=== PATIENT | female | born 1975 | race American Indian/Alaskan Native ===

== ENCOUNTER 2016-04-30 11:50 | Inpatient (IN) | payer SELFPAY ==
[2016-04-30 12:20] LABS: Basophils % (Auto) 0.9 % (0.0-1.8); Eosinophils % (Auto) 2.4 % (0.0-4.3); Hematocrit 42.4 % (30.3-42.9); Hemoglobin 13.6 gm/dl (10.1-14.3); Mean Corpuscular HGB Conc 32 % (30-34); Mean Corpuscular Hemoglobin 26 pg (28-32); Mean Corpuscular Volume 82 fl (79-97); Platelet Count 375 K/mm3 (140-440); Red Blood Count 5.15 M/mm3 (3.65-5.03); Red Cell Distribution Width 14.9 % (13.2-15.2)
--- NOTE | 2016-04-30 12:24 | Emergency Department Report ---
Chief Complaint: High BP Stated Complaint: BLURRED VISION Time Seen by Provider: 04/30/16 12:21 - HPI History of Present Illness: patient is a 40 y/o female with history of HTN who presents due to blurred vision and high blurred vision. No chest pain - ROS Review of Systems: postive blurred vision and SOB, no chest pain, no headache, no extremity weakness, no facial droop - Exam Vital Signs: Vital Signs 04/30/16 11:53 Temperature 98.1 F Pulse Rate 108 H Respiratory 22 Rate Blood Pressure 257/164 O2 Sat by Pulse 99 Oximetry Physical Exam: NAD, PATIENT IS ANXIOUS MSE screening note: Focused history and physical exam performed. Due to findings the following was ordered:STROKE PROTOCOL INITIATED, PATIENT MOVED TO ROOM 22 ED Medical Decision Making - Lab Data Result diagrams: 04/30/16 12:11 ED Disposition for MSE Condition: Stable
[2016-04-30 12:34] LABS: Partial Thromboplastin Time 27.6 Sec. (24.2-36.6)
[2016-04-30 12:42] LABS: Anion Gap 19 mmol/L; BUN/Creatinine Ratio 8.33; Blood Urea Nitrogen 10 mg/dL (7-17); Calcium 8.8 mg/dL (8.4-10.2); Carbon Dioxide 28 mmol/L (22-30); Chloride 93.9 mmol/L (98-107); Glucose 114 mg/dL (65-100); Sodium 138 mmol/L (137-145)
[2016-04-30 12:44] LABS: Potassium 2.6 mmol/L (3.6-5.0)
[2016-04-30] MEDS ORDERED: BENADRYL IV ONE (12:50)
[2016-04-30] MEDS ORDERED: APRESOLINE IV ONE (12:50)
[2016-04-30] MEDS ORDERED: NITRO-BID 2% TP ONE (12:50)
[2016-04-30] MEDS ORDERED: ZOFRAN IV ONE (12:51)
[2016-04-30] MEDS ORDERED: K-DUR PO ONE (12:51)
--- NOTE | 2016-04-30 13:02 | Emergency Department Report ---
HPI - General Chief Complaint: High BP Time Seen by Provider: 04/30/16 12:35 - HPI HPI: Room 22 The patient is a 40-year-old female presenting with a chief complaint of hypertension. The patient states that she has a history of hypertension but has been off her medication for the past 6-7 months. The patient states she's had a headache intermittently for the past 2 weeks associated with nausea and vomiting. The patient states she has intermittent chest pain with restarted this morning. Patient describes chest pressure associated with shortness of breath. Patient currently gives her chest pressure score of 3/10. The patient states she "did a line of powdered cocaine last night"during a [employer]. Location: [see above] Duration: [see above] Quality: Pressure Severity:3/10 Modifying factors: [see above] Context: [see above] Mode of transportation: [not driving] ED Past Medical Hx - Past Medical History Previous Medical History?: Yes Hx Hypertension: Yes Hx Congestive Heart Failure: Yes Additional medical history: ANGINA. ANEMIA - Surgical History Past Surgical History?: No - Family History Family history: no significant - Social History Smoking Status: Current Every Day Smoker (one cigarette daily) Substance Use Type: Alcohol (occasional), Cocaine, Non Opiate Pain, Prescribed - Medications Home Medications: Home Medications Medication Instructions Recorded Confirmed Last Taken Type Hydrochlorothiazide [HCTZ] 25 mg PO QDAY #30 tablet 04/16/15 Unknown Rx ED Review of Systems ROS: Stated complaint: BLURRED VISION Other details as noted in HPI Comment: All other systems reviewed and negative Constitutional: denies: chills, fever Eyes: vision change. denies: eye pain, eye discharge ENT: denies: ear pain, throat pain Respiratory: shortness of breath Cardiovascular: chest pain Endocrine: no symptoms reported Gastrointestinal: nausea, vomiting. denies: abdominal pain, diarrhea Genitourinary: denies: urgency, dysuria, discharge Musculoskeletal: denies: back pain, joint swelling, arthralgia Skin: denies: rash, lesions Neurological: headache Psychiatric: denies: anxiety, depression Hematological/Lymphatic: denies: easy bleeding, easy bruising Physical Exam - Physical Exam Vital Signs: Vital Signs 04/30/16 04/30/16 11:53 12:48 Temperature 98.1 F Pulse Rate 108 H 107 H Respiratory 22 22 Rate Blood Pressure 257/164 Blood Pressure 260/169 [Left] O2 Sat by Pulse 99 99 Oximetry Physical Exam: GENERAL: The patient is well-developed well-nourished male lying on stretcher not appearing to be in acute distress. [] HEENT: Normocephalic. Atraumatic. Extraocular motions are intact. Patient has moist mucous membranes. NECK: Supple. Trachea midline CHEST/LUNGS: Clear to auscultation. There is no respiratory distress noted. HEART/CARDIOVASCULAR: Regular. There is tachycardia. There is no gallop rub or murmur. ABDOMEN: Abdomen is soft, nontender. Patient has normal bowel sounds. There is no abdominal distention. SKIN: There is no rash. There is no edema. There is no diaphoresis. NEURO: The patient is awake, alert, and oriented. The patient is cooperative. The patient has no focal neurologic deficits. The patient has normal speech. Cranial nerves II through XII grossly intact, no drift MUSCULOSKELETAL: There is no evidence of acute injury. ED Course Vital Signs 04/30/16 04/30/16 11:53 12:48 Temperature 98.1 F Pulse Rate 108 H 107 H Respiratory 22 22 Rate Blood Pressure 257/164 Blood Pressure 260/169 [Left] O2 Sat by Pulse 99 99 Oximetry ED Medical Decision Making - Lab Data Result diagrams: 04/30/16 12:11 04/30/16 12:11 Laboratory Tests 04/30/16 04/30/16 04/30/16 12:11 12:11 12:11 WBC 9.0 RBC 5.15 H Hgb 13.6 Hct 42.4 MCV 82 MCH 26 L MCHC 32 RDW 14.9 Plt Count 375 Lymph % (Auto) 29.2 [place] % (Auto) 8.0 H Eos % (Auto) 2.4 Baso % (Auto) 0.9 Lymph # 2.6 [place] # 0.7 Eos # 0.2 Baso # 0.1 Seg Neutrophils % 59.5 Seg Neutrophils # 5.3 PT 13.1 INR 1.00 APTT 27.6 Thrombin Time Sodium 138 Potassium 2.6 L* Chloride 93.9 L Carbon Dioxide 28 Anion Gap 19 BUN 10 Creatinine 1.2 Estimated GFR > 60 BUN/Creatinine Ratio 8.33 Glucose 114 H Calcium 8.8 Troponin T < 0.010 04/30/16 12:11 WBC RBC Hgb Hct MCV MCH MCHC RDW Plt Count Lymph % (Auto) [place] % (Auto) Eos % (Auto) Baso % (Auto) Lymph # [place] # Eos # Baso # Seg Neutrophils % Seg Neutrophils # PT INR APTT Thrombin Time 15.5 Sodium Potassium Chloride Carbon Dioxide Anion Gap BUN Creatinine Estimated GFR BUN/Creatinine Ratio Glucose Calcium Troponin T - EKG Data -: EKG Interpreted by Me EKG shows normal: sinus rhythm Rate: tachycardia - EKG Data When compared to previous EKG there are: previous EKG unavailable Interpretation: nonspecific ST-T wave kiki (ST depressions in leads 1, 2, V5, V6. T-wave inversions in leads 1, aVL, V4, V5 and V6) - Radiology Data Radiology results: image reviewed (chest x-ray) interpreted by me: Chest x-ray-no focal infiltrates, no pneumothorax - Differential Diagnosis hypertensive urgency, ACS, Critical care attestation.: If time is entered above; I have spent that time in minutes in the direct care of this critically ill patient, excluding procedure time. ED Disposition Clinical Impression: Cocaine abuse, Chest pain, Hypertensive urgency, T wave inversion in EKG Disposition: OP ADMITTED IP TO THIS HOSP Is pt being admited?: Yes Does the pt Need Aspirin: No Condition: Fair Instructions: Chest Pain (ED) Time of Disposition: 13:34 (hospitalist paged)
--- NOTE | 2016-04-30 13:16 | Admit Criteria Form ---
Admission Criteria Documentation: HYPERTENSION Clinical Indications for Admission to Inpatient Care ( Place "X" for any and all applicable criteria): Admission is indicated for ANY ONE of the following(1)(2)(3)(4): [ ]I. Hypertensive emergency, with evidence of acute and progressing target organ disease as indicated by ANY ONE of the following: [ ]a) Hypertensive encephalopathy (eg, confusion, altered mental status) [ ]b) Cerebral infarction [ ]c) Intracranial hemorrhage [ ]d) Myocardial ischemia or infarction [ ]e) Pulmonary edema [ ]f) Aortic dissection [ ]g) Seizure [ ]h) Acute renal insufficiency [ ]i) Papilledema [ ]j) Microangiopathic hemolytic anemia [ ]II. Adrenergic crisis (eg, severe hypertension due to pheochromocytoma crisis, cocaine or amphetamine intoxication, or clonidine withdrawal) [ X]III. Severe hypertension (SBP greater than 180 mmHg or DBP greater than 110 mmHg or greater than the 95th percentile for age, gender, and height in pediatric patients) that cannot be controlled (eg, to SBP less than 160 mmHg and DBP less than 100 mmHg in adults) by treatment with oral medication in emergency department or observation care Extended stay beyond goal length of stay may be needed for(11)(12)(13): [ ]a) Persistent hypertensive encephalopathy [ ]b) Continuation of pulmonary edema [ ]c) Recurring or persistent severe hypertension [ ]d) Target organ damage (eg, angina, stroke, aortic dissection) [ ]e) Associated renal insufficiency The original [employer] content created by [employer] has been revised. The portions of the content which have been revised are identified through the use of italic text or in bold, and [facility] has neither reviewed nor approved the modified material. All other unmodified content is copyright [facility]. Please see references footnoted in the original [facility] edition 2016 Admission Criteria Met: Yes
--- NOTE | 2016-04-30 13:24 | XRay Report ---
Portable chest: The aorta is tortuous. The heart is probably normal in size. There is no vascular congestion. Lungs are clear. There are no significant changes compared to her prior study on April 16, 2015. Impression: No acute findings.
[2016-04-30] MEDS ORDERED: ATIVAN IV ONE (13:38)
[2016-04-30] MEDS ORDERED: CATAPRES PO ONE (13:38)
--- NOTE | 2016-04-30 13:59 | History and Physical Report ---
History of Present Illness Date of examination: 04/30/16 Date of admission: 04/30/16 Chief complaint: headache,chest pain,blurred vision History of present illness: Patient is 40 yo with history of hypertension, CHF. She has been non-compliant and not taken her meds in 3 months because she has no insurance. She presents with 2 day history of headache , chest pain and blurry vision. Headache, 7/10, global, throbbing. Chest pain if 6/10, midsternal, dull, not worse on exertion. No shortness of breath, no diaphoresis. In ED, initial BP 257/164. She was given hydralazine IV and is being admitted for further management. Past History Past Medical History: heart failure, hypertension, other (obesity) Past Surgical History: cholecystectomy Social history: single, smoking (occasionally), alcohol abuse (occasionally), full code, other (cocaine occasionally, used yesterday) Family history: CAD, diabetes Medications and Allergies Allergies Allergy/AdvReac Type Severity Reaction Status Date / Time iron polysaccharide complex Allergy Swelling Verified 04/16/15 09:06 [From -[place]] Home Medications Medication Instructions Recorded Confirmed Last Taken Type Hydrochlorothiazide [HCTZ] 25 mg PO QDAY #30 tablet 04/16/15 Unknown Rx Review of Systems All systems: negative (No abd pain, no vomiting, no fever, no urinary symptoms. All other systems reviewed and are negative) Exam - Physical Exam Narrative exam: Gen appearance: Not in acute distress, obese HEENT: Normocephalic, atraumatic Neck : supple, no JVD Lungs: Clear to auscultation bilaterally, no crackles or wheezes. Heart : S1 and S2 regular, no murmurs rubs or gallop, Abdomen: soft nontender, nondistended, normal bowel sounds Extremities: No edema, no clubbing or cyanosis, Neuro :awake alert oriented 3, no focal signs Psych :appropriate mood - Constitutional Vitals: Temp Pulse Resp BP Pulse Ox 98.1 F 106 H 22 234/154 99 04/30/16 11:53 04/30/16 13:15 04/30/16 12:48 04/30/16 13:15 04/30/16 12:48 Results - Labs CBC & Chem 7: 04/30/16 12:11 04/30/16 12:11 Labs: Abnormal lab results 04/30/16 04/30/16 Range/Units 12:11 12:11 RBC 5.15 H (3.65-5.03) M/mm3 MCH 26 L (28-32) pg [place] % (Auto) 8.0 H (0.0-7.3) % Potassium 2.6 L* (3.6-5.0) mmol/L Chloride 93.9 L (98-107) mmol/L Glucose 114 H (65-100) mg/dL Assessment and Plan Hypertensive emergency. Initial blood pressure 257/164. She was given hydralazine IV. Blood pressure still elevated. Will add Clonidine 0.2 mg by mouth 1, Norvasc 5 mg by mouth daily. We'll admit to telemetry if blood pressure is improved, or may admit to ICU if systolic stays greater than 200. Chronic congestive CHF. details unclear. Chest X ray clear. Not put on B le because of cocaine. To follow as outpatient. Hypokalemia. Initial potassium 2.6. Replace orally. Medical noncompliance. I discussed with her the importance of being compliant with her medications Full CODE STATUS Cocaine abuse. Patient states she had a bachelorette republican last night and used some cocaine. DVT prophylaxis. Will start Heparin subcut if CT head neg for bleed and BP improved.
[2016-04-30] MEDS ORDERED: NORVASC PO SCH (14:00)
[2016-04-30] MEDS ORDERED: ZOFRAN IV PRN (14:09)
[2016-04-30] MEDS ORDERED: DULCOLAX PR PRN (14:09)
[2016-04-30] MEDS ORDERED: MILK OF MAGNESIA PO PRN (14:09)
[2016-04-30] MEDS ORDERED: APRESOLINE IV STA (14:51)
[2016-04-30] MEDS: NITRO-BID 2% TP SCH ×2 (16:47→21:01)
--- NOTE | 2016-04-30 16:48 | Cat Scan Report ---
CT head without contrast: There is generally unremarkable intracranial cerebral anatomy. There is no hemorrhage, mass effect, focal or generalized lesions. The visualized bones are unremarkable. There is minimal patchy mucoperiosteal thickening in the ethmoid sinuses bilaterally. There also appears to be some focal soft tissue thickening in the left nasal cavity possibly related to the inferior turbinate. These findings are all unchanged compared to the patient's prior study on October 08, 2014. Impression: Normal intracranial scan. Relatively minor stable nasal and ethmoid inflammatory changes.
[2016-04-30] MEDS: K-DUR PO SCH ×2 (18:35→20:59)
[2016-04-30] MEDS: HEPARIN SUB-Q SCH (20:59)
[2016-04-30] MEDS: TYLENOL PO PRN (21:21)
[2016-04-30] MEDS: KCL 10MEQ/100ML 100 ML IV SCH (22:13)
[2016-04-30] MEDS ORDERED: TESSALON PERLES PO PRN (23:10)
[2016-05-01] MEDS: KCL 10MEQ/100ML 100 ML IV SCH (00:25)
[2016-05-01] MEDS: FLONASE NS PRN (01:09)
[2016-05-01 01:23] LABS: Urine Drugs of Abuse Note Disclamer
[2016-05-01] MEDS: APRESOLINE IV PRN ×2 (06:42→15:40)
[2016-05-01] MEDS: TYLENOL PO PRN (06:43)
[2016-05-01] MEDS: HEPARIN SUB-Q SCH ×3 (06:44→23:36)
[2016-05-01] MEDS ORDERED: SODIUM CHLORIDE FLUSH SYRINGE 10 ML IV PRN (06:45)
[2016-05-01] MEDS: NITRO-BID 2% TP SCH ×4 (06:45→18:13)
[2016-05-01 07:24] LABS: Creatine Kinase MB 2.5 ng/mL (0.0-4.0)
[2016-05-01 07:26] LABS: BUN/Creatinine Ratio 7.69; Calcium 8.5 mg/dL (8.4-10.2); Chloride 98.4 mmol/L (98-107); Potassium 3.1 mmol/L (3.6-5.0)
[2016-05-01 07:26] LABS: Creatine Kinase 155 units/L (30-135)
[2016-05-01 07:36] LABS: Basophils % (Auto) 0.5 % (0.0-1.8); Eosinophils % (Auto) 1.8 % (0.0-4.3); Hematocrit 37.4 % (30.3-42.9); Mean Corpuscular HGB Conc 32 % (30-34); Mean Corpuscular Hemoglobin 27 pg (28-32); Mean Corpuscular Volume 83 fl (79-97); Platelet Count 311 K/mm3 (140-440)
[2016-05-01] MEDS: ECOTRIN PO SCH ×2 (08:10→12:36)
[2016-05-01] MEDS: K-DUR PO SCH ×3 (08:10→23:42)
[2016-05-01] MEDS: CATAPRES PO SCH ×2 (08:10→20:58)
[2016-05-01] MEDS ORDERED: LEXISCAN IV ONE ×2 (09:08→09:17)
[2016-05-01] MEDS ORDERED: MAGNESIUM SULFATE 2GM/50ML 50 ML IV ONE (10:00)
[2016-05-01] MEDS: NORVASC PO SCH (12:36)
--- NOTE | 2016-05-01 12:43 | Nuclear Perfusion Study ---
Nuclear Nuclear Cardiology Conclusion: regadenoson myocardial perfusion with Tc-99m sestamibi imaging. Stress testing induced no symptoms and a non-diagnostic ECG response. Normal LV size. Global left ventricular systolic function was normal, with an EF of 56%. small,mild reversible anteroseptal defect. These findings are consistent with single-vessel disease. Imaging Protocol: This was a gated SPECT myocardial perfusion imaging study. A one day rest-stress imaging protocol was followed using Tc-99m sestamibi (Cardiolite) injected intravenously. Perfusion Interpretation: TID Ratio 1.11. There was a small, reversible defect in the apical septal segment(s). The extent of this perfusion defect was mild. Wall Motion Interpretation: Gated imaging under post-stress conditions demonstrated normal wall motion. The patient's calculated post stress LVEF was 56%. Study Limitations: Limitations and artifact were due to breast tissue.
--- NOTE | 2016-05-01 12:46 | Consultation ---
History of Present Illness Consult date: 05/01/16 Requesting physician: IMANI SIMPSON Consult reason: chest pain History of present illness: The patient is a 40 year old female with a history of hypertension who presented with complaints of intermittent chest pain ongoing for the past several months. She states the pain has been worse over the past several days. She describes the pain as pressure and tightness and reports that the episodes usually last for several minutes and resolve spontaneously. No exacerbating or relieving factors. She also reports intermittent shortness of breath, dyspnea on exertion, nausea and vomiting. BP on presentation was 257/164. Troponin negative x 3. Stress test today revealed mild anterosteptal ischemia. She states that she has been out of her blood pressure medication for several months and admits to snorting one line of cocaine the night before last. Past History Past Medical History: heart failure, hypertension, other (obesity) Past Surgical History: cholecystectomy Social history: single, smoking (occasionally), alcohol abuse (occasionally), full code, other (cocaine occasionally, used yesterday) Family history: CAD, diabetes Medications and Allergies Allergies Allergy/AdvReac Type Severity Reaction Status Date / Time iron polysaccharide complex Allergy Swelling Verified 04/16/15 09:06 [From [facility]] Home Medications Medication Instructions Recorded Confirmed Last Taken Type Hydrochlorothiazide [HCTZ] 25 mg PO QDAY #30 tablet 04/16/15 04/30/16 Unknown Rx Active Meds: Active Medications Acetaminophen (Tylenol) 650 mg PO Q4H PRN PRN Reason: Pain MILD(1-3)/Fever >100.5/THORNE Last Admin: 05/01/16 06:43 Dose: 650 mg Acetaminophen/Hydrocodone Bitart ([place] 5/325) 1 each PO Q6H PRN PRN Reason: Pain, Moderate (4-6) Amlodipine Besylate (Norvasc) 10 mg PO QDAY [facility] Last Admin: 05/01/16 12:36 Dose: 10 mg Aspirin (Ecotrin) 325 mg PO QDAY [facility] Last Admin: 05/01/16 12:36 Dose: 325 mg Benzonatate (Tessalon Perles) 100 mg PO Q6H PRN PRN Reason: Cough Last Admin: 05/01/16 12:36 Dose: 100 mg Bisacodyl (Dulcolax) 10 mg [place] QDAY PRN PRN Reason: Constipation unrelieved by MOM Clonidine HCl (Catapres) 0.2 mg PO Q12H [facility] Last Admin: 05/01/16 08:10 Dose: 0.2 mg Fluticasone Propionate (Flonase) 100 mcg NS BID PRN PRN Reason: Congestion Last Admin: 05/01/16 01:09 Dose: 100 mcg Heparin Sodium (Porcine) (Heparin) 5,000 unit SUB-Q Q8HR [facility] Last Admin: 05/01/16 06:44 Dose: Not Given Hydralazine HCl (Apresoline) 20 mg IV Q4H PRN PRN Reason: For SBP>170 or DBP>110 Last Admin: 05/01/16 12:37 Dose: 20 mg Magnesium Hydroxide (Milk Of Magnesia) 30 ml PO Q4H PRN PRN Reason: Constipation Nitroglycerin (Nitro-Bid 2%) 1 inch TP QIDNTG [facility] PRN Reason: Protocol Last Admin: 05/01/16 12:39 Dose: Not Given Ondansetron HCl (Zofran) 4 mg IV Q8H PRN PRN Reason: N/V unrelieved by Reglan Potassium Chloride (K-Dur) 40 meq PO Q4H [facility] Stop: 05/01/16 16:31 Last Admin: 05/01/16 12:35 Dose: 40 meq Sodium Chloride (Sodium Chloride Flush Syringe 10 Ml) 10 ml IV PRN PRN PRN Reason: LINE FLUSH Review of Systems Constitutional: no fever, no chills Ears, nose, mouth and throat: no nasal congestion, no nasal discharge, no sinus pressure Cardiovascular: chest pain, shortness of breath, dyspnea on exertion Respiratory: shortness of breath, dyspnea on exertion, no cough, no congestion, no wheezing Gastrointestinal: nausea, vomiting, no abdominal pain, no diarrhea, no constipation Genitourinary Female: no dysuria, no urgency Musculoskeletal: no neck stiffness, no neck pain, no myalgias Integumentary: no rash, no pruritis Neurological: headaches, no parathesias, no numbness, no tingling Endocrine: no cold intolerance, no heat intolerance Hematologic/Lymphatic: no easy bruising, no easy bleeding Allergic/Immunologic: no urticaria, no wheezing Physical Examination Vital Signs Temp Pulse Resp BP Pulse Ox 98.1 F 108 H 22 257/164 99 04/30/16 11:53 04/30/16 11:53 04/30/16 11:53 04/30/16 11:53 04/30/16 11:53 General appearance: no acute distress, obese HEENT: Positive: Normocephaly, Mucus Membranes Moist Neck: Positive: neck supple, trachea midline Cardiac: Positive: Reg Rate and Rhythm, S1/S2 Lungs: Positive: clear to auscultation Neuro: Positive: Grossly Intact Abdomen: Positive: Soft, Active Bowel Sounds. Negative: Tender Skin: Positive: Clear. Negative: Rash Extremities: Present: normal. Absent: edema Results 05/01/16 06:33 05/01/16 06:33 Cardiac Enzymes 05/01/16 Range/Units 06:48 CK-MB (CK-2) 2.5 (0.0-4.0) ng/mL CBC 05/01/16 Range/Units 06:33 WBC 10.0 (4.5-11.0) K/mm3 RBC 4.50 (3.65-5.03) M/mm3 Hgb 12.0 (10.1-14.3) gm/dl Hct 37.4 (30.3-42.9) % Plt Count 311 (140-440) K/mm3 Lymph # 1.6 (1.2-5.4) K/mm3 [place] # 0.9 H (0.0-0.8) K/mm3 Eos # 0.2 (0.0-0.4) K/mm3 Baso # 0.1 (0.0-0.1) K/mm3 Comprehensive Metabolic Panel 04/30/16 05/01/16 Range/Units 18:58 06:33 Sodium 137 (137-145) mmol/L Potassium 2.8 L* 3.1 L (3.6-5.0) mmol/L Chloride 98.4 (98-107) mmol/L Carbon Dioxide 24 (22-30) mmol/L BUN 10 (7-17) mg/dL Creatinine 1.3 H (0.7-1.2) mg/dL Glucose 110 H (65-100) mg/dL Calcium 8.5 (8.4-10.2) mg/dL - Imaging and Cardiology Echo: pending EKG: image reviewed EKG interpretations - Telemetry EKG Rhythm: Sinus Rhythm - EKG Sinus rhythms and dysrhythmias: sinus rhythm Chamber hypertrophy or enlargement: left atrial enlargement, left ventricular hypertro Assessment and Plan Atypical chest pain possibly due to markedly elevated BP troponin negative x 3 no acute EKG changes await echo findings Abnormal stress test-->mild anteroseptal ischemia LHC in am for definitive diagnosis Accelerated hypertension BP improved continue norvasc/clonidine Hypokalemia Tobacco abuse Cocaine abuse Will proceed with left heart cath in am for definitive diagnosis. Risks, benefits and alternatives were discussed with the patient and she agrees to proceed. The patient has been seen in conjunction with Dr. Edwards who agrees with the assessment and plan of care. Thank you Dr. Simpson for allowing us to participate in the care of this patient.
[2016-05-01] MEDS ORDERED: NACL 0.9% 500 ML 500 ML IV SCH (13:00)
--- NOTE | 2016-05-01 13:00 | Progress Note ---
Assessment and Plan Assessment and plan: Hypertensive emergency. Initial blood pressure 257/164. She was given hydralazine IV, Clonidine 0.2 mg by mouth 1. Now on Norvasc 10 mg by mouth daily and Clonidine. BP improving Chest pain with abnormal stress test. For cardiac cath tomorrow. Discussed with Dr. Edwards, Cardiology. Chronic congestive CHF. details unclear. Chest X ray clear. Not put on B le because of cocaine. Echo done, report pending. Hypokalemia. Initial potassium 2.6, now 3.1. Continue to replace orally. Hypomagnesemia. replace iv Medical noncompliance. I discussed with her the importance of being compliant with her medications Full CODE STATUS Cocaine abuse. Patient states she had a bachelorette libertarian 2 nights ago and used some cocaine. DVT prophylaxis with Heparin subcut. History Interval history: less cheat pain, less headache, abnormal stress test Hospitalist Physical - Physical exam Narrative exam: Gen appearance: Not in acute distress, obese HEENT: Normocephalic, atraumatic Neck : supple, no JVD Lungs: Clear to auscultation bilaterally, no crackles or wheezes. Heart : S1 and S2 regular, no murmurs rubs or gallop, Abdomen: soft nontender, nondistended, normal bowel sounds Extremities: No edema, no clubbing or cyanosis, Neuro :awake alert oriented 3, no focal signs Psych :appropriate mood - Constitutional Vitals: Temp Pulse Resp BP Pulse Ox 97.8 F 94 H 20 154/110 97 05/01/16 12:16 05/01/16 12:16 05/01/16 12:16 05/01/16 12:16 05/01/16 12:16 Results - Labs CBC & Chem 7: 05/01/16 06:33 05/01/16 06:33 Labs: Laboratory Last Values WBC 10.0 K/mm3 (4.5-11.0) 05/01/16 06:33 RBC 4.50 M/mm3 (3.65-5.03) 05/01/16 06:33 Hgb 12.0 gm/dl (10.1-14.3) 05/01/16 06:33 Hct 37.4 % (30.3-42.9) 05/01/16 06:33 MCV 83 fl (79-97) 05/01/16 06:33 MCH 27 pg (28-32) L 05/01/16 06:33 MCHC 32 % (30-34) 05/01/16 06:33 RDW 15.0 % (13.2-15.2) 05/01/16 06:33 Plt Count 311 K/mm3 (140-440) 05/01/16 06:33 Lymph % (Auto) 16.0 % (13.4-35.0) 05/01/16 06:33 [place] % (Auto) 8.9 % (0.0-7.3) H 05/01/16 06:33 Eos % (Auto) 1.8 % (0.0-4.3) 05/01/16 06:33 Baso % (Auto) 0.5 % (0.0-1.8) 05/01/16 06:33 Lymph # 1.6 K/mm3 (1.2-5.4) 05/01/16 06:33 [place] # 0.9 K/mm3 (0.0-0.8) H 05/01/16 06:33 Eos # 0.2 K/mm3 (0.0-0.4) 05/01/16 06:33 Baso # 0.1 K/mm3 (0.0-0.1) 05/01/16 06:33 Seg Neutrophils % 72.8 % (40.0-70.0) H 05/01/16 06:33 Seg Neutrophils # 7.3 K/mm3 (1.8-7.7) 05/01/16 06:33 PT 13.1 Sec. (12.2-14.9) 04/30/16 12:11 INR 1.00 (0.87-1.13) 04/30/16 12:11 APTT 27.6 Sec. (24.2-36.6) 04/30/16 12:11 Thrombin Time 15.5 Sec. (15.1-19.6) 04/30/16 12:11 Sodium 137 mmol/L (137-145) 05/01/16 06:33 Potassium 3.1 mmol/L (3.6-5.0) L 05/01/16 06:33 Chloride 98.4 mmol/L (98-107) 05/01/16 06:33 Carbon Dioxide 24 mmol/L (22-30) 05/01/16 06:33 Anion Gap 18 mmol/L 05/01/16 06:33 BUN 10 mg/dL (7-17) 05/01/16 06:33 Creatinine 1.3 mg/dL (0.7-1.2) H 05/01/16 06:33 Estimated GFR 55 ml/min 05/01/16 06:33 BUN/Creatinine Ratio 7.69 % 05/01/16 06:33 Glucose 110 mg/dL (65-100) H 05/01/16 06:33 POC Glucose 93 (70-105) 04/30/16 17:24 Calcium 8.5 mg/dL (8.4-10.2) 05/01/16 06:33 Magnesium 1.6 mg/dL (1.7-2.3) L 05/01/16 06:48 Total Creatine Kinase 155 units/L (30-135) H 05/01/16 06:48 CK-MB (CK-2) 2.5 ng/mL (0.0-4.0) 05/01/16 06:48 CK-MB (CK-2) Rel Index 1.6 (0-4) 05/01/16 06:48 Troponin T < 0.010 ng/mL (0.00-0.029) 05/01/16 06:48 HCG, Qual Negative (Negative) 05/01/16 06:48 Urine Opiates Screen Presumptive negative 05/01/16 01:00 Urine Methadone Screen Presumptive negative 05/01/16 01:00 Ur Barbiturates Screen Presumptive negative 05/01/16 01:00 Ur Phencyclidine Scrn Presumptive negative 05/01/16 01:00 Ur Amphetamines Screen Presumptive negative 05/01/16 01:00 U Benzodiazepines Scrn Presumptive negative 05/01/16 01:00 Urine Cocaine Screen Presumptive positive 05/01/16 01:00 U Marijuana (THC) Screen Presumptive negative 05/01/16 01:00 Drugs of Abuse Note Disclamer 05/01/16 01:00
--- NOTE | 2016-05-01 15:56 | Echocardiography Report ---
Transthoracic Echocardiogram Indication: CHF BP: 180/103 HR: 81 Conclusions *Moderate to severe concentric left ventricular hypertrophy is observed. *The estimated ejection fraction is 70-75%. *There is grade 1 lv diastolic dysfunction *The left atrium is normal *The rv and ra appear normal but were not well seen *There is no evidence of aortic regurgitation. *There is no evidence of aortic stenosis. *There is trace of mitral regurgitation. *There is no evidence of mitral stenosis. *There is trace tricuspid regurgitation. *There is no pericardial effusion. *The aortic root appears normal *The ivc appears to be of normal diameter but demonstrates minimal change with respiration. mean ra pressure is estimated to be 8 mmHg Findings Procedure Info: The study quality is fair. The study is technically limited due to the patient's smoking history. Left Ventricle: The left ventricular chamber size is normal. Moderate to severe concentric left ventricular hypertrophy is observed. Global left ventriclar systolic function appears hyperdynamic. The estimated ejection fraction is 70-75%. Aortic Valve: The aortic valve is not well visualized. There is mild thickening of the right coronary cusp. There is no evidence of aortic regurgitation. There is no evidence of aortic stenosis. Mitral Valve: There is trace of mitral regurgitation. There is no evidence of mitral stenosis. Tricuspid Valve: The tricuspid valve is not well visualized. There is trace tricuspid regurgitation. There is no tricuspid stenosis. Pulmonic Valve: The pulmonic valve is not well visualized. There is no evidence of pulmonic regurgitation. There is no pulmonic stenosis. Pericardium: There is no pericardial effusion. Measurements Chambers 2D Name Value Normal Range IVSd (2D) 1.65 cm (0.6 - 1.1) LVPWd 2 cm - LVPWd (2D) 2 cm (0.6 - 1.1) IVS:LVPW ratio (2D) 0.82 ratio - LVIDd 3.8 cm - LVIDs 2.1 cm - LVIDd (2D) 3.83 cm (3.7 - 5.6) LVIDs (2D) 2.05 cm (2 - 3.8) LV FS (Teichholz) (2D) 46.5 % - LV FS (cube) (2D) 46.5 % - LV EF (2D) 78 % - EF Teichholz (2D) 78.4 % - LA dimension 3.6 cm - Ao root diameter (2D) 2.8 cm (2 - 3.7) LA dimension (AP) 2D 3.6 cm (1.9 - 4) LA:Ao ratio (2D) 1.29 ratio - Volumes/Mass Name Value Normal Range LA ESV SP 4CH (MOD) 46 ml - LV EDV SP 4CH (MOD) 45 ml - LV ESV SP 4CH (MOD) 17 ml - EF SP 4CH (MOD) 63 % - Diastolic/Systolic Function Name Value Normal Range MV E-wave Vmax 0.92 m/sec - MV deceleration time 254 msec - MV A-wave Vmax 0.89 m/sec - MV E:A ratio 1 ratio - LV septal e' Vmax 0.05 m/sec - LV lateral e' Vmax 0.05 m/sec - LV E:e' septal ratio 16.8 ratio - LV E:e' lateral ratio 17.1 ratio - Aortic Valve Name Value Normal Range AV Vmax 1.76 m/sec - AV VTI 33.3 cm - AV peak gradient 12 mmHg - AV mean gradient 7 mmHg - LVOT diameter 2 cm - LVOT Vmax 1.03 m/sec - LVOT peak gradient 4 mmHg - SUBHASH (continuity Vmax) 1.84 cm2 - Pulmonic Valve/Qp:Qs Name Value Normal Range PV Vmax 0.88 m/sec - PV peak gradient 3 mmHg - PV acceleration time 127 msec -
[2016-05-01] MEDS ORDERED: NACL 0.9% 500 ML 1,000 ML IV SCH (18:00)
[2016-05-02] MEDS: FLONASE NS PRN (02:10)
[2016-05-02] MEDS ORDERED: XANAX PO PRN (14:19)
--- NOTE | 2016-05-02 14:22 | Progress Note ---
Assessment and Plan Atypical chest pain possibly due to markedly elevated BP troponin negative x 3 no acute EKG changes Echo 04/2016: mod-severe LVH, EF 70% Abnormal stress test-->mild anteroseptal ischemia unable to complete LHC due to inability to lie flat-->reschedule for tomorrow am Accelerated hypertension BP improved continue norvasc/clonidine Hypokalemia Tobacco abuse Cocaine abuse Left heart cath rescheduled for tomorrow due to pt.'s inability to lie flat this morning. Further recommendations to follow. The patient has been seen in conjunction with Dr. Edwards who agrees with the assessment and plan of care. Subjective Date of service: 05/02/16 Principal diagnosis: chest pain, abnormal stress test Interval history: Patient unable to lie flat for cardiac cath this morning. She continue to s/o intermittent chest pain. Sinus rhythm on the monitor. Objective Last Vital Signs Temp 97.9 F 05/02/16 00:19 Pulse 99 H 05/02/16 00:19 Resp 20 05/02/16 00:19 BP 124/72 05/02/16 00:19 Pulse Ox 99 05/02/16 00:19 - Physical Examination General: No Apparent Distress HEENT: Positive: Normocephaly, Mucus Membranes Moist Neck: Positive: neck supple, trachea midline Cardiac: Positive: Reg Rate and Rhythm, S1/S2 Lungs: Positive: clear to auscultation Neuro: Positive: Grossly Intact Abdomen: Positive: Soft, Active Bowel Sounds. Negative: Tender Skin: Positive: Clear. Negative: Rash Extremities: Present: normal. Absent: edema - Labs and Meds Comprehensive Metabolic Panel 05/01/16 Range/Units 19:13 Potassium 3.6 (3.6-5.0) mmol/L - Imaging and Cardiology EKG: image reviewed Echo: report reviewed (04/2016: mod-severe LVH, EF 70%) - Telemetry EKG Rhythm: Sinus Rhythm - EKG Sinus rhythms and dysrhythmias: sinus rhythm Chamber hypertrophy or enlargement: left atrial enlargement, left ventricular hypertro
--- NOTE | 2016-05-02 14:38 | Progress Note ---
Assessment and Plan Assessment and plan: Hypertensive emergency. Initial blood pressure 257/164. Blood pressure now stable on clonidine Norvasc and Nitropaste . Chest pain with abnormal stress test. Cardiac cath was scheduled today but was canceled because she was unable to lie flat. This has been postponed for tomorrow. Chronic diastolic congestive CHF. Not given beta blockers because of cocaine use Hypokalemia. Initial potassium 2.6, now 3.4. Continue to replace potassium orally. Hypomagnesemia. replace iv Medical noncompliance. I discussed with her the importance of being compliant with her medications Full CODE STATUS Cocaine abuse. Patient states she had a bachelorette democrat few nights ago and used some cocaine. DVT prophylaxis with Heparin subcut. History Interval history: less cheat pain, less headache, abnormal stress test, Patient unable to do cardiac cath today because she cannot lie down flat Hospitalist Physical - Physical exam Narrative exam: Gen appearance: Not in acute distress, obese HEENT: Normocephalic, atraumatic Neck : supple, no JVD Lungs: Clear to auscultation bilaterally, no crackles or wheezes. Heart : S1 and S2 regular, no murmurs rubs or gallop, Abdomen: soft nontender, nondistended, normal bowel sounds Extremities: No edema, no clubbing or cyanosis, Neuro :awake alert oriented 3, no focal signs Psych :appropriate mood - Constitutional Vitals: Temp Pulse Resp BP Pulse Ox 97.9 F 99 H 20 124/72 99 05/02/16 00:19 05/02/16 00:19 05/02/16 00:19 05/02/16 00:19 05/02/16 00:19 General appearance: Present: no acute distress, obese Results - Labs CBC & Chem 7: 05/02/16 04:00 05/02/16 04:00 Labs: Laboratory Last Values WBC 10.0 K/mm3 (4.5-11.0) 05/01/16 06:33 RBC 4.50 M/mm3 (3.65-5.03) 05/01/16 06:33 Hgb 12.0 gm/dl (10.1-14.3) 05/01/16 06:33 Hct 37.4 % (30.3-42.9) 05/01/16 06:33 MCV 83 fl (79-97) 05/01/16 06:33 MCH 27 pg (28-32) L 05/01/16 06:33 MCHC 32 % (30-34) 05/01/16 06:33 RDW 15.0 % (13.2-15.2) 05/01/16 06:33 Plt Count 311 K/mm3 (140-440) 05/01/16 06:33 Lymph % (Auto) 16.0 % (13.4-35.0) 05/01/16 06:33 Emmons % (Auto) 8.9 % (0.0-7.3) H 05/01/16 06:33 Eos % (Auto) 1.8 % (0.0-4.3) 05/01/16 06:33 Baso % (Auto) 0.5 % (0.0-1.8) 05/01/16 06:33 Lymph # 1.6 K/mm3 (1.2-5.4) 05/01/16 06:33 Emmons # 0.9 K/mm3 (0.0-0.8) H 05/01/16 06:33 Eos # 0.2 K/mm3 (0.0-0.4) 05/01/16 06:33 Baso # 0.1 K/mm3 (0.0-0.1) 05/01/16 06:33 Seg Neutrophils % 72.8 % (40.0-70.0) H 05/01/16 06:33 Seg Neutrophils # 7.3 K/mm3 (1.8-7.7) 05/01/16 06:33 PT 13.1 Sec. (12.2-14.9) 04/30/16 12:11 INR 1.00 (0.87-1.13) 04/30/16 12:11 APTT 27.6 Sec. (24.2-36.6) 04/30/16 12:11 Thrombin Time 15.5 Sec. (15.1-19.6) 04/30/16 12:11 Sodium 137 mmol/L (137-145) 05/01/16 06:33 Potassium 3.6 mmol/L (3.6-5.0) 05/01/16 19:13 Chloride 98.4 mmol/L (98-107) 05/01/16 06:33 Carbon Dioxide 24 mmol/L (22-30) 05/01/16 06:33 Anion Gap 18 mmol/L 05/01/16 06:33 BUN 10 mg/dL (7-17) 05/01/16 06:33 Creatinine 1.3 mg/dL (0.7-1.2) H 05/01/16 06:33 Estimated GFR 55 ml/min 05/01/16 06:33 BUN/Creatinine Ratio 7.69 % 05/01/16 06:33 Glucose 110 mg/dL (65-100) H 05/01/16 06:33 POC Glucose 93 (70-105) 04/30/16 17:24 Calcium 8.5 mg/dL (8.4-10.2) 05/01/16 06:33 Magnesium 1.6 mg/dL (1.7-2.3) L 05/01/16 06:48 Total Creatine Kinase 155 units/L (30-135) H 05/01/16 06:48 CK-MB (CK-2) 2.5 ng/mL (0.0-4.0) 05/01/16 06:48 CK-MB (CK-2) Rel Index 1.6 (0-4) 05/01/16 06:48 Troponin T < 0.010 ng/mL (0.00-0.029) 05/01/16 06:48 HCG, Qual Negative (Negative) 05/01/16 06:48 Urine Opiates Screen Presumptive negative 05/01/16 01:00 Urine Methadone Screen Presumptive negative 05/01/16 01:00 Ur Barbiturates Screen Presumptive negative 05/01/16 01:00 Ur Phencyclidine Scrn Presumptive negative 05/01/16 01:00 Ur Amphetamines Screen Presumptive negative 05/01/16 01:00 U Benzodiazepines Scrn Presumptive negative 05/01/16 01:00 Urine Cocaine Screen Presumptive positive 05/01/16 01:00 U Marijuana (THC) Screen Presumptive negative 05/01/16 01:00 Drugs of Abuse Note Disclamer 05/01/16 01:00
[2016-05-02 14:50] LABS: BUN/Creatinine Ratio 12.3; Basophils % (Auto) 0.5 % (0.0-1.8); Calcium 8.2 mg/dL (8.4-10.2); Chloride 104.6 mmol/L (98-107); Eosinophils % (Auto) 3.7 % (0.0-4.3); Hematocrit 36.4 % (30.3-42.9); Hemoglobin 11.5 gm/dl (10.1-14.3); Mean Corpuscular HGB Conc 32 % (30-34); Mean Corpuscular Hemoglobin 27 pg (28-32); Mean Corpuscular Volume 84 fl (79-97); Platelet Count 294 K/mm3 (140-440); Potassium 3.4 mmol/L (3.6-5.0); Red Blood Count 4.33 M/mm3 (3.65-5.03); Red Cell Distribution Width 15.1 % (13.2-15.2); White Blood Count 9.6 K/mm3 (4.5-11.0)
[2016-05-02] MEDS: HEPARIN SUB-Q SCH ×2 (15:45→22:39)
[2016-05-02] MEDS: CATAPRES PO SCH ×2 (15:45→22:59)
[2016-05-02] MEDS: NITRO-BID 2% TP SCH ×2 (15:45→18:08)
[2016-05-02] MEDS: ECOTRIN PO SCH (15:46)
[2016-05-02] MEDS: NORVASC PO SCH (15:46)
[2016-05-02 16:29] LABS: INR 1.06 (0.87-1.13); Partial Thromboplastin Time 30.7 Sec. (24.2-36.6)
[2016-05-02] MEDS ORDERED: MAGNESIUM SULFATE IV ONE (20:46)
[2016-05-02] MEDS ORDERED: MAGNESIUM SULFATE 2GM/50ML 2 GM/50 ML BAG IV SCH (22:00)
[2016-05-02] MEDS: K-DUR PO SCH (22:32)
[2016-05-03] MEDS: K-DUR PO SCH (01:04)
[2016-05-03] MEDS: NORCO 5/325 PO PRN ×2 (02:27→10:29)
[2016-05-03 05:58] LABS: Alanine Aminotransferase 11 units/L (7-56); Albumin 3.3 g/dL (3.9-5); Albumin/Globulin Ratio 1.1 %; Alkaline Phosphatase 70 units/L (35-129); Anion Gap 17 mmol/L; BUN/Creatinine Ratio 13.84; Bilirubin,Total < 0.2 mg/dL (0.1-1.2); Blood Urea Nitrogen 18 mg/dL (7-17); Calcium 8.2 mg/dL (8.4-10.2); Carbon Dioxide 24 mmol/L (22-30); Chloride 102.8 mmol/L (98-107); Glucose 126 mg/dL (65-100); Magnesium 2.1 mg/dL (1.7-2.3); Potassium 3.7 mmol/L (3.6-5.0); Sodium 140 mmol/L (137-145); Total Protein 6.4 g/dL (6.3-8.2)
[2016-05-03] MEDS: NITRO-BID 2% TP SCH ×3 (06:27→13:58)
[2016-05-03] MEDS: HEPARIN SUB-Q SCH ×2 (06:27→13:58)
[2016-05-03] MEDS: ECOTRIN PO SCH (07:15)
[2016-05-03] MEDS ORDERED: HEPARIN/NS 5000 UNIT/500ML(CATH LAB) 1,000 ML IR ONE (07:20)
[2016-05-03] MEDS ORDERED: VERSED ONE (07:21)
[2016-05-03] MEDS ORDERED: CALAN ONE (07:21)
[2016-05-03] MEDS ORDERED: NITROGLYCERIN SYRINGE 0 ML ONE (07:21)
[2016-05-03] MEDS ORDERED: HEPARIN 10,000 UNITS/10 ML ONE (07:21)
[2016-05-03] MEDS ORDERED: XYLOCAINE 2% INFILTRATI ONE (07:21)
[2016-05-03] MEDS ORDERED: SUBLIMAZE ONE (07:21)
[2016-05-03] MEDS ORDERED: NACL 0.9% 250ML 250 ML ONE (07:24)
[2016-05-03] MEDS ORDERED: APRESOLINE ONE (07:54)
--- NOTE | 2016-05-03 09:42 | Progress Note ---
Assessment and Plan Atypical chest pain possibly due to markedly elevated BP troponin negative x 3 no acute EKG changes Echo 04/2016: mod-severe LVH, EF 70% Abnormal stress test-->mild anteroseptal ischemia LHC today: normal coronaries Accelerated hypertension BP improved continue norvasc/clonidine okay to use beta blockers Hypokalemia Tobacco abuse Cocaine abuse Left heart cath this morning revealed normal coronaries. Recommend aggressive BP control. Stable cardiac status. The patient has been seen in conjunction with Dr. Edwards who agrees with the assessment and plan of care. Subjective Date of service: 05/03/16 Principal diagnosis: chest pain, abnormal stress test Interval history: The patient is resting in bed. Sinus rhythm on the monitor. Objective Last Vital Signs Temp 97.6 F 05/03/16 08:00 Pulse 84 05/03/16 10:35 Resp 18 05/03/16 08:00 BP 167/98 05/03/16 08:00 Pulse Ox 97 05/03/16 08:41 - Physical Examination General: No Apparent Distress HEENT: Positive: Normocephaly, Mucus Membranes Moist Neck: Positive: neck supple, trachea midline Cardiac: Positive: Reg Rate and Rhythm, S1/S2 Lungs: Positive: clear to auscultation Neuro: Positive: Grossly Intact Abdomen: Positive: Soft, Active Bowel Sounds. Negative: Tender Skin: Positive: Clear. Negative: Rash Extremities: Present: normal. Absent: edema - Labs and Meds Cardiac Enzymes 05/03/16 Range/Units 04:42 AST 17 (5-40) units/L Coagulation 05/02/16 05/03/16 Range/Units 04:00 04:42 PT 13.7 13.1 (12.2-14.9) Sec. INR 1.06 1.00 (0.87-1.13) APTT 30.7 (24.2-36.6) Sec. CBC 05/02/16 Range/Units 04:00 WBC 9.6 (4.5-11.0) K/mm3 RBC 4.33 (3.65-5.03) M/mm3 Hgb 11.5 (10.1-14.3) gm/dl Hct 36.4 (30.3-42.9) % Plt Count 294 (140-440) K/mm3 Lymph # 2.6 (1.2-5.4) K/mm3 Price # 0.7 (0.0-0.8) K/mm3 Eos # 0.4 (0.0-0.4) K/mm3 Baso # 0.0 (0.0-0.1) K/mm3 Comprehensive Metabolic Panel 05/02/16 05/03/16 Range/Units 04:00 04:42 Sodium 140 140 (137-145) mmol/L Potassium 3.4 L 3.7 (3.6-5.0) mmol/L Chloride 104.6 102.8 (98-107) mmol/L Carbon Dioxide 25 24 (22-30) mmol/L BUN 16 18 H (7-17) mg/dL Creatinine 1.3 H 1.3 H (0.7-1.2) mg/dL Glucose 132 H 126 H (65-100) mg/dL Calcium 8.2 L 8.2 L (8.4-10.2) mg/dL AST 17 (5-40) units/L ALT 11 (7-56) units/L Alkaline Phosphatase 70 (35-129) units/L Total Protein 6.4 (6.3-8.2) g/dL Albumin 3.3 L (3.9-5) g/dL - Imaging and Cardiology EKG: image reviewed Echo: report reviewed (04/2016: mod-severe LVH, EF 70%) - Telemetry EKG Rhythm: Sinus Rhythm - EKG Sinus rhythms and dysrhythmias: sinus rhythm Chamber hypertrophy or enlargement: left atrial enlargement, left ventricular hypertro
--- NOTE | 2016-05-03 10:02 | Cardiac Catherization Report ---
CARDIAC CATHETERIZATION INDICATION: The patient is a 40-year-old female with history of hypertension admitted with chest pain, subsequently underwent nuclear pharmacological stress testing, which showed evidence of anteroseptal reversible ischemia. Hence, cardiac catheterization was scheduled yesterday. However, she was not able to lie down flat and she has some nasal congestion. Subsequently, brought back to the catheterization laboratory today for diagnostic cardiac catheterization. The patient is aware of the procedure, potential complications, and the alternatives of therapy available. DESCRIPTION OF PROCEDURE: The patient was brought to the catheterization laboratory in a fasting condition. Right wrist area and forearm thoroughly cleansed with Betadine solution. Sterile drapes were applied. Local anesthesia was achieved using 2% Xylocaine. Right radial artery puncture was made using 21-gauge arterial puncture needle. Subsequently, a 5-Ecuadorean sheath was introduced. The patient received 5 mg of intra-arterial verapamil and 3000 units of intravenous heparin. Subsequently, angiograms of the left coronary artery, right coronary artery, and left ventriculogram done in [place] projection using hand injection was performed using 5-Ecuadorean multipurpose catheter. At the end of the procedure, catheter and sheath were removed. The patient's systolic and diastolic blood pressure was significantly elevated at the beginning of the procedure and patient received 20 mg of IV hydralazine for control of blood pressure. The patient was in sinus rhythm. Following findings were noted. FINDINGS 1. Hemodynamics: Opening aortic pressure 170/94, left ventricular pressure 185/39. No gradient across the aortic valve. Estimated ejection fraction 65% or more. 2. Left ventriculogram done in [place] projection showed normal sized left ventricle with excellent contractility. End diastolic and systolic volumes are normal. 3. Right coronary artery dominant vessel arises normally from right coronary cusp, angiographically smooth and normal. 4. Left coronary artery arises normally from left coronary cusp. Left main is very short, immediately dividing the LAD and circumflex artery, LAD curves around the apex. LAD and its branches, circumflex artery and its branches are angiographically smooth and normal. FINAL IMPRESSION: 1. Normal sized left ventricle with excellent contractility with markedly elevated end diastolic pressure. 2. Essentially normal coronary anatomy with RCA being the dominant vessel. At this time, the patient does not have any significant coronary artery disease. The patient does have markedly elevated systolic and diastolic blood pressure and elevated end diastolic blood pressure. Her chest pain and abnormal nuclear imaging may be secondary to her underlying uncontrolled hypertension. We would recommend continued risk factor modification and medical therapy. JOB# [id number] TAMY/STEFF
[2016-05-03] MEDS: NORVASC PO SCH (10:29)
[2016-05-03] MEDS: CATAPRES PO SCH (10:29)
--- NOTE | 2016-05-03 10:38 | Discharge Summary ---
Providers - Providers Date of Admission: 04/30/16 14:44 Date of discharge: 05/03/16 Attending physician: IMANI SIMPSON 05/01/16 Consult to Cardiac Rehabilitation [CONS] Routine Reason For Exam: Phase I 05/01/16 13:01 Consult to Physician [CONS] Routine Consulting Provider: CAYETANO STEWARD Reason For Exam: chest pain,abnormal stress test Place consult to:: Dr. steward Notified:: Jason RN Comment:: Maricruz Rubio is aware of consult Primary care physician: DISTRIBUTION ENGINEERING TECHNOLOGIST Hospitalization Condition: Good Hospital course: Patient is 40 yo with hypertension, chronic CHF, medical non-compliance. She presented with chest pain, headache and blurry vision. In Emergency Department, her BP was 257/164. She was given Hydralazine iv, then Clonidine po, and BP improved. Initial Troponin was normal. She was also given Aspirin, multiple anti -hypertensives then admitted to Telemetry. Cardiology was consulted and stress test done was abnormal, therefore cardiac cath was done and thiws showed normal coronary arteries. Her BP normalized on Amlodipine, Coreg amd Clonidine. She was subsequently discharged home on 05/03/16. Chest pain due to GERD. Total time spent on discharge, 35 mins. Disposition: DISCHARGED TO HOME OR SELFCARE - Discharge Diagnoses (1) Hypertensive urgency Status: Acute (2) Chest pain Status: Acute Qualifiers: Chest pain type: C Comment: due to GERD (3) Cocaine abuse Status: Acute (4) Chronic diastolic CHF (congestive heart failure) Status: Chronic (5) GERD (gastroesophageal reflux disease) Status: Acute Qualifiers: Esophagitis presence: E Core Measure Documentation - Palliative Care Palliative Care/ Comfort Measures: Not Applicable - Core Measures Any of the following diagnoses?: heart failure - Heart Failure Discharge Requirements HILDA/ARB for LVSD if EF <40%: Not Applicable Beta le at discharge: Yes Exam - Physical Exam Narrative exam: Gen appearance: Not in acute distress, obese HEENT: Normocephalic, atraumatic Neck : supple, no JVD Lungs: Clear to auscultation bilaterally, no crackles or wheezes. Heart : S1 and S2 regular, no murmurs rubs or gallop, Abdomen: soft nontender, nondistended, normal bowel sounds Extremities: No edema, no clubbing or cyanosis, Neuro :awake alert oriented 3, no focal signs Psych :appropriate mood - Constitutional Vitals: Temp Pulse Resp BP Pulse Ox 97.6 F 84 18 167/98 97 05/03/16 08:00 05/03/16 10:35 05/03/16 08:00 05/03/16 08:00 05/03/16 08:41 Plan Activity: advance as tolerated Diet: low fat, low cholesterol, low salt Additional Instructions: 1.Follow-up with primary care physician at [facility] on 05/22/2016. 2.Follow-up with endoscopy specialty technician Dr. Jaimes in one week Follow up with: [facility] [Outside] - 05/22/16 9:30 am PRIMARY CARE, [Primary Care Provider] - 3-5 Days Forms: CardCat PCI D/C Instructions, Discharge Signature Page Prescriptions: amLODIPine [Norvasc] 10 mg PO DAILY #30 tab Carvedilol [Coreg] 6.25 mg PO BID #60 tablet cloNIDine [Catapres] 0.2 mg PO Q12H #60 tablet Famotidine [Pepcid] 20 mg PO BID #60 tablet
[2016-05-03 12:42] VITALS: BP 146/80
== END 2016-05-03 17:14 | disposition home or self-care (01) | DRG 287 ==
LOC: ED 11:50 → 4A 14:44
PROVIDERS: ADMIT Internal Medicine; ATTEND Internal Medicine
PROC: B2111ZZ Fluoroscopy of Multiple Coronary Arteries using Low Osmolar Contrast (ICD-10-PCS; principal; 2016-05-03)
PROC: B2151ZZ Fluoroscopy of Left Heart using Low Osmolar Contrast (ICD-10-PCS; 2016-05-03)
PROC: 4A023N7 Measurement of Cardiac Sampling and Pressure, Left Heart, Percutaneous Approach (ICD-10-PCS; 2016-05-03)
DX: I16.1 Hypertensive emergency (principal); Z68.45 Body mass index [BMI] 70 or greater, adult; I50.32 Chronic diastolic (congestive) heart failure; I25.10 Atherosclerotic heart disease of native coronary artery without angina pectoris; F14.10 Cocaine abuse, uncomplicated; E87.6 Hypokalemia; I11.0 Hypertensive heart disease with heart failure; F17.210 Nicotine dependence, cigarettes, uncomplicated; Z91.19 Patient's noncompliance with other medical treatment and regimen; E66.9 Obesity, unspecified; Z90.49 Acquired absence of other specified parts of digestive tract; F10.10 Alcohol abuse, uncomplicated; Z82.49 Family history of ischemic heart disease and other diseases of the circulatory system; Z83.3 Family history of diabetes mellitus; Z88.8 Allergy status to other drugs, medicaments and biological substances
CPT/HCPCS: 36415; 70450; 71010; 78452; 80048; 80053; 80307; 82550; 82553; 82962; 83735; 84132; 84484; 84703; 85025; 85610; 85670; 85730; 93005; 93010; 93017; 93306; 93458; 96374; 96375; A9502; C1894; J0360; J1200; J1644; J2060; J2250; J2405; J2785; J3010; J3475; J3480; J7040; J7050; Q9967

== ENCOUNTER 2017-11-26 03:05 | Inpatient (IN) | payer OTHER ==
[2017-11-26] MEDS ORDERED: CARDENE 50 MG in NACL 0.9% 250ML 230 ML IV SCH (04:00)
[2017-11-26 04:08] LABS: Basophils # (Auto) 0.1 K/mm3 (0.0-0.1); Basophils % (Auto) 0.8 % (0.0-1.8); Eosinophils # (Auto) 0.1 K/mm3 (0.0-0.4); Eosinophils % (Auto) 1.2 % (0.0-4.3); Hematocrit 33.9 % (30.3-42.9); Lymphocytes # (Auto) 1.7 K/mm3 (1.2-5.4); Lymphocytes % (Auto) 18.9 % (13.4-35.0); Mean Corpuscular HGB Conc 32 % (30-34); Mean Corpuscular Hemoglobin 26 pg (28-32); Mean Corpuscular Volume 80 fl (79-97); Monocytes # (Auto) 0.5 K/mm3 (0.0-0.8); Monocytes % (Auto) 5.4 % (0.0-7.3); Platelet Count 271 K/mm3 (140-440); Red Blood Count 4.22 M/mm3 (3.65-5.03); Red Cell Distribution Width 15.8 % (13.2-15.2)
[2017-11-26] MEDS ORDERED: ATIVAN ONE (04:33)
--- NOTE | 2017-11-26 06:23 | XRay Report ---
FINAL REPORT EXAM: XR CHEST 1V AP HISTORY: sob, cp, htn TECHNIQUE: AP portable view(s) of the chest obtained. PRIORS: None. FINDINGS: No mediastinal shift. Borderline cardiomegaly. No pneumothorax, definite effusion or focal airspace disease. Ill-defined bibasilar opacities and interstitial prominence. IMPRESSION: Suggested mild cardiomegaly and pulmonary interstitial edema. Consider follow-up echocardiogram.
--- NOTE | 2017-11-26 07:15 | History and Physical Report ---
CHIEF COMPLAINT: 1. Shortness of breath for the last 24 hours, unable to lie flat. 2. High blood pressure. HISTORY OF PRESENT ILLNESS: A 42-year-old black female with history of hypertension, CHF, comes in for increasing shortness of breath over the last 24 hours. The patient is noncompliant, does not take her b.i.d. doses. The patient had extensive workup, as far as cardiac catheterization and echocardiogram, are no other concern. The patient has been short of breath on minimal exertion and has class 4 NYHA symptoms. Has orthopnea. No PND attacks. The patient stopped taking her clonidine and she also ran out of her carvedilol. The patient is taking hydralazine 100 mg 3 times a day. No fever or chills. No recent travel. PAST MEDICAL HISTORY: Significant for hypertension and CHF. PAST SURGICAL HISTORY: None. FAMILY HISTORY: Hypertension. SOCIAL HISTORY: Does not smoke. No alcohol, no recreational drugs. CURRENT MEDICATIONS: Hydralazine, clonidine, and Coreg. Hydralazine is 100 mg 3 times a day, but she is taking only twice a day. The patient has stopped the clonidine. Also, the patient not taking Coreg. REVIEW OF SYSTEMS: Significant for shortness of breath on minimal exertion and high blood pressure. No fever, no chills. Orthopnea present. No PND attacks. No chest pain. Otherwise, 14-point review of systems done and negative. PHYSICAL EXAMINATION: GENERAL: A middle-aged female, tremulous, cooperative during examination. VITAL SIGNS: Blood pressure is 245/159, the initial one; during my examination, it has come down to 138/79, temperature is 97.9, pulse is 70, respiratory rate is 23. HEENT: Unremarkable. Pupils are equal and reactive. NECK: Supple, no lymphadenopathy, no thyromegaly. No jugular venous distention. LUNGS: Scattered rales bilaterally. CARDIOVASCULAR: S1, S2 heard. No gallop, no murmur, no rub. Apical impulse in left fifth intercostal space and midclavicular line. ABDOMEN: Soft and benign. No hepatosplenomegaly. No guarding, no rigidity. Hernial orifices are normal. EXTREMITIES: Good pedal pulses. No pedal edema. CENTRAL NERVOUS SYSTEM: Alert and oriented x 4, nonfocal exam. SKIN: Normal. LABORATORY DATA: Not available at this point. EKG shows sinus rhythm, heart rate of [address] No acute ST-T wave changes. LVH changes present. Prolonged QT interval present. Chest x-ray consistent with pulmonary vascular congestion. Prior medical records: Cardiac catheterization report shows a normal size left ventricle with excellent contractility and normal coronary anatomy with RCA being the dominant vessel. No significant coronary artery disease on 05/03/2016. Cardiac catheterization was done by Dr. Edwards. Also, echocardiogram showed a 70-75% ejection fraction. No valvular dysfunction. ASSESSMENT AND PLAN: 1. Hypertensive emergency. The patient was initiated on Cardene drip in the Emergency Room and the blood pressure came down to normal, at which point the Cardene drip was discontinued and oral medications were initiated. The patient was initiated on losartan 100 mg once a day, Coreg 12.5 q.12h. and hydralazine 100 mg q.8h. Also, hydralazine p.r.n. The patient downgraded to telemetry. 2. Congestive heart failure exacerbation. The patient had a normal echo in 2017. I do not expect any changes. IV Lasix 40 mg q. 24h. Cardiology consult. 3. Deep venous thrombosis prophylaxis, Lovenox 40 mg subcutaneous daily. The patient follows with [facility]. We will consult him for care. JOB# [id number] TAMMY/NTS
[2017-11-26] MEDS ORDERED: APRESOLINE ONE (07:49)
[2017-11-26] MEDS ORDERED: LASIX ONE (07:49)
[2017-11-26] MEDS ORDERED: COREG ONE (07:51)
[2017-11-26] MEDS ORDERED: COZAAR ONE (07:52)
[2017-11-26] MEDS ORDERED: K-DUR PO ONE ×2 (07:52→12:00)
[2017-11-26] MEDS: APRESOLINE IV PRN (07:59)
[2017-11-26 08:10] LABS: Albumin 3.6 g/dL (3.9-5); Calcium 6.8 mg/dL (8.4-10.2)
[2017-11-26 08:23] LABS: INR 1.03 (0.87-1.13); Partial Thromboplastin Time 30.3 Sec. (24.2-36.6)
--- NOTE | 2017-11-26 09:17 | Event Note ---
Date: 11/26/17 The patient was admitted with hypertensive emergency, on Cardene drip Blood pressures reasonable levels Resume home antihypertensives, titrated DC Cardene drip per protocol Patient seen and evaluated Medical records reviewed
--- NOTE | 2017-11-26 09:38 | Progress Note ---
Assessment and Plan Assessment and plan: --Hypertensive emergency; Continue Cardene drip, titrate systolic blood pressures to less than 140 and DC Resume home oral antihypertensives, when necessary medications --Acute kidney injury; secondary to vasomotor nephropathy/ATN Gen. hydration, closely monitor renal function, nephrology evaluation --Elevated cardiac enzymes; Probably nonspecific secondary to acute kidney injury However, rule out acute coronary syndrome, seasonal cardiac enzymes EKG, echocardiogram, cardiology evaluation if needed --Hyponatremia; gentle hydration, monitor electrolytes --Severe Hypokalemia; replace per protocol and monitor levels --DVT prophylaxis; Lovenox renal dose Closely monitor the patient and adjust management as needed History Interval history: Patient seen and examined medical records reviewed Patient was admitted with hypertensive emergency On Cardene drip, Severe hypokalemia Patient complains of generalized body pains and shortness of breath Alert awake oriented 3 Vital signs reviewed Hospitalist Physical - Constitutional Vitals: Temp Pulse Resp BP Pulse Ox 97.9 F 78 24 162/96 96 11/26/17 07:40 11/26/17 08:46 11/26/17 08:46 11/26/17 08:46 11/26/17 08:46 General appearance: Present: no acute distress, well-nourished - EENT Eyes: Present: PERRL, EOM intact - Neck Neck: Present: supple, normal ROM - Respiratory Respiratory effort: normal Respiratory: bilateral: diminished, rales, negative: rhonchi, wheezing - Cardiovascular Rhythm: regular Heart Sounds: Present: S1 & S2 - Extremities Extremities: no ischemia, No edema - Abdominal General gastrointestinal: soft, non-tender, non-distended, normal bowel sounds - Integumentary Integumentary: Present: clear, warm - Psychiatric Psychiatric: appropriate mood/affect, cooperative - Neurologic Neurologic: CNII-XII intact, moves all extremities Results - Labs CBC & Chem 7: 11/26/17 03:47 11/26/17 11:32 Labs: Laboratory Last Values WBC 9.2 K/mm3 (4.5-11.0) 11/26/17 03:47 RBC 4.22 M/mm3 (3.65-5.03) 11/26/17 03:47 Hgb 11.0 gm/dl (10.1-14.3) 11/26/17 03:47 Hct 33.9 % (30.3-42.9) 11/26/17 03:47 MCV 80 fl (79-97) 11/26/17 03:47 MCH 26 pg (28-32) L 11/26/17 03:47 MCHC 32 % (30-34) 11/26/17 03:47 RDW 15.8 % (13.2-15.2) H 11/26/17 03:47 Plt Count 271 K/mm3 (140-440) 11/26/17 03:47 Lymph % (Auto) 18.9 % (13.4-35.0) 11/26/17 03:47 [place] % (Auto) 5.4 % (0.0-7.3) 11/26/17 03:47 Eos % (Auto) 1.2 % (0.0-4.3) 11/26/17 03:47 Baso % (Auto) 0.8 % (0.0-1.8) 11/26/17 03:47 Lymph # 1.7 K/mm3 (1.2-5.4) 11/26/17 03:47 [place] # 0.5 K/mm3 (0.0-0.8) 11/26/17 03:47 Eos # 0.1 K/mm3 (0.0-0.4) 11/26/17 03:47 Baso # 0.1 K/mm3 (0.0-0.1) 11/26/17 03:47 Seg Neutrophils % 73.7 % (40.0-70.0) H 11/26/17 03:47 Seg Neutrophils # 6.8 K/mm3 (1.8-7.7) 11/26/17 03:47 PT 14.0 Sec. (12.2-14.9) 11/26/17 03:47 INR 1.03 (0.87-1.13) 11/26/17 03:47 APTT 30.3 Sec. (24.2-36.6) 11/26/17 03:47 Sodium 130 mmol/L (137-145) L 11/26/17 03:47 Chloride 88.7 mmol/L (98-107) L 11/26/17 03:47 Carbon Dioxide 21 mmol/L (22-30) L 11/26/17 03:47 Anion Gap 23 mmol/L 11/26/17 03:47 BUN 54 mg/dL (7-17) H 11/26/17 03:47 Creatinine 6.2 mg/dL (0.7-1.2) H 11/26/17 03:47 Estimated GFR 9 ml/min 11/26/17 03:47 BUN/Creatinine Ratio 9 % 11/26/17 03:47 Glucose 125 mg/dL (65-100) H 11/26/17 03:47 Calcium 6.8 mg/dL (8.4-10.2) L 11/26/17 03:47 Total Bilirubin 0.30 mg/dL (0.1-1.2) 11/26/17 03:47 AST 110 units/L (5-40) H 11/26/17 03:47 ALT 50 units/L (7-56) 11/26/17 03:47 Alkaline Phosphatase 237 units/L (35-129) H 11/26/17 03:47 Total Creatine Kinase 359 units/L (30-135) H 11/26/17 03:47 CK-MB (CK-2) 4.0 ng/mL (0.0-4.0) 11/26/17 03:47 CK-MB (CK-2) Rel Index 1.1 (0-4) 11/26/17 03:47 Troponin T 0.077 ng/mL (0.00-0.029) H 11/26/17 03:47 Total Protein 6.5 g/dL (6.3-8.2) 11/26/17 03:47 Albumin 3.6 g/dL (3.9-5) L 11/26/17 03:47 Albumin/Globulin Ratio 1.2 % 11/26/17 03:47 HCG, Qual Negative (Negative) 11/26/17 03:47
[2017-11-26] MEDS ORDERED: PEPCID PO SCH (10:00)
[2017-11-26] MEDS ORDERED: COZAAR PO SCH (10:00)
[2017-11-26] MEDS: LOVENOX SUB-Q SCH (10:56)
[2017-11-26] MEDS: KCL 10MEQ/100ML 10 MEQ/100 ML BAG IV SCH ×2 (11:00→13:35)
[2017-11-26] MEDS: COREG PO SCH ×2 (12:05→22:55)
[2017-11-26] MEDS: LASIX IV SCH (12:42)
[2017-11-26] MEDS ORDERED: TYLENOL PO PRN (12:45)
[2017-11-26 13:02] LABS: Chol/HDL Ratio 1.92 %
--- NOTE | 2017-11-26 13:07 | Consultation ---
History of Present Illness - Reason for Consult Consult date: 11/26/17 acute renal failure, chronic renal failure, hypokalemia - History of Present Illness The patient is a 42 YO female with medical history significant for poorly controlled HTN, Systolic CHF, CKD stage 5, Tobacco use, Cocaine use and Medical non-compliance who came to the ER with worsening sob. Patient has been sob at baseline for the past few weeks but got worse over the past few days. Associated symptoms include orthopnea, feeling tired, low energy and weak. Most recently she used Cociane about a week ago. Initial BP was 247/170 and started on Cardene drip. She is not taking the meds as prescribed. She had a similar admission at [facility] between 09/30/17 & 10/06/17, creatinine level was around 4.6. Today her creatinine was 6.4 with K 2.6. Patient denies any N, V, D, fever, chills, dysuria, hematuria, cough, cp, hemoptysis, dizziness, leg swelling or syncope. Past History Past Medical History: heart failure, hypertension, renal failure Medications and Allergies Allergies Allergy/AdvReac Type Severity Reaction Status Date / Time iron polysaccharide complex Allergy Swelling Verified 04/16/15 09:06 [From Nu-Iron] Home Medications Medication Instructions Recorded Confirmed Last Taken Type Famotidine [Pepcid] 20 mg PO BID #60 tablet 05/03/16 11/26/17 Unknown Rx cloNIDine [Catapres] 0.2 mg PO Q12H #60 tablet 05/03/16 11/26/17 Unknown Rx hydrALAZINE [Apresoline] 25 mg PO Q8HR 11/26/17 11/26/17 Unknown History Active Meds: Active Medications Acetaminophen (Tylenol) 650 mg PO Q6H PRN PRN Reason: Pain, Mild (1-3) Carvedilol (Coreg) 12.5 mg PO BID JESU Clonidine HCl (Catapres) 0.2 mg PO Q12H JESU Enoxaparin Sodium (Lovenox) 30 mg SUB-Q QDAY [facility] Last Admin: 11/26/17 10:56 Dose: 30 mg Famotidine (Pepcid) 20 mg PO QDAY JES[facility] Furosemide (Lasix) 40 mg IV QDAY [facility] Last Admin: 11/26/17 12:42 Dose: Not Given Hydralazine HCl (Apresoline) 25 mg PO Q8HR JESU Hydralazine HCl (Apresoline) 10 mg IV Q4HR PRN PRN Reason: For BP 160/100 Last Admin: 11/26/17 07:59 Dose: 10 mg Nicardipine HCl 50 mg/ Sodium (Chloride) 250 mls @ 25 mls/hr IV TITR JESU; Protocol Oxycodone/Acetaminophen (Percocet 5/325) 1 tab PO Q6H PRN PRN Reason: Pain, Moderate (4-6) Review of Systems Constitutional: fatigue, weakness, no weight loss, no weight gain, no fever, no chills, no anorexia Breasts: deferred Cardiovascular: orthopnea, shortness of breath, dyspnea on exertion, high blood pressure, decreased exercise tolerance, no chest pain, no edema, no syncope, no lightheadedness, no leg edema Respiratory: shortness of breath, dyspnea on exertion, no cough, no hemoptysis, no home oxygen Gastrointestinal: no abdominal pain, no nausea, no vomiting, no diarrhea, no melena Genitourinary Female: no dysuria, no hematuria Rectal: no bleeding Musculoskeletal: low back pain, no redness of joints Integumentary: no rash, no redness, no wounds, no jaundice Neurological: weakness, no paralysis, no seizures, no syncope, no aphasia, no change in speech, no confusion, no memory loss, no double vision, no loss of vision Psychiatric: anxiety, no confusion Endocrine: no weight change Exam - Vital Signs Vital signs: Vital Signs Resp 21 11/26/17 03:21 - General Appearance General appearance: well-developed, well-nourished, appears stated age, other ( not in distress) EENT: ATNC, PERRL, mucous membranes moist, hearing intact, vision intact Neck: Present: neck supple, trachea midline Respiratory: Rales (faint) Heart: regular, S1S2, no murmurs Gastrointestinal: Present: normoactive bowel sounds. Absent: tenderness Integumentary: no rash, warm and dry Neurologic: no focal deficit, no asterixis, alert and oriented x3 Musculoskeletal: Present: other (no edema) Results - Lab Results 11/26/17 03:47 11/26/17 11:32 Most recent lab results Calcium 7.0 mg/dL (8.4-10.2) L 11/26/17 11:32 Magnesium 1.90 mg/dL (1.7-2.3) 11/26/17 11:32 - Image Kidney/bladder ultrasound: pending Assessment and Plan 1. CKD stage 5: Likely the renal insufficiency 2/2 progressive CKD now stage 5. 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 Will order ALL, ANCA, complements and Hep panel. Some of the symptoms could be due to uremia. May need renal replacement therapy during this admission. 2. Hypertensive Urgency: Workup for secondary HTN at [facility] was negative. Renal artery duplex was indeterminate. BP is better now. 3. Hypokalemia: Replete K and monitor. 4. CHF with volume overload: Continue Lasix. 5. Medical non-compliance. Compliance encouraged.
[2017-11-26] MEDS: CATAPRES PO SCH ×2 (13:12→23:50)
[2017-11-26] MEDS: APRESOLINE PO SCH ×2 (15:47→23:49)
[2017-11-27 00:03] LABS: Calcium 6.7 mg/dL (8.4-10.2)
[2017-11-27] MEDS: PERCOCET 5/325 PO PRN ×3 (00:08→22:24)
--- NOTE | 2017-11-27 06:36 | Ultrasound Report ---
FINAL REPORT PROCEDURE: US RENAL BILAT TECHNIQUE: Real-time sonography in multiple planes of the kidneys, ureters and urinary bladder was performed with image documentation. CPT 53960 HISTORY: Acute renal failure. COMPARISON: No prior studies are available for comparison. FINDINGS: RIGHT kidney: There are few sub centimeter cysts in the right renal cortex. No hydronephrosis.. Length: 9.4 cm. LEFT kidney: Normal echotexture. No focal renal mass, calculus, or hydronephrosis. Length: 9cm. Bladder: Not imaged. IMPRESSION: There are few sub centimeter cysts in the right renal cortex. The left kidney has a normal appearance. No hydronephrosis..
[2017-11-27 06:45] LABS: Albumin 3.2 g/dL (3.9-5); Calcium 7.2 mg/dL (8.4-10.2)
[2017-11-27] MEDS: APRESOLINE PO SCH ×3 (06:55→22:23)
[2017-11-27 07:20] LABS: Hepatitis A Antibody IgM Non-Reactive (NonReactive); Hepatitis B Core IgM Non-Reactive (NonReactive); Hepatitis B Surface Antigen Non-Reactive (Negative); Hepatitis C Virus Antibody Non-Reactive (NonReactive)
--- NOTE | 2017-11-27 07:55 | Progress Note ---
Assessment and Plan 1. CKD stage 5: Likely the renal insufficiency 2/2 progressive CKD now stage 5. 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 ALL, ANCA and complements are pending. Some of the symptoms could be due to uremia. If she agrees will do Kidney biopsy. Explained patient that she need renal replacement therapy during this admission. She couldn't decide about going on dialysis. 2. Hypertensive Urgency: Workup for secondary HTN at [place] was negative. Renal artery duplex pending. BP is better now. 3. Hypokalemia: Replete K and monitor. 4. CHF with volume overload: Continue Lasix. 5. Medical non-compliance. Compliance encouraged. Subjective Date of service: 11/27/17 Interval history: Patient was seen and examined at the bedside. Objective - Vital Signs Vital signs: Vital Signs - 12hr 11/26/17 11/26/17 11/26/17 20:53 22:00 22:55 Temperature 98.0 F Pulse Rate 66 69 Pulse Rate [ 68 Apical] Pulse Rate [ 68 Left Radial] Pulse Rate [ 68 Right Radial] Respiratory 18 18 Rate Blood Pressure 131/91 131/91 O2 Sat by Pulse 97 100 Oximetry 11/26/17 11/26/17 11/27/17 23:49 23:50 01:43 Temperature Pulse Rate 69 69 62 Pulse Rate [ Apical] Pulse Rate [ Left Radial] Pulse Rate [ Right Radial] Respiratory 20 Rate Blood Pressure 131/91 131/91 123/77 O2 Sat by Pulse 94 Oximetry 11/27/17 11/27/17 11/27/17 03:00 05:13 06:55 Temperature 98.1 F Pulse Rate 62 60 60 Pulse Rate [ Apical] Pulse Rate [ Left Radial] Pulse Rate [ Right Radial] Respiratory 20 Rate Blood Pressure 143/99 143/99 O2 Sat by Pulse 100 Oximetry - General Appearance General appearance: well-developed, well-nourished, appears stated age, other ( Nurse was at the bedside, not in distress) EENT: ATNC, PERRL, mucous membranes moist, hearing intact, vision intact Neck: supple Respiratory: Present: Clear to Ascultation Cardiology: regular, S1S2, no murmurs Gastrointestinal: normoactive bowel sounds, no tenderness Integumentary: no rash, warm and dry Neurologic: no focal deficit, no asterixis, alert and oriented x3 Musculoskeletal: other (dramatic swearing, yelling, shouting, crying noted) Psychiatric: other (dramatic crying, yelling, shouting, sworing) - Lab 11/26/17 03:47 11/27/17 05:07 Most recent lab results Calcium 7.2 mg/dL (8.4-10.2) L 11/27/17 05:07 Phosphorus 4.60 mg/dL (2.5-4.5) H 11/27/17 05:07 Magnesium 1.90 mg/dL (1.7-2.3) 11/26/17 11:32
[2017-11-27] MEDS ORDERED: K-DUR PO NR (08:30)
--- NOTE | 2017-11-27 09:36 | Progress Note ---
Assessment and Plan Assessment and plan: --Hypokalemia; replace per protocol and monitor levels --Hyponatremia; gentle hydration, mild improvement --Hypertensive emergency; present on admission Blood pressures well controlled s/p Cardene drip, continue current antihypertensives and when necessary medications --Acute kidney injury; secondary to vasomotor nephropathy/ATN Mild improvement continue, Gen. hydration, closely monitor renal function, nephrology following --Elevated cardiac enzymes; Probably nonspecific secondary to acute kidney injury However, rule out acute coronary syndrome, seasonal cardiac enzymes EKG, echocardiogram, cardiology evaluation if needed --Acute on chronic diastolic congestive heart failure; Ejection fraction 70%, continue current management --DVT prophylaxis; Lovenox renal dose Closely monitor the patient and adjust management as needed Consults and recommendations noted and appreciated Plan of care reviewed with the patient and family member at the bedside History Interval history: Patient seen and examined medical records reviewed No new events reported by nursing staff Since blood pressures are well controlled Creatinine very minimal improvement Patient denies chest pain or shortness of breath Alert awake oriented 3 not in acute distress Vital signs reviewed Hospitalist Physical - Constitutional Vitals: Temp Pulse Resp BP Pulse Ox 97.9 F 75 20 133/60 99 11/27/17 08:27 11/27/17 08:27 11/27/17 08:27 11/27/17 08:27 11/27/17 08:27 General appearance: Present: no acute distress, well-nourished - EENT Eyes: Present: PERRL, EOM intact - Neck Neck: Present: supple, normal ROM - Respiratory Respiratory effort: normal Respiratory: bilateral: diminished, negative: rales, rhonchi, wheezing - Cardiovascular Rhythm: regular Heart Sounds: Present: S1 & S2 - Extremities Extremities: no ischemia, No edema - Abdominal General gastrointestinal: soft, non-tender, non-distended, normal bowel sounds - Integumentary Integumentary: Present: clear, warm - Psychiatric Psychiatric: appropriate mood/affect, cooperative - Neurologic Neurologic: CNII-XII intact, moves all extremities Results - Labs CBC & Chem 7: 11/26/17 03:47 11/27/17 05:07 Labs: Laboratory Last Values WBC 9.2 K/mm3 (4.5-11.0) 11/26/17 03:47 RBC 4.22 M/mm3 (3.65-5.03) 11/26/17 03:47 Hgb 11.0 gm/dl (10.1-14.3) 11/26/17 03:47 Hct 33.9 % (30.3-42.9) 11/26/17 03:47 MCV 80 fl (79-97) 11/26/17 03:47 MCH 26 pg (28-32) L 11/26/17 03:47 MCHC 32 % (30-34) 11/26/17 03:47 RDW 15.8 % (13.2-15.2) H 11/26/17 03:47 Plt Count 271 K/mm3 (140-440) 11/26/17 03:47 Lymph % (Auto) 18.9 % (13.4-35.0) 11/26/17 03:47 [place] % (Auto) 5.4 % (0.0-7.3) 11/26/17 03:47 Eos % (Auto) 1.2 % (0.0-4.3) 11/26/17 03:47 Baso % (Auto) 0.8 % (0.0-1.8) 11/26/17 03:47 Lymph # 1.7 K/mm3 (1.2-5.4) 11/26/17 03:47 [place] # 0.5 K/mm3 (0.0-0.8) 11/26/17 03:47 Eos # 0.1 K/mm3 (0.0-0.4) 11/26/17 03:47 Baso # 0.1 K/mm3 (0.0-0.1) 11/26/17 03:47 Seg Neutrophils % 73.7 % (40.0-70.0) H 11/26/17 03:47 Seg Neutrophils # 6.8 K/mm3 (1.8-7.7) 11/26/17 03:47 PT 14.0 Sec. (12.2-14.9) 11/26/17 03:47 INR 1.03 (0.87-1.13) 11/26/17 03:47 APTT 30.3 Sec. (24.2-36.6) 11/26/17 03:47 Sodium 134 mmol/L (137-145) L 11/27/17 05:07 Potassium 3.1 mmol/L (3.6-5.0) L 11/27/17 05:07 Chloride 95.2 mmol/L (98-107) L 11/27/17 05:07 Carbon Dioxide 26 mmol/L (22-30) D 11/27/17 05:07 Anion Gap 16 mmol/L 11/27/17 05:07 BUN 57 mg/dL (7-17) H 11/27/17 05:07 Creatinine 6.0 mg/dL (0.7-1.2) H 11/27/17 05:07 Estimated GFR 9 ml/min 11/27/17 05:07 BUN/Creatinine Ratio 10 % 11/27/17 05:07 Glucose 86 mg/dL (65-100) 11/27/17 05:07 Calcium 7.2 mg/dL (8.4-10.2) L 11/27/17 05:07 Phosphorus 4.60 mg/dL (2.5-4.5) H 11/27/17 05:07 Magnesium 1.90 mg/dL (1.7-2.3) 11/26/17 11:32 Total Bilirubin 0.20 mg/dL (0.1-1.2) 11/27/17 05:07 AST 21 units/L (5-40) 11/27/17 05:07 ALT 26 units/L (7-56) 11/27/17 05:07 Alkaline Phosphatase 158 units/L (35-129) H 11/27/17 05:07 Total Creatine Kinase 359 units/L (30-135) H 11/26/17 03:47 CK-MB (CK-2) 4.0 ng/mL (0.0-4.0) 11/26/17 03:47 CK-MB (CK-2) Rel Index 1.1 (0-4) 11/26/17 03:47 Troponin T 0.084 ng/mL (0.00-0.029) H 11/26/17 11:32 NT-Pro-B Natriuret Pep 64474 pg/mL (0-450) H 11/26/17 03:47 Total Protein 6.2 g/dL (6.3-8.2) L 11/27/17 05:07 Albumin 3.2 g/dL (3.9-5) L 11/27/17 05:07 Albumin/Globulin Ratio 1.1 % 11/27/17 05:07 Triglycerides 119 mg/dL (2-149) 11/26/17 03:47 Cholesterol 198 mg/dL (50-199) 11/26/17 03:47 LDL Cholesterol Direct 82 mg/dL (50-130) 11/26/17 03:47 HDL Cholesterol 103 mg/dL (40-59) H 11/26/17 03:47 Cholesterol/HDL Ratio 1.92 % 11/26/17 03:47 HCG, Qual Negative (Negative) 11/26/17 03:47 PTH Intact 541.0 pg/mL (15-65) H 11/27/17 05:07 Hepatitis A IgM Ab Non-reactive (NonReactive) 11/27/17 05:07 Hep Bs Antigen Non-reactive (Negative) 11/27/17 05:07 Hep B Core IgM Ab Non-reactive (NonReactive) 11/27/17 05:07 Hepatitis C Antibody Non-reactive (NonReactive) 11/27/17 05:07
[2017-11-27] MEDS: COREG PO SCH ×2 (10:57→22:23)
[2017-11-27] MEDS: PEPCID PO SCH (10:57)
[2017-11-27] MEDS: CATAPRES PO SCH ×3 (10:57→23:48)
[2017-11-27] MEDS: LASIX IV SCH (10:57)
[2017-11-27] MEDS: LOVENOX SUB-Q SCH (10:58)
[2017-11-28] MEDS: APRESOLINE PO SCH ×3 (05:47→21:18)
[2017-11-28 06:21] LABS: Calcium 7.2 mg/dL (8.4-10.2)
--- NOTE | 2017-11-28 07:17 | Progress Note ---
Assessment and Plan 1. CKD stage 5: Likely the renal insufficiency 2/2 progressive CKD now stage 5. 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 ALL, ANCA and complements are pending. Some of the symptoms could be due to uremia. If she agrees will do Kidney biopsy. Patient agreed to proceed with hemodialysis. She was explained the indications , risks and benefits involved in hemodialysis. Vascular consulted for placement of tunnel hemodialysis catheter. HD today. 2. Hypertensive Urgency: Workup for secondary HTN at [place] was negative. Renal artery duplex pending. BP is better now. 3. Hypokalemia: Replete K and monitor. 4. CHF with volume overload: Continue Lasix. 5. Medical non-compliance. Compliance encouraged. Subjective Date of service: 11/28/17 Interval history: Patient was seen and examined at the bedside. No new complaint. Objective - Vital Signs Vital signs: Vital Signs - 12hr 11/27/17 11/28/17 11/28/17 21:05 00:37 05:46 Temperature 97.7 F 97.6 F 98.9 F Pulse Rate 66 71 72 Respiratory 18 18 18 Rate Blood Pressure 159/97 132/84 141/68 [Right] O2 Sat by Pulse 100 99 99 Oximetry - General Appearance General appearance: well-developed, well-nourished, appears stated age, other ( her boyfriend is at the bedside, not in distress) EENT: ATNC, PERRL, mucous membranes moist, hearing intact, vision intact Neck: supple Respiratory: Present: Clear to Ascultation Cardiology: regular, S1S2, no murmurs Gastrointestinal: normoactive bowel sounds, no tenderness Integumentary: no rash, warm and dry Neurologic: no focal deficit, no asterixis, alert and oriented x3 Musculoskeletal: other (no edema) - Lab 11/26/17 03:47 11/28/17 05:03 Most recent lab results Calcium 7.2 mg/dL (8.4-10.2) L 11/28/17 05:03 Phosphorus 4.60 mg/dL (2.5-4.5) H 11/27/17 05:07 Magnesium 1.90 mg/dL (1.7-2.3) 11/26/17 11:32
[2017-11-28] MEDS ORDERED: K-DUR PO NR (08:00)
--- NOTE | 2017-11-28 08:30 | Progress Note ---
Assessment and Plan Assessment and plan: --Hypokalemia; replace per protocol , add 20 mEq KCl at maintenance dose daily --Hyponatremia; gentle hydration, improved --Hypertensive emergency; present on admission Blood pressures well controlled s/p Cardene drip, continue current antihypertensives and when necessary medications --Acute kidney injury; secondary to vasomotor nephropathy/ATN/ cr 6.2 today Nephrology recommend hemodialysis, vascular consulted for Vas-Cath placement Continue gentle hydration , renal ultrasound reviewed , Avoid nephrotoxins --Elevated cardiac enzymes; Probably nonspecific secondary to acute kidney injury However, rule out acute coronary syndrome, serial cardiac enzymes EKG, echocardiogram, cardiology evaluation if needed --Acute on chronic diastolic congestive heart failure; Ejection fraction 70%, continue current management --DVT prophylaxis; Lovenox renal dose Closely monitor the patient and adjust management as needed I discussed in detail with the patient and her mother over the phone the motor vehicles inspector recommendations Of hemodialysis, Answered all their questions, also discussed with , patient's and her mother's concerns and questions,He said he would talk to them. Discussed plan of care with her nurse History Interval history: Patient seen and examined in her room this morning medical records reviewed No new events reported by the nursing staff However this morning patient is very agitated and screaming and crying Reports that she was advised hemodialysis per motor vehicles inspector Vital signs reviewed Hospitalist Physical - Constitutional Vitals: Temp Pulse Resp BP Pulse Ox 98.9 F 72 18 141/68 99 11/28/17 05:46 11/28/17 05:46 11/28/17 05:46 11/28/17 05:46 11/28/17 05:46 General appearance: Present: no acute distress, well-nourished, other (agitated) - EENT Eyes: Present: PERRL, EOM intact - Neck Neck: Present: supple, normal ROM - Respiratory Respiratory effort: normal Respiratory: bilateral: diminished, negative: rales, rhonchi, wheezing - Cardiovascular Rhythm: regular Heart Sounds: Present: S1 & S2 - Extremities Extremities: no ischemia, No edema - Abdominal General gastrointestinal: soft, non-tender, non-distended, normal bowel sounds - Integumentary Integumentary: Present: clear, warm - Psychiatric Psychiatric: agitated, other (angry , screaming) - Neurologic Neurologic: moves all extremities Results - Labs CBC & Chem 7: 11/26/17 03:47 11/28/17 05:03 Labs: Laboratory Last Values WBC 9.2 K/mm3 (4.5-11.0) 11/26/17 03:47 RBC 4.22 M/mm3 (3.65-5.03) 11/26/17 03:47 Hgb 11.0 gm/dl (10.1-14.3) 11/26/17 03:47 Hct 33.9 % (30.3-42.9) 11/26/17 03:47 MCV 80 fl (79-97) 11/26/17 03:47 MCH 26 pg (28-32) L 11/26/17 03:47 MCHC 32 % (30-34) 11/26/17 03:47 RDW 15.8 % (13.2-15.2) H 11/26/17 03:47 Plt Count 271 K/mm3 (140-440) 11/26/17 03:47 Lymph % (Auto) 18.9 % (13.4-35.0) 11/26/17 03:47 [place] % (Auto) 5.4 % (0.0-7.3) 11/26/17 03:47 Eos % (Auto) 1.2 % (0.0-4.3) 11/26/17 03:47 Baso % (Auto) 0.8 % (0.0-1.8) 11/26/17 03:47 Lymph # 1.7 K/mm3 (1.2-5.4) 11/26/17 03:47 [place] # 0.5 K/mm3 (0.0-0.8) 11/26/17 03:47 Eos # 0.1 K/mm3 (0.0-0.4) 11/26/17 03:47 Baso # 0.1 K/mm3 (0.0-0.1) 11/26/17 03:47 Seg Neutrophils % 73.7 % (40.0-70.0) H 11/26/17 03:47 Seg Neutrophils # 6.8 K/mm3 (1.8-7.7) 11/26/17 03:47 PT 14.0 Sec. (12.2-14.9) 11/26/17 03:47 INR 1.03 (0.87-1.13) 11/26/17 03:47 APTT 30.3 Sec. (24.2-36.6) 11/26/17 03:47 Sodium 135 mmol/L (137-145) L 11/28/17 05:03 Potassium 3.0 mmol/L (3.6-5.0) L 11/28/17 05:03 Chloride 94.9 mmol/L (98-107) L 11/28/17 05:03 Carbon Dioxide 24 mmol/L (22-30) 11/28/17 05:03 Anion Gap 19 mmol/L 11/28/17 05:03 BUN 64 mg/dL (7-17) H 11/28/17 05:03 Creatinine 6.2 mg/dL (0.7-1.2) H 11/28/17 05:03 Estimated GFR 9 ml/min 11/28/17 05:03 BUN/Creatinine Ratio 10 % 11/28/17 05:03 Glucose 95 mg/dL (65-100) 11/28/17 05:03 POC Glucose 119 (70-105) H 11/27/17 22:03 Calcium 7.2 mg/dL (8.4-10.2) L 11/28/17 05:03 Phosphorus 4.60 mg/dL (2.5-4.5) H 11/27/17 05:07 Magnesium 1.90 mg/dL (1.7-2.3) 11/26/17 11:32 Total Bilirubin 0.20 mg/dL (0.1-1.2) 11/27/17 05:07 AST 21 units/L (5-40) 11/27/17 05:07 ALT 26 units/L (7-56) 11/27/17 05:07 Alkaline Phosphatase 158 units/L (35-129) H 11/27/17 05:07 Total Creatine Kinase 359 units/L (30-135) H 11/26/17 03:47 CK-MB (CK-2) 4.0 ng/mL (0.0-4.0) 11/26/17 03:47 CK-MB (CK-2) Rel Index 1.1 (0-4) 11/26/17 03:47 Troponin T 0.084 ng/mL (0.00-0.029) H 11/26/17 11:32 NT-Pro-B Natriuret Pep 98285 pg/mL (0-450) H 11/26/17 03:47 Total Protein 6.2 g/dL (6.3-8.2) L 11/27/17 05:07 Albumin 3.2 g/dL (3.9-5) L 11/27/17 05:07 Albumin/Globulin Ratio 1.1 % 11/27/17 05:07 Triglycerides 119 mg/dL (2-149) 11/26/17 03:47 Cholesterol 198 mg/dL (50-199) 11/26/17 03:47 LDL Cholesterol Direct 82 mg/dL (50-130) 11/26/17 03:47 HDL Cholesterol 103 mg/dL (40-59) H 11/26/17 03:47 Cholesterol/HDL Ratio 1.92 % 11/26/17 03:47 HCG, Qual Negative (Negative) 11/26/17 03:47 PTH Intact 541.0 pg/mL (15-65) H 11/27/17 05:07 Hepatitis A IgM Ab Non-reactive (NonReactive) 11/27/17 05:07 Hep Bs Antigen Non-reactive (Negative) 11/27/17 05:07 Hep B Core IgM Ab Non-reactive (NonReactive) 11/27/17 05:07 Hepatitis C Antibody Non-reactive (NonReactive) 11/27/17 05:07
--- NOTE | 2017-11-28 09:05 | Event Note ---
Date: 11/28/17 Requested for permcath. Added patient on for permcath today. Note to follow.
[2017-11-28] MEDS ORDERED: HEPARIN/NS 5000 UNIT/500ML(CATH LAB) 0 ML IR ONE (09:13)
[2017-11-28] MEDS ORDERED: HEPARIN 10,000 UNITS/10 ML ONE (09:13)
[2017-11-28] MEDS: LOVENOX SUB-Q SCH (10:25)
[2017-11-28] MEDS: CATAPRES PO SCH ×2 (11:49→21:19)
[2017-11-28] MEDS: COREG PO SCH ×2 (11:49→21:18)
[2017-11-28] MEDS: PEPCID PO SCH (11:49)
[2017-11-28] MEDS: LASIX IV SCH (11:49)
[2017-11-28] MEDS ORDERED: HEPARIN/NS 5000 UNIT/500ML(CATH LAB) 500 ML IR ONE (13:17)
[2017-11-28] MEDS ORDERED: XYLOCAINE 2% INFILTRATI ONE (13:18)
[2017-11-28] MEDS ORDERED: NACL 0.9% 250ML 250 ML ONE (13:18)
[2017-11-28] MEDS ORDERED: ANCEF/STERILE WATER 2 GM/20 ML 2 GM/20 ML SYRINGE IV ONE (13:18)
[2017-11-28] MEDS ORDERED: XYLOCAINE 1%/ EPI 1:100,000 INFILTRATI ONE (13:20)
[2017-11-28] MEDS ORDERED: NACL 0.9% 100 ML IV PRN (13:35)
[2017-11-28] MEDS: VERSED ONE ×2 (13:57→14:01)
[2017-11-28] MEDS: SUBLIMAZE ONE ×2 (13:57→14:02)
[2017-11-28] MEDS ORDERED: SUBLIMAZE ONE (14:07)
[2017-11-28] MEDS ORDERED: VERSED ONE (14:07)
[2017-11-28] MEDS: HEPARIN 10,000 UNITS/10 ML ONE ×6 (14:11→14:16)
[2017-11-28] MEDS ORDERED: NACL 0.9 (PRIMING MACHINE ONLY DIALYSIS) MC ONE ×3 (14:21→17:44)
--- NOTE | 2017-11-28 14:34 | Operative Report ---
Operative Report Operative Report: EXAM: 1. Ultrasound-guided puncture of the right internal jugular vein 2. Fluoroscopic-guided placement of a right internal jugular tunneled cuffed hemodialysis catheter. DATE: 11/28/17 INDICATION: End-stage renal disease requiring hemodialysis access. MEDICATIONS: Please see nursing report for full details. DEVICES: 23 cm tip to cuff 15 Fr dual lumen hemodialysis catheter OFFICE NURSE PRACTITIONER: IRINA JOHNSON MD CONTRAST: None PROCEDURE: The risks, benefits, and alternatives were discussed and informed consent was obtained. The patient was transported to the angiography suite in satisfactory/ stable condition and was transported onto the angiography table. The patient's right internal jugular vein was assessed with ultrasound and determined to be patent prior to procedure. The patient was prepped and draped in a sterile fashion. The puncture site was anesthetized. Under sonographic guidance, the right internal jugular vein was punctured with a 21-gauge micropuncture needle and a 0.018 inch wire was advanced into the inferior vena cava. The micropuncture needle was exchanged for a transitional dilator and the wire was retracted into the right atrium to hannah intravascular distance. The wire and inner dilator were removed. 0.035 inch wire was advanced through the transitional dilator into the inferior vena cava. A suitable exit site was identified on the patient's chest inferior and lateral to the venotomy. The site was anesthetized with local anesthetic and the track was anesthetized. Dermatotomy was made. The PermCath was attached to the tunneling device and tunneled between the dermatotomy to the venotomy. Over the 0.035 inch wire, serial dilatation was performed with ultimate placement of a peel-away sheath. The catheter was advanced through the peel- away sheath after the wire was removed and positioned centrally under fluoroscopic guidance. The peel-away sheath was removed. 3-0 Vicryl suture was used to close the venotomy and Dermabond was then applied. 2-0 Ethilon suture was used to secure the catheter at the dermatotomy. The catheter was charged with heparin 1000 units per mL of space. Sterile dressing and Biopatch applied. The patient was transferred from the angiography suite back to the floor in stable condition. FINDINGS: 1. Excellent flow was obtained through the dialysis catheter with 20 mL syringes. 2. The catheter tip is in the right atrium. IMPRESSION: 1. Successful ultrasound and fluoroscopically guided placement of a right internal jugular tunneled cuffed hemodialysis catheter.
[2017-11-28] MEDS: MORPHINE IV PRN (16:40)
[2017-11-28] MEDS: APRESOLINE IV PRN (17:53)
--- NOTE | 2017-11-28 18:43 | Consultation ---
History of Present Illness - Reason for Consult Consult date: 11/28/17 Permcath placement - History of Present Illness 42 year old female with medical history significant for poorly controlled HTN, Systolic CHF, CKD stage 5, Tobacco use, Cocaine use and Medical non-compliance who came to the ER with worsening sob. Patient has been sob at baseline for the past few weeks but got worse over the past few days. Associated symptoms include orthopnea, feeling tired, low energy and weak. Most recently she used Cociane about a week ago. Vascular was consulted for PermCath placement given recent development of end- stage renal disease. Had a discussion with patient regarding PermCath placement and dialysis initiation. Past History Past Medical History: heart failure, hypertension, renal failure Medications and Allergies Allergies Allergy/AdvReac Type Severity Reaction Status Date / Time iron polysaccharide complex Allergy Swelling Verified 04/16/15 09:06 [From Nu-Iron] Home Medications Medication Instructions Recorded Confirmed Last Taken Type Famotidine [Pepcid] 20 mg PO BID #60 tablet 05/03/16 11/26/17 Unknown Rx cloNIDine [Catapres] 0.2 mg PO Q12H #60 tablet 05/03/16 11/26/17 Unknown Rx hydrALAZINE [Apresoline] 25 mg PO Q8HR 11/26/17 11/26/17 Unknown History Active Meds: Active Medications Acetaminophen (Tylenol) 650 mg PO Q6H PRN PRN Reason: Pain, Mild (1-3) Last Admin: 11/26/17 13:13 Dose: 650 mg Carvedilol (Coreg) 12.5 mg PO BID [facility] Last Admin: 11/28/17 11:49 Dose: 12.5 mg Clonidine HCl (Catapres) 0.2 mg PO Q12H [facility] Last Admin: 11/28/17 11:49 Dose: 0.2 mg Enoxaparin Sodium (Lovenox) 30 mg SUB-Q QDAY [facility] Last Admin: 11/28/17 10:25 Dose: Not Given Famotidine (Pepcid) 20 mg PO QDAY [facility] Last Admin: 11/28/17 11:49 Dose: 20 mg Furosemide (Lasix) 40 mg IV QDAY [facility] Last Admin: 11/28/17 11:49 Dose: 40 mg Hydralazine HCl (Apresoline) 25 mg PO Q8HR [facility] Last Admin: 11/28/17 14:32 Dose: Not Given Hydralazine HCl (Apresoline) 10 mg IV Q4HR PRN PRN Reason: For BP 160/100 Last Admin: 11/28/17 17:53 Dose: 10 mg Sodium Chloride (Nacl 0.9%) 100 mls @ 999 mls/hr IV YULI PRN PRN Reason: Hypotension Morphine Sulfate (Morphine) 1 mg IV Q12H PRN PRN Reason: Pain, Moderate (4-6) Last Admin: 11/28/17 16:40 Dose: 1 mg Oxycodone/Acetaminophen (Percocet 5/325) 1 tab PO Q6H PRN PRN Reason: Pain, Moderate (4-6) Last Admin: 11/27/17 22:24 Dose: 1 tab Potassium Chloride (K-Dur) 20 meq PO QDAY JESU Review of Systems All systems: negative (see HPI) Exam - Constitutional Vitals: Temp Pulse Resp BP Pulse Ox 97.8 F 62 16 180/104 100 11/28/17 17:30 11/28/17 17:53 11/28/17 17:30 11/28/17 17:53 11/28/17 11:09 General appearance: Present: no acute distress - EENT Eyes: Present: EOM intact ENT: hearing intact - Respiratory Respiratory effort: labored - Extremities Extremities: normal temperature, normal color - Psychiatric Psychiatric: cooperative Results - Labs CBC & Chem 7: 11/26/17 03:47 11/28/17 05:03 Labs: Abnormal lab results 11/27/17 11/28/17 Range/Units 22:03 05:03 Sodium 135 L (137-145) mmol/L Potassium 3.0 L (3.6-5.0) mmol/L Chloride 94.9 L (98-107) mmol/L BUN 64 H (7-17) mg/dL Creatinine 6.2 H (0.7-1.2) mg/dL POC Glucose 119 H (70-105) Calcium 7.2 L (8.4-10.2) mg/dL Assessment and Plan 42-year-old female with multiple substance abuse issues who presents with worsening acute on chronic renal failure which has progressed to end-stage renal disease with plan for PermCath placement and dialysis initiation. Risks, benefits, and alternatives discussed. Patient agreed to procedure although was initially hesitant. Order vein mapping study for patient. She is not sure she will transfer her care to [place] to be with her family.
[2017-11-28] MEDS: PERCOCET 5/325 PO PRN (21:18)
[2017-11-29] MEDS: CATAPRES PO SCH ×2 (00:25→10:29)
[2017-11-29 06:03] LABS: Basophils % (Auto) 0.4 % (0.0-1.8); Eosinophils # (Auto) 0.2 K/mm3 (0.0-0.4); Eosinophils % (Auto) 1.9 % (0.0-4.3); Hematocrit 29.7 % (30.3-42.9); Hemoglobin 9.7 gm/dl (10.1-14.3); Lymphocytes # (Auto) 1.7 K/mm3 (1.2-5.4); Lymphocytes % (Auto) 20.5 % (13.4-35.0); Mean Corpuscular HGB Conc 33 % (30-34); Mean Corpuscular Hemoglobin 27 pg (28-32); Mean Corpuscular Volume 82 fl (79-97); Monocytes # (Auto) 0.5 K/mm3 (0.0-0.8); Monocytes % (Auto) 6.5 % (0.0-7.3); Platelet Count 271 K/mm3 (140-440); Red Blood Count 3.63 M/mm3 (3.65-5.03); Red Cell Distribution Width 16.1 % (13.2-15.2)
[2017-11-29] MEDS: APRESOLINE PO SCH ×3 (06:05→22:01)
[2017-11-29] MEDS: PERCOCET 5/325 PO PRN ×2 (06:05→15:52)
[2017-11-29 06:48] LABS: Calcium 8.2 mg/dL (8.4-10.2)
--- NOTE | 2017-11-29 09:35 | Progress Note ---
Assessment and Plan 1. ESRD: CKD has progressed to ESRD require hemodialysis. 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 ALL, ANCA and complements are pending. Patient was started on hemodialysis yesterday and tolerated well. Next HD tomorrow. 2. Hypertensive Urgency: Workup for secondary HTN at [facility] was negative. Renal artery duplex negative for any hemodynamically significant stenosis. Increase Hydralazine. 3. Hypokalemia: Replete K and monitor. 4K bath with dialysis. 4. CHF with volume overload: Continue Lasix. UF with HD. 5. Medical non-compliance. Compliance encouraged. Subjective Date of service: 11/29/17 Interval history: Patient was seen and examined while on hemodialysis. Doing well. Objective - Vital Signs Vital signs: Vital Signs - 12hr 11/29/17 11/29/17 11/29/17 00:18 03:00 05:27 Temperature 98.5 F 98.1 F Pulse Rate 66 72 65 Respiratory 18 18 Rate Blood Pressure 168/101 165/91 O2 Sat by Pulse 99 99 Oximetry 11/29/17 08:05 Temperature 98.0 F Pulse Rate 63 Respiratory 20 Rate Blood Pressure 180/109 O2 Sat by Pulse 98 Oximetry - General Appearance General appearance: well-developed, well-nourished, appears stated age, other ( not in distress, right IJ tunnel catheter) EENT: ATNC, PERRL, hearing intact Neck: supple Respiratory: Present: Clear to Ascultation Cardiology: regular, S1S2, no murmurs Gastrointestinal: normoactive bowel sounds, no tenderness Integumentary: no rash, warm and dry Neurologic: no focal deficit, no asterixis, alert and oriented x3 Musculoskeletal: other (no edema) Psychiatric: cooperative - Lab 11/29/17 05:18 11/29/17 05:18 Most recent lab results Calcium 8.2 mg/dL (8.4-10.2) L 11/29/17 05:18 Phosphorus 4.60 mg/dL (2.5-4.5) H 11/27/17 05:07 Magnesium 1.90 mg/dL (1.7-2.3) 11/26/17 11:32
[2017-11-29] MEDS ORDERED: NACL 0.9% 100 ML IV PRN (09:39)
[2017-11-29] MEDS: APRESOLINE IV PRN (10:00)
[2017-11-29] MEDS: MORPHINE IV PRN (10:01)
[2017-11-29] MEDS: K-DUR PO SCH (10:28)
[2017-11-29] MEDS: LASIX IV SCH (10:29)
[2017-11-29] MEDS: PEPCID PO SCH (10:29)
[2017-11-29] MEDS: LOVENOX SUB-Q SCH (10:51)
[2017-11-29] MEDS: COREG PO SCH ×2 (10:51→22:01)
--- NOTE | 2017-11-29 11:28 | Vascular Lab Report ---
RENAL ARTERY DUPLEX EXAM: REASON FOR EXAM: Renal artery stenosis. NOTE: Visualization is technically limited because of overlying bowel gas. COMMENTS ON THE AORTA: The aorta is patent. Normal flow velocities are observed. No aneurysmal dilatation is noted. Mild atherosclerotic change is identified. The celiac artery is patent with normal flow velocity. The superior mesenteric artery is patent with normal flow velocity. COMMENTS ON THE RIGHT KIDNEY: The kidney measures 9.19 centimeters in greatest dimension. No obvious parenchymal abnormalities are noted. The renal artery is patent. Maximum systolic velocity is 86 cm/sec. This finding is consistent with less than 60% diameter reduction. Renal aortic index is 1.30. This finding is consistent with less than 60% diameter reduction. Overall findings are consistent with less than 60% diameter reduction in the renal artery. COMMENTS ON THE LEFT KIDNEY: The kidney measures 8.21 centimeters in greatest dimension. This finding is consistent with mild atrophy. The renal artery is patent. Maximum systolic velocity is 110 cm/sec. This finding is consistent with less than 60% diameter reduction. Renal aortic index is value. This finding is consistent with less than 60% diameter reduction. Overall findings are consistent with less than 60% diameter reduction in the renal artery. IMPRESSION: RIGHT KIDNEY: Less than 60% diameter reduction in the renal artery. LEFT KIDNEY: Less than 60% diameter reduction in the renal artery. Mild atrophy is noted in the left kidney.
--- NOTE | 2017-11-29 12:32 | Progress Note ---
Assessment and Plan Assessment and plan: --Hypertensive emergency; present on admission Blood pressures well controlled s/p Cardene drip, continue current antihypertensives and when necessary medications --Chronic kidney disease stage V ; initiated hemodialysis yesterday Schedule for HD today Nephrology following, outpatient HD scheduling per case management --Elevated cardiac enzymes; no cardiac symptoms Probably nonspecific secondary to acute kidney injury EKG, echocardiogram, cardiology evaluation if needed --Acute on chronic diastolic congestive heart failure; Ejection fraction 70%, continue current management --DVT prophylaxis; Lovenox renal dose --Outpatient HD scheduling per case management Closely monitor the patient and adjust management as needed Possible discharge in 1-2 days if stable Plan of care reviewed with the patient and her nurse History Interval history: Patient seen and examined medical records reviewed No new events reported by the nursing staff Patient received hemodialysis yesterday And scheduled again for dialysis today Alert awake oriented 3 Vital signs reviewed Hospitalist Physical - Constitutional Vitals: Temp Pulse Resp BP Pulse Ox 98.0 F 63 20 180/109 98 11/29/17 08:05 11/29/17 08:05 11/29/17 08:05 11/29/17 08:05 11/29/17 08:05 General appearance: Present: no acute distress, well-nourished - EENT Eyes: Present: PERRL, EOM intact - Neck Neck: Present: supple, normal ROM - Respiratory Respiratory effort: normal Respiratory: bilateral: diminished, negative: rales, rhonchi, wheezing - Cardiovascular Rhythm: regular Heart Sounds: Present: S1 & S2 - Extremities Extremities: no ischemia, pulses intact, No edema - Abdominal General gastrointestinal: soft, non-tender, non-distended, normal bowel sounds - Integumentary Integumentary: Present: clear, warm - Psychiatric Psychiatric: appropriate mood/affect, cooperative - Neurologic Neurologic: CNII-XII intact, moves all extremities Results - Labs CBC & Chem 7: 11/29/17 05:18 11/29/17 05:18 Labs: Laboratory Last Values WBC 8.3 K/mm3 (4.5-11.0) 11/29/17 05:18 RBC 3.63 M/mm3 (3.65-5.03) L 11/29/17 05:18 Hgb 9.7 gm/dl (10.1-14.3) L 11/29/17 05:18 Hct 29.7 % (30.3-42.9) L 11/29/17 05:18 MCV 82 fl (79-97) 11/29/17 05:18 MCH 27 pg (28-32) L 11/29/17 05:18 MCHC 33 % (30-34) 11/29/17 05:18 RDW 16.1 % (13.2-15.2) H 11/29/17 05:18 Plt Count 271 K/mm3 (140-440) 11/29/17 05:18 Lymph % (Auto) 20.5 % (13.4-35.0) 11/29/17 05:18 [place] % (Auto) 6.5 % (0.0-7.3) 11/29/17 05:18 Eos % (Auto) 1.9 % (0.0-4.3) 11/29/17 05:18 Baso % (Auto) 0.4 % (0.0-1.8) 11/29/17 05:18 Lymph # 1.7 K/mm3 (1.2-5.4) 11/29/17 05:18 [place] # 0.5 K/mm3 (0.0-0.8) 11/29/17 05:18 Eos # 0.2 K/mm3 (0.0-0.4) 11/29/17 05:18 Baso # 0.0 K/mm3 (0.0-0.1) 11/29/17 05:18 Seg Neutrophils % 70.7 % (40.0-70.0) H 11/29/17 05:18 Seg Neutrophils # 5.9 K/mm3 (1.8-7.7) 11/29/17 05:18 PT 14.0 Sec. (12.2-14.9) 11/26/17 03:47 INR 1.03 (0.87-1.13) 11/26/17 03:47 APTT 30.3 Sec. (24.2-36.6) 11/26/17 03:47 Sodium 141 mmol/L (137-145) 11/29/17 05:18 Potassium 3.1 mmol/L (3.6-5.0) L 11/29/17 05:18 Chloride 98.4 mmol/L (98-107) 11/29/17 05:18 Carbon Dioxide 25 mmol/L (22-30) 11/29/17 05:18 Anion Gap 21 mmol/L 11/29/17 05:18 BUN 45 mg/dL (7-17) H 11/29/17 05:18 Creatinine 5.5 mg/dL (0.7-1.2) H 11/29/17 05:18 Estimated GFR 10 ml/min 11/29/17 05:18 BUN/Creatinine Ratio 8 % 11/29/17 05:18 Glucose 96 mg/dL (65-100) 11/29/17 05:18 POC Glucose 119 (70-105) H 11/27/17 22:03 Calcium 8.2 mg/dL (8.4-10.2) L 11/29/17 05:18 Phosphorus 4.60 mg/dL (2.5-4.5) H 11/27/17 05:07 Magnesium 1.90 mg/dL (1.7-2.3) 11/26/17 11:32 Total Bilirubin 0.20 mg/dL (0.1-1.2) 11/27/17 05:07 AST 21 units/L (5-40) 11/27/17 05:07 ALT 26 units/L (7-56) 11/27/17 05:07 Alkaline Phosphatase 158 units/L (35-129) H 11/27/17 05:07 Total Creatine Kinase 359 units/L (30-135) H 11/26/17 03:47 CK-MB (CK-2) 4.0 ng/mL (0.0-4.0) 11/26/17 03:47 CK-MB (CK-2) Rel Index 1.1 (0-4) 11/26/17 03:47 Troponin T 0.084 ng/mL (0.00-0.029) H 11/26/17 11:32 NT-Pro-B Natriuret Pep 20471 pg/mL (0-450) H 11/26/17 03:47 Total Protein 6.2 g/dL (6.3-8.2) L 11/27/17 05:07 Albumin 3.2 g/dL (3.9-5) L 11/27/17 05:07 Albumin/Globulin Ratio 1.1 % 11/27/17 05:07 Triglycerides 119 mg/dL (2-149) 11/26/17 03:47 Cholesterol 198 mg/dL (50-199) 11/26/17 03:47 LDL Cholesterol Direct 82 mg/dL (50-130) 11/26/17 03:47 HDL Cholesterol 103 mg/dL (40-59) H 11/26/17 03:47 Cholesterol/HDL Ratio 1.92 % 11/26/17 03:47 HCG, Qual Negative (Negative) 11/26/17 03:47 PTH Intact 541.0 pg/mL (15-65) H 11/27/17 05:07 Hepatitis A IgM Ab Non-reactive (NonReactive) 11/27/17 05:07 Hep Bs Antigen Non-reactive (Negative) 11/27/17 05:07 Hep B Core IgM Ab Non-reactive (NonReactive) 11/27/17 05:07 Hepatitis C Antibody Non-reactive (NonReactive) 11/27/17 05:07
[2017-11-29] MEDS ORDERED: NACL 0.9 (PRIMING MACHINE ONLY DIALYSIS) MC ONE (13:05)
[2017-11-30] MEDS: CATAPRES PO SCH ×3 (01:27→18:00)
[2017-11-30] MEDS: PERCOCET 5/325 PO PRN ×2 (01:28→18:02)
[2017-11-30 06:48] LABS: Hematocrit 27.1 % (30.3-42.9); Hemoglobin 8.7 gm/dl (10.1-14.3); Mean Corpuscular HGB Conc 32 % (30-34); Mean Corpuscular Hemoglobin 27 pg (28-32); Mean Corpuscular Volume 82 fl (79-97); Platelet Count 258 K/mm3 (140-440); Red Blood Count 3.29 M/mm3 (3.65-5.03); Red Cell Distribution Width 16.5 % (13.2-15.2)
[2017-11-30 07:30] LABS: Calcium 8.3 mg/dL (8.4-10.2)
[2017-11-30 08:54] LABS: Myeloperoxidase Antibody <1.0 AI (<1.0)
--- NOTE | 2017-11-30 09:19 | Emergency Department Report ---
ED Shortness of Breath HPI - General Chief Complaint: Chest Pain Stated Complaint: CHEST PAIN Time Seen by Provider: 11/26/17 03:31 Source: EMS Mode of arrival: Stretcher Limitations: No Limitations - History of Present Illness Initial Comments: NOTE ORIGINAL DOCUMENT TYPED SINCE [employer] WAS DOWN. Imported into [employer] on 11/30 42 yo female with a past medical history hypertension, CHF, medication noncompliance presents to the hospital with complaints of elevated blood pressure and shortness of breath worsening tonight. Patient feels like she is gasping for air and has to sit straight up and appeared to feel comfortable. Patient also thinks that her anxiety has something to do with it. Patient is prescribed multiple blood pressure medications but states that she lost her clonidine prescription. She ran out her carvedilol. And she is only taking her hydralazine 100 mg 3 times a day twice a day because she thinks that is worsening her anxiety. She is compliant with her diuretic. No complaints of cough or fever. Mild leg edema point. - Related Data Home Medications Medication Instructions Recorded Confirmed Last Taken hydrALAZINE [Apresoline] 25 mg PO Q8HR 11/26/17 11/26/17 Unknown Previous Rx's Medication Instructions Recorded Last Taken Type Famotidine [Pepcid] 20 mg PO BID #60 tablet 05/03/16 Unknown Rx cloNIDine [Catapres] 0.2 mg PO Q12H #60 tablet 05/03/16 Unknown Rx Allergies Allergy/AdvReac Type Severity Reaction Status Date / Time iron polysaccharide complex Allergy Swelling Verified 04/16/15 09:06 [From Nu-Iron] ED Review of Systems ROS: Stated complaint: CHEST PAIN Other details as noted in HPI Comment: All other systems reviewed and negative ED Past Medical Hx - Past Medical History Hx Hypertension: Yes Hx Congestive Heart Failure: Yes Hx HIV: No Additional medical history: ANGINA. ANEMIA - Social History Smoking Status: Former Smoker - Medications Home Medications: Home Medications Medication Instructions Recorded Confirmed Last Taken Type Famotidine [Pepcid] 20 mg PO BID #60 tablet 05/03/16 11/26/17 Unknown Rx cloNIDine [Catapres] 0.2 mg PO Q12H #60 tablet 05/03/16 11/26/17 Unknown Rx hydrALAZINE [Apresoline] 25 mg PO Q8HR 11/26/17 11/26/17 Unknown History ED Physical Exam - General Limitations: No Limitations - Other Other exam information: General: No limitations, patient is alert in no acute distress Head exam: Atraumatic, normocephalic Eyes exam: Normal appearance, pupils equal reactive to light, extraocular movements intact ENT: Moist mucous membrane, normal oropharynx Neck exam: Normal inspection, full range of motion, no meningismus nontender Respiratory exam: Mild tachypnea intermittently grasping for air Cardiovascular: Normal rate and rhythm, normal heart sounds Abdomen: Soft, nondistended, and nontender, with normal bowel sounds, no rebound, or guarding Extremity: Full range of motion normal inspection no deformity, trace lower extremity pitting edema Back: Normal Inspection, full range of motion, no tenderness Neurologic: Alert, oriented x3, cranial nerves intact, no motor or sensory deficit Psychiatric: Patient appears anxious Skin: Warm, dry, intact ED Course Vital Signs 11/26/17 11/26/17 11/26/17 03:21 03:30 03:34 Temperature 97.9 F Pulse Rate 97 H 30 L Respiratory 21 16 Rate Blood Pressure 247/170 245/159 Blood Pressure [Right] O2 Sat by Pulse 98 95 Oximetry 11/26/17 11/26/17 11/26/17 03:45 04:00 04:15 Temperature Pulse Rate 96 H 92 H Respiratory 27 H 17 15 Rate Blood Pressure 252/164 251/162 261/161 Blood Pressure [Right] O2 Sat by Pulse 93 99 97 Oximetry 11/26/17 11/26/17 11/26/17 04:30 04:45 05:00 Temperature Pulse Rate 94 H 94 H Respiratory 24 25 H 19 Rate Blood Pressure 188/115 186/102 145/91 Blood Pressure [Right] O2 Sat by Pulse 94 95 94 Oximetry 11/26/17 11/26/17 11/26/17 05:15 05:30 05:45 Temperature Pulse Rate 88 84 84 Respiratory 23 23 19 Rate Blood Pressure 134/79 120/71 122/73 Blood Pressure [Right] O2 Sat by Pulse 94 92 94 Oximetry 11/26/17 11/26/17 11/26/17 06:00 06:15 06:30 Temperature Pulse Rate 85 86 85 Respiratory 21 19 20 Rate Blood Pressure 118/75 137/81 158/92 Blood Pressure [Right] O2 Sat by Pulse 92 82 L 93 Oximetry 11/26/17 11/26/17 11/26/17 06:45 07:00 07:22 Temperature Pulse Rate 82 84 Respiratory 18 15 Rate Blood Pressure 158/93 179/106 179/106 Blood Pressure [Right] O2 Sat by Pulse 97 96 Oximetry 11/26/17 11/26/17 11/26/17 07:30 07:40 07:45 Temperature 97.9 F Pulse Rate 84 80 80 Respiratory 17 19 19 Rate Blood Pressure 202/114 183/117 Blood Pressure 183/117 [Right] O2 Sat by Pulse 95 98 98 Oximetry 11/26/17 11/26/17 11/26/17 07:50 07:59 08:00 Temperature Pulse Rate 80 80 83 Respiratory 21 Rate Blood Pressure 183/117 183/117 196/121 Blood Pressure [Right] O2 Sat by Pulse 96 Oximetry 11/26/17 11/26/17 11/26/17 08:16 08:30 08:46 Temperature Pulse Rate 78 78 78 Respiratory 17 22 24 Rate Blood Pressure 160/96 162/96 162/96 Blood Pressure [Right] O2 Sat by Pulse 99 100 96 Oximetry 11/26/17 11/26/17 11/26/17 09:00 09:16 09:30 Temperature Pulse Rate 75 74 68 Respiratory 19 21 21 Rate Blood Pressure 116/89 131/86 Blood Pressure [Right] O2 Sat by Pulse 94 97 96 Oximetry 11/26/17 11/26/17 11/26/17 09:45 10:00 10:50 Temperature Pulse Rate 66 Respiratory 20 Rate Blood Pressure 125/79 133/82 133/82 Blood Pressure [Right] O2 Sat by Pulse 100 95 99 Oximetry 11/26/17 11/26/17 11/26/17 11:00 11:15 11:30 Temperature Pulse Rate 62 66 Respiratory 11 L 18 Rate Blood Pressure 133/82 113/82 131/86 Blood Pressure [Right] O2 Sat by Pulse 96 98 96 Oximetry 11/26/17 11/26/17 11:46 12:00 Temperature Pulse Rate 69 65 Respiratory 18 18 Rate Blood Pressure 131/86 137/84 Blood Pressure [Right] O2 Sat by Pulse 98 97 Oximetry ED Medical Decision Making - Lab Data Result diagrams: 11/30/17 05:53 11/30/17 05:53 Lab Results 11/26/17 11/26/17 11/26/17 Range/Units 03:47 03:47 03:47 WBC 9.2 (4.5-11.0) K/mm3 RBC 4.22 (3.65-5.03) M/mm3 Hgb 11.0 (10.1-14.3) gm/dl Hct 33.9 (30.3-42.9) % MCV 80 (79-97) fl MCH 26 L (28-32) pg MCHC 32 (30-34) % RDW 15.8 H (13.2-15.2) % Plt Count 271 (140-440) K/mm3 Lymph % (Auto) 18.9 (13.4-35.0) % [place] % (Auto) 5.4 (0.0-7.3) % Eos % (Auto) 1.2 (0.0-4.3) % Baso % (Auto) 0.8 (0.0-1.8) % Lymph # 1.7 (1.2-5.4) K/mm3 [place] # 0.5 (0.0-0.8) K/mm3 Eos # 0.1 (0.0-0.4) K/mm3 Baso # 0.1 (0.0-0.1) K/mm3 Seg Neutrophils % 73.7 H (40.0-70.0) % Seg Neutrophils # 6.8 (1.8-7.7) K/mm3 PT 14.0 (12.2-14.9) Sec. INR 1.03 (0.87-1.13) APTT 30.3 (24.2-36.6) Sec. Sodium 130 L (137-145) mmol/L Potassium 2.6 L* (3.6-5.0) mmol/L Chloride 88.7 L (98-107) mmol/L Carbon Dioxide 21 L (22-30) mmol/L Anion Gap 23 mmol/L BUN 54 H (7-17) mg/dL Creatinine 6.2 H (0.7-1.2) mg/dL Estimated GFR 9 ml/min BUN/Creatinine Ratio 9 % Glucose 125 H (65-100) mg/dL Calcium 6.8 L (8.4-10.2) mg/dL Total Bilirubin 0.30 (0.1-1.2) mg/dL AST 110 H (5-40) units/L ALT 50 (7-56) units/L Alkaline Phosphatase 237 H (35-129) units/L Total Creatine Kinase 359 H (30-135) units/L CK-MB (CK-2) 4.0 (0.0-4.0) ng/mL CK-MB (CK-2) Rel Index 1.1 (0-4) Troponin T 0.077 H (0.00-0.029) ng/mL NT-Pro-B Natriuret Pep 22558 H (0-450) pg/mL Total Protein 6.5 (6.3-8.2) g/dL Albumin 3.6 L (3.9-5) g/dL Albumin/Globulin Ratio 1.2 % Triglycerides 119 (2-149) mg/dL Cholesterol 198 (50-199) mg/dL LDL Cholesterol Direct 82 (50-130) mg/dL HDL Cholesterol 103 H (40-59) mg/dL Cholesterol/HDL Ratio 1.92 % HCG, Qual (Negative) 11/26/17 Range/Units 03:47 WBC (4.5-11.0) K/mm3 RBC (3.65-5.03) M/mm3 Hgb (10.1-14.3) gm/dl Hct (30.3-42.9) % MCV (79-97) fl MCH (28-32) pg MCHC (30-34) % RDW (13.2-15.2) % Plt Count (140-440) K/mm3 Lymph % (Auto) (13.4-35.0) % [place] % (Auto) (0.0-7.3) % Eos % (Auto) (0.0-4.3) % Baso % (Auto) (0.0-1.8) % Lymph # (1.2-5.4) K/mm3 [place] # (0.0-0.8) K/mm3 Eos # (0.0-0.4) K/mm3 Baso # (0.0-0.1) K/mm3 Seg Neutrophils % (40.0-70.0) % Seg Neutrophils # (1.8-7.7) K/mm3 PT (12.2-14.9) Sec. INR (0.87-1.13) APTT (24.2-36.6) Sec. Sodium (137-145) mmol/L Potassium (3.6-5.0) mmol/L Chloride (98-107) mmol/L Carbon Dioxide (22-30) mmol/L Anion Gap mmol/L BUN (7-17) mg/dL Creatinine (0.7-1.2) mg/dL Estimated GFR ml/min BUN/Creatinine Ratio % Glucose (65-100) mg/dL Calcium (8.4-10.2) mg/dL Total Bilirubin (0.1-1.2) mg/dL AST (5-40) units/L ALT (7-56) units/L Alkaline Phosphatase (35-129) units/L Total Creatine Kinase (30-135) units/L CK-MB (CK-2) (0.0-4.0) ng/mL CK-MB (CK-2) Rel Index (0-4) Troponin T (0.00-0.029) ng/mL NT-Pro-B Natriuret Pep (0-450) pg/mL Total Protein (6.3-8.2) g/dL Albumin (3.9-5) g/dL Albumin/Globulin Ratio % Triglycerides (2-149) mg/dL Cholesterol (50-199) mg/dL LDL Cholesterol Direct (50-130) mg/dL HDL Cholesterol (40-59) mg/dL Cholesterol/HDL Ratio % HCG, Qual Negative (Negative) - EKG Data -: EKG Interpreted by Ct EKG shows normal: sinus rhythm (93), axis (qrs 8), QRS complexes (qrsd 100), ST- T waves (no stemi) - Radiology Data Radiology results: report reviewed (Chest x-ray: Mild cardiomegaly and pulmonary interstitial edema) - Medical Decision Making patient on Cardene drip for blood pressure control will go and at 150s She received Ativan for anxiety with improvement Patient name was given to the hospitalist for admission Dr Stevens labs resulted after s/o to hospitalist. Pt required admission regardless of results and results were delayed due to [facility] downtime Critical care attestation.: If time is entered above; I have spent that time in minutes in the direct care of this critically ill patient, excluding procedure time. ED Disposition Clinical Impression: Hypertensive emergency, CHF exacerbation, Noncompliance with medication regimen , ARF (acute renal failure), Hypokalemia, Elevated troponin Disposition: OP ADMIT IP TO THIS HOSP Is pt being admited?: Yes Condition: Stable Time of Disposition: 06:00 (11/26 Dr Stevens informed for admission)
--- NOTE | 2017-11-30 09:37 | Progress Note ---
Assessment and Plan Assessment and plan: --Chronic kidney disease stage V ; initiated hemodialysis, Hemodialysis per schedule Nephrology following, outpatient HD scheduling per case management --Hypertensive emergency; present on admission Uncontrolled , adjust blood pressure medications Blood pressures well controlled s/p Cardene drip, continue current antihypertensives and when necessary medications --Elevated cardiac enzymes; no cardiac symptoms Probably nonspecific secondary to acute kidney injury EKG, echocardiogram, cardiology evaluation if needed --Acute on chronic diastolic congestive heart failure; Ejection fraction 70%, continue current management --DVT prophylaxis; Lovenox renal dose --Outpatient HD scheduling per case management Closely monitor the patient and adjust management as needed Possible discharge in 1-2 days if stable Plan of care reviewed with the patient and her nurse History Interval history: She seen and examined medical records reviewed No new events reported by the nursing Tolerating hemodialysis, no new complaints Case management setting up outpatient HD chair Patient has uncontrolled blood pressures Vital signs reviewed Hospitalist Physical - Constitutional Vitals: Temp Pulse Resp BP Pulse Ox 98.3 F 61 20 172/104 97 11/30/17 06:04 11/30/17 06:04 11/30/17 06:04 11/30/17 06:04 11/30/17 06:04 General appearance: Present: no acute distress, well-nourished - EENT Eyes: Present: PERRL, EOM intact - Neck Neck: Present: supple, normal ROM - Respiratory Respiratory effort: normal Respiratory: bilateral: diminished, negative: rales, rhonchi, wheezing - Cardiovascular Rhythm: regular Heart Sounds: Present: S1 & S2 - Extremities Extremities: no ischemia, No edema Peripheral Pulses: within normal limits - Abdominal General gastrointestinal: soft, non-tender, non-distended, normal bowel sounds - Integumentary Integumentary: Present: clear, warm - Psychiatric Psychiatric: appropriate mood/affect, cooperative - Neurologic Neurologic: CNII-XII intact, moves all extremities Results - Labs CBC & Chem 7: 11/30/17 05:53 11/30/17 05:53 Labs: Laboratory Last Values WBC 6.4 K/mm3 (4.5-11.0) 11/30/17 05:53 RBC 3.29 M/mm3 (3.65-5.03) L 11/30/17 05:53 Hgb 8.7 gm/dl (10.1-14.3) L 11/30/17 05:53 Hct 27.1 % (30.3-42.9) L 11/30/17 05:53 MCV 82 fl (79-97) 11/30/17 05:53 MCH 27 pg (28-32) L 11/30/17 05:53 MCHC 32 % (30-34) 11/30/17 05:53 RDW 16.5 % (13.2-15.2) H 11/30/17 05:53 Plt Count 258 K/mm3 (140-440) 11/30/17 05:53 Lymph % (Auto) 20.5 % (13.4-35.0) 11/29/17 05:18 [place] % (Auto) 6.5 % (0.0-7.3) 11/29/17 05:18 Eos % (Auto) 1.9 % (0.0-4.3) 11/29/17 05:18 Baso % (Auto) 0.4 % (0.0-1.8) 11/29/17 05:18 Lymph # 1.7 K/mm3 (1.2-5.4) 11/29/17 05:18 [place] # 0.5 K/mm3 (0.0-0.8) 11/29/17 05:18 Eos # 0.2 K/mm3 (0.0-0.4) 11/29/17 05:18 Baso # 0.0 K/mm3 (0.0-0.1) 11/29/17 05:18 Seg Neutrophils % 70.7 % (40.0-70.0) H 11/29/17 05:18 Seg Neutrophils # 5.9 K/mm3 (1.8-7.7) 11/29/17 05:18 PT 14.0 Sec. (12.2-14.9) 11/26/17 03:47 INR 1.03 (0.87-1.13) 11/26/17 03:47 APTT 30.3 Sec. (24.2-36.6) 11/26/17 03:47 Sodium 143 mmol/L (137-145) 11/30/17 05:53 Potassium 3.3 mmol/L (3.6-5.0) L 11/30/17 05:53 Chloride 101.9 mmol/L (98-107) 11/30/17 05:53 Carbon Dioxide 27 mmol/L (22-30) 11/30/17 05:53 Anion Gap 17 mmol/L 11/30/17 05:53 BUN 28 mg/dL (7-17) H 11/30/17 05:53 Creatinine 4.2 mg/dL (0.7-1.2) H 11/30/17 05:53 Estimated GFR 14 ml/min 11/30/17 05:53 BUN/Creatinine Ratio 7 % 11/30/17 05:53 Glucose 84 mg/dL (65-100) 11/30/17 05:53 POC Glucose 119 (70-105) H 11/27/17 22:03 Calcium 8.3 mg/dL (8.4-10.2) L 11/30/17 05:53 Phosphorus 4.60 mg/dL (2.5-4.5) H 11/27/17 05:07 Magnesium 1.90 mg/dL (1.7-2.3) 11/26/17 11:32 Total Bilirubin 0.20 mg/dL (0.1-1.2) 11/27/17 05:07 AST 21 units/L (5-40) 11/27/17 05:07 ALT 26 units/L (7-56) 11/27/17 05:07 Alkaline Phosphatase 158 units/L (35-129) H 11/27/17 05:07 Total Creatine Kinase 359 units/L (30-135) H 11/26/17 03:47 CK-MB (CK-2) 4.0 ng/mL (0.0-4.0) 11/26/17 03:47 CK-MB (CK-2) Rel Index 1.1 (0-4) 11/26/17 03:47 Troponin T 0.084 ng/mL (0.00-0.029) H 11/26/17 11:32 NT-Pro-B Natriuret Pep 84699 pg/mL (0-450) H 11/26/17 03:47 Total Protein 6.2 g/dL (6.3-8.2) L 11/27/17 05:07 Albumin 3.2 g/dL (3.9-5) L 11/27/17 05:07 Albumin/Globulin Ratio 1.1 % 11/27/17 05:07 Triglycerides 119 mg/dL (2-149) 11/26/17 03:47 Cholesterol 198 mg/dL (50-199) 11/26/17 03:47 LDL Cholesterol Direct 82 mg/dL (50-130) 11/26/17 03:47 HDL Cholesterol 103 mg/dL (40-59) H 11/26/17 03:47 Cholesterol/HDL Ratio 1.92 % 11/26/17 03:47 HCG, Qual Negative (Negative) 11/26/17 03:47 PTH Intact 541.0 pg/mL (15-65) H 11/27/17 05:07 Proteinase 3 (PR3) Ab <1.0 AI (<1.0) 11/27/17 05:07 Myeloperoxidase Ab <1.0 AI (<1.0) 11/27/17 05:07 Hepatitis A IgM Ab Non-reactive (NonReactive) 11/27/17 05:07 Hep Bs Antigen Non-reactive (Negative) 11/27/17 05:07 Hep B Core IgM Ab Non-reactive (NonReactive) 11/27/17 05:07 Hepatitis C Antibody Non-reactive (NonReactive) 11/27/17 05:07
[2017-11-30] MEDS: COREG PO SCH (09:47)
[2017-11-30] MEDS: LOVENOX SUB-Q SCH (09:47)
[2017-11-30] MEDS: K-DUR PO SCH (09:47)
[2017-11-30] MEDS: LASIX IV SCH (09:47)
[2017-11-30] MEDS: PEPCID PO SCH (09:47)
[2017-11-30] MEDS: APRESOLINE PO SCH ×2 (09:51→14:00)
[2017-11-30] MEDS: MORPHINE IV PRN (10:00)
[2017-11-30] MEDS ORDERED: NACL 0.9% 100 ML IV PRN (11:14)
--- NOTE | 2017-11-30 11:14 | Progress Note ---
Assessment and Plan 1. ESRD: CKD has progressed to ESRD require hemodialysis. 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 Patient tolerated hemodialysis well for the past 2 days. Next HD today. 2. Hypertensive Urgency: Workup for secondary HTN at [place] was negative. Renal artery duplex negative for any hemodynamically significant stenosis. UF with HD. 3. Hypokalemia: 4K bath with dialysis. 4. CHF with volume overload: Improving. UF with HD. 5. Medical non-compliance. Compliance encouraged. Clinical manager of global at [facility] [address] verbally confirmed outpatient dialysis chair starting 12/03/2017 at 11 AM. Written confirmation yet to come. Subjective Date of service: 11/30/17 Interval history: Patient was seen and examined at the bedside. Doing well. Objective - Vital Signs Vital signs: Vital Signs - 12hr 11/29/17 11/30/17 11/30/17 23:42 01:27 01:28 Temperature 98.9 F Pulse Rate 73 73 Respiratory 20 20 Rate Blood Pressure 186/111 186/111 O2 Sat by Pulse 97 Oximetry 11/30/17 06:04 Temperature 98.3 F Pulse Rate 61 Respiratory 20 Rate Blood Pressure 172/104 O2 Sat by Pulse 97 Oximetry - General Appearance General appearance: well-developed, well-nourished, appears stated age, other ( not in distress, right IJ tunnel catheter, family is at the bedside) EENT: ATNC, PERRL Neck: supple Respiratory: Present: Clear to Ascultation Cardiology: regular Gastrointestinal: normoactive bowel sounds, no tenderness Integumentary: no rash, warm and dry Neurologic: no focal deficit, no asterixis, alert and oriented x3 Musculoskeletal: other (no edema) - Lab 11/30/17 05:53 11/30/17 05:53 Most recent lab results Calcium 8.3 mg/dL (8.4-10.2) L 11/30/17 05:53 Phosphorus 4.60 mg/dL (2.5-4.5) H 11/27/17 05:07 Magnesium 1.90 mg/dL (1.7-2.3) 11/26/17 11:32
--- NOTE | 2017-11-30 17:59 | Progress Note ---
Assessment and Plan 42-year-old female with multiple substance abuse issues who presents with worsening acute on chronic renal failure which has progressed to end-stage renal disease with plan for PermCath placement and dialysis initiation. Vein mapping pending. Patient will follow up in our office for AV fistula or AV graft creation per vein mapping. Card provided. Subjective Date of service: 11/30/17 Interval history: Tolerated PermCath without issue. Had long discussion about left upper extremity AV fistula or a graft creation. Patient understands. Objective - Constitutional Vitals: Vital Signs - 12hr 11/30/17 11/30/17 11/30/17 06:04 11:53 16:35 Temperature 98.3 F 98.0 F 98.2 F Pulse Rate 61 60 55 L Respiratory 20 20 18 Rate Blood Pressure 172/104 158/102 176/113 O2 Sat by Pulse 97 97 Oximetry General appearance: Present: no acute distress - EENT Eyes: EOM intact ENT: hearing intact - Neck Neck: supple, other (right PermCath without issue.) - Respiratory Respiratory effort: normal - Psychiatric Psychiatric: appropriate mood/affect, cooperative - Labs CBC & Chem 7: 11/30/17 05:53 11/30/17 05:53 Labs: Abnormal lab results 11/30/17 11/30/17 Range/Units 05:53 05:53 RBC 3.29 L (3.65-5.03) M/mm3 Hgb 8.7 L (10.1-14.3) gm/dl Hct 27.1 L (30.3-42.9) % MCH 27 L (28-32) pg RDW 16.5 H (13.2-15.2) % Potassium 3.3 L (3.6-5.0) mmol/L BUN 28 H (7-17) mg/dL Creatinine 4.2 H (0.7-1.2) mg/dL Calcium 8.3 L (8.4-10.2) mg/dL
[2017-11-30 22:43] LABS: ANA Screen, IFA Negative (Negative)
[2017-12-01] MEDS: APRESOLINE IV PRN (00:49)
[2017-12-01] MEDS: MORPHINE IV PRN ×3 (00:50→22:58)
[2017-12-01] MEDS: APRESOLINE PO SCH ×4 (00:58→22:59)
[2017-12-01] MEDS: COREG PO SCH ×3 (00:59→22:59)
[2017-12-01] MEDS: CATAPRES PO SCH ×3 (04:05→18:25)
[2017-12-01] MEDS ORDERED: K-DUR PO ONE (09:18)
--- NOTE | 2017-12-01 09:22 | Progress Note ---
Assessment and Plan Assessment and plan: -- Hypokalemia; Replace with oral Kcl --Chronic kidney disease stage V ; initiated hemodialysis, Hemodialysis per schedule Nephrology following, outpatient HD scheduling per case management --Hypertensive emergency; present on admission Uncontrolled , adjust blood pressure medications Blood pressures well controlled s/p Cardene drip, continue current antihypertensives and when necessary medications --Elevated cardiac enzymes; no cardiac symptoms Probably nonspecific secondary to acute kidney injury EKG, echocardiogram, cardiology evaluation if needed --Acute on chronic diastolic congestive heart failure; Ejection fraction 70%, continue current management --DVT prophylaxis; Lovenox renal dose --Outpatient HD scheduling per case management Possible discharge in 1-2 days if stable Plan of care reviewed with the patient and her nurse Patient is medically stable for discharge, awaiting outpatient HD spot History Interval history: Patient seen and examined medical records reviewed Patient feels better no new complaints Alert awake oriented 3 Vital signs reviewed Hospitalist Physical - Constitutional Vitals: Temp Pulse Resp BP Pulse Ox 98.4 F 4 L 24 131/67 98 12/01/17 05:15 12/01/17 06:53 12/01/17 05:15 12/01/17 06:53 12/01/17 05:15 General appearance: Present: no acute distress, well-nourished - EENT Eyes: Present: PERRL, EOM intact - Neck Neck: Present: supple, normal ROM - Respiratory Respiratory effort: normal, labored - Cardiovascular Rhythm: regular Heart Sounds: Present: S1 & S2 - Extremities Extremities: no ischemia, pulses intact Peripheral Pulses: within normal limits - Abdominal General gastrointestinal: soft, non-tender, non-distended, normal bowel sounds - Integumentary Integumentary: Present: clear, warm - Psychiatric Psychiatric: appropriate mood/affect, cooperative - Neurologic Neurologic: CNII-XII intact, moves all extremities Results - Labs CBC & Chem 7: 11/30/17 05:53 11/30/17 05:53 Labs: Laboratory Last Values WBC 6.4 K/mm3 (4.5-11.0) 11/30/17 05:53 RBC 3.29 M/mm3 (3.65-5.03) L 11/30/17 05:53 Hgb 8.7 gm/dl (10.1-14.3) L 11/30/17 05:53 Hct 27.1 % (30.3-42.9) L 11/30/17 05:53 MCV 82 fl (79-97) 11/30/17 05:53 MCH 27 pg (28-32) L 11/30/17 05:53 MCHC 32 % (30-34) 11/30/17 05:53 RDW 16.5 % (13.2-15.2) H 11/30/17 05:53 Plt Count 258 K/mm3 (140-440) 11/30/17 05:53 Lymph % (Auto) 20.5 % (13.4-35.0) 11/29/17 05:18 [place] % (Auto) 6.5 % (0.0-7.3) 11/29/17 05:18 Eos % (Auto) 1.9 % (0.0-4.3) 11/29/17 05:18 Baso % (Auto) 0.4 % (0.0-1.8) 11/29/17 05:18 Lymph # 1.7 K/mm3 (1.2-5.4) 11/29/17 05:18 [place] # 0.5 K/mm3 (0.0-0.8) 11/29/17 05:18 Eos # 0.2 K/mm3 (0.0-0.4) 11/29/17 05:18 Baso # 0.0 K/mm3 (0.0-0.1) 11/29/17 05:18 Seg Neutrophils % 70.7 % (40.0-70.0) H 11/29/17 05:18 Seg Neutrophils # 5.9 K/mm3 (1.8-7.7) 11/29/17 05:18 PT 14.0 Sec. (12.2-14.9) 11/26/17 03:47 INR 1.03 (0.87-1.13) 11/26/17 03:47 APTT 30.3 Sec. (24.2-36.6) 11/26/17 03:47 Sodium 143 mmol/L (137-145) 11/30/17 05:53 Potassium 3.3 mmol/L (3.6-5.0) L 11/30/17 05:53 Chloride 101.9 mmol/L (98-107) 11/30/17 05:53 Carbon Dioxide 27 mmol/L (22-30) 11/30/17 05:53 Anion Gap 17 mmol/L 11/30/17 05:53 BUN 28 mg/dL (7-17) H 11/30/17 05:53 Creatinine 4.2 mg/dL (0.7-1.2) H 11/30/17 05:53 Estimated GFR 14 ml/min 11/30/17 05:53 BUN/Creatinine Ratio 7 % 11/30/17 05:53 Glucose 84 mg/dL (65-100) 11/30/17 05:53 POC Glucose 119 (70-105) H 11/27/17 22:03 Calcium 8.3 mg/dL (8.4-10.2) L 11/30/17 05:53 Phosphorus 4.60 mg/dL (2.5-4.5) H 11/27/17 05:07 Magnesium 1.90 mg/dL (1.7-2.3) 11/26/17 11:32 Total Bilirubin 0.20 mg/dL (0.1-1.2) 11/27/17 05:07 AST 21 units/L (5-40) 11/27/17 05:07 ALT 26 units/L (7-56) 11/27/17 05:07 Alkaline Phosphatase 158 units/L (35-129) H 11/27/17 05:07 Total Creatine Kinase 359 units/L (30-135) H 11/26/17 03:47 CK-MB (CK-2) 4.0 ng/mL (0.0-4.0) 11/26/17 03:47 CK-MB (CK-2) Rel Index 1.1 (0-4) 11/26/17 03:47 Troponin T 0.084 ng/mL (0.00-0.029) H 11/26/17 11:32 NT-Pro-B Natriuret Pep 13431 pg/mL (0-450) H 11/26/17 03:47 Total Protein 6.2 g/dL (6.3-8.2) L 11/27/17 05:07 Albumin 3.2 g/dL (3.9-5) L 11/27/17 05:07 Albumin/Globulin Ratio 1.1 % 11/27/17 05:07 Triglycerides 119 mg/dL (2-149) 11/26/17 03:47 Cholesterol 198 mg/dL (50-199) 11/26/17 03:47 LDL Cholesterol Direct 82 mg/dL (50-130) 11/26/17 03:47 HDL Cholesterol 103 mg/dL (40-59) H 11/26/17 03:47 Cholesterol/HDL Ratio 1.92 % 11/26/17 03:47 HCG, Qual Negative (Negative) 11/26/17 03:47 PTH Intact 541.0 pg/mL (15-65) H 11/27/17 05:07 ALL Screen Negative (Negative) 11/27/17 05:07 Proteinase 3 (PR3) Ab <1.0 AI (<1.0) 11/27/17 05:07 Myeloperoxidase Ab <1.0 AI (<1.0) 11/27/17 05:07 Complement C3 138 mg/dL (83-193) 11/27/17 05:07 Complement C4 39 mg/dL (15-57) 11/27/17 05:07 Hepatitis A IgM Ab Non-reactive (NonReactive) 11/27/17 05:07 Hep Bs Antigen Non-reactive (Negative) 11/27/17 05:07 Hep B Core IgM Ab Non-reactive (NonReactive) 11/27/17 05:07 Hepatitis C Antibody Non-reactive (NonReactive) 11/27/17 05:07
--- NOTE | 2017-12-01 09:58 | Progress Note ---
Assessment and Plan 1. ESRD: CKD has progressed to ESRD required hemodialysis. 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 Patient tolerated hemodialysis well. 2. Hypertensive Urgency: Workup for secondary HTN at [place] was negative. Renal artery duplex negative for any hemodynamically significant stenosis. UF with HD. 3. Hypokalemia: Dialyzed with 4K bath. 4. CHF with volume overload: Improved. 5. Anemia: Monitor. Epogen with HD as needed. 6. Medical non-compliance. Compliance encouraged. Subjective Date of service: 12/01/17 Interval history: Patient was seen and examined at the bedside. Doing well. Objective - Vital Signs Vital signs: Vital Signs - 12hr 11/30/17 11/30/17 12/01/17 22:00 23:35 00:58 Temperature 99.2 F Pulse Rate 72 72 Pulse Rate [ 72 Right Radial] Respiratory 18 Rate Respiratory 20 Rate [Head] Blood Pressure 180/101 180/101 O2 Sat by Pulse 100 100 Oximetry 12/01/17 12/01/17 12/01/17 00:59 04:05 05:08 Temperature 98.2 F Pulse Rate 72 70 65 Pulse Rate [ Right Radial] Respiratory 18 Rate Respiratory Rate [Head] Blood Pressure 180/101 164/102 188/91 O2 Sat by Pulse 97 Oximetry 12/01/17 12/01/17 05:15 06:53 Temperature 98.4 F Pulse Rate 83 4 L Pulse Rate [ Right Radial] Respiratory 24 Rate Respiratory Rate [Head] Blood Pressure 131/67 131/67 O2 Sat by Pulse 98 Oximetry - General Appearance General appearance: well-developed, well-nourished, appears stated age, other ( not in distress, right IJ tunnel catheter) EENT: ATNC, PERRL, hearing intact, vision intact Neck: supple Respiratory: Present: Clear to Ascultation Cardiology: regular, S1S2, no murmurs Gastrointestinal: normoactive bowel sounds, no tenderness Integumentary: no rash, warm and dry Neurologic: no focal deficit, no asterixis, alert and oriented x3 Musculoskeletal: other (no edema) - Lab 11/30/17 05:53 11/30/17 05:53 Most recent lab results Calcium 8.3 mg/dL (8.4-10.2) L 11/30/17 05:53 Phosphorus 4.60 mg/dL (2.5-4.5) H 11/27/17 05:07 Magnesium 1.90 mg/dL (1.7-2.3) 11/26/17 11:32
[2017-12-01] MEDS: LASIX IV SCH (10:01)
[2017-12-01] MEDS: PEPCID PO SCH (10:02)
[2017-12-01] MEDS: K-DUR PO SCH (10:02)
[2017-12-01] MEDS: LOVENOX SUB-Q SCH (10:03)
[2017-12-02] MEDS: CATAPRES PO SCH ×3 (02:54→18:36)
[2017-12-02] MEDS: APRESOLINE PO SCH ×4 (06:36→18:36)
[2017-12-02] MEDS: APRESOLINE IV PRN (06:48)
[2017-12-02 06:58] LABS: Hemoglobin 10.1 gm/dl (10.1-14.3); Mean Corpuscular HGB Conc 31 % (30-34); Mean Corpuscular Volume 83 fl (79-97); Platelet Count 297 K/mm3 (140-440); Red Blood Count 3.88 M/mm3 (3.65-5.03); Red Cell Distribution Width 16.5 % (13.2-15.2)
[2017-12-02 07:06] LABS: Mean Corpuscular Hemoglobin 26 pg (28-32)
[2017-12-02 07:13] LABS: Calcium 8.9 mg/dL (8.4-10.2)
--- NOTE | 2017-12-02 09:19 | Progress Note ---
Assessment and Plan Assessment and plan: --Hypertensive urgency; s/p Cardine drip,labile blood pressures This morning patient's systolic blood pressures more than 200 Increase clonidine to 0.3 times a day, increase hydralazine to 75 mg 3 times a day Continue all of her antihypertensives and when necessary medications --Gen.Anxiety: Regarding her HD,low dose xanax as needed -- Hypokalemia; corrected --Chronic kidney disease stage V ; initiated hemodialysis, Hemodialysis per schedule Nephrology following, outpatient HD scheduling per case management Nephrology scheduled for renal biopsy tomorrow --Elevated cardiac enzymes; no cardiac symptoms nonspecific probably secondary to acute kidney injury EKG, echocardiogram, cardiology evaluation if needed --Acute on chronic diastolic congestive heart failure; Ejection fraction 70%, continue current management --DVT prophylaxis; Lovenox renal dose --Outpatient HD scheduling per case management Disposition: Waiting out pt HD scheduling and renal biopsy. July d/c tomorrow if stable Plan of care reviewed with the patient and her nurse History Interval history: Patient Seen and examined medical records reviewed patient's blood pressures are uncontrolled, on multiple antihypertensive Patient feels better no new complaints Vital signs reviewed Hospitalist Physical - Constitutional Vitals: Temp Pulse Resp BP Pulse Ox 98.2 F 60 24 201/116 100 12/02/17 05:16 12/02/17 06:48 12/02/17 05:16 12/02/17 06:48 12/02/17 05:16 General appearance: Present: no acute distress, well-nourished - EENT Eyes: Present: PERRL, EOM intact - Neck Neck: Present: supple, normal ROM - Respiratory Respiratory effort: normal Respiratory: bilateral: diminished, negative: rales, rhonchi, wheezing - Cardiovascular Rhythm: regular Heart Sounds: Present: S1 & S2 - Extremities Extremities: no ischemia, No edema - Abdominal General gastrointestinal: soft, non-tender, non-distended, normal bowel sounds - Integumentary Integumentary: Present: clear, warm - Psychiatric Psychiatric: appropriate mood/affect, cooperative - Neurologic Neurologic: CNII-XII intact, moves all extremities Results - Labs CBC & Chem 7: 12/02/17 05:53 12/02/17 05:53 Labs: Laboratory Last Values WBC 7.0 K/mm3 (4.5-11.0) 12/02/17 05:53 RBC 3.88 M/mm3 (3.65-5.03) 12/02/17 05:53 Hgb 10.1 gm/dl (10.1-14.3) 12/02/17 05:53 Hct 32.0 % (30.3-42.9) 12/02/17 05:53 MCV 83 fl (79-97) 12/02/17 05:53 MCH 26 pg (28-32) L 12/02/17 05:53 MCHC 31 % (30-34) 12/02/17 05:53 RDW 16.5 % (13.2-15.2) H 12/02/17 05:53 Plt Count 297 K/mm3 (140-440) 12/02/17 05:53 Lymph % (Auto) 20.5 % (13.4-35.0) 11/29/17 05:18 [place] % (Auto) 6.5 % (0.0-7.3) 11/29/17 05:18 Eos % (Auto) 1.9 % (0.0-4.3) 11/29/17 05:18 Baso % (Auto) 0.4 % (0.0-1.8) 11/29/17 05:18 Lymph # 1.7 K/mm3 (1.2-5.4) 11/29/17 05:18 [place] # 0.5 K/mm3 (0.0-0.8) 11/29/17 05:18 Eos # 0.2 K/mm3 (0.0-0.4) 11/29/17 05:18 Baso # 0.0 K/mm3 (0.0-0.1) 11/29/17 05:18 Seg Neutrophils % 70.7 % (40.0-70.0) H 11/29/17 05:18 Seg Neutrophils # 5.9 K/mm3 (1.8-7.7) 11/29/17 05:18 PT 14.0 Sec. (12.2-14.9) 11/26/17 03:47 INR 1.03 (0.87-1.13) 11/26/17 03:47 APTT 30.3 Sec. (24.2-36.6) 11/26/17 03:47 Sodium 138 mmol/L (137-145) 12/02/17 05:53 Potassium 3.9 mmol/L (3.6-5.0) 12/02/17 05:53 Chloride 99.0 mmol/L (98-107) 12/02/17 05:53 Carbon Dioxide 24 mmol/L (22-30) 12/02/17 05:53 Anion Gap 19 mmol/L 12/02/17 05:53 BUN 38 mg/dL (7-17) H 12/02/17 05:53 Creatinine 4.8 mg/dL (0.7-1.2) H 12/02/17 05:53 Estimated GFR 12 ml/min 12/02/17 05:53 BUN/Creatinine Ratio 8 % 12/02/17 05:53 Glucose 96 mg/dL (65-100) 12/02/17 05:53 POC Glucose 119 (70-105) H 11/27/17 22:03 Calcium 8.9 mg/dL (8.4-10.2) 12/02/17 05:53 Phosphorus 4.60 mg/dL (2.5-4.5) H 11/27/17 05:07 Magnesium 1.90 mg/dL (1.7-2.3) 11/26/17 11:32 Total Bilirubin 0.20 mg/dL (0.1-1.2) 11/27/17 05:07 AST 21 units/L (5-40) 11/27/17 05:07 ALT 26 units/L (7-56) 11/27/17 05:07 Alkaline Phosphatase 158 units/L (35-129) H 11/27/17 05:07 Total Creatine Kinase 359 units/L (30-135) H 11/26/17 03:47 CK-MB (CK-2) 4.0 ng/mL (0.0-4.0) 11/26/17 03:47 CK-MB (CK-2) Rel Index 1.1 (0-4) 11/26/17 03:47 Troponin T 0.084 ng/mL (0.00-0.029) H 11/26/17 11:32 NT-Pro-B Natriuret Pep 41233 pg/mL (0-450) H 11/26/17 03:47 Total Protein 6.2 g/dL (6.3-8.2) L 11/27/17 05:07 Albumin 3.2 g/dL (3.9-5) L 11/27/17 05:07 Albumin/Globulin Ratio 1.1 % 11/27/17 05:07 Triglycerides 119 mg/dL (2-149) 11/26/17 03:47 Cholesterol 198 mg/dL (50-199) 11/26/17 03:47 LDL Cholesterol Direct 82 mg/dL (50-130) 11/26/17 03:47 HDL Cholesterol 103 mg/dL (40-59) H 11/26/17 03:47 Cholesterol/HDL Ratio 1.92 % 11/26/17 03:47 HCG, Qual Negative (Negative) 11/26/17 03:47 PTH Intact 541.0 pg/mL (15-65) H 11/27/17 05:07 ALL Screen Negative (Negative) 11/27/17 05:07 Proteinase 3 (PR3) Ab <1.0 AI (<1.0) 11/27/17 05:07 Myeloperoxidase Ab <1.0 AI (<1.0) 11/27/17 05:07 Complement C3 138 mg/dL (83-193) 11/27/17 05:07 Complement C4 39 mg/dL (15-57) 11/27/17 05:07 Hepatitis A IgM Ab Non-reactive (NonReactive) 11/27/17 05:07 Hep Bs Antigen Non-reactive (Negative) 11/27/17 05:07 Hep B Core IgM Ab Non-reactive (NonReactive) 11/27/17 05:07 Hepatitis C Antibody Non-reactive (NonReactive) 11/27/17 05:07
[2017-12-02] MEDS: LOVENOX SUB-Q SCH (09:35)
[2017-12-02] MEDS: MORPHINE IV PRN (09:36)
--- NOTE | 2017-12-02 10:36 | Progress Note ---
Assessment and Plan 1. ESRD: CKD has progressed to ESRD required hemodialysis. 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 Patient tolerated hemodialysis well. Next HD tomorrow. Kidney biopsy ordered for definitive diagnosis. 2. Hypertensive Urgency: Workup for secondary HTN at [place] was negative. Renal artery duplex negative for any hemodynamically significant stenosis. UF with HD. 3. Hypokalemia: 4 level is better. 4. CHF with volume overload: Improved. 5. Anemia: Monitor. Epogen with HD as needed. 6. Medical non-compliance. Compliance encouraged. Await outpatient HD chair. Subjective Date of service: 12/02/17 Interval history: Patient was seen and examined at the bedside. Doing well. Objective - Vital Signs Vital signs: Vital Signs - 12hr 12/01/17 12/01/17 12/02/17 22:59 23:47 02:54 Temperature 98.4 F Pulse Rate 64 63 64 Respiratory 20 Rate Blood Pressure 164/100 164/95 180/103 Blood Pressure [Right] O2 Sat by Pulse 100 Oximetry 12/02/17 12/02/17 12/02/17 05:16 06:36 06:48 Temperature 98.2 F Pulse Rate 60 59 L 60 Respiratory 24 Rate Blood Pressure 173/106 182/100 201/116 Blood Pressure [Right] O2 Sat by Pulse 100 Oximetry 12/02/17 09:00 Temperature Pulse Rate 62 Respiratory Rate Blood Pressure Blood Pressure 140/92 [Right] O2 Sat by Pulse Oximetry - General Appearance General appearance: well-developed, well-nourished, appears stated age, other ( right IJ tunnel catheter) EENT: ATNC, PERRL, hearing intact, vision intact Neck: supple Respiratory: Present: Clear to Ascultation Cardiology: regular, S1S2, no murmurs Gastrointestinal: normoactive bowel sounds, no tenderness Integumentary: no rash, warm and dry Neurologic: no focal deficit, no asterixis, alert and oriented x3 Musculoskeletal: other (no edema) - Lab 12/03/17 04:22 12/03/17 04:22 Most recent lab results Calcium 8.9 mg/dL (8.4-10.2) 12/02/17 05:53 Phosphorus 4.60 mg/dL (2.5-4.5) H 11/27/17 05:07 Magnesium 1.90 mg/dL (1.7-2.3) 11/26/17 11:32
[2017-12-02] MEDS: LASIX IV SCH (12:38)
[2017-12-02] MEDS: COREG PO SCH ×2 (12:38→22:17)
[2017-12-02] MEDS: K-DUR PO SCH (12:39)
[2017-12-02] MEDS: PEPCID PO SCH (12:39)
[2017-12-02] MEDS: XANAX PO PRN (15:27)
--- NOTE | 2017-12-02 19:29 | Vascular Lab Report ---
Upper extremity vein mapping Reason for exam: Preoperative evaluation for hemodialysis access Comments: On the right, the cephalic vein is not usable from wrist to shoulder. The basilic vein is usable from a elbow to shoulder. The brachial and radial arteries are patent. The radial artery is of normal caliber. On the left, the cephalic vein is not usable from wrist to shoulder. The basilic vein is usable from elbow to shoulder. The brachial and radial arteries are patent. The radial artery is of normal caliber. Impression: Both cephalic veins are not suitable for use as AV access sites. Both basilic veins are suitable for use as AV access sites above the elbow. No arterial issues were identified.
[2017-12-03] MEDS: APRESOLINE PO SCH ×3 (01:39→21:59)
[2017-12-03] MEDS: XANAX PO PRN (01:42)
[2017-12-03] MEDS: CATAPRES PO SCH ×3 (01:44→14:44)
[2017-12-03 05:02] LABS: Basophils % (Auto) 0.6 % (0.0-1.8); Eosinophils # (Auto) 0.2 K/mm3 (0.0-0.4); Eosinophils % (Auto) 3.3 % (0.0-4.3); Lymphocytes # (Auto) 1.4 K/mm3 (1.2-5.4); Lymphocytes % (Auto) 25.1 % (13.4-35.0); Mean Corpuscular HGB Conc 32 % (30-34); Mean Corpuscular Hemoglobin 26 pg (28-32); Mean Corpuscular Volume 81 fl (79-97); Monocytes # (Auto) 0.6 K/mm3 (0.0-0.8); Monocytes % (Auto) 10.1 % (0.0-7.3); Platelet Count 275 K/mm3 (140-440); Red Blood Count 3.45 M/mm3 (3.65-5.03); Red Cell Distribution Width 15.9 % (13.2-15.2)
[2017-12-03 05:29] LABS: Calcium 8.5 mg/dL (8.4-10.2)
[2017-12-03] MEDS ORDERED: SUBLIMAZE IV ONE (08:39)
[2017-12-03] MEDS ORDERED: VERSED IV ONE ×2 (08:39→09:15)
[2017-12-03] MEDS ORDERED: SUBLIMAZE ONE (09:16)
--- NOTE | 2017-12-03 09:54 | Progress Note ---
Assessment and Plan 1. ESRD: CKD has progressed to ESRD required hemodialysis. 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 Patient tolerated hemodialysis well. S/p Kidney biopsy. 2. Hypertensive Urgency: BP is better. Workup for secondary HTN at [place] was negative. Renal artery duplex negative for any hemodynamically significant stenosis. UF with HD. 3. CHF with volume overload: Improved. 4. Anemia: Monitor. Epogen with HD as needed. 5. Medical non-compliance. Compliance encouraged. Await outpatient HD chair. Subjective Date of service: 12/03/17 Interval history: Patient was seen and examined at the bedside. Doing ok. Objective - Vital Signs Vital signs: Vital Signs - 12hr 12/02/17 12/02/17 12/02/17 22:00 22:08 22:17 Temperature Pulse Rate 64 64 Respiratory 17 Rate Respiratory 17 Rate [Head] Blood Pressure 161/96 Blood Pressure 161/96 [Right] O2 Sat by Pulse 97 100 Oximetry 12/03/17 12/03/17 12/03/17 00:04 01:39 06:02 Temperature 97.8 F 98.4 F Pulse Rate 57 L 64 66 Respiratory 18 20 Rate Respiratory Rate [Head] Blood Pressure 153/94 156/84 148/90 Blood Pressure [Right] O2 Sat by Pulse 99 98 Oximetry 12/03/17 06:12 Temperature Pulse Rate 64 Respiratory Rate Respiratory Rate [Head] Blood Pressure 154/90 Blood Pressure [Right] O2 Sat by Pulse Oximetry - General Appearance General appearance: well-developed, well-nourished, appears stated age, other ( right IJ tunnel catheter) EENT: ATNC, PERRL, hearing intact, vision intact Neck: supple Respiratory: Present: Clear to Ascultation Cardiology: regular, S1S2, no murmurs Gastrointestinal: normoactive bowel sounds Integumentary: no rash, warm and dry, other (dressing over the lumbar area ( kidney biopsy)) Neurologic: no focal deficit, no asterixis, alert and oriented x3 Psychiatric: cooperative - Lab 12/03/17 04:22 12/03/17 04:22 Most recent lab results Calcium 8.5 mg/dL (8.4-10.2) 12/03/17 04:22 Phosphorus 4.60 mg/dL (2.5-4.5) H 11/27/17 05:07 Magnesium 1.90 mg/dL (1.7-2.3) 11/26/17 11:32
[2017-12-03] MEDS ORDERED: APRESOLINE ONE (09:59)
[2017-12-03] MEDS: COREG PO SCH ×2 (10:00→22:00)
[2017-12-03] MEDS: APRESOLINE IV PRN ×2 (10:02→18:37)
--- NOTE | 2017-12-03 10:47 | Cat Scan Report ---
CT BIOPSY RENAL LEFT History: Renal failure. Description of procedure: Informed consent was obtained. Sterile technique was utilized. 1% lidocaine for skin anesthesia. Conscious sedation was accomplished with Versed and fentanyl. The patient was sedated for 15 minutes. Intra-observer time of 15 minutes. Independent cardiorespiratory monitoring by RN. Using CT guidance, a 17-gauge introducer needle was advanced to the inferior pole of the left kidney. 2 separate 1.2 cm 18-gauge core biopsies were obtained for pathologic analysis. Postbiopsy images demonstrate trace hemorrhage at the biopsy site. No large and contained hemorrhage. The patient tolerated the procedure without difficulty. Impression: Successful CT guided biopsy at the inferior pole of the left kidney.
--- NOTE | 2017-12-03 13:26 | Progress Note ---
Assessment and Plan Assessment and plan: --Hypertensive urgency; s/p Cardine drip,labile blood pressures Well-controlled today, continue current antihypertensives and when necessary medicines --Gen.Anxiety:low dose xanax as needed -- Hypokalemia; corrected --Chronic kidney disease stage V ; initiated hemodialysis, Hemodialysis per schedule Nephrology following, outpatient HD scheduling per case management Patient has no payer source --Elevated cardiac enzymes; no cardiac symptoms nonspecific probably secondary to acute kidney injury EKG, echocardiogram, supportive care --Acute on chronic diastolic congestive heart failure; Ejection fraction 70%, continue current management --DVT prophylaxis; Lovenox renal dose --Outpatient HD scheduling per case management Disposition: Waiting out pt HD scheduling and renal biopsy. July d/c tomorrow if stable Plan of care reviewed with the patient and her nurse History Interval history: Patient seen and examined medical records reviewed No new events reported to nursing staff Patient underwent renal biopsy today, tolerated the procedure well Labile blood pressures patient was anxious and upset about outpatient HD scheduling Denies headache or dizziness Denies chest pain shortness of breath Vital signs reviewed Hospitalist Physical - Constitutional Vitals: Temp Pulse Resp BP Pulse Ox 97.8 F 64 16 149/82 99 12/03/17 12:13 12/03/17 12:13 12/03/17 12:13 12/03/17 12:13 12/03/17 12:13 General appearance: Present: no acute distress, well-nourished - EENT Eyes: Present: PERRL, EOM intact - Neck Neck: Present: supple, normal ROM - Respiratory Respiratory effort: normal Respiratory: bilateral: diminished, negative: rales, rhonchi, wheezing - Cardiovascular Rhythm: regular Heart Sounds: Present: S1 & S2 - Extremities Extremities: no ischemia, No edema - Abdominal General gastrointestinal: soft, non-tender, non-distended, normal bowel sounds - Integumentary Integumentary: Present: clear, warm - Psychiatric Psychiatric: appropriate mood/affect, cooperative - Neurologic Neurologic: CNII-XII intact, moves all extremities Results - Labs CBC & Chem 7: 12/03/17 04:22 12/03/17 04:22 Labs: Laboratory Last Values WBC 5.6 K/mm3 (4.5-11.0) 12/03/17 04:22 RBC 3.45 M/mm3 (3.65-5.03) L 12/03/17 04:22 Hgb 9.0 gm/dl (10.1-14.3) L 12/03/17 04:22 Hct 28.0 % (30.3-42.9) L 12/03/17 04:22 MCV 81 fl (79-97) 12/03/17 04:22 MCH 26 pg (28-32) L 12/03/17 04:22 MCHC 32 % (30-34) 12/03/17 04:22 RDW 15.9 % (13.2-15.2) H 12/03/17 04:22 Plt Count 275 K/mm3 (140-440) 12/03/17 04:22 Lymph % (Auto) 25.1 % (13.4-35.0) 12/03/17 04:22 [place] % (Auto) 10.1 % (0.0-7.3) H 12/03/17 04:22 Eos % (Auto) 3.3 % (0.0-4.3) 12/03/17 04:22 Baso % (Auto) 0.6 % (0.0-1.8) 12/03/17 04:22 Lymph # 1.4 K/mm3 (1.2-5.4) 12/03/17 04:22 [place] # 0.6 K/mm3 (0.0-0.8) 12/03/17 04:22 Eos # 0.2 K/mm3 (0.0-0.4) 12/03/17 04:22 Baso # 0.0 K/mm3 (0.0-0.1) 12/03/17 04:22 Seg Neutrophils % 60.9 % (40.0-70.0) 12/03/17 04:22 Seg Neutrophils # 3.4 K/mm3 (1.8-7.7) 12/03/17 04:22 PT 14.0 Sec. (12.2-14.9) 11/26/17 03:47 INR 1.03 (0.87-1.13) 11/26/17 03:47 APTT 30.3 Sec. (24.2-36.6) 11/26/17 03:47 Sodium 137 mmol/L (137-145) 12/03/17 04:22 Potassium 3.7 mmol/L (3.6-5.0) 12/03/17 04:22 Chloride 98.8 mmol/L (98-107) 12/03/17 04:22 Carbon Dioxide 25 mmol/L (22-30) 12/03/17 04:22 Anion Gap 17 mmol/L 12/03/17 04:22 BUN 54 mg/dL (7-17) H 12/03/17 04:22 Creatinine 5.5 mg/dL (0.7-1.2) H 12/03/17 04:22 Estimated GFR 10 ml/min 12/03/17 04:22 BUN/Creatinine Ratio 10 % 12/03/17 04:22 Glucose 72 mg/dL (65-100) 12/03/17 04:22 POC Glucose 119 (70-105) H 11/27/17 22:03 Calcium 8.5 mg/dL (8.4-10.2) 12/03/17 04:22 Phosphorus 4.60 mg/dL (2.5-4.5) H 11/27/17 05:07 Magnesium 1.90 mg/dL (1.7-2.3) 11/26/17 11:32 Total Bilirubin 0.20 mg/dL (0.1-1.2) 11/27/17 05:07 AST 21 units/L (5-40) 11/27/17 05:07 ALT 26 units/L (7-56) 11/27/17 05:07 Alkaline Phosphatase 158 units/L (35-129) H 11/27/17 05:07 Total Creatine Kinase 359 units/L (30-135) H 11/26/17 03:47 CK-MB (CK-2) 4.0 ng/mL (0.0-4.0) 11/26/17 03:47 CK-MB (CK-2) Rel Index 1.1 (0-4) 11/26/17 03:47 Troponin T 0.084 ng/mL (0.00-0.029) H 11/26/17 11:32 NT-Pro-B Natriuret Pep 66913 pg/mL (0-450) H 11/26/17 03:47 Total Protein 6.2 g/dL (6.3-8.2) L 11/27/17 05:07 Albumin 3.2 g/dL (3.9-5) L 11/27/17 05:07 Albumin/Globulin Ratio 1.1 % 11/27/17 05:07 Triglycerides 119 mg/dL (2-149) 11/26/17 03:47 Cholesterol 198 mg/dL (50-199) 11/26/17 03:47 LDL Cholesterol Direct 82 mg/dL (50-130) 11/26/17 03:47 HDL Cholesterol 103 mg/dL (40-59) H 11/26/17 03:47 Cholesterol/HDL Ratio 1.92 % 11/26/17 03:47 HCG, Qual Negative (Negative) 11/26/17 03:47 PTH Intact 541.0 pg/mL (15-65) H 11/27/17 05:07 ALL Screen Negative (Negative) 11/27/17 05:07 Proteinase 3 (PR3) Ab <1.0 AI (<1.0) 11/27/17 05:07 Myeloperoxidase Ab <1.0 AI (<1.0) 11/27/17 05:07 Complement C3 138 mg/dL (83-193) 11/27/17 05:07 Complement C4 39 mg/dL (15-57) 11/27/17 05:07 Hepatitis A IgM Ab Non-reactive (NonReactive) 11/27/17 05:07 Hep Bs Antigen Non-reactive (Negative) 11/27/17 05:07 Hep B Core IgM Ab Non-reactive (NonReactive) 11/27/17 05:07 Hepatitis C Antibody Non-reactive (NonReactive) 11/27/17 05:07
[2017-12-03] MEDS: LOVENOX SUB-Q SCH (14:42)
[2017-12-03] MEDS: LASIX IV SCH (14:44)
[2017-12-03] MEDS: K-DUR PO SCH (14:45)
[2017-12-03] MEDS: PEPCID PO SCH (14:46)
[2017-12-03] MEDS: MORPHINE IV PRN (22:08)
[2017-12-04] MEDS: CATAPRES PO SCH ×4 (00:30→23:15)
[2017-12-04] MEDS ORDERED: BENADRYL PO ONE (03:09)
[2017-12-04] MEDS: APRESOLINE PO SCH ×3 (05:00→23:17)
[2017-12-04] MEDS ORDERED: NACL 0.9% 100 ML IV PRN (08:27)
--- NOTE | 2017-12-04 08:27 | Progress Note ---
Assessment and Plan 1. ESRD: CKD has progressed to ESRD required hemodialysis. 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 Patient tolerated hemodialysis well. S/p Kidney biopsy. 2. Hypertensive Urgency: BP is better. Workup for secondary HTN at [place] was negative. Renal artery duplex negative for any hemodynamically significant stenosis. UF with HD. 3. CHF with volume overload: Improved. 4. Anemia: Monitor. Epogen with HD as needed. 5. Medical non-compliance. Compliance encouraged. Await outpatient HD chair. Subjective Date of service: 12/04/17 Interval history: Patient was seen and examined at the bedside. C/o diminished vision, chronic problem. Objective - Vital Signs Vital signs: Vital Signs - 12hr 12/03/17 12/03/17 12/03/17 21:50 22:00 22:08 Temperature 98.5 F Pulse Rate 63 64 Pulse Rate [ 81 Apical] Respiratory 17 17 Rate Respiratory 17 Rate [Head] Blood Pressure 175/101 Blood Pressure 175/101 [Right] O2 Sat by Pulse 97 98 Oximetry 12/03/17 12/03/17 12/03/17 22:17 22:38 23:52 Temperature 98.4 F Pulse Rate 70 Pulse Rate [ Apical] Respiratory 17 20 Rate Respiratory Rate [Head] Blood Pressure 151/82 Blood Pressure [Right] O2 Sat by Pulse 100 99 Oximetry 12/04/17 12/04/17 06:19 06:53 Temperature 98.2 F Pulse Rate 65 65 Pulse Rate [ Apical] Respiratory 20 Rate Respiratory Rate [Head] Blood Pressure 170/91 170/91 Blood Pressure [Right] O2 Sat by Pulse 98 Oximetry - General Appearance General appearance: well-developed, well-nourished, appears stated age, other ( not in distress, right IJ tunnel catheter) EENT: ATNC, PERRL, hearing intact Neck: supple Respiratory: Present: Clear to Ascultation Cardiology: regular, S1S2, no murmurs Gastrointestinal: normoactive bowel sounds, no tenderness Integumentary: no rash, warm and dry Neurologic: no asterixis, alert and oriented x3, other (patient is able to see and recognize people, able to use her phone without any difficulty, walking fine with out any difficulty) Musculoskeletal: other (no edema) - Lab 12/03/17 04:22 12/03/17 04:22 Most recent lab results Calcium 8.5 mg/dL (8.4-10.2) 12/03/17 04:22 Phosphorus 4.60 mg/dL (2.5-4.5) H 11/27/17 05:07 Magnesium 1.90 mg/dL (1.7-2.3) 11/26/17 11:32
--- NOTE | 2017-12-04 10:25 | Progress Note ---
Assessment and Plan Assessment and plan: --Hypertensive urgency; s/p Cardine drip,labile blood pressures Moderate controlled today, continue hydralazine , clonidine , metoprolol , add nifedipine When necessary medications --Gen.Anxiety:low dose xanax as needed -- Hypokalemia; corrected --Chronic kidney disease stage V ; initiated hemodialysis, Hemodialysis per schedule Nephrology following, outpatient HD scheduling per case management Patient has no payer source --Elevated cardiac enzymes; no cardiac symptoms nonspecific probably secondary to acute kidney injury EKG, echocardiogram, supportive care --Acute on chronic diastolic congestive heart failure; Ejection fraction 70%, continue current management --Right eye vision problems; patient seen flanger in [facility] follows periodically, advised to follow private flanger upon discharge --DVT prophylaxis; Lovenox renal dose --Outpatient HD scheduling per case management Disposition: Waiting out pt HD scheduling and renal biopsy. July d/c tomorrow if stable Plan of care reviewed with the patient and her nurse History Interval history: Patient seen and examined medical records reviewed No new events reported by the nursing staff Denies any headache or dizziness Vital signs reviewed Awaiting outpatient H teacher's scheduling Hospitalist Physical - Constitutional Vitals: Temp Pulse Resp BP Pulse Ox 98.2 F 65 20 170/91 98 12/04/17 06:19 12/04/17 06:53 12/04/17 06:19 12/04/17 06:53 12/04/17 06:19 General appearance: Present: no acute distress, well-nourished - EENT Eyes: Present: PERRL, EOM intact - Neck Neck: Present: supple, normal ROM - Respiratory Respiratory effort: normal Respiratory: negative: rales, rhonchi, wheezing - Cardiovascular Rhythm: regular Heart Sounds: Present: S1 & S2 - Extremities Extremities: no ischemia, No edema - Abdominal General gastrointestinal: soft, non-tender, non-distended, normal bowel sounds - Integumentary Integumentary: Present: clear, warm - Psychiatric Psychiatric: appropriate mood/affect, cooperative - Neurologic Neurologic: CNII-XII intact, moves all extremities Results - Labs CBC & Chem 7: 12/03/17 04:22 12/03/17 04:22 Labs: Laboratory Last Values WBC 5.6 K/mm3 (4.5-11.0) 12/03/17 04:22 RBC 3.45 M/mm3 (3.65-5.03) L 12/03/17 04:22 Hgb 9.0 gm/dl (10.1-14.3) L 12/03/17 04:22 Hct 28.0 % (30.3-42.9) L 12/03/17 04:22 MCV 81 fl (79-97) 12/03/17 04:22 MCH 26 pg (28-32) L 12/03/17 04:22 MCHC 32 % (30-34) 12/03/17 04:22 RDW 15.9 % (13.2-15.2) H 12/03/17 04:22 Plt Count 275 K/mm3 (140-440) 12/03/17 04:22 Lymph % (Auto) 25.1 % (13.4-35.0) 12/03/17 04:22 [place] % (Auto) 10.1 % (0.0-7.3) H 12/03/17 04:22 Eos % (Auto) 3.3 % (0.0-4.3) 12/03/17 04:22 Baso % (Auto) 0.6 % (0.0-1.8) 12/03/17 04:22 Lymph # 1.4 K/mm3 (1.2-5.4) 12/03/17 04:22 [place] # 0.6 K/mm3 (0.0-0.8) 12/03/17 04:22 Eos # 0.2 K/mm3 (0.0-0.4) 12/03/17 04:22 Baso # 0.0 K/mm3 (0.0-0.1) 12/03/17 04:22 Seg Neutrophils % 60.9 % (40.0-70.0) 12/03/17 04:22 Seg Neutrophils # 3.4 K/mm3 (1.8-7.7) 12/03/17 04:22 PT 14.0 Sec. (12.2-14.9) 11/26/17 03:47 INR 1.03 (0.87-1.13) 11/26/17 03:47 APTT 30.3 Sec. (24.2-36.6) 11/26/17 03:47 Sodium 137 mmol/L (137-145) 12/03/17 04:22 Potassium 3.7 mmol/L (3.6-5.0) 12/03/17 04:22 Chloride 98.8 mmol/L (98-107) 12/03/17 04:22 Carbon Dioxide 25 mmol/L (22-30) 12/03/17 04:22 Anion Gap 17 mmol/L 12/03/17 04:22 BUN 54 mg/dL (7-17) H 12/03/17 04:22 Creatinine 5.5 mg/dL (0.7-1.2) H 12/03/17 04:22 Estimated GFR 10 ml/min 12/03/17 04:22 BUN/Creatinine Ratio 10 % 12/03/17 04:22 Glucose 72 mg/dL (65-100) 12/03/17 04:22 POC Glucose 119 (70-105) H 11/27/17 22:03 Calcium 8.5 mg/dL (8.4-10.2) 12/03/17 04:22 Phosphorus 4.60 mg/dL (2.5-4.5) H 11/27/17 05:07 Magnesium 1.90 mg/dL (1.7-2.3) 11/26/17 11:32 Total Bilirubin 0.20 mg/dL (0.1-1.2) 11/27/17 05:07 AST 21 units/L (5-40) 11/27/17 05:07 ALT 26 units/L (7-56) 11/27/17 05:07 Alkaline Phosphatase 158 units/L (35-129) H 11/27/17 05:07 Total Creatine Kinase 359 units/L (30-135) H 11/26/17 03:47 CK-MB (CK-2) 4.0 ng/mL (0.0-4.0) 11/26/17 03:47 CK-MB (CK-2) Rel Index 1.1 (0-4) 11/26/17 03:47 Troponin T 0.084 ng/mL (0.00-0.029) H 11/26/17 11:32 NT-Pro-B Natriuret Pep 76281 pg/mL (0-450) H 11/26/17 03:47 Total Protein 6.2 g/dL (6.3-8.2) L 11/27/17 05:07 Albumin 3.2 g/dL (3.9-5) L 11/27/17 05:07 Albumin/Globulin Ratio 1.1 % 11/27/17 05:07 Triglycerides 119 mg/dL (2-149) 11/26/17 03:47 Cholesterol 198 mg/dL (50-199) 11/26/17 03:47 LDL Cholesterol Direct 82 mg/dL (50-130) 11/26/17 03:47 HDL Cholesterol 103 mg/dL (40-59) H 11/26/17 03:47 Cholesterol/HDL Ratio 1.92 % 11/26/17 03:47 HCG, Qual Negative (Negative) 11/26/17 03:47 PTH Intact 541.0 pg/mL (15-65) H 11/27/17 05:07 ALL Screen Negative (Negative) 11/27/17 05:07 Proteinase 3 (PR3) Ab <1.0 AI (<1.0) 11/27/17 05:07 Myeloperoxidase Ab <1.0 AI (<1.0) 11/27/17 05:07 Complement C3 138 mg/dL (83-193) 11/27/17 05:07 Complement C4 39 mg/dL (15-57) 11/27/17 05:07 Hepatitis A IgM Ab Non-reactive (NonReactive) 11/27/17 05:07 Hep Bs Antigen Non-reactive (Negative) 11/27/17 05:07 Hep B Core IgM Ab Non-reactive (NonReactive) 11/27/17 05:07 Hepatitis C Antibody Non-reactive (NonReactive) 11/27/17 05:07
[2017-12-04] MEDS: PEPCID PO SCH (10:55)
[2017-12-04] MEDS: LASIX IV SCH (10:55)
[2017-12-04] MEDS: K-DUR PO SCH (10:56)
[2017-12-04] MEDS: COREG PO SCH ×2 (10:56→23:17)
[2017-12-04] MEDS: LOVENOX SUB-Q SCH (10:57)
[2017-12-04] MEDS: PROCARDIA XL PO SCH ×2 (11:04→23:27)
[2017-12-04] MEDS: MORPHINE IV PRN (11:29)
[2017-12-05] MEDS: APRESOLINE PO SCH ×2 (05:30→15:03)
[2017-12-05] MEDS: CATAPRES PO SCH ×2 (05:30→15:03)
--- NOTE | 2017-12-05 08:17 | Progress Note ---
Assessment and Plan 1. ESRD: CKD has progressed to ESRD required hemodialysis. 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 Patient was last dialyzed yesterday. S/p Kidney biopsy. APS Ab ordered. 2. Hypertensive Urgency: BP is better. Workup for secondary HTN at [place] was negative. Renal artery duplex negative for any hemodynamically significant stenosis. 3. CHF with volume overload: Improved. 4. Anemia: Monitor. Epogen with HD as needed. 5. Medical non-compliance. Compliance encouraged. Patient is neither eligible for Medicare nor Medicaid at this time. Patient wants to go home today. She can be discharged from my stand point. If she couldn't get HD chair she was advised to go to the nearest ER for hemodialysis treatment three times a week. Also f/u with Ophthalmology. Plan d/w . Subjective Date of service: 12/05/17 Interval history: Patient was seen and examined at the bedside. Patient is doing ok. Objective - Vital Signs Vital signs: Vital Signs - 12hr 12/04/17 12/04/17 12/04/17 22:00 23:05 23:15 Temperature 99.1 F Pulse Rate 74 73 Pulse Rate [ 62 Right Radial] Respiratory 20 20 Rate Blood Pressure 165/96 165/96 O2 Sat by Pulse 99 99 Oximetry 12/04/17 12/05/17 23:17 04:51 Temperature 98.4 F Pulse Rate 73 62 Pulse Rate [ Right Radial] Respiratory 20 Rate Blood Pressure 165/96 140/85 O2 Sat by Pulse 99 Oximetry - General Appearance General appearance: well-developed, well-nourished, appears stated age, other ( right IJ tunnel catheter) EENT: ATNC, PERRL, hearing intact, vision intact Neck: supple Respiratory: Present: Clear to Ascultation Cardiology: regular, S1S2, no murmurs Gastrointestinal: normoactive bowel sounds, no tenderness Integumentary: no rash, warm and dry Neurologic: no focal deficit, no asterixis, alert and oriented x3 Musculoskeletal: other (no edema) - Lab 12/03/17 04:22 12/03/17 04:22 Most recent lab results Calcium 8.5 mg/dL (8.4-10.2) 12/03/17 04:22 Phosphorus 4.60 mg/dL (2.5-4.5) H 11/27/17 05:07 Magnesium 1.90 mg/dL (1.7-2.3) 11/26/17 11:32
[2017-12-05] MEDS: PEPCID PO SCH (11:17)
[2017-12-05] MEDS: COREG PO SCH (11:17)
[2017-12-05] MEDS: PROCARDIA XL PO SCH (11:17)
[2017-12-05] MEDS: K-DUR PO SCH (11:18)
[2017-12-05] MEDS: LASIX IV SCH (11:18)
[2017-12-05] MEDS: LOVENOX SUB-Q SCH (11:18)
--- NOTE | 2017-12-05 14:21 | Discharge Summary ---
Providers - Providers Date of Admission: 11/26/17 10:01 Date of discharge: 12/05/17 Attending physician: RASHI ROPER 11/26/17 09:45 Consult to Physician [CONS] Routine Comment: Consulting Provider: TALIB JOHNSON Physician Instructions: Reason For Exam: ROSAMARIA, 11/28/17 05:25 Consult to Case Management [CONS] Urgent Services Needed at Discharge: Other Notified:: case man Additional Physician Instructions: New dialysis patient. She wants to know what to expect and to get finicial help. 11/28/17 07:19 Consult to Interventional Radiology [CONS] Routine Consulting Provider: IRINA BOYKIN Reason For Exam: Tunnel hemodialysis catheter placement. Place consult to:: VASCULAR Notified:: YES Was contact made?: Yes Time called:: 09:35 Comment:: VASCULAR ON FLOOR Primary care physician: ROVING CHANGER Hospitalization Condition: Stable Hospital course: --Hypertensive urgency; s/p Cardine drip,labile blood pressures Moderate controlled today, continue hydralazine , clonidine , metoprolol , add nifedipine When necessary medications --Gen.Anxiety:low dose xanax as needed -- Hypokalemia; corrected --Chronic kidney disease stage V ; initiated hemodialysis, Hemodialysis per schedule Nephrology following, outpatient HD scheduling per case management Patient has no payer source --Elevated cardiac enzymes; no cardiac symptoms nonspecific probably secondary to acute kidney injury EKG, echocardiogram, supportive care --Acute on chronic diastolic congestive heart failure; Ejection fraction 70%, continue current management --Right eye vision problems; patient seen promotions executive producer in [facility] follows periodically, advised to follow private promotions executive producer upon discharge --DVT prophylaxis; Lovenox renal dose --Outpatient HD scheduling per case management Disposition: Waiting out pt HD scheduling and renal biopsy. May d/c tomorrow if stable Plan of care reviewed with the patient and her nurse Disposition: -01 TO HOME OR SELFCARE Time spent for discharge: 32 m Exam - Constitutional Vitals: Temp Pulse Resp BP Pulse Ox 98.0 F 58 L 20 132/78 97 12/05/17 12:30 12/05/17 12:30 12/05/17 12:30 12/05/17 12:30 12/05/17 12:30 Plan Activity: no restrictions Diet: renal Additional Instructions: Case management try to set up outpatient hemodialysis, unsuccessful. Advice to go to the nearest emergency room for hemodialysis per schedule[3 times a week]. Follow with your private promotions executive producer at [facility] for further evaluation of vision problems. Strongly advised to be compliant with medications, hemodialysis, follow-up visits with physicians. Follow up with: PRIMARY CARE, [Primary Care Provider] - 7 Days TALIB JOHNSON MD [Staff Physician] - 7 Days Prescriptions: ALPRAZolam [Xanax TAB] 0.25 mg PO QHS PRN #5 tablet PRN Reason: Anxiety Carvedilol [Coreg] 25 mg PO BID #60 tablet cloNIDine [Catapres] 0.2 mg PO Q12H #60 tablet Furosemide [Lasix TAB] 40 mg PO QDAY #30 tablet hydrALAZINE [Apresoline TAB] 100 mg PO Q8H #90 tab NIFEdipine XL [Procardia Xl] 30 mg PO Q12HR #60 tablet Potassium Chloride 10 meq PO QDAY #30 capsule.er
[2017-12-05 15:04] VITALS: BP 133/78
[2017-12-07 03:07] LABS: Cardiolipin Ab IgA <11 APL (<=11); Cardiolipin Ab IgG <14 GPL (<=14); Cardiolipin Ab IgM <12 MPL (<=12)
== END 2017-12-05 18:05 | disposition home or self-care (01) | DRG 673 ==
LOC: ED 03:05 → 4A 10:01 → 3A 11-29 21:09
PROVIDERS: ADMIT Internal Medicine; ATTEND Internal Medicine
PROC: 02H633Z Insertion of Infusion Device into Right Atrium, Percutaneous Approach (ICD-10-PCS; principal; 2017-11-28)
PROC: 0JH63XZ Insertion of Tunneled Vascular Access Device into Chest Subcutaneous Tissue and Fascia, Percutaneous Approach (ICD-10-PCS; 2017-11-28)
PROC: B2141ZZ Fluoroscopy of Right Heart using Low Osmolar Contrast (ICD-10-PCS; 2017-11-28)
PROC: 5A1D70Z Performance of Urinary Filtration, Intermittent, Less than 6 Hours Per Day (ICD-10-PCS; 2017-11-28)
PROC: 5A1D70Z Performance of Urinary Filtration, Intermittent, Less than 6 Hours Per Day (ICD-10-PCS; 2017-11-29)
PROC: 5A1D70Z Performance of Urinary Filtration, Intermittent, Less than 6 Hours Per Day (ICD-10-PCS; 2017-11-30)
PROC: 0TB13ZX Excision of Left Kidney, Percutaneous Approach, Diagnostic (ICD-10-PCS; 2017-12-03)
PROC: 5A1D70Z Performance of Urinary Filtration, Intermittent, Less than 6 Hours Per Day (ICD-10-PCS; 2017-12-04)
DX: N17.0 Acute kidney failure with tubular necrosis (principal); I50.43 Acute on chronic combined systolic (congestive) and diastolic (congestive) heart failure; I13.2 Hypertensive heart and chronic kidney disease with heart failure and with stage 5 chronic kidney disease, or end stage renal disease; I16.1 Hypertensive emergency; E87.1 Hypo-osmolality and hyponatremia; N18.6 End stage renal disease; E87.6 Hypokalemia; F41.1 Generalized anxiety disorder; Z91.14 Patient's other noncompliance with medication regimen; Z88.8 Allergy status to other drugs, medicaments and biological substances; Z79.899 Other long term (current) drug therapy; Z87.891 Personal history of nicotine dependence
CPT/HCPCS: 36415; 36558; 71045; 76770; 76937; 77001; 77012; 80048; 80053; 80061; 80074; 82550; 82553; 82962; 83735; 83880; 83970; 84100; 84484; 84703; 85025; 85027; 85610; 85613; 85730; 86021; 86038; 86147; 86160; 93005; 93010; 93970; 93975; 96372; 96374; C1750; J0360; J0690; J1644; J1650; J1940; J2060; J2250; J2270; J3010; J3480; J7030; J7050

== ENCOUNTER 2018-09-09 07:52 | Observation (INO) | payer MEDICAID ==
[2018-09-09] MEDS ORDERED: APRESOLINE IV ONE (08:21)
--- NOTE | 2018-09-09 08:26 | Emergency Department Report ---
ED General Adult HPI - General Chief complaint: Medical Clearance Stated complaint: DIALYSIS TREATMENT/BLURR VISION Time Seen by Provider: 09/09/18 08:13 Source: patient Mode of arrival: Ambulatory Limitations: No Limitations - History of Present Illness Initial comments: Patient is 42 years old female with history of end-stage renal disease on hemodialysis. Patient presented to the ER complaining of headache, shortness of breath for the last few days. Patient stated that last time she has dialysis was 2 weeks ago. Patient stated that she recently moved from [place]. Patient found to have a blood pressure of 254/128. - Related Data Previous Rx's Medication Instructions Recorded Last Taken Type Famotidine [Pepcid] 20 mg PO BID #60 tablet 05/03/16 Unknown Rx ALPRAZolam [Xanax TAB] 0.25 mg PO QHS PRN #5 tablet 12/05/17 Unknown Rx Carvedilol [Coreg] 25 mg PO BID #60 tablet 12/05/17 Unknown Rx Furosemide [Lasix TAB] 40 mg PO QDAY #30 tablet 12/05/17 Unknown Rx NIFEdipine XL [Procardia Xl] 30 mg PO Q12HR #60 tablet 12/05/17 Unknown Rx Potassium Chloride 10 meq PO QDAY #30 capsule.er 12/05/17 Unknown Rx cloNIDine [Catapres] 0.2 mg PO Q12H #60 tablet 12/05/17 Unknown Rx hydrALAZINE [Apresoline TAB] 100 mg PO Q8H #90 tab 12/05/17 Unknown Rx Allergies Allergy/AdvReac Type Severity Reaction Status Date / Time iron polysaccharide complex Allergy Swelling Verified 04/16/15 09:06 [From Nu-Iron] lactose AdvReac Unknown Verified 12/04/17 09:22 ED Review of Systems ROS: Stated complaint: DIALYSIS TREATMENT/BLURR VISION Other details as noted in HPI Comment: All other systems reviewed and negative Constitutional: denies: chills, fever Respiratory: orthopnea, shortness of breath, SOB with exertion, SOB at rest. de nies: cough, wheezing Cardiovascular: denies: chest pain, palpitations Gastrointestinal: denies: abdominal pain, nausea, vomiting, diarrhea, constipat ion, hematemesis, hematochezia Musculoskeletal: denies: back pain Neurological: headache. denies: weakness, numbness, paresthesias, confusion, abnormal gait ED Past Medical Hx - Past Medical History Hx Hypertension: Yes Hx Congestive Heart Failure: Yes Hx HIV: No Additional medical history: ANGINA. ANEMIA - Social History Smoking Status: Former Smoker - Medications Home Medications: Home Medications Medication Instructions Recorded Confirmed Last Taken Type Famotidine [Pepcid] 20 mg PO BID #60 tablet 05/03/16 09/09/18 Unknown Rx ALPRAZolam [Xanax TAB] 0.25 mg PO QHS PRN #5 tablet 12/05/17 09/09/18 Unknown Rx Carvedilol [Coreg] 25 mg PO BID #60 tablet 12/05/17 09/09/18 Unknown Rx Furosemide [Lasix TAB] 40 mg PO QDAY #30 tablet 12/05/17 09/09/18 Unknown Rx NIFEdipine XL [Procardia Xl] 30 mg PO Q12HR #60 tablet 12/05/17 09/09/18 Unknown Rx Potassium Chloride 10 meq PO QDAY #30 capsule.er 12/05/17 09/09/18 Unknown Rx cloNIDine [Catapres] 0.2 mg PO Q12H #60 tablet 12/05/17 09/09/18 Unknown Rx hydrALAZINE [Apresoline TAB] 100 mg PO Q8H #90 tab 12/05/17 09/09/18 Unknown Rx ED Physical Exam - General Limitations: No Limitations General appearance: alert, in no apparent distress - Head Head exam: Present: atraumatic, normocephalic, normal inspection - Eye Eye exam: Present: normal appearance, PERRL - ENT ENT exam: Present: normal exam, normal orophraynx, mucous membranes moist - Neck Neck exam: Present: normal inspection, full ROM. Absent: tenderness, meningismus, lymphadenopathy, thyromegaly - Respiratory Respiratory exam: Present: normal lung sounds bilaterally. Absent: respiratory distress, wheezes, rales, rhonchi, stridor, chest wall tenderness, accessory muscle use, decreased breath sounds, prolonged expiratory - Cardiovascular Cardiovascular Exam: Present: regular rate, normal rhythm, normal heart sounds - GI/Abdominal GI/Abdominal exam: Present: soft, normal bowel sounds. Absent: distended, tenderness, guarding, rebound, rigid - Extremities Exam Extremities exam: Present: normal inspection, full ROM, normal capillary refill. Absent: pedal edema, calf tenderness - Back Exam Back exam: Present: normal inspection, full ROM. Absent: CVA tenderness (R), CVA tenderness (L), muscle spasm - Neurological Exam Neurological exam: Present: alert, oriented X3, CN II-XII intact, normal gait, reflexes normal - Psychiatric Psychiatric exam: Present: normal mood - Skin Skin exam: Present: warm, intact, normal color ED Course Vital Signs 09/09/18 09/09/18 09/09/18 08:54 09:03 09:17 Temperature 98.2 F Pulse Rate 84 84 Respiratory 16 Rate Blood Pressure 244/154 204/122 Blood Pressure 244/154 [Left] O2 Sat by Pulse 96 Oximetry 09/09/18 09:33 Temperature Pulse Rate 84 Respiratory 16 Rate Blood Pressure Blood Pressure 208/126 [Left] O2 Sat by Pulse 95 Oximetry ED Medical Decision Making - Lab Data Result diagrams: 09/09/18 08:25 09/09/18 08:25 - EKG Data -: EKG Interpreted by Me EKG shows normal: sinus rhythm Rate: normal - EKG Data Interpretation: no acute changes - Radiology Data Radiology results: report reviewed Chest x-ray is unremarkable. - Medical Decision Making Patient is 42 years old female with history of end-stage renal disease on hemodialysis. Patient presented to the ER complaining of headache, shortness of breath for the last few days. Patient stated that last time she has dialysis was 2 weeks ago. Patient stated that she recently moved from [place]. Patient found to have a blood pressure of 254/128. Patient received hydralazine 20 mg IV was no significant improvement in the blood pressure. Patient received labetalol 20 mg IV. I discussed the patient with Dr. Shepard, he advised to give clonidine and admitted the patient for emergency dialysis. I discussed the patient is Dr. Savage,he advised to admit the patient to Dr Lynch. Critical Care Time: Yes Critical care time in (mins) excluding proc time.: 30 Critical care attestation.: If time is entered above; I have spent that time in minutes in the direct care o f this critically ill patient, excluding procedure time. ED Disposition Clinical Impression: ESRD needing dialysis, Hypertensive emergency, Shortness of breath Disposition: OP ADMIT IP TO THIS HOSP Is pt being admited?: Yes Condition: Stable Instructions: Hypertension (ED)
[2018-09-09 08:52] LABS: Basophils % (Auto) 0.3 % (0.0-1.8); Eosinophils # (Auto) 0.1 K/mm3 (0.0-0.4); Eosinophils % (Auto) 1.7 % (0.0-4.3); Hematocrit 34.4 % (30.3-42.9); Hemoglobin 11.2 gm/dl (10.1-14.3); Lymphocytes # (Auto) 1.1 K/mm3 (1.2-5.4); Lymphocytes % (Auto) 15.5 % (13.4-35.0); Mean Corpuscular HGB Conc 33 % (30-34); Mean Corpuscular Volume 82 fl (79-97); Monocytes # (Auto) 0.5 K/mm3 (0.0-0.8); Monocytes % (Auto) 7.5 % (0.0-7.3); Platelet Count 261 K/mm3 (140-440); Red Blood Count 4.18 M/mm3 (3.65-5.03); Red Cell Distribution Width 16.8 % (13.2-15.2)
[2018-09-09 08:56] LABS: INR 0.97 (0.87-1.13)
[2018-09-09 09:05] LABS: BUN/Creatinine Ratio 10; Blood Urea Nitrogen 48 mg/dL (7-17); Calcium 7.1 mg/dL (8.4-10.2); Hemolysis Index 5
[2018-09-09] MEDS ORDERED: NORMODYNE IV ONE ×2 (09:14→09:18)
--- NOTE | 2018-09-09 09:24 | XRay Report ---
AP CHEST: HISTORY: Dyspnea AP view of the chest demonstrates a normal mediastinal and cardiac contour with clear lungs and normal bony and soft tissue structures. Right IJ dual-lumen catheter is in good position. IMPRESSION: Unremarkable AP chest. Volume overload has resolved since 11/26/17 exam.
[2018-09-09] MEDS ORDERED: CATAPRES PO ONE (10:03)
[2018-09-09] MEDS ORDERED: CATAPRES ONE (10:04)
[2018-09-09] MEDS ORDERED: NORCO 5/325 PO PRN (10:24)
[2018-09-09] MEDS ORDERED: ZOFRAN IV PRN (10:24)
[2018-09-09] MEDS ORDERED: TYLENOL PO PRN (10:24)
[2018-09-09] MEDS ORDERED: APRESOLINE IV PRN ×2 (10:24→10:32)
--- NOTE | 2018-09-09 10:27 | History and Physical Report ---
History of Present Illness Date of examination: 09/09/18 Date of admission: 09/09/18 Chief complaint: Missed HD History of present illness: Patient is 42 years old female with history of end-stage renal disease on hemodialysis presented to the ER complaining of headache, shortness of breath for the last few days. Patient stated that last time she has dialysis was 2 weeks ago. Patient stated that she recently moved from [place] and has been having dialysis done emergency basis at the hospital. She was in [place] for the last 4-6 weeks. Patient she stated that she had 2 mL [place] for about a month due to family reason and outpatient dialysis could not be arranged there. She recently came to [place] and developed difficulty breathing headache. In the ER Patient found to have a blood pressure of 254/128. Nephrology was consulted for emergent dialysis, she is getting admitted for further evaluation and management. She currently denies any chest pain. Her plastic design applier is Dr. Rodriguez. She states that she should be able to go back to her old dialysis center. Past History Past Medical History: grade 1 diastolic heart failure, hypertension, other (obesity) Past Surgical History: cholecystectomy Social history: single, smoking (occasionally), alcohol abuse (occasionally), full code, other (cocaine occasionally, used yesterday) Family history: CAD, diabetes Review of System: Constitutional: no fever, no chills, no weight loss Ears, eyes, nose, mouth and throat: no nasal congestion, no nasal discharge, no sinus pressure, no vision change, no red eye. Neck: No neck pain or rigidity. Cardiovascular: No chest pain, no orthopnea, no palpitations, no leg swelling Respiratory: + shortness of breath, no cough, no congestion, no wheezing Gastrointestinal: no abdominal pain, no nausea, no vomiting Genitourinary : no dysuria, no hematuria Musculoskeletal: no joint swelling or muscle ache Integumentary: no rash, no pruritis Neurological: no parathesias, no numbness, no tingling Endocrine: no cold or heat intolerance, no polyuria or polydipsia Hematologic/Lymphatic: no easy bruising, no easy bleeding, no gland swelling Allergic/Immunologic: no urticaria, no angioedema. Medications and Allergies Allergies Allergy/AdvReac Type Severity Reaction Status Date / Time iron polysaccharide complex Allergy Swelling Verified 04/16/15 09:06 [From Nu-Iron] lactose AdvReac Unknown Verified 12/04/17 09:22 Home Medications Medication Instructions Recorded Confirmed Last Taken Type ALPRAZolam [Xanax TAB] 0.25 mg PO QHS PRN #5 tablet 12/05/17 09/09/18 Unknown Rx Carvedilol [Coreg] 25 mg PO Q12HR #60 tablet 09/10/18 Unknown Rx Famotidine [Pepcid] 20 mg PO BID #60 tablet 09/10/18 Unknown Rx Furosemide [Lasix TAB] 40 mg PO QDAY #30 tablet 09/10/18 Unknown Rx NIFEdipine XL [Procardia Xl] 30 mg PO Q12HR #60 tablet 09/10/18 Unknown Rx Potassium Chloride [K-Dur] 10 meq PO QDAY #30 tablet 09/10/18 Unknown Rx cloNIDine [Catapres] 0.2 mg PO Q12H #60 tablet 09/10/18 Unknown Rx hydrALAZINE [Apresoline TAB] 100 mg PO Q8H #90 tab 09/10/18 Unknown Rx Active Meds: Active Medications Acetaminophen (Tylenol) 650 mg PO Q4H PRN PRN Reason: Pain MILD(1-3)/Fever >100.5/THORNE Acetaminophen/Hydrocodone Bitart ([place] 5/325) 2 each PO Q6H PRN PRN Reason: Pain, Moderate (4-6) Alprazolam (Xanax) 0.25 mg PO QHS PRN PRN Reason: Anxiety Carvedilol (Coreg) 25 mg PO BID JESU Clonidine HCl (Catapres) 0.2 mg PO Q12H JESU Docusate Sodium (Colace) 100 mg PO BID JESU Enoxaparin Sodium (Lovenox) 30 mg SUB-Q QDAY JESU Famotidine (Pepcid) 20 mg PO BID JESU Famotidine (Pepcid) 10 mg PO QDAY JESU Furosemide (Lasix) 40 mg PO QDAY JESU Hydralazine HCl (Apresoline) 100 mg PO Q8H JESU Hydralazine HCl (Apresoline) 5 mg IV Q30MIN PRN PRN Reason: Hypertension Nifedipine (Procardia Xl) 30 mg PO Q12HR JESU Ondansetron HCl (Zofran) 4 mg IV Q8H PRN PRN Reason: N/V unrelieved by Reglan Exam - Physical Exam Narrative exam: GENERAL: well-developed and well-nourished -[place] female lying on bed appeared to be in no discomfort. HEENT: Normocephalic. Atraumatic. No conjunctival congestion or icterus. Patient has moist mucous membranes. NECK: Supple. Trachea midline. CHEST/LUNGS: Clear to auscultated bilaterally, breathing nonlabored. No wheezes crackles or rhonchi. HEART/CARDIOVASCULAR: Regular in rate and rhythm. S1 and S2 positive. ABDOMEN: Abdomen is soft, nontender. Patient has normal bowel sounds. SKIN: There is no rash. Warm and dry. NEURO: No focal motor deficit. Follows command. MUSCULOSKELETAL: No joint effusion or tenderness. EXTRIMITY: No edema, no cyanosis or clubbing. PSYCH: Cooperative. - Constitutional Vitals: Temp Pulse Resp BP Pulse Ox 98.2 F 84 16 208/126 95 09/09/18 08:54 09/09/18 09:33 09/09/18 09:33 09/09/18 10:10 09/09/18 09:33 Results - Labs CBC & Chem 7: 09/09/18 08:25 09/10/18 04:44 Labs: Abnormal lab results 09/09/18 09/09/18 Range/Units 08:25 08:25 MCH 27 L (28-32) pg RDW 16.8 H (13.2-15.2) % [place] % (Auto) 7.5 H (0.0-7.3) % Lymph # 1.1 L (1.2-5.4) K/mm3 Seg Neutrophils % 75.0 H (40.0-70.0) % Potassium 3.2 L (3.6-5.0) mmol/L Carbon Dioxide 18 L (22-30) mmol/L BUN 48 H (7-17) mg/dL Creatinine 5.0 H (0.7-1.2) mg/dL Glucose 140 H (65-100) mg/dL Calcium 7.1 L (8.4-10.2) mg/dL - Imaging and Cardiology Chest x-ray: report reviewed (no infiltrates) Assessment and Plan Respiratory distress, due to volume overload ESRD on HD Noncompliance with meds and HD Malignant HTN, due to noncompliance Hypokalemia - consult renal for HD - resume home meds, replete electrolytes as needed, monitor BMP - Continue to monitor BP, hydralazine IV as needed to keep SBP less than 160 - counselled for compliance
[2018-09-09] MEDS ORDERED: NACL 0.9% 100 ML IV PRN (10:46)
[2018-09-09] MEDS ORDERED: HEPARIN 10,000 UNITS/10 ML IV PRN ×2 (10:46)
--- NOTE | 2018-09-09 10:48 | Consultation ---
History of Present Illness - Reason for Consult Consult date: 09/09/18 end stage renal disease, accelerated hypertension - History of Present Illness The patient is 42 YO female known to me from previous admission with history significant for HTN, ESRD on hemodialysis (TTS), Anxiety and Medical non- compliance who presented to [facility] ED today with complaining of headache, shortness of breath, N & V for the last few days. Patient missed hemodialysis for the past 2 weeks. Patient stated that she recently moved from [place]. Her initial BP was 254/128. She didn't take her meds today. Denies CP, hemoptysis, abd pain, dizziness, THORNE, syncope, fever, chills or leg swelling. Nephrology was consulted for further evaluation. Past History Past Medical History: dialysis, ESRD, hypertension Medications and Allergies Allergies Allergy/AdvReac Type Severity Reaction Status Date / Time iron polysaccharide complex Allergy Swelling Verified 04/16/15 09:06 [From Nu-Iron] lactose AdvReac Unknown Verified 12/04/17 09:22 Home Medications Medication Instructions Recorded Confirmed Last Taken Type Famotidine [Pepcid] 20 mg PO BID #60 tablet 05/03/16 09/09/18 Unknown Rx ALPRAZolam [Xanax TAB] 0.25 mg PO QHS PRN #5 tablet 12/05/17 09/09/18 Unknown Rx Carvedilol [Coreg] 25 mg PO BID #60 tablet 12/05/17 09/09/18 Unknown Rx Furosemide [Lasix TAB] 40 mg PO QDAY #30 tablet 12/05/17 09/09/18 Unknown Rx NIFEdipine XL [Procardia Xl] 30 mg PO Q12HR #60 tablet 12/05/17 09/09/18 Unknown Rx Potassium Chloride 10 meq PO QDAY #30 capsule.er 12/05/17 09/09/18 Unknown Rx cloNIDine [Catapres] 0.2 mg PO Q12H #60 tablet 12/05/17 09/09/18 Unknown Rx hydrALAZINE [Apresoline TAB] 100 mg PO Q8H #90 tab 12/05/17 09/09/18 Unknown Rx Active Meds: Active Medications Acetaminophen (Tylenol) 650 mg PO Q4H PRN PRN Reason: Pain MILD(1-3)/Fever >100.5/THORNE Acetaminophen/Hydrocodone Bitart ([place] 5/325) 2 each PO Q6H PRN PRN Reason: Pain, Moderate (4-6) Alprazolam (Xanax) 0.25 mg PO QHS PRN PRN Reason: Anxiety Carvedilol (Coreg) 25 mg PO BID JESU Clonidine HCl (Catapres) 0.2 mg PO Q12H JESU Docusate Sodium (Colace) 100 mg PO BID JESU Enoxaparin Sodium (Lovenox) 30 mg SUB-Q QDAY JESU Famotidine (Pepcid) 20 mg PO BID JESU Famotidine (Pepcid) 10 mg PO QDAY JESU Furosemide (Lasix) 40 mg PO QDAY JESU Hydralazine HCl (Apresoline) 100 mg PO Q8H JESU Hydralazine HCl (Apresoline) 10 mg IV Q30MIN PRN PRN Reason: Hypertension Nifedipine (Procardia Xl) 30 mg PO Q12HR JESU Ondansetron HCl (Zofran) 4 mg IV Q8H PRN PRN Reason: N/V unrelieved by Reglan Review of Systems Constitutional: no weight loss, no weight gain, no fever, no chills, no anorexia, no weakness, no poor appetite Breasts: deferred Cardiovascular: shortness of breath, high blood pressure, no chest pain, no orthopnea, no edema, no syncope, no lightheadedness, no leg edema Respiratory: shortness of breath, no cough, no hemoptysis, no home oxygen Gastrointestinal: nausea, vomiting, no abdominal pain, no diarrhea, no melena Genitourinary Female: no dysuria, no hematuria Integumentary: no rash, no sores, no wounds, no jaundice Neurological: no head injury, no paralysis, no weakness, no convulsions, no aphasia, no change in speech, no change in mentation, no confusion Psychiatric: anxiety Exam - Vital Signs Vital signs: Vital Signs Temp Pulse Resp BP Pulse Ox 98.2 F 84 16 244/154 96 09/09/18 08:54 09/09/18 08:54 09/09/18 08:54 09/09/18 08:54 09/09/18 08:54 - General Appearance General appearance: well-developed, well-nourished, appears stated age, other (no distress, R IJ tunnel catheter) EENT: ATNC, PERRL, mucous membranes moist, hearing intact, vision intact Neck: Present: neck supple, trachea midline Respiratory: Clear to Ascultation Heart: regular, S1S2, no murmurs Gastrointestinal: Present: normoactive bowel sounds. Absent: tenderness, distended Integumentary: no rash, warm and dry Neurologic: no focal deficit, no asterixis, alert and oriented x3 Musculoskeletal: Present: other (no edema) Results - Lab Results 09/09/18 08:25 09/09/18 08:25 Most recent lab results Calcium 7.1 mg/dL (8.4-10.2) L 09/09/18 08:25 Assessment and Plan 1. ESRD: Patient presented after missed HD for about 2 weeks. Hemodialysis today as planned. Her HD schedule is TTS. 2. Uncontrolled HTN: Likely from not taking the meds. Resume home meds. Monitor BP. 3. FEN: Monitor lytes. 4. N &V. 5. Medical non-compliance.
[2018-09-09] MEDS: CATAPRES PO SCH (10:59)
[2018-09-09] MEDS: APRESOLINE PO SCH ×2 (11:33→19:38)
[2018-09-09] MEDS ORDERED: NACL 0.9 (PRIMING MACHINE ONLY DIALYSIS) MC ONE ×2 (12:58→14:33)
[2018-09-09 17:27] LABS: Hepatitis B Surface Antigen Non-Reactive (Negative); Hepatitis C Virus Antibody Non-Reactive (NonReactive)
[2018-09-09] MEDS ORDERED: REGLAN PO PRN (18:34)
[2018-09-09] MEDS: PROCARDIA XL PO SCH (19:36)
[2018-09-09] MEDS ORDERED: XANAX PO PRN (22:00)
[2018-09-09] MEDS ORDERED: COREG PO SCH (22:00)
[2018-09-10] MEDS: COREG PO SCH ×2 (01:19→10:21)
[2018-09-10] MEDS: CATAPRES PO SCH (01:19)
[2018-09-10] MEDS: PROCARDIA XL PO SCH ×2 (01:19→10:21)
[2018-09-10] MEDS: COLACE PO SCH ×3 (01:19→10:25)
[2018-09-10] MEDS: PEPCID PO SCH ×2 (01:19→10:21)
[2018-09-10] MEDS: APRESOLINE PO SCH (03:58)
[2018-09-10 05:40] LABS: Calcium 7.9 mg/dL (8.4-10.2)
[2018-09-10] MEDS ORDERED: LASIX PO SCH (06:00)
[2018-09-10] MEDS ORDERED: K-DUR PO ONE (09:28)
--- NOTE | 2018-09-10 09:28 | Progress Note ---
Assessment and Plan 1. ESRD: Patient presented after missed HD for about 2 weeks. S/p hemodialysis yesterday. Her HD schedule is TTS. 2. Uncontrolled HTN: Likely from not taking the meds. BP is better. 3. FEN: Monitor lytes. 4. N & V: Improved. 5. Medical non-compliance. Subjective Date of service: 09/10/18 Interval history: Patient was seen and examined at the bedside. Doing much better. Objective - Vital Signs Vital signs: Vital Signs - 12hr 09/09/18 09/10/18 09/10/18 23:53 04:19 07:41 Temperature 98.3 F 98.1 F 98.4 F Pulse Rate 72 89 79 Respiratory 18 18 14 Rate Blood Pressure 150/87 147/98 145/99 O2 Sat by Pulse 96 98 95 Oximetry 09/10/18 08:14 Temperature Pulse Rate 79 Respiratory Rate Blood Pressure O2 Sat by Pulse Oximetry - General Appearance General appearance: well-developed, well-nourished, appears stated age, other (no distress, R IJ tunnel catheter) EENT: ATNC, PERRL, hearing intact, vision intact Neck: supple Respiratory: Present: Clear to Ascultation Cardiology: regular, S1S2, no murmurs Gastrointestinal: normoactive bowel sounds, no tenderness, no distended Integumentary: no rash, warm and dry Neurologic: no focal deficit, no asterixis, alert and oriented x3 Musculoskeletal: other (no edema) - Lab 09/09/18 08:25 09/10/18 04:44 Most recent lab results Calcium 7.9 mg/dL (8.4-10.2) L 09/10/18 04:44 Medications & Allergies - Medications Allergies/Adverse Reactions: Allergies iron polysaccharide complex [From Nu-Iron] Allergy (Verified 04/16/15 09:06) Swelling lactose Adverse Reaction (Verified 12/04/17 09:22) Unknown Home Medications: Home Medications Medication Instructions Recorded Confirmed Last Taken Type ALPRAZolam [Xanax TAB] 0.25 mg PO QHS PRN #5 tablet 12/05/17 09/09/18 Unknown Rx Carvedilol [Coreg] 25 mg PO Q12HR #60 tablet 09/10/18 Unknown Rx Famotidine [Pepcid] 20 mg PO BID #60 tablet 09/10/18 Unknown Rx Furosemide [Lasix TAB] 40 mg PO QDAY #30 tablet 09/10/18 Unknown Rx NIFEdipine XL [Procardia Xl] 30 mg PO Q12HR #60 tablet 09/10/18 Unknown Rx Potassium Chloride [K-Dur] 10 meq PO QDAY #30 tablet 09/10/18 Unknown Rx cloNIDine [Catapres] 0.2 mg PO Q12H #60 tablet 09/10/18 Unknown Rx hydrALAZINE [Apresoline TAB] 100 mg PO Q8H #90 tab 09/10/18 Unknown Rx Active Medications: Generic Name Dose Route Start Last Admin Trade Name Freq PRN Reason Stop Dose Admin Acetaminophen 650 mg 09/09/18 10:24 09/09/18 14:42 Tylenol PO 650 mg Q4H PRN Administration Pain MILD(1-3)/Fever >100.5/THORNE Acetaminophen/Hydrocodone Bitart 2 each 09/09/18 10:24 09/09/18 17:28 [place] 5/325 PO 2 each Q6H PRN Administration Pain, Moderate (4-6) Alprazolam 0.25 mg 09/09/18 22:00 Xanax PO QHS PRN Anxiety Carvedilol 25 mg 09/09/18 22:00 09/10/18 01:19 Coreg PO Not Given Q12HR JESU Clonidine HCl 0.2 mg 09/09/18 11:00 09/10/18 01:19 Catapres PO Not Given Q12H JESU Docusate Sodium 100 mg 09/09/18 22:00 09/10/18 01:19 Colace PO Not Given BID [facility] Enoxaparin Sodium 30 mg 09/10/18 10:00 Lovenox SUB-Q QDAY JESU Famotidine 20 mg 09/09/18 22:00 09/10/18 01:19 Pepcid PO Not Given DAILY JESU Famotidine 10 mg 09/10/18 10:00 Pepcid PO QDAY JESU Furosemide 40 mg 09/10/18 06:00 09/10/18 05:05 Lasix PO Not Given DAILY@0600 JESU Heparin Sodium (Porcine) 2,000 unit 09/09/18 10:46 Heparin 10,000 Units/10 Ml IV YULI PRN hemodialysis Heparin Sodium (Porcine) 1,000 unit 09/09/18 10:46 Heparin 10,000 Units/10 Ml IV YULI PRN hemodialysis Hydralazine HCl 100 mg 09/09/18 11:00 09/10/18 03:58 Apresoline PO 100 mg Q8H JESU Administration Hydralazine HCl 10 mg 09/09/18 10:32 09/09/18 17:27 Apresoline IV 10 mg Q30MIN PRN Administration HTN SYS>180 YULI>100 Sodium Chloride 100 mls @ 999 mls/hr 09/09/18 10:46 Nacl 0.9% IV YULI PRN Hypotension Metoclopramide HCl 10 mg 09/09/18 18:34 09/09/18 18:48 Reglan PO 10 mg Q6H PRN Administration Nausea And Vomiting Nifedipine 30 mg 09/09/18 10:23 09/10/18 01:19 Procardia Xl PO Not Given Q12HR JESU Ondansetron HCl 4 mg 09/09/18 10:24 09/09/18 13:15 Zofran IV 4 mg Q8H PRN Administration N/V unrelieved by Katelyn
[2018-09-10] MEDS ORDERED: PEPCID PO SCH (10:00)
[2018-09-10] MEDS ORDERED: LOVENOX SUB-Q SCH (10:00)
--- NOTE | 2018-09-10 12:04 | Discharge Summary ---
Providers - Providers Date of Admission: 09/09/18 09:58 Date of discharge: 09/10/18 Attending physician: VIJAY LOPEZ 09/09/18 09:53 Consult to Physician [CONS] Stat Comment: Consulting Provider: TALIB JOHNSON Physician Instructions: Reason For Exam: hypertensive emergency, need dialysis. Primary care physician: PATRICK PERALTA Hospitalization Condition: Stable Hospital course: Patient is 42 years old female with history of end-stage renal disease on hemodialysis presented to the ER complaining of headache, shortness of breath for the last few days. Patient stated that last time she has dialysis was 2 weeks ago. Patient stated that she recently moved from [place] and has been having dialysis done emergency basis at the hospital. She was in [place] for the last 4-6 weeks. Patient she stated that she had to move [place] for about a month due to family reason and outpatient dialysis could not be arranged there. She recently came to [place] and developed difficulty breathing headache. In the ER Patient found to have a blood pressure of 254/128. Nephrology was consulted for emergent dialysis, she is getting admitted for further evaluation and management. She currently denies any chest pain. Her safety deposit clerk is Dr. Rodriguez. She states that she should be able to go back to her old dialysis center. Patient was emergently dialyzed, her home medications were resumed, repeated potassium. Her blood pressure responded to medical management. Electrolytes were stable. Patient was discharged home in stable condition. She'll continue her outpatient dialysis at her previous dialysis center. Chest x-ray: No infiltrates Discharge diagnosis: Respiratory distress, due to volume overload, resolved ESRD on HD Noncompliance with meds and HD Malignant HTN, due to noncompliance, BP improved Hypokalemia, repleted Disposition: - TO HOME OR SELFCARE Time spent for discharge: 34 minutes Core Measure Documentation - Palliative Care Palliative Care/ Comfort Measures: Not Applicable - Core Measures Any of the following diagnoses?: none Exam - Physical Exam Narrative exam: GENERAL: well-developed and well-nourished -[place] female lying on bed appeared to be in no discomfort. HEENT: Normocephalic. Atraumatic. No conjunctival congestion or icterus. Patient has moist mucous membranes. NECK: Supple. Trachea midline. CHEST/LUNGS: Clear to auscultated bilaterally, breathing nonlabored. No wheezes crackles or rhonchi. HEART/CARDIOVASCULAR: Regular in rate and rhythm. S1 and S2 positive. ABDOMEN: Abdomen is soft, nontender. Patient has normal bowel sounds. SKIN: There is no rash. Warm and dry. NEURO: No focal motor deficit. Follows command. MUSCULOSKELETAL: No joint effusion or tenderness. EXTRIMITY: No edema, no cyanosis or clubbing. PSYCH: Cooperative. - Constitutional Vitals: Temp Pulse Resp BP Pulse Ox 98.4 F 79 14 145/99 95 09/10/18 07:41 09/10/18 08:14 09/10/18 07:41 09/10/18 07:41 09/10/18 07:41 Plan Activity: advance as tolerated Weight Bearing Status: Weight Bear as Tolerated Diet: renal Special Instructions: record daily BP diary Follow up with: PATRICK PERALTA MD [Primary Care Provider] - 3-5 Days Prescriptions: hydrALAZINE [Apresoline TAB] 100 mg PO Q8H #90 tab cloNIDine [Catapres] 0.2 mg PO Q12H #60 tablet Carvedilol [Coreg] 25 mg PO Q12HR #60 tablet Potassium Chloride [K-Dur] 10 meq PO QDAY #30 tablet Furosemide [Lasix TAB] 40 mg PO QDAY #30 tablet Famotidine [Pepcid] 20 mg PO BID #60 tablet NIFEdipine XL [Procardia Xl] 30 mg PO Q12HR #60 tablet
[2018-09-10 13:18] VITALS: BP 143/90
[2018-09-11] MEDS ORDERED: LOVENOX SUB-Q SCH (10:00)
== END 2018-09-10 13:00 | disposition home or self-care (01) ==
LOC: ED 07:52 → 4A 09:58 → INTOOBSV 09:58
PROVIDERS: ADMIT Internal Medicine; ATTEND Internal Medicine
DX: I13.2 Hypertensive heart and chronic kidney disease with heart failure and with stage 5 chronic kidney disease, or end stage renal disease (principal); N18.6 End stage renal disease; I16.1 Hypertensive emergency; I50.30 Unspecified diastolic (congestive) heart failure; E66.9 Obesity, unspecified; K92.2 Gastrointestinal hemorrhage, unspecified; R11.2 Nausea with vomiting, unspecified; F17.200 Nicotine dependence, unspecified, uncomplicated; Z90.49 Acquired absence of other specified parts of digestive tract; Z79.899 Other long term (current) drug therapy
CPT/HCPCS: 36415; 71045; 80048; 80074; 84484; 85025; 85610; 85730; 93005; 93010; 96372; 96374; 96375; 96376; 99291; 99406; G0378; J0360; J2405; J7030; G0257; J1650

== ENCOUNTER 2018-11-14 12:58 | Observation (INO) | payer MEDICAID ==
--- NOTE | 2018-11-14 13:19 | Event Note ---
ED Screening Note ED Screening Note: MISSED HD SAT AND TUES WAS ON FOR HD TODAY MISSED HER HD TODAY GOT OOB TO COME TO HD AND FELL FELL IN HOLE OF FLOOR HAVING TROUBLE WITH [place] BP ELEVATED This initial assessment/diagnostic orders/clinical plan/treatment(s) is/are subject to change based on patients health status, clinical progression and re- assessment by fellow clinical providers in the ED. Further treatment and workup at subsequent clinical providers discretion. Patient/guardian urged not to elope from the ED as their condition may be serious if not clinically assessed and managed. Initial orders include: XR FOOT AND ANKLE RECHECK BP- WILL NEED VOLUME OFF
--- NOTE | 2018-11-14 13:50 | XRay Report ---
LEFT ANKLE 3 VIEWS INDICATION / CLINICAL INFORMATION: Fell through a hole in the floor this morning with pain and swelling involving the left ankle. COMPARISON: None available. FINDINGS: BONES / JOINT(S): No acute fracture or subluxation. No significant arthritis. SOFT TISSUES: There is minimal soft tissue swelling involving the ankle anterolaterally. ADDITIONAL FINDINGS: None. IMPRESSION: No acute osseous abnormality. Signer Name: Jacques Inman MD Signed: 11/14/2018 1:46 PM Workstation Name: [id number]
--- NOTE | 2018-11-14 13:52 | XRay Report ---
LEFT FOOT 3 VIEWS INDICATION / CLINICAL INFORMATION: Fell through a hole in the floor this morning with left foot pain and swelling. COMPARISON: None available. FINDINGS: BONES / JOINT(S): No acute fracture or subluxation. No significant arthritis. SOFT TISSUES: There is minimal soft tissue swelling involving the dorsum of the foot. ADDITIONAL FINDINGS: None. IMPRESSION: No acute osseous abnormality. Signer Name: Jacques Inman MD Signed: 11/14/2018 1:48 PM Workstation Name: [id number]
[2018-11-14 14:40] LABS: Hematocrit 34.3 % (30.3-42.9); Hemoglobin 10.9 gm/dl (10.1-14.3); Mean Corpuscular HGB Conc 32 % (30-34); Mean Corpuscular Volume 82 fl (79-97); Platelet Count 315 K/mm3 (140-440); Red Blood Count 4.21 M/mm3 (3.65-5.03); Red Cell Distribution Width 16.7 % (13.2-15.2)
[2018-11-14 15:13] LABS: Albumin 3.8 g/dL (3.9-5); Calcium 8.1 mg/dL (8.4-10.2)
[2018-11-14] MEDS ORDERED: NORMODYNE IV ONE (16:01)
--- NOTE | 2018-11-14 16:37 | XRay Report ---
CHEST 1 VIEW 11/14/2018 4:19 PM INDICATION / CLINICAL INFORMATION: SOB. COMPARISON: One view of the chest from 09/09/2018. FINDINGS: SUPPORT DEVICES: Stable positioning of the right IJV PermCath. HEART / MEDIASTINUM: No significant abnormality. LUNGS / PLEURA: No significant pulmonary or pleural abnormality. No pneumothorax. ADDITIONAL FINDINGS: No significant additional findings. IMPRESSION: No acute abnormality of the chest. Signer Name: Prashant Damian MD Signed: 11/14/2018 4:33 PM Workstation Name: [id number]
--- NOTE | 2018-11-14 16:38 | Emergency Department Report ---
HPI - General Chief Complaint: Medical Clearance Time Seen by Provider: 11/14/18 13:15 - HPI HPI: 42-year-old female presents to the emergency department with a complaint of missing her last 3 dialysis sessions secondary to some transporta tion issues. She says that the Patient service is unreliable and her staff pharmacist, Dr. Rodriguez, is aware of this. She last had dialysis last . She has some mild shortness of breath but denies any chest pain or lower extremity swelling. The patient also complains of some left ankle and glenis t pain after she had her foot go through the floor boards this morning at home. She is able to ambulate but does have some discomfort. She has not taken anything for her symptoms prior to presentation. She presents with extremely elevated blood pressure. She has a history of end-stage renal disease on hemodialysis on Saturday, , Saturday, CHF, hypertension, anemia. No recent travel or sick contacts at home. ED Past Medical Hx - Past Medical History Previous Medical History?: Yes Hx Hypertension: Yes Hx Congestive Heart Failure: Yes Hx HIV: No Additional medical history: ANGINA. ANEMIA - Surgical History Past Surgical History?: Yes Additional Surgical History: Dialysis access placed. cardiac cath - Social History Smoking Status: Current Every Day Smoker Substance Use Type: None - Medications Home Medications: Home Medications Medication Instructions Recorded Confirmed Last Taken Type ALPRAZolam [Xanax TAB] 0.25 mg PO QHS PRN #5 tablet 12/05/17 11/14/18 Unknown Rx Carvedilol [Coreg] 25 mg PO Q12HR #60 tablet 09/10/18 11/14/18 11/14/18 08:00 Rx cloNIDine [Catapres] 0.2 mg PO Q12H #60 tablet 09/10/18 11/14/18 11/14/18 08:00 Rx hydrALAZINE [Apresoline TAB] 100 mg PO Q8H #90 tab 09/10/18 11/14/18 11/14/18 08:00 Rx Calcium Acetate [Phoslo] 667 mg PO TID 11/14/18 11/14/18 Unknown History Cyclobenzaprine HCl [Flexeril 5 MG 5 mg PO TID 11/14/18 11/14/18 Unknown History TAB] Doxycycline Hyclate [Doxycycline 100 mg PO Q12HR 11/14/18 11/14/18 Unknown History Hyclate TAB] Furosemide [Lasix TAB] 80 mg PO QDAY 11/14/18 11/14/18 11/14/18 08:00 History Gabapentin [Neurontin] 100 mg PO QHS 11/14/18 11/14/18 Unknown History Isosorbide Mononitrate 30 mg PO QDAY 11/14/18 11/14/18 Unknown History Lisinopril [Zestril TAB] 40 mg PO QDAY 11/14/18 11/14/18 Unknown History Melatonin 1 mg PO QDAY 11/14/18 11/14/18 Unknown History NIFEdipine XL [Procardia Xl] 60 mg PO Q12HR 11/14/18 11/14/18 11/14/18 08:00 History Nitroglycerin [Nitrostat] 0.4 mg SL Q5M PRN 11/14/18 11/14/18 Unknown History Omeprazole 40 mg PO QDAY 11/14/18 11/14/18 Unknown History Ondansetron [Zofran Odt] 4 mg PO Q8HR 11/14/18 11/14/18 Unknown History Vit B Comp C/Folic Acid/Vit D3 1 each PO QDAY 11/14/18 11/14/18 Unknown History [Dialyvite 800 Plus D Wafer] cephALEXin [Keflex] 500 mg PO Q12HR 11/14/18 11/14/18 Unknown History ED Review of Systems ROS: Stated complaint: DIALYSIS TREATMENT/RT LEG PAIN Other details as noted in HPI Comment: All other systems reviewed and negative Constitutional: denies: chills, fever Eyes: denies: eye pain, vision change ENT: denies: ear pain, throat pain Respiratory: shortness of breath. denies: cough Cardiovascular: denies: chest pain, palpitations Gastrointestinal: denies: abdominal pain, vomiting Genitourinary: denies: dysuria, discharge Musculoskeletal: arthralgia. denies: joint swelling Skin: denies: rash, lesions Neurological: denies: headache, weakness, numbness Physical Exam - Physical Exam Vital Signs: Vital Signs 11/14/18 11/14/18 11/14/18 13:16 15:26 15:31 Temperature 97.9 F Pulse Rate 79 Respiratory 20 Rate Blood Pressure 220/127 O2 Sat by Pulse 100 100 100 Oximetry 11/14/18 11/14/18 11/14/18 15:38 15:41 16:00 Temperature Pulse Rate 83 Respiratory 20 17 12 Rate Blood Pressure 226/131 222/136 O2 Sat by Pulse 100 100 Oximetry Physical Exam: GENERAL: The patient is well-developed well-nourished. HENT: Normocephalic. Atraumatic. Patient has moist mucous membranes. EYES: Extraocular motions are intact. Pupils equal reactive to light bila terally. NECK: Supple. Trachea is midline. CHEST/LUNGS: Coarse breath sounds. No tachypnea or accessory muscle use. There is no respiratory distress noted. There is a dialysis port to the right chest wall. HEART/CARDIOVASCULAR: Regular. There is no tachycardia. There is no murmur. ABDOMEN: Abdomen is soft, nontender. Patient has normal bowel sounds. There is no abdominal distention. SKIN: Skin is warm and dry. NEURO: The patient is awake, alert, and oriented. The patient is cooperative. The patient has no focal neurologic deficits. The patient has normal speech. MUSCULOSKELETAL: There is some tenderness to palpation to the circumferential left foot and ankle. There is no limitation range of motion. ED Course Vital Signs 11/14/18 11/14/18 11/14/18 13:16 15:26 15:31 Temperature 97.9 F Pulse Rate 79 Respiratory 20 Rate Blood Pressure 220/127 O2 Sat by Pulse 100 100 100 Oximetry 11/14/18 11/14/18 11/14/18 15:38 15:41 16:00 Temperature Pulse Rate 83 Respiratory 20 17 12 Rate Blood Pressure 226/131 222/136 O2 Sat by Pulse 100 100 Oximetry - EJ/Peripheral Line Arm R Time Out Performed: Yes Indications: nurses unable to establis Skin Cleansed in Sterile Fashion: Yes Size: 22 Dressing Placed: Tegaderm Patient Tolerated Procedure: well ED Medical Decision Making - Lab Data Result diagrams: 11/14/18 14:22 11/14/18 14:22 - EKG Data -: EKG Interpreted by Me EKG shows normal: sinus rhythm, axis (left axis deviation), intervals, QRS compl exes (LVH), ST-T waves (t wave inversions to lateral leads) Rate: normal - EKG Data When compared to previous EKG there are: no significant change Interpretation: unchanged when compared t (09/09/18) - Radiology Data Radiology results: image reviewed interpreted by me: Chest x-ray shows some pulmonary vascular congestion but no overt pleural ef fusions or signs of pneumonia. Left foot and ankle x-rays do not show any fractures, dislocations or any acute process. - Medical Decision Making This patient presents with 2 complaints. First, she has some left foot and ankle pain after her foot went through the floor boards in her home. X-rays were done that did not show any fracture, dislocation or any acute process. Secondly, the patient is dialysis dependent and has missed her last 3 dialysis sessions. She complains of some shortness of breath and presents with severe hypertension. Chest x-ray shows some pulmonary vascular congestion but otherwise no signs of any effusions, pneumonia or focal consolidation. She does not have any significant electrolyte abnormalities and overall her lab work is unremarkable. She was given multiple antihypertensive medications with some improvement. The nephrology service telephone order dispatcher was contacted and they will evaluate the patient for dialysis. Patient will be admitted to the hospital for further evaluation and treatment was accepted for admission by the hospitalist service. - Differential Diagnosis CHF, hypertensive crisis, hyperkalemia, pneumonia Critical Care Time: Yes Critical care time in (mins) excluding proc time.: 31 Critical care attestation.: If time is entered above; I have spent that time in minutes in the direct care of this critically ill patient, excluding procedure time. Critical care time spent on this patient during her initial evaluation, multiple re-evaluations, ordering and interpretation of labs and imaging, ordering and administration of multiple antihypertensive medication for her hypertensive urgency/crisis. Critical Care Time: 31 minutes ED Disposition Clinical Impression: Non-compliant behavior, ESRD needing dialysis, Hypertensive urgency Dyspnea Qualifiers: Dyspnea type: shortness of breath Qualified Code(s): R06.02 - Shortness of breath; R06.00 - Dyspnea, unspecified; R06.01 - Orthopnea Disposition: OP ADMIT IP TO THIS HOSP Is pt being admited?: Yes Condition: Fair Time of Disposition: 20:00
[2018-11-14] MEDS ORDERED: APRESOLINE IV ONE ×2 (17:39→18:46)
[2018-11-14] MEDS ORDERED: PROCARDIA XL PO ONE ×2 (18:21→19:03)
[2018-11-14 19:24] LABS: Hepatitis B Surface Antigen Non-Reactive (Negative); Hepatitis C Virus Antibody Non-Reactive (NonReactive)
[2018-11-14] MEDS ORDERED: MORPHINE IV ONE (19:35)
[2018-11-14] MEDS ORDERED: XANAX PO PRN (20:58)
[2018-11-14] MEDS ORDERED: SODIUM CHLORIDE FLUSH SYRINGE 10 ML IV PRN (21:04)
[2018-11-14] MEDS ORDERED: ZOFRAN IV PRN (21:04)
[2018-11-14] MEDS ORDERED: TYLENOL PO PRN (21:04)
--- NOTE | 2018-11-14 21:18 | History and Physical Report ---
History of Present Illness Date of examination: 11/14/18 Date of admission: 11/14/2018 Chief complaint: missed 3 hd sessions History of present illness: 42-year-old -[place] female with history of ESRD on HD / and hypertension compliant with meds who presents to the second CT with complaints of right foot pain and missing her last 3 dialysis sessions. Patient states that she has missed her last 3 dialysis sessions due to not having transportation. She reports that she received a new phone and thinks that the transportation company has been calling her old phone number to set up transportation. She also complains of right foot pain. Patient states that her right foot went through the christiano when getting out of bed this morning. She rates her pain 5/10 and describes it as achy. A review of medical records shows that pt has missed dialysis session in August. Denies: n/v/d, fever, THORNE, cough, PND, or orthopnoea Past History Past Medical History: anemia, heart failure, hypertension, other (angina) Past Surgical History: Other (cardiac cath, right chest vascath) Social history: single, lives with family, smoking (everyday smoker) Family history: no significant family history Medications and Allergies Allergies Allergy/AdvReac Type Severity Reaction Status Date / Time iron polysaccharide complex Allergy Swelling Verified 04/16/15 09:06 [From Nu-Iron] lactose AdvReac Unknown Verified 12/04/17 09:22 Home Medications Medication Instructions Recorded Confirmed Last Taken Type ALPRAZolam [Xanax TAB] 0.25 mg PO QHS PRN #5 tablet 12/05/17 11/14/18 Unknown Rx Carvedilol [Coreg] 25 mg PO Q12HR #60 tablet 09/10/18 11/14/18 11/14/18 08:00 Rx cloNIDine [Catapres] 0.2 mg PO Q12H #60 tablet 09/10/18 11/14/18 11/14/18 08:00 Rx hydrALAZINE [Apresoline TAB] 100 mg PO Q8H #90 tab 09/10/18 11/14/18 11/14/18 08:00 Rx Calcium Acetate [Phoslo] 667 mg PO TID 11/14/18 11/14/18 Unknown History Cyclobenzaprine HCl [Flexeril 5 MG 5 mg PO TID 11/14/18 11/14/18 Unknown History TAB] Doxycycline Hyclate [Doxycycline 100 mg PO Q12HR 11/14/18 11/14/18 Unknown History Hyclate TAB] Furosemide [Lasix TAB] 80 mg PO QDAY 11/14/18 11/14/18 11/14/18 08:00 History Gabapentin [Neurontin] 100 mg PO QHS 11/14/18 11/14/18 Unknown History Isosorbide Mononitrate 30 mg PO QDAY 11/14/18 11/14/18 Unknown History Lisinopril [Zestril TAB] 40 mg PO QDAY 11/14/18 11/14/18 Unknown History Melatonin 1 mg PO QDAY 11/14/18 11/14/18 Unknown History NIFEdipine XL [Procardia Xl] 60 mg PO Q12HR 11/14/18 11/14/18 11/14/18 08:00 History Nitroglycerin [Nitrostat] 0.4 mg SL Q5M PRN 11/14/18 11/14/18 Unknown History Omeprazole 40 mg PO QDAY 11/14/18 11/14/18 Unknown History Ondansetron [Zofran Odt] 4 mg PO Q8HR 11/14/18 11/14/18 Unknown History Vit B Comp C/Folic Acid/Vit D3 1 each PO QDAY 11/14/18 11/14/18 Unknown History [Dialyvite 800 Plus D Wafer] cephALEXin [Keflex] 500 mg PO Q12HR 11/14/18 11/14/18 Unknown History Active Meds: Active Medications Acetaminophen (Tylenol) 650 mg PO Q4H PRN PRN Reason: Pain MILD(1-3)/Fever >100.5/THORNE Alprazolam (Xanax) 0.25 mg PO QHS PRN PRN Reason: Anxiety Calcium Acetate (Phoslo) 667 mg PO TID [facility] Carvedilol (Coreg) 25 mg PO Q12HR [facility] Clonidine HCl (Catapres) 0.2 mg PO Q12H [facility] Docusate Sodium (Colace) 100 mg PO BID [facility] Furosemide (Lasix) 80 mg PO QDAY [facility] Heparin Sodium (Porcine) (Heparin) 5,000 unit SUB-Q Q12HR [facility] Hydralazine HCl (Apresoline) 100 mg PO Q8H [facility] Miscellaneous Medication (Vit B Comp C/Folic Acid/Vit D3 [Dialyvite 800 Plus D Wafer]) 1 each PO QDAY [facility] Miscellaneous Medication (Omeprazole [Omeprazole]) 40 mg PO QDAY [facility] Nicotine (Habitrol) 14 mg TD QDAY [facility] Nifedipine (Procardia Xl) 60 mg PO Q12HR [facility] Ondansetron HCl (Zofran) 4 mg IV Q6HR PRN PRN Reason: Nausea And Vomiting Oxycodone/Acetaminophen (Percocet 5/325) 1 tab PO Q6H PRN PRN Reason: Pain, Moderate (4-6) Sodium Chloride (Sodium Chloride Flush Syringe 10 Ml) 10 ml IV BID [facility] Sodium Chloride (Sodium Chloride Flush Syringe 10 Ml) 10 ml IV PRN PRN PRN Reason: LINE FLUSH Review of Systems All systems: negative Cardiovascular: no chest pain, no lightheadedness, no shortness of breath, no dyspnea on exertion, no paroxysmal nocturnal dyspnea Musculoskeletal: other (leg discomfort) Exam - Physical Exam Narrative exam: Physical exam General appearance: Present: No acute distress, alert and oriented 3, slightly anxious -[place] adult female - EENT Eyes: Present: PERRL, EOM intact ENT: hearing intact, normal dentition - Neck Neck: Present: supple, normal ROM - Respiratory Respiratory effort: Non-labored Respiratory: CTA bilaterally - Cardiovascular Heart rate: 100 (bpm) Rhythm: regular Heart Sounds: Present: S1 & S2. Absent: rub, click - Extremities Extremities: no ischemia, pulses intact, abnormal (right upper chest Vas-Cath) - Peripheral Assessment Peripheral Pulses: within normal limits - Abdominal General gastrointestinal: soft, non-tender, normal bowel sounds - Integumentary Integumentary: Present: warm, dry - Musculoskeletal Musculoskeletal: Able to move all extremities -Neurological Neurological: CN II-XII grossly intact - Psychiatric Psychiatric: cooperative - Constitutional Vitals: Temp Pulse Resp BP Pulse Ox 98.3 F 89 12 172/107 80 L 11/14/18 19:10 11/14/18 19:34 11/14/18 20:00 11/14/18 20:00 11/14/18 19:30 Results - Labs CBC & Chem 7: 11/14/18 14:22 11/14/18 14:22 Labs: Laboratory Last Values WBC 6.1 K/mm3 (4.5-11.0) 11/14/18 14:22 RBC 4.21 M/mm3 (3.65-5.03) 11/14/18 14:22 Hgb 10.9 gm/dl (10.1-14.3) 11/14/18 14:22 Hct 34.3 % (30.3-42.9) 11/14/18 14:22 MCV 82 fl (79-97) 11/14/18 14:22 MCH 26 pg (28-32) L 11/14/18 14:22 MCHC 32 % (30-34) 11/14/18 14:22 RDW 16.7 % (13.2-15.2) H 11/14/18 14:22 Plt Count 315 K/mm3 (140-440) 11/14/18 14:22 Sodium 141 mmol/L (137-145) 11/14/18 14:22 Potassium 3.7 mmol/L (3.6-5.0) 11/14/18 14:22 Chloride 110.5 mmol/L (98-107) H 11/14/18 14:22 Carbon Dioxide 16 mmol/L (22-30) L 11/14/18 14:22 18 mmol/L 11/14/18 14:22 BUN 37 mg/dL (7-17) H 11/14/18 14:22 5.5 mg/dL (0.7-1.2) H 11/14/18 14:22 Estimated GFR 10 ml/min 11/14/18 14:22 7 % 11/14/18 14:22 Glucose 92 mg/dL (65-100) 11/14/18 14:22 Calcium 8.1 mg/dL (8.4-10.2) L 11/14/18 14:22 Phosphorus 4.90 mg/dL (2.5-4.5) H 11/14/18 14:22 0.20 mg/dL (0.1-1.2) 11/14/18 14:22 AST 13 units/L (5-40) 11/14/18 14:22 ALT 7 units/L (7-56) 11/14/18 14:22 85 units/L (35-129) 11/14/18 14:22 7.8 g/dL (6.3-8.2) 08/16/19 14:22 3.8 g/dL (3.9-5) L 11/14/18 14:22 1.0 % 11/14/18 14:22 Hepatitis A IgM Ab Non-reactive (NonReactive) 11/14/18 17:58 Hep Bs Antigen Non-reactive (Negative) 11/14/18 17:58 Hep B Core IgM Ab Non-reactive (NonReactive) 11/14/18 17:58 Non-reactive (NonReactive) 11/14/18 17:58 - Imaging and Cardiology Imaging and Cardiology: CXR: Impression: No acute cardio or pulmonary abnormalities, Right Foot XR: Findings: BONES / JOINT(S): No acute fracture or subluxation. No significant arthritis. SOFT TISSUES: There is minimal soft tissue swelling involving the dorsum of the foot. ADDITIONAL FINDINGS: None. Impression: No acute osseous abnormality. Right Ankle XR: Findings: BONES / JOINT(S): No acute fracture or subluxation. No significant arthritis. SOFT TISSUES: There is minimal soft tissue swelling involving the ankle anterolaterally. ADDITIONAL FINDINGS: None. Impression: No acute osseous abnormality. Assessment and Plan Assessment and plan: 22-year-old -[place] female with history of ESRD on HD / and hypertension compliant with meds who presents to the second CT with complaints of right foot pain and missing her last 3 dialysis sessions. HTN Urgency -Pt has history of being non compliant with meds -BP 220/127 on presentation -IV hypertensive meds when necessary -Continue to monitor BP -Resume home BP meds to optimize bp Volume Overload -secondary to ESRD and not being dialyzed for one week -Monitor I&O's -Monitor weight ESRD on HD / -Missed 3 HD session due to transportation issues -Nephrology consulted for HD mgmt Acute Right Foot Pain -Right Foot XR unrevealing for acute osseous abnormality, but showed minimal soft tissue swelling involving the dorsum of the foot -Right Ankle XR unrevealing for acute fracture or subluxation, but showed minimal soft tissue swelling involving the ankle anterolaterally -Continue supportive care -Pain Mgmt Tobacco Abuse -Current everyday smoker -Counseled for cessation -Nicotine Patch prn DVT PPX -On Heparin Advance Directives: No VTE prophylaxis?: Chemical Plan of care discussed with patient/family: Yes
[2018-11-14] MEDS ORDERED: APRESOLINE PO SCH (22:00)
[2018-11-14] MEDS: COLACE PO SCH (23:41)
[2018-11-14] MEDS: PROCARDIA XL PO SCH (23:41)
[2018-11-14] MEDS: CATAPRES PO SCH (23:42)
[2018-11-14] MEDS: COREG PO SCH (23:42)
[2018-11-14] MEDS: PERCOCET 5/325 PO PRN (23:43)
[2018-11-14] MEDS: HEPARIN SUB-Q SCH (23:44)
[2018-11-14] MEDS: SODIUM CHLORIDE FLUSH SYRINGE 10 ML IV SCH (23:44)
[2018-11-15] MEDS ORDERED: BENADRYL PO PRN (00:33)
[2018-11-15 07:07] LABS: Basophils % (Auto) 0.7 % (0.0-1.8); Eosinophils # (Auto) 0.2 K/mm3 (0.0-0.4); Eosinophils % (Auto) 3.1 % (0.0-4.3); Hematocrit 31.2 % (30.3-42.9); Hemoglobin 9.8 gm/dl (10.1-14.3); Lymphocytes # (Auto) 2.1 K/mm3 (1.2-5.4); Lymphocytes % (Auto) 37.1 % (13.4-35.0); Mean Corpuscular HGB Conc 31 % (30-34); Mean Corpuscular Volume 82 fl (79-97); Monocytes # (Auto) 0.4 K/mm3 (0.0-0.8); Monocytes % (Auto) 6.8 % (0.0-7.3); Platelet Count 327 K/mm3 (140-440); Red Blood Count 3.81 M/mm3 (3.65-5.03); Red Cell Distribution Width 16.8 % (13.2-15.2)
[2018-11-15 07:37] LABS: Amphetamine Screen,Urine PRESUMPTIVE NEGATIVE; Benzodiazepines Screen,Urine PRESUMPTIVE NEGATIVE; Cannabinoid Screen,Urine PRESUMPTIVE NEGATIVE; Methadone Screen,Urine PRESUMPTIVE NEGATIVE; Opiate Screen,Urine PRESUMPTIVE NEGATIVE
[2018-11-15 07:50] LABS: Cocaine Screen,Urine PRESUMPTIVE POSITIVE
[2018-11-15] MEDS: PHOSLO PO SCH ×2 (09:20→12:51)
[2018-11-15] MEDS ORDERED: HEPARIN 10,000 UNITS/10 ML IV PRN (09:28)
[2018-11-15] MEDS ORDERED: PROCRIT SUB-Q PRN (09:28)
[2018-11-15] MEDS ORDERED: NACL 0.9% 100 ML IV PRN (09:28)
--- NOTE | 2018-11-15 09:28 | Consultation ---
History of Present Illness - Reason for Consult Consult date: 11/15/18 end stage renal disease - History of Present Illness The patient is 42 YO female who is known to me from previous admissions with history significant for HTN, ESRD on hemodialysis (TTS), Anxiety and Medical non-compliance who presented to [facility] ED yesterday after she missed hemodialysis for about a week. She was last dialyzed on 11/06/2018. Per patient her transportation didn't show up to pick her up. Patient denies headache, shortness of breath, N, V, CP, hemoptysis, abd pain, dizziness, THORNE, syncope, fever, chills or leg swelling. Her initial BP was 220/127. Nephrology was consulted for further evaluation. Past History Past Medical History: anemia, dialysis, ESRD, heart failure, hypertension Past Surgical History: Other (cardiac cath, right chest vascath) Social history: single, lives with family, smoking (everyday smoker) Family history: no significant family history Medications and Allergies Allergies Allergy/AdvReac Type Severity Reaction Status Date / Time iron polysaccharide complex Allergy Swelling Verified 04/16/15 09:06 [From Nu-Iron] lactose AdvReac Unknown Verified 12/04/17 09:22 Home Medications Medication Instructions Recorded Confirmed Last Taken Type ALPRAZolam [Xanax TAB] 0.25 mg PO QHS PRN #5 tablet 12/05/17 11/14/18 Unknown Rx Carvedilol [Coreg] 25 mg PO Q12HR #60 tablet 09/10/18 11/14/18 11/14/18 08:00 Rx cloNIDine [Catapres] 0.2 mg PO Q12H #60 tablet 09/10/18 11/14/18 11/14/18 08:00 Rx hydrALAZINE [Apresoline TAB] 100 mg PO Q8H #90 tab 09/10/18 11/14/18 11/14/18 08:00 Rx Calcium Acetate [Phoslo] 667 mg PO TID 11/14/18 11/14/18 Unknown History Cyclobenzaprine HCl [Flexeril 5 MG 5 mg PO TID 11/14/18 11/14/18 Unknown History TAB] Doxycycline Hyclate [Doxycycline 100 mg PO Q12HR 11/14/18 11/14/18 Unknown History Hyclate TAB] Furosemide [Lasix TAB] 80 mg PO QDAY 11/14/18 11/14/18 11/14/18 08:00 History Gabapentin [Neurontin] 100 mg PO QHS 11/14/18 11/14/18 Unknown History Isosorbide Mononitrate 30 mg PO QDAY 11/14/18 11/14/18 Unknown History Lisinopril [Zestril TAB] 40 mg PO QDAY 11/14/18 11/14/18 Unknown History Melatonin 1 mg PO QDAY 11/14/18 11/14/18 Unknown History NIFEdipine XL [Procardia Xl] 60 mg PO Q12HR 11/14/18 11/14/18 11/14/18 08:00 History Nitroglycerin [Nitrostat] 0.4 mg SL Q5M PRN 11/14/18 11/14/18 Unknown History Omeprazole 40 mg PO QDAY 11/14/18 11/14/18 Unknown History Ondansetron [Zofran ODT TAB] 4 mg PO Q8HR 11/14/18 11/14/18 Unknown History Vit B Comp C/Folic Acid/Vit D3 1 each PO QDAY 11/14/18 11/14/18 Unknown History [Dialyvite 800 Plus D Wafer] cephALEXin [Keflex] 500 mg PO Q12HR 11/14/18 11/14/18 Unknown History Active Meds: Active Medications Acetaminophen (Tylenol) 650 mg PO Q4H PRN PRN Reason: Pain MILD(1-3)/Fever >100.5/THORNE Alprazolam (Xanax) 0.25 mg PO QHS PRN PRN Reason: Anxiety Last Admin: 11/14/18 23:41 Dose: 0.25 mg Documented by: Calcium Acetate (Phoslo) 667 mg PO TIDWM [facility] Last Admin: 11/15/18 09:20 Dose: 667 mg Documented by: Carvedilol (Coreg) 25 mg PO Q12HR [facility] Last Admin: 11/14/18 23:42 Dose: 25 mg Documented by: Clonidine HCl (Catapres) 0.2 mg PO Q12HR [facility] Last Admin: 11/14/18 23:42 Dose: 0.2 mg Documented by: Diphenhydramine HCl (Benadryl) 25 mg PO Q6H PRN PRN Reason: Itching Docusate Sodium (Colace) 100 mg PO BID [facility] Last Admin: 11/14/18 23:41 Dose: 100 mg Documented by: Furosemide (Lasix) 80 mg PO QDAY [facility] Heparin Sodium (Porcine) (Heparin) 5,000 unit SUB-Q Q12HR [facility] Last Admin: 11/14/18 23:44 Dose: 5,000 unit Documented by: Hydralazine HCl (Apresoline) 100 mg PO Q8HR [facility] Last Admin: 11/14/18 23:41 Dose: 100 mg Documented by: Multivit/Ca Carb/B Cmplx/FA/Prenat (Renal Caps) 1 cap PO QDAY [facility] Nicotine (Habitrol) 14 mg TD QDAY [facility] Nifedipine (Procardia Xl) 60 mg PO Q12HR [facility] Last Admin: 11/14/18 23:41 Dose: 60 mg Documented by: Ondansetron HCl (Zofran) 4 mg IV Q6HR PRN PRN Reason: Nausea And Vomiting Oxycodone/Acetaminophen (Percocet 5/325) 1 tab PO Q6H PRN PRN Reason: Pain, Moderate (4-6) Last Admin: 11/14/18 23:43 Dose: 1 tab Documented by: Pantoprazole Sodium (Protonix) 40 mg PO DAILY [facility] Sodium Chloride (Sodium Chloride Flush Syringe 10 Ml) 10 ml IV BID [facility] Last Admin: 11/14/18 23:44 Dose: 10 ml Documented by: Sodium Chloride (Sodium Chloride Flush Syringe 10 Ml) 10 ml IV PRN PRN PRN Reason: LINE FLUSH Review of Systems Constitutional: no weight loss, no weight gain, no fever, no chills, no anorexia, no fatigue, no weakness Breasts: deferred Cardiovascular: high blood pressure, no chest pain, no orthopnea, no edema, no syncope, no lightheadedness, no shortness of breath, no leg edema Respiratory: no cough, no hemoptysis, no shortness of breath, no dyspnea on exertion Gastrointestinal: no abdominal pain, no nausea, no vomiting, no diarrhea, no melena Genitourinary Female: no dysuria, no hematuria Rectal: no bleeding Musculoskeletal: no morning stiffness, no muscle weakness Integumentary: no rash, no wounds Neurological: no paralysis, no weakness, no seizures, no syncope, no convulsions, no change in speech, no change in mentation, no confusion, no memory loss Psychiatric: anxiety Exam - Vital Signs Vital signs: Vital Signs Temp Pulse Resp BP Pulse Ox 97.9 F 79 20 220/127 100 11/14/18 13:16 11/14/18 13:16 11/14/18 13:16 11/14/18 13:16 11/14/18 13:16 - General Appearance General appearance: well-developed, well-nourished, appears stated age, other (no distress, R IJ temp catheter) EENT: ATNC, PERRL, hearing intact, vision intact Neck: Present: neck supple, trachea midline Respiratory: Clear to Ascultation Heart: regular, S1S2, no murmurs Gastrointestinal: Present: normoactive bowel sounds. Absent: tenderness, distended Integumentary: no rash, warm and dry Neurologic: no focal deficit, no asterixis, alert and oriented x3 Musculoskeletal: Present: other (no edema) Results - Lab Results 11/15/18 06:27 11/15/18 06:27 Most recent lab results Calcium 8.0 mg/dL (8.4-10.2) L 11/15/18 06:27 Phosphorus 4.90 mg/dL (2.5-4.5) H 11/14/18 14:22 Assessment and Plan 1. ESRD: Patient presented after missed HD for about a week. Hemodialysis today as planned. Her HD schedule is TTS. 2. Uncontrolled HTN: Likely from not taking the meds. BP is better now. Monitor BP. 3. FEN: Monitor lytes. 4. Anemia: Epogen. 5. Medical non-compliance.
[2018-11-15] MEDS ORDERED: NON-FORMULARY (Vit B Comp C/Folic Acid/Vit D3 [Dialyvite 800 Plus D Wafer] 1 EACH) PO SCH (10:00)
[2018-11-15] MEDS ORDERED: PROTONIX PO SCH (10:00)
[2018-11-15] MEDS ORDERED: NON-FORMULARY (Omeprazole [Omeprazole] 40 MG) PO SCH (10:00)
[2018-11-15] MEDS ORDERED: HABITROL TD SCH (10:00)
[2018-11-15] MEDS ORDERED: Renal Caps PO SCH (10:00)
[2018-11-15] MEDS ORDERED: LASIX PO SCH (10:00)
[2018-11-15] MEDS: SODIUM CHLORIDE FLUSH SYRINGE 10 ML IV SCH (11:13)
[2018-11-15] MEDS: COLACE PO SCH (11:13)
[2018-11-15] MEDS: HEPARIN SUB-Q SCH (11:14)
[2018-11-15] MEDS: PROCARDIA XL PO SCH (11:22)
[2018-11-15] MEDS: COREG PO SCH (11:22)
[2018-11-15] MEDS: CATAPRES PO SCH (11:22)
[2018-11-15] MEDS: PERCOCET 5/325 PO PRN (11:23)
--- NOTE | 2018-11-15 14:17 | Discharge Summary ---
Providers - Providers Date of Admission: 11/14/18 17:41 Date of discharge: 11/15/18 Attending physician: IMANI SIMPSON 11/14/18 17:39 Consult to Physician [CONS] Routine Comment: Consulting Provider: TALIB JOHNSON Physician Instructions: Reason For Exam: Dialysis mgmt, esrd Primary care physician: [facility] MD WESLY Hospitalization Condition: Fair Disposition: DC-01 TO HOME OR SELFCARE Exam - Constitutional Vitals: Temp Pulse Resp BP Pulse Ox 97.6 F 67 20 141/90 98 11/15/18 05:26 11/15/18 05:26 11/15/18 05:26 11/15/18 11:22 11/15/18 05:26 Plan Activity: no restrictions Diet: low fat, low cholesterol, low salt, renal Plan of Treatment: 1.Follow up with PCP or [facility] in 1 week. 2.Continue hemodialysis as scheduled Assessment: 1.Fluid overload from missed hemodialysis. Follow up with: ERICKA GASTON MD [Primary Care Provider] - 3-5 Days
[2018-11-15 18:34] VITALS: BP 124/78
== END 2018-11-15 21:17 | disposition home or self-care (01) ==
LOC: ED 12:58 → 3A 17:41
PROVIDERS: ADMIT Internal Medicine; ATTEND Internal Medicine
DX: I16.0 Hypertensive urgency (principal); E87.70 Fluid overload, unspecified; I13.2 Hypertensive heart and chronic kidney disease with heart failure and with stage 5 chronic kidney disease, or end stage renal disease; I50.9 Heart failure, unspecified; N18.6 End stage renal disease; F17.210 Nicotine dependence, cigarettes, uncomplicated; M79.671 Pain in right foot
CPT/HCPCS: 36415; 71045; 73610; 73630; 80048; 80053; 80074; 80307; 84100; 85025; 85027; 87116; 93005; 93010; 96372; 96374; 96375; 96376; 99291; 99406; G0257; G0378; J0360; J0885; J1644; J2270

== ENCOUNTER 2018-11-17 15:47 | Emergency (ER) | payer MEDICAID ==
--- NOTE | 2018-11-17 16:40 | Event Note ---
ED Screening Note Date of service: 11/17/18 Time: 16:46 ED Screening Note: 42 y/o female comes in for left foot and ankle pain. She was last seen he on 11/14/18 and has not foloowed up with her provider. Patient has had negative x- rays of her left ankle. Patient keeps getting confused on what ankle is complaining. of. Patient is ambulating without difficulties. This initial assessment/diagnostic orders/clinical plan/treatment(s) is/are subject to change based on patients health status, clinical progression and re- assessment by fellow clinical providers in the ED. Further treatment and workup at subsequent clinical providers discretion. Patient/guardian urged not to elope from the ED as their condition may be serious if not clinically assessed and managed. Initial orders include:
[2018-11-17] MEDS ORDERED: TYLENOL PO ONE (18:57)
--- NOTE | 2018-11-17 19:01 | Emergency Department Report ---
ED Extremity Problem HPI - General Chief complaint: Extremity Injury, Lower Stated complaint: RT ANKLE/FOOT Time Seen by Provider: 11/17/18 16:39 Source: patient, RN notes reviewed, old records reviewed Mode of arrival: Ambulatory Limitations: No Limitations - History of Present Illness Initial comments: This is a pleasant 42-year-old female who is not known to this provider previously. The patient has a past medical history of hypertension and end- stage renal disease, on dialysis Saturday, , Saturday. She states she is not and she states her last dialysis was this past Saturday, 2 days ago. She presents to the ER today with a complaint of persistent left ankle pain. She reports that she rolled her ankle through a defect in her floor within the past week and has been having persistent medial ankle pain. Patient was here a few days ago for similar complaint, and had x-ray of the left ankle and left lower extremity which were found to be negative for acute traumatic disease. She also had x-ray of the left foot which was negative for acute somatic disease. In addition, during her initial ER note, it is documented that she complained of left ankle pain. When the patient was admitted to the medical service for hypertension and end-stage renal disease, requiring dialysis, the inpatient team, presumably by accident, documented that the patient had a complaint of right ankle pain. This translated into a complaint of right lower extremity pain on her discharge summary. However, the patient does not have right lower extremity pain, she only has left ankle pain. The pain is achy, increases with palpation, decreases with rest. It radiates up to the mid calf. The patient denies other injuries. The patient denies other complaints. She also states that she went to an urgent care center within the recent past for the same left ankle injury. The patient reports that she was advised to participate and expectant management. Complaint: extremity pain -: Sudden, days(s) Location: left, lower extremity History of Same: Yes -: Yes arthralgia Radiation: other Quality: aching Consistency: intermittent Improves with: rest Worsens with: weight bearing, walking, palpation - Related Data Home Medications Medication Instructions Recorded Confirmed Last Taken Calcium Acetate [Phoslo] 667 mg PO TID 11/14/18 11/14/18 Unknown Doxycycline Hyclate [Doxycycline 100 mg PO Q12HR 11/14/18 11/14/18 Unknown Hyclate TAB] Furosemide [Lasix TAB] 80 mg PO QDAY 11/14/18 11/14/18 11/14/18 08:00 Gabapentin [Neurontin] 100 mg PO QHS 11/14/18 11/14/18 Unknown Isosorbide Mononitrate 30 mg PO QDAY 11/14/18 11/14/18 Unknown Lisinopril [Zestril TAB] 40 mg PO QDAY 11/14/18 11/14/18 Unknown Melatonin 1 mg PO QDAY 11/14/18 11/14/18 Unknown NIFEdipine XL [Procardia Xl] 60 mg PO Q12HR 11/14/18 11/14/18 11/14/18 08:00 Nitroglycerin [Nitrostat] 0.4 mg SL Q5M PRN 11/14/18 11/14/18 Unknown Omeprazole 40 mg PO QDAY 11/14/18 11/14/18 Unknown Ondansetron [Zofran ODT TAB] 4 mg PO Q8HR 11/14/18 11/14/18 Unknown Vit B Comp C/Folic Acid/Vit D3 1 each PO QDAY 11/14/18 11/14/18 Unknown [Dialyvite 800 Plus D Wafer] cephALEXin [Keflex] 500 mg PO Q12HR 11/14/18 11/14/18 Unknown Previous Rx's Medication Instructions Recorded Last Taken Type ALPRAZolam [Xanax TAB] 0.25 mg PO QHS PRN #5 tablet 12/05/17 Unknown Rx Carvedilol [Coreg] 25 mg PO Q12HR #60 tablet 09/10/18 11/14/18 08:00 Rx cloNIDine [Catapres] 0.2 mg PO Q12H #60 tablet 09/10/18 11/14/18 08:00 Rx hydrALAZINE [Apresoline TAB] 100 mg PO Q8H #90 tab 09/10/18 11/14/18 08:00 Rx Acetaminophen [Non-Aspirin Extra 500 mg PO Q6HR PRN #30 tablet 11/17/18 Unknown Rx Strength] Menthol/Camphr/Antiarthritic 1 1 applic TP BID PRN #1 cream.ml. 11/17/18 Unknown Rx [[place] Arthritis Rub Cream] Allergies Allergy/AdvReac Type Severity Reaction Status Date / Time iron polysaccharide complex Allergy Swelling Verified 04/16/15 09:06 [From Nu-Iron] lactose AdvReac Unknown Verified 12/04/17 09:22 ED Review of Systems ROS: Stated complaint: RT ANKLE/FOOT Other details as noted in HPI Constitutional: denies: fever Respiratory: denies: SOB with exertion Cardiovascular: denies: chest pain Gastrointestinal: denies: abdominal pain Musculoskeletal: arthralgia, myalgia Skin: denies: lesions Neurological: denies: headache, weakness, numbness, paresthesias, confusion ED Past Medical Hx - Past Medical History Hx Hypertension: Yes Hx Congestive Heart Failure: Yes Hx Asthma: No Hx HIV: No Additional medical history: ANGINA. ANEMIA - Surgical History Additional Surgical History: Dialysis access placed. cardiac cath - Social History Smoking Status: Smoker, Current Status Unknown - Medications Home Medications: Home Medications Medication Instructions Recorded Confirmed Last Taken Type ALPRAZolam [Xanax TAB] 0.25 mg PO QHS PRN #5 tablet 12/05/17 11/14/18 Unknown Rx Carvedilol [Coreg] 25 mg PO Q12HR #60 tablet 09/10/18 11/14/18 11/14/18 08:00 Rx cloNIDine [Catapres] 0.2 mg PO Q12H #60 tablet 09/10/18 11/14/18 11/14/18 08:00 Rx hydrALAZINE [Apresoline TAB] 100 mg PO Q8H #90 tab 09/10/18 11/14/18 11/14/18 08:00 Rx Calcium Acetate [Phoslo] 667 mg PO TID 11/14/18 11/14/18 Unknown History Doxycycline Hyclate [Doxycycline 100 mg PO Q12HR 11/14/18 11/14/18 Unknown History Hyclate TAB] Furosemide [Lasix TAB] 80 mg PO QDAY 11/14/18 11/14/18 11/14/18 08:00 History Gabapentin [Neurontin] 100 mg PO QHS 11/14/18 11/14/18 Unknown History Isosorbide Mononitrate 30 mg PO QDAY 11/14/18 11/14/18 Unknown History Lisinopril [Zestril TAB] 40 mg PO QDAY 11/14/18 11/14/18 Unknown History Melatonin 1 mg PO QDAY 11/14/18 11/14/18 Unknown History NIFEdipine XL [Procardia Xl] 60 mg PO Q12HR 11/14/18 11/14/18 11/14/18 08:00 History Nitroglycerin [Nitrostat] 0.4 mg SL Q5M PRN 11/14/18 11/14/18 Unknown History Omeprazole 40 mg PO QDAY 11/14/18 11/14/18 Unknown History Ondansetron [Zofran ODT TAB] 4 mg PO Q8HR 11/14/18 11/14/18 Unknown History Vit B Comp C/Folic Acid/Vit D3 1 each PO QDAY 11/14/18 11/14/18 Unknown History [Dialyvite 800 Plus D Wafer] cephALEXin [Keflex] 500 mg PO Q12HR 11/14/18 11/14/18 Unknown History Acetaminophen [Non-Aspirin Extra 500 mg PO Q6HR PRN #30 tablet 11/17/18 Unknown Rx Strength] Menthol/Camphr/Antiarthritic 1 1 applic TP BID PRN #1 cream.ml. 11/17/18 Unknown Rx [[place] Arthritis Rub Cream] ED Physical Exam - General Limitations: No Limitations General appearance: alert, in no apparent distress - Head Head exam: Present: atraumatic, normocephalic - Eye Eye exam: Present: normal appearance, EOMI, other (visual acuity intact to finger counting and color perception at close distance). Absent: nystagmus - ENT ENT exam: Present: normal exam, normal orophraynx, mucous membranes moist, normal external ear exam - Neck Neck exam: Present: normal inspection, full ROM. Absent: tenderness, meningismus - Respiratory Respiratory exam: Present: normal lung sounds bilaterally, other (there is a right-sided permacath noted, with no redness, pus or streaking.). Absent: respiratory distress, wheezes, rales, rhonchi, stridor, chest wall tenderness - Cardiovascular Cardiovascular Exam: Present: regular rate, normal rhythm, normal heart sounds. Absent: bradycardia, tachycardia, irregular rhythm, systolic murmur, diastolic murmur, rubs, gallop - GI/Abdominal GI/Abdominal exam: Present: soft. Absent: distended, tenderness, guarding, rebound, rigid, pulsatile mass - Extremities Exam Extremities exam: Present: normal inspection (there is no palpable cord. There is a negative Homans sign.), full ROM, tenderness (there is reproducible medial left sided infra malleolar tenderness. There is a functional/normal Aponte test. There is no plantar flex tenderness. There is no malleolus tenderness. There is no fifth metatarsal tenderness.), other (2+ pulses noted in the bilateral upper, lower extremities. There is no long bony tenderness. The pelvis is stable. Muscular compartments are soft.). Absent: pedal edema, joint swelling, calf tenderness - Back Exam Back exam: Present: normal inspection, full ROM. Absent: tenderness, CVA tenderness (R), CVA tenderness (L), paraspinal tenderness, vertebral tenderness - Neurological Exam Neurological exam: Present: alert, oriented X3, other (there is no facial droop. The tongue is midline. The extraocular movements are intact bilaterally. 5/ 5 strength bilateral upper, lower extremities. Sensation intact to light touch bilateral upper, lower extremities bilaterally. Sensation is intact to light touch in the bilateral V1, V2, V3 distribution.). Absent: motor sensory deficit - Psychiatric Psychiatric exam: Present: normal affect, normal mood - Skin Skin exam: Present: warm, dry, intact, normal color. Absent: rash ED Course Vital Signs 11/17/18 18:37 Temperature 98.3 F Pulse Rate 81 Respiratory 16 Rate Blood Pressure 176/113 Blood Pressure 176/113 [Left] O2 Sat by Pulse 100 Oximetry ED Medical Decision Making - Lab Data Vital Signs 11/17/18 18:37 Temperature 98.3 F Pulse Rate 81 Respiratory 16 Rate Blood Pressure 176/113 Blood Pressure 176/113 [Left] O2 Sat by Pulse 100 Oximetry - Radiology Data Radiology results: report reviewed, image reviewed X-ray of the left foot, from November 14 of this year is negative for acute disease. X-ray of the left ankle from 11/14/2018 as negative for acute disease - Medical Decision Making Differential diagnosis, including not limited to: Medical records documentation error, left ankle sprain, strain, chronic end-stage renal disease, chronic hypertension Assessment and plan: 42-year-old female with persistent complaint of left ankle pain, likely experiencing natural history of minor blunt trauma to the left ankle. what most likely happened is inpatient team incorrectly documented laterality of pain, and this reflected on discharge summary/paperwork. The patient is not confused, she is clinically sober, she is alert and oriented 3, and exhibits decision-making capacity. ER records corroborate left sided laterality. Patient is counseled to avoid heavy lifting, remain nonweightbearing, and she'll need to follow up with the primary care doctor or orthopedist for further management. No clinical indication of infection or compartment syndrome at this time. She is afebrile, with reassuring vital signs, with the exception of chronic hypertension, and is scheduled for dialysis tomorrow. She is saturating appropriately on room air, lungs are clear, and is scheduled for dialysis, therefore, does not require laboratory studies or x-ray of the chest at this time. Critical care attestation.: If time is entered above; I have spent that time in minutes in the direct care of this critically ill patient, excluding procedure time. ED Disposition Clinical Impression: End stage renal disease Left ankle pain Qualifiers: Chronicity: unspecified Qualified Code(s): M25.572 - Pain in left ankle and joints of left foot Disposition: DC- TO HOME OR SELFCARE Is pt being admited?: No Does the pt Need Aspirin: No Condition: Stable Instructions: Arthralgia (ED) Additional Instructions: as we discussed, symptoms likely coming from sprain, strain on the left ankle. Patient's pain is most likely coming from the muscles, connective tissue in the left ankle. Patient may expect to have pain over the next few days, weeks, or even months. Take the pain medication as needed/directed, avoid heavy lifting, remain nonweightbearing on the left ankle, alternate heat packs and ice packs, and follow up with a primary care doctor or orthopedist for left ankle pain within the next 5-7 days. Please continue current outpatient medications and follow up for dialysis tomorrow. Return to the emergency room right away with new, worsening or different symptoms, or symptoms not present on the initial emergency room evaluation. Referrals: BARI BRAR MD [Staff Physician] - 3-[address] [facility] [Provider Group] - 3-5 Days [facility] [Provider Group] - 3-5 Days Forms: Work/School Release Form(ED)
[2018-11-17 20:06] VITALS: BP 190/89
== END 2018-11-17 20:05 | disposition home or self-care (01) ==
LOC: ED 15:47
DX: I13.2 Hypertensive heart and chronic kidney disease with heart failure and with stage 5 chronic kidney disease, or end stage renal disease (principal); N18.6 End stage renal disease; I50.9 Heart failure, unspecified; Z99.2 Dependence on renal dialysis; F17.200 Nicotine dependence, unspecified, uncomplicated; Z86.2 Personal history of diseases of the blood and blood-forming organs and certain disorders involving the immune mechanism; Z79.899 Other long term (current) drug therapy; Z91.09 Other allergy status, other than to drugs and biological substances

== ENCOUNTER 2018-12-08 00:57 | Inpatient (IN) | payer MEDICAID ==
[2018-12-08] MEDS ORDERED: ASPIRIN PO ONE (01:14)
[2018-12-08 01:48] LABS: Basophils % (Auto) 0.4 % (0.0-1.8); Eosinophils # (Auto) 0.1 K/mm3 (0.0-0.4); Eosinophils % (Auto) 1.2 % (0.0-4.3); Hematocrit 32.9 % (30.3-42.9); Hemoglobin 10.4 gm/dl (10.1-14.3); Lymphocytes # (Auto) 1.9 K/mm3 (1.2-5.4); Lymphocytes % (Auto) 23.6 % (13.4-35.0); Mean Corpuscular HGB Conc 32 % (30-34); Mean Corpuscular Volume 81 fl (79-97); Monocytes # (Auto) 0.6 K/mm3 (0.0-0.8); Monocytes % (Auto) 7.1 % (0.0-7.3); Platelet Count 281 K/mm3 (140-440); Red Blood Count 4.05 M/mm3 (3.65-5.03); Red Cell Distribution Width 17.8 % (13.2-15.2)
--- NOTE | 2018-12-08 01:57 | XRay Report ---
CHEST 1 VIEW 0132 INDICATION / CLINICAL INFORMATION: Chest Pain. COMPARISON: 11/14/2018 FINDINGS: SUPPORT DEVICES: Stable HEART / MEDIASTINUM: Stable LUNGS / PLEURA: No significant pulmonary or pleural abnormality. No pneumothorax. ADDITIONAL FINDINGS: No significant additional findings. IMPRESSION: No significant acute changes Signer Name: Niranjan Castro MD Signed: 12/08/2018 1:53 AM Workstation Name: [id number]
--- NOTE | 2018-12-08 02:03 | Emergency Department Report ---
ED Chest Pain HPI - General Chief Complaint: Chest Pain Stated Complaint: NEEDS DIALYSIS Time Seen by Provider: 12/08/18 01:30 Source: patient Mode of arrival: Ambulatory Limitations: No Limitations - History of Present Illness Initial Comments: 43-year-old female with past medical history of hypertension, CHF, end-stage renal disease on dialysis Saturday, , and Saturday presents to the Hospital complaining of needing dialysis and chest pain. Patient has not had dialysis in 2 weeks due to transportation issues. She complains of sternal ches t pain for 2-3 days that is dull and constant. Pain is sharp with palpation and inspiration. Patient denies shortness of breath or leg edema. She's been noncompliant with her blood pressure medication for at least 3 days because she was "moving". Patient states she has good urine output. Ariel senior database engineer is Dr. Rodriguez is located [place]. - Related Data Home Medications Medication Instructions Recorded Confirmed Last Taken Calcium Acetate [Phoslo] 667 mg PO TID 11/14/18 11/14/18 Unknown Doxycycline Hyclate [Doxycycline 100 mg PO Q12HR 11/14/18 11/14/18 Unknown Hyclate TAB] Furosemide [Lasix TAB] 80 mg PO QDAY 11/14/18 11/14/18 11/14/18 08:00 Gabapentin [Neurontin] 100 mg PO QHS 11/14/18 11/14/18 Unknown Isosorbide Mononitrate 30 mg PO QDAY 11/14/18 11/14/18 Unknown Lisinopril [Zestril TAB] 40 mg PO QDAY 11/14/18 11/14/18 Unknown Melatonin 1 mg PO QDAY 11/14/18 11/14/18 Unknown NIFEdipine XL [Procardia Xl] 60 mg PO Q12HR 11/14/18 11/14/18 11/14/18 08:00 Nitroglycerin [Nitrostat] 0.4 mg SL Q5M PRN 11/14/18 11/14/18 Unknown Omeprazole 40 mg PO QDAY 11/14/18 11/14/18 Unknown Ondansetron [Zofran ODT TAB] 4 mg PO Q8HR 11/14/18 11/14/18 Unknown Vit B Comp C/Folic Acid/Vit D3 1 each PO QDAY 11/14/18 11/14/18 Unknown [Dialyvite 800 Plus D Wafer] cephALEXin [Keflex] 500 mg PO Q12HR 11/14/18 11/14/18 Unknown Previous Rx's Medication Instructions Recorded Last Taken Type ALPRAZolam [Xanax TAB] 0.25 mg PO QHS PRN #5 tablet 12/05/17 Unknown Rx Carvedilol [Coreg] 25 mg PO Q12HR #60 tablet 09/10/18 11/14/18 08:00 Rx cloNIDine [Catapres] 0.2 mg PO Q12H #60 tablet 09/10/18 11/14/18 08:00 Rx hydrALAZINE [Apresoline TAB] 100 mg PO Q8H #90 tab 09/10/18 11/14/18 08:00 Rx Acetaminophen [Non-Aspirin Extra 500 mg PO Q6HR PRN #30 tablet 11/17/18 Unknown Rx Strength] Menthol/Camphr/Antiarthritic 1 1 applic TP BID PRN #1 cream.ml. 11/17/18 Unknown Rx [[place] Arthritis Rub Cream] Allergies Allergy/AdvReac Type Severity Reaction Status Date / Time iron polysaccharide complex Allergy Swelling Verified 04/16/15 09:06 [From Nu-Iron] lactose AdvReac Unknown Verified 12/04/17 09:22 Heart Score - HEART Score History: Slightly suspicious EKG: Non-specific Age: < 45 Risk factors: > 3 risk factors or hx of atherosclerotic disease Troponin: < normal limit HEART Score: 3 ED Review of Systems ROS: Stated complaint: NEEDS DIALYSIS Other details as noted in HPI Comment: All other systems reviewed and negative ED Past Medical Hx - Past Medical History Previous Medical History?: Yes Hx Hypertension: Yes Hx Congestive Heart Failure: Yes Hx Renal Disease: Yes (Tue, Thur, and Sat dialysis) Hx Asthma: No Hx HIV: No Additional medical history: ANGINA. ANEMIA - Surgical History Past Surgical History?: Yes Additional Surgical History: Dialysis access placed. cardiac cath - Social History Smoking Status: Current Some Day Smoker Substance Use Type: None - Medications Home Medications: Home Medications Medication Instructions Recorded Confirmed Last Taken Type ALPRAZolam [Xanax TAB] 0.25 mg PO QHS PRN #5 tablet 12/05/17 11/14/18 Unknown Rx Carvedilol [Coreg] 25 mg PO Q12HR #60 tablet 09/10/18 11/14/18 11/14/18 08:00 Rx cloNIDine [Catapres] 0.2 mg PO Q12H #60 tablet 09/10/18 11/14/18 11/14/18 08:00 Rx hydrALAZINE [Apresoline TAB] 100 mg PO Q8H #90 tab 09/10/18 11/14/18 11/14/18 08:00 Rx Calcium Acetate [Phoslo] 667 mg PO TID 11/14/18 11/14/18 Unknown History Doxycycline Hyclate [Doxycycline 100 mg PO Q12HR 11/14/18 11/14/18 Unknown History Hyclate TAB] Furosemide [Lasix TAB] 80 mg PO QDAY 11/14/18 11/14/18 11/14/18 08:00 History Gabapentin [Neurontin] 100 mg PO QHS 11/14/18 11/14/18 Unknown History Isosorbide Mononitrate 30 mg PO QDAY 11/14/18 11/14/18 Unknown History Lisinopril [Zestril TAB] 40 mg PO QDAY 11/14/18 11/14/18 Unknown History Melatonin 1 mg PO QDAY 11/14/18 11/14/18 Unknown History NIFEdipine XL [Procardia Xl] 60 mg PO Q12HR 11/14/18 11/14/18 11/14/18 08:00 History Nitroglycerin [Nitrostat] 0.4 mg SL Q5M PRN 11/14/18 11/14/18 Unknown History Omeprazole 40 mg PO QDAY 11/14/18 11/14/18 Unknown History Ondansetron [Zofran ODT TAB] 4 mg PO Q8HR 11/14/18 11/14/18 Unknown History Vit B Comp C/Folic Acid/Vit D3 1 each PO QDAY 11/14/18 11/14/18 Unknown History [Dialyvite 800 Plus D Wafer] cephALEXin [Keflex] 500 mg PO Q12HR 11/14/18 11/14/18 Unknown History Acetaminophen [Non-Aspirin Extra 500 mg PO Q6HR PRN #30 tablet 11/17/18 Unknown Rx Strength] Menthol/Camphr/Antiarthritic 1 1 applic TP BID PRN #1 cream.ml. 11/17/18 Unknown Rx [[place] Arthritis Rub Cream] ED Physical Exam - General Limitations: No Limitations - Other Other exam information: Gen.: No acute distress Head: Atraumatic Eyes: Normal appearance EENT: Moist mucous membranes Neck: Normal appearance, no posterior midline tenderness, no meningismus Chest: Clear to auscultation bilaterally. Reproducible sternal chest wall tenderness to palpation Cardiovascular: Regular rate and rhythm. Patient has a catheter to the right chest wall without a dressing or Biopatch. Patient states that she took the dressing off 1 week ago because it was dirty since she hasn't been going to dialysis. Abdomen: Normal appearance, soft, nontender, no rebound or guarding, normal bowel sounds Back: Normal appearance, nontender Extremity: Full range of motion, normal appearance, no edema Neuro: Alert, clear speech, no focal motor or sensory deficit Psychiatric: Appropriate Skin: No rash ED Course Vital Signs 12/08/18 12/08/18 12/08/18 01:14 02:05 02:14 Temperature 98.1 F 98.5 F Pulse Rate 90 87 84 Respiratory 18 24 Rate Blood Pressure 252/153 252/153 Blood Pressure 252/153 [Left] O2 Sat by Pulse 98 97 Oximetry 12/08/18 12/08/18 12/08/18 02:38 03:00 03:31 Temperature Pulse Rate 82 80 Respiratory 16 19 18 Rate Blood Pressure 249/148 249/148 Blood Pressure [Left] O2 Sat by Pulse Oximetry 12/08/18 12/08/18 12/08/18 03:38 04:01 04:10 Temperature Pulse Rate 84 Respiratory 18 17 16 Rate Blood Pressure 187/151 Blood Pressure [Left] O2 Sat by Pulse Oximetry 12/08/18 04:22 Temperature Pulse Rate 78 Respiratory Rate Blood Pressure 228/134 Blood Pressure [Left] O2 Sat by Pulse Oximetry - Consultations Consultation #1: 12/08/18 02:23 case d/w dr curry senior database engineer. will schedule dialysis in am. LITA score - Lita Score Age > 65: (0) No Aspirin use within the Past 7 Days: (0) No 3 or more CAD Risk Factors: (1) Yes 2 or more Angina events in past 24 hrs: (0) No Known CAD with more than 50% Stenosis: (0) No Elevated Cardiac Markers: (0) No ST Deviation Greater than 0.5mm: (0) No LITA Score: 1 ED Medical Decision Making - Lab Data Result diagrams: 12/08/18 01:32 12/08/18 01:32 Lab Results 12/08/18 12/08/18 12/08/18 Range/Units 01:32 01:32 01:40 WBC 7.8 (4.5-11.0) K/mm3 RBC 4.05 (3.65-5.03) M/mm3 Hgb 10.4 (10.1-14.3) gm/dl Hct 32.9 (30.3-42.9) % MCV 81 (79-97) fl MCH 26 L (28-32) pg MCHC 32 (30-34) % RDW 17.8 H (13.2-15.2) % Plt Count 281 (140-440) K/mm3 Lymph % (Auto) 23.6 (13.4-35.0) % [place] % (Auto) 7.1 (0.0-7.3) % Eos % (Auto) 1.2 (0.0-4.3) % Baso % (Auto) 0.4 (0.0-1.8) % Lymph # 1.9 (1.2-5.4) K/mm3 [place] # 0.6 (0.0-0.8) K/mm3 Eos # 0.1 (0.0-0.4) K/mm3 Baso # 0.0 (0.0-0.1) K/mm3 Seg Neutrophils % 67.7 (40.0-70.0) % Seg Neutrophils # 5.3 (1.8-7.7) K/mm3 Sodium 142 (137-145) mmol/L Potassium 4.0 (3.6-5.0) mmol/L Chloride 106.6 (98-107) mmol/L Carbon Dioxide 20 L (22-30) mmol/L Anion Gap 19 mmol/L BUN 45 H (7-17) mg/dL Creatinine 5.6 H (0.7-1.2) mg/dL Estimated GFR 10 ml/min BUN/Creatinine Ratio 8 % Glucose 92 (65-100) mg/dL Calcium 8.6 (8.4-10.2) mg/dL Troponin T < 0.010 (0.00-0.029) ng/mL - EKG Data -: EKG Interpreted by Ar EKG shows normal: sinus rhythm, axis (qrs 13), QRS complexes (qrsd 93), ST-T waves (lvh lat t inv) Rate: normal - EKG Data When compared to previous EKG there are: no significant change - Radiology Data Radiology results: report reviewed CHEST 1 VIEW 0132 INDICATION / CLINICAL INFORMATION: Chest Pain. COMPARISON: 11/14/2018 FINDINGS: SUPPORT DEVICES: Stable HEART / MEDIASTINUM: Stable LUNGS / PLEURA: No significant pulmonary or pleural abnormality. No pneumothor ax. ADDITIONAL FINDINGS: No significant additional findings. IMPRESSION: No significant acute changes - Medical Decision Making pt presents with significantly elevated bp due to med and dialysis noncompliance iv labetelol given in ed no chf, potassium normal trop neg with unchanged ekg reproducible chest wall pain: [place] provided plan to admit for significant htn and for dialysis - Differential Diagnosis esrd, hyperkalemia, volume overload, htn emergency Critical Care Time: No Critical care attestation.: If time is entered above; I have spent that time in minutes in the direct care of this critically ill patient, excluding procedure time. ED Disposition Clinical Impression: Mid sternal chest pain, Uncontrolled hypertension, Dialysis patient, noncompliant, Noncompliance with medication regimen Disposition: 09 OP ADMIT IP TO THIS HOSP Is pt being admited?: Yes Condition: Stable Time of Disposition: 02:35 (Dr. Schuster/hosp)
[2018-12-08] MEDS ORDERED: NORMODYNE IV ONE (02:07)
[2018-12-08 02:11] LABS: Calcium 8.6 mg/dL (8.4-10.2)
[2018-12-08] MEDS ORDERED: NORCO 5/325 PO ONE (02:28)
[2018-12-08] MEDS ORDERED: MORPHINE IV PRN (02:57)
[2018-12-08] MEDS ORDERED: APRESOLINE IV PRN (02:58)
[2018-12-08] MEDS ORDERED: TYLENOL PO PRN (02:59)
[2018-12-08] MEDS ORDERED: ZOFRAN IV PRN (02:59)
[2018-12-08] MEDS ORDERED: NITROSTAT SL PRN ×2 (03:01→07:47)
[2018-12-08] MEDS ORDERED: APRESOLINE ONE (04:22)
[2018-12-08] MEDS ORDERED: CATAPRES ONE (04:33)
[2018-12-08] MEDS ORDERED: BENADRYL ONE (04:36)
[2018-12-08] MEDS: CATAPRES PO SCH ×2 (04:36→18:14)
[2018-12-08] MEDS ORDERED: BENADRYL IV ONE (04:41)
[2018-12-08] MEDS ORDERED: NACL 0.9% 100 ML IV PRN (05:09)
--- NOTE | 2018-12-08 05:10 | History and Physical Report ---
CHIEF COMPLAINT: Missing dialysis for 2 weeks. Other complaints include chest pain. HISTORY OF PRESENT ILLNESS: The patient is a 43-year-old female who says she missed dialysis for 2 weeks because of activities to move out of current accommodation to some other place and also lack of transportation and the patient said because of that, she has not had dialysis done in 2 weeks. She also complained of dull chest pain, which is associated with inspiration and worse with palpation. There is no history of shortness of breath, no history of swelling of the ankles. The patient also denied history of chills or fever or nausea or vomiting and also denied a history of dizziness and admitted to missing out on her blood pressure medications because of activities that she is taking to move to a new place. PAST MEDICAL HISTORY: Pertinent for hypertension; congestive heart failure; end-stage renal disease, needing dialysis on Tuesdays, , and Saturdays. The patient also has past history of anemia and a past history of cerebrovascular accident and transient ischemic attack. FAMILY HISTORY: Noncontributory. SOCIAL HISTORY: The patient smokes cigarette, does not drink alcohol and does not use illicit drugs. PAST SURGICAL HISTORY: Pertinent for cardiac catheterization in the past and dialysis access placed in the right chest wall area. MEDICATIONS: The patient is on the following medications: Xanax 0.2 mg by mouth every 8 hours as needed for anxiety; Coreg 25 mg by mouth every 12 hours; clonidine 0.2 mg by mouth q. 12 hours; hydralazine 100 mg by mouth every 8 hours; calcium acetate, PhosLo 667 mg by mouth 3 times daily; doxycycline 100 mg by mouth every 12 hours; Lasix 80 mg by mouth daily; Neurontin 100 mg by mouth at bedtime; isosorbide mononitrate 30 mg by mouth daily; lisinopril 40 mg by mouth daily; melatonin 1 mg by mouth daily; Procardia-XL 60 mg by mouth every 12 hours; Nitrostat 0.4 mg sublingual every 5 minutes; omeprazole 40 mg by mouth daily; Zofran 4 mg by mouth every 8 hours; Dialyvite 800 mg plus D wafer 1 by mouth daily; Extra Strength Tylenol 500 mg by mouth every 6 hours as needed for pain, [place] Arthritis Rub cream 1 application topically twice daily as needed for pain. ALLERGIES: The patient is allergic to IRON, POLYSACCHARIDE COMPLEX and LACTOSE. REVIEW OF SYSTEMS: CONSTITUTIONAL: There is no fever, no chills, no diaphoresis. HEENT: There is no headache or sore throat. CARDIOVASCULAR SYSTEM: Chest pain is present, palpitation present. RESPIRATORY SYSTEM: Shortness of breath is present. No cough. GASTROINTESTINAL SYSTEM: There is no nausea, no vomiting, no abdominal pain, diarrhea or constipation. NEUROLOGICAL SYSTEM: There is no numbness, no dizziness, no altered mental status. MUSCULOSKELETAL SYSTEM: There is no joint pain or swelling. DERMATOLOGICAL SYSTEM: There is no skin rash or itching. GENITOURINARY SYSTEM: There is no dysuria, hematuria, or flank pain. Rest of system review is normal. PHYSICAL EXAMINATION: GENERAL: At the time of exam, the patient was found to be alert, oriented x 3 and not in acute distress. VITAL SIGNS: At the initial time of presentation shows temperature of 98.5 degrees Fahrenheit, pulse of 87, respirations 24, blood pressure of 252/153, O2 sat of 97% on room air. HEENT: Showed pupils to be equal, round, reactive to light and accommodating. Extraocular muscles are intact. NECK: Supple with no JVD or carotid bruit. CARDIOVASCULAR SYSTEM: Showed normal first and second heart sounds with no gallops or murmur. RESPIRATORY SYSTEM: Showed good air entry on both sides of the lungs with no abnormal breath sounds. GASTROINTESTINAL SYSTEM: Show abdomen to be full, soft, nontender with no organomegaly or rigidity. NEUROLOGIC: Shows no focal deficit. MUSCULOSKELETAL SYSTEM: Show no joint swelling or tenderness. DERMATOLOGICAL SYSTEM: Show no skin rash. GENITOURINARY SYSTEM: Showing no costovertebral angle tenderness. PERTINENT LABORATORY AND IMAGING: The patient has chest x-ray done that shows no acute cardiopulmonary lesion. Lab results, the patient has CBC done that came back unremarkable. The patient's chemistry show high BUN of 45 with high creatinine of 5.6 consistent with end-stage renal disease, on dialysis. The patient's troponin level came back normal. DIAGNOSES: 1. End-stage renal disease, needing dialysis. 2. Hypertensive crisis. 3. Atypical chest pain. PLAN OF CARE: 1. The patient will be admitted to medical/surgical [facility] on telemetry. 2. The patient will continue Nephrology consult with Dr. Fermin, who is supposed to do dialysis this morning. 3. The patient will be on serial cardiac enzymes involving troponin, total CK, and CK-MB checked every 6 hours x 2 levels. 4. The patient will be on home medication as shown in the medication reconciliation section and this includes clonidine 0.2 mg by mouth every 12 hours for management of high blood pressure. 5. The patient will be on nitro paste half inch to anterior chest wall q.i.d. and Nitrostat 0.4 mg sublingual every 5 minutes as needed for chest pain. 6. The patient will be on morphine 2 mg IV every 3 hours as needed for pain and IV Zofran 4 mg every 8 hours for nausea and vomiting. 7. The patient will be on oxygen by nasal cannula at 2 liters per minute. 8. The patient will be on DVT prophylaxis with heparin 5000 units subcutaneous q. 12 hours and sequential compressive device. JOB# [id number] OCN/NTS
[2018-12-08] MEDS: NITRO-BID 2% TP SCH ×4 (06:47→18:17)
[2018-12-08] MEDS ORDERED: [UNRECOGNIZED DRUG - OTHER] TP PRN ×2 (07:47→08:22)
[2018-12-08] MEDS: PHOSLO PO SCH ×3 (08:53→18:01)
[2018-12-08] MEDS: APRESOLINE PO SCH ×3 (08:53→22:03)
--- NOTE | 2018-12-08 08:56 | Consultation ---
History of Present Illness - History of Present Illness Source of information: History of presenting illness Patient is a 43-year-old female, who has been admitted here after missing nearly 2 weeks of dialysis, patient stated that she did not go to dialysis due to transportation issues and was admitted here with chest pain, she is currently being followed by her industrial relations representative, Dr. Rodriguez, patient stated that she does urinate several times during the day She did not inform her physician that she is going to be missing her dialysis treatment. She also did not make any alternate arrangement Hemodialysis has been ordered for today She does not complain of any exertional shortness of breath or chest pain She is alert, awake and comfortable Past medical history is significant for End-stage renal disease Anemia and end-stage renal disease Secondary hyperparathyroidism Congestive heart failure Neuropathy Insomnia Family history: Reviewed from the chart Social history: Reviewed from the chart Allergies: Review of from the chart Medications: Reviewed from the chart Review of system is positive for Missing dialysis treatment for nearly 2 weeks, patient stated that she has had transportation issues She does urinate several times during the day All other review of system negative Physical examination Vitals: Reviewed HEENT: Oral mucosa mildly dry. No pharyngeal erythema, no icterus Neck: Supple, no JVD, thyromegaly, nodule or mass Chest: Clear to auscultation anteriorly. Very few faint basilar crackles Heart: Regular rate and rhythm, S1, S2 heard, no S3, S4 Abdomen: Soft, nontender, bowel sounds present. No suprapubic mass. No CVA tenderness. No renal bruit Extremities: No petechial rash, dry skin, 1+ edema, no peripheral cyanosis Neurological: Alert, awake, follows commands. No asterixis Dermatology; no petechial skin rash, dry skin, poor skin hygiene Back: Nontender thoracolumbar spine Psychiatric: No agitation, aggression noted My assessment and plan are as follows End-stage renal disease: Patient will continue with hemodialysis treatment, 3 times a week, dialysis has already been ordered Noncompliance: Addressed with the patient, he was advised to call her treating industrial relations representative, upon discharge, as well as dialysis Center She can be discharged after dialysis if otherwise doing well Dialysis access: Working well. No immediate issues Anemia and end-stage renal disease: To monitor and follow. Erythropoietin as required Secondary hyperparathyroidism and bone mineral disorder. Check phosphorus and PTH level periodically Hypertension and volume: Continue to monitor. Goal systolic blood pressure less than 150 for now, ultrafiltration only as tolerated with hemodialysis. Advised to maintain fluid restriction 1200 cc per day Patient is to be on high protein diet due to dialysis status, will benefit from nutritional evaluation and follow-up Multiple other comorbidities; being followed by the primary team Renal care plan was discussed with patient. Labs were explained to the patient and simple Kisw[place]ili. Patient does appear to have good understanding of several renal-related issues that were discussed today. We'll continue to follow and make recommendations from renal standpoint Patient was advised to make an appointment for follow-up in the office upon discharge. Medications and Allergies Allergies Allergy/AdvReac Type Severity Reaction Status Date / Time iron polysaccharide complex Allergy Swelling Verified 04/16/15 09:06 [From Nu-Iron] lactose AdvReac Unknown Verified 12/04/17 09:22 Home Medications Medication Instructions Recorded Confirmed Last Taken Type ALPRAZolam [Xanax TAB] 0.25 mg PO QHS PRN #5 tablet 12/05/17 11/14/18 Unknown Rx Carvedilol [Coreg] 25 mg PO Q12HR #60 tablet 09/10/18 11/14/18 11/14/18 08:00 Rx cloNIDine [Catapres] 0.2 mg PO Q12H #60 tablet 09/10/18 11/14/18 11/14/18 08:00 Rx hydrALAZINE [Apresoline TAB] 100 mg PO Q8H #90 tab 09/10/18 11/14/18 11/14/18 08:00 Rx Calcium Acetate [Phoslo] 667 mg PO TID 11/14/18 11/14/18 Unknown History Doxycycline Hyclate [Doxycycline 100 mg PO Q12HR 11/14/18 11/14/18 Unknown History Hyclate TAB] Furosemide [Lasix TAB] 80 mg PO QDAY 11/14/18 11/14/18 11/14/18 08:00 History Gabapentin [Neurontin] 100 mg PO QHS 11/14/18 11/14/18 Unknown History Isosorbide Mononitrate 30 mg PO QDAY 11/14/18 11/14/18 Unknown History Lisinopril [Zestril TAB] 40 mg PO QDAY 11/14/18 11/14/18 Unknown History Melatonin 1 mg PO QDAY 11/14/18 11/14/18 Unknown History NIFEdipine XL [Procardia Xl] 60 mg PO Q12HR 11/14/18 11/14/18 11/14/18 08:00 History Nitroglycerin [Nitrostat] 0.4 mg SL Q5M PRN 11/14/18 11/14/18 Unknown History Omeprazole 40 mg PO QDAY 11/14/18 11/14/18 Unknown History Ondansetron [Zofran ODT TAB] 4 mg PO Q8HR 11/14/18 11/14/18 Unknown History Vit B Comp C/Folic Acid/Vit D3 1 each PO QDAY 11/14/18 11/14/18 Unknown History [Dialyvite 800 Plus D Wafer] cephALEXin [Keflex] 500 mg PO Q12HR 11/14/18 11/14/18 Unknown History Acetaminophen [Non-Aspirin Extra 500 mg PO Q6HR PRN #30 tablet 11/17/18 Unknown Rx Strength] Menthol/Camphr/Antiarthritic 1 1 applic TP BID PRN #1 cream.ml. 11/17/18 Unknown Rx [[place] Arthritis Rub Cream] Active Meds: Active Medications Acetaminophen (Tylenol) 650 mg PO Q4H PRN PRN Reason: Headache Alprazolam (Xanax) 0.25 mg PO QHS PRN PRN Reason: Anxiety Aspirin (Aspirin) 325 mg PO QDAY [facility] Calcium Acetate (Phoslo) 667 mg PO TIDWM [facility] Last Admin: 12/08/18 08:53 Dose: 667 mg Documented by: Carvedilol (Coreg) 25 mg PO Q12HR [facility] Clonidine HCl (Catapres) 0.2 mg PO Q12H [facility] Last Admin: 12/08/18 04:36 Dose: Not Given Documented by: Furosemide (Lasix) 80 mg PO QDAY [facility] Gabapentin (Neurontin) 100 mg PO QHS [facility] Heparin Sodium (Porcine) (Heparin) 5,000 unit SUB-Q Q12HR [facility] Hydralazine HCl (Apresoline) 20 mg IV Q4H PRN PRN Reason: Blood Pressure Last Admin: 12/08/18 04:22 Dose: 20 mg Documented by: Hydralazine HCl (Apresoline) 100 mg PO Q8HR [facility] Last Admin: 12/08/18 08:53 Dose: 100 mg Documented by: Sodium Chloride (Nacl 0.9%) 100 mls @ 999 mls/hr IV YULI PRN PRN Reason: Hypotension Isosorbide Mononitrate (Imdur) 30 mg PO DAILY [facility] Lisinopril (Zestril) 40 mg PO QDAY [facility] Miscellaneous Medication (Menthol/Camphr/Antiarthritic 1 [[place] Arthritis Rub Cream]) 1 applic TP BID PRN PRN Reason: Pain, Moderate (4-6) Miscellaneous Medication (Melatonin [Melatonin]) 1 mg PO QDAY [facility] Multivit/Ca Carb/B Cmplx/FA/Prenat (Renal Caps) 1 cap PO QDAY [facility] Nifedipine (Procardia Xl) 60 mg PO Q12HR [facility] Nitroglycerin (Nitro-Bid 2%) 0.5 inch TP QIDNTG [facility]; Protocol Last Admin: 12/08/18 06:47 Dose: 0.5 inch Documented by: Nitroglycerin (Nitrostat) 0.4 mg SL Q5M PRN PRN Reason: Chest Pain Ondansetron HCl (Zofran) 4 mg IV Q8H PRN PRN Reason: Nausea And Vomiting Pantoprazole Sodium (Protonix) 40 mg PO DAILY [facility] Exam - Vital Signs Vital signs: Vital Signs Temp Pulse Resp BP Pulse Ox 98.1 F 90 18 252/153 98 12/08/18 01:14 12/08/18 01:14 12/08/18 01:14 12/08/18 01:14 12/08/18 01:14 Results - Lab Results 12/08/18 01:32 12/08/18 01:32 Most recent lab results Calcium 8.6 mg/dL (8.4-10.2) 12/08/18 01:32
[2018-12-08] MEDS ORDERED: PROCARDIA XL PO SCH (10:00)
[2018-12-08] MEDS ORDERED: NON-FORMULARY (Isosorbide Mononitrate [Isosorbide Mononitrate] 30 MG) PO SCH (10:00)
[2018-12-08] MEDS ORDERED: NON-FORMULARY (Omeprazole [Omeprazole] 40 MG) PO SCH (10:00)
[2018-12-08] MEDS ORDERED: MELATONIN 1 MG PO SCH ×2 (10:00)
[2018-12-08] MEDS ORDERED: NON-FORMULARY (Vit B Comp C/Folic Acid/Vit D3 [Dialyvite 800 Plus D Wafer] 1 EACH) PO SCH (10:00)
[2018-12-08] MEDS: ASPIRIN PO SCH (10:17)
[2018-12-08] MEDS: COREG PO SCH ×2 (10:24→22:03)
[2018-12-08] MEDS: IMDUR PO SCH (10:25)
[2018-12-08] MEDS: LASIX PO SCH (10:26)
[2018-12-08] MEDS: ZESTRIL PO SCH (10:27)
[2018-12-08] MEDS: PROTONIX PO SCH (10:27)
[2018-12-08] MEDS: PROCARDIA XL PO SCH ×2 (10:27→22:03)
[2018-12-08] MEDS: HEPARIN SUB-Q SCH ×2 (10:33→22:07)
[2018-12-08] MEDS: Renal Caps PO SCH (10:41)
--- NOTE | 2018-12-08 11:49 | Progress Note ---
Assessment and Plan /ESRD with volume overload - Consulted nephro for HD /Noncompliance with HD, counseled /Hypertensive Urgency - resume home meds for BP, hydralazine iv as needed /Atypical chest pain, likely from pulmonary congestion, - should improve with HD /Chronic diastolic (congestive) heart failure - Volume Mx with HD /Anemia and end-stage renal disease - monitor h/h /Dvt Px, heparin Brief History: Patient is a 43-year-old female, who has been admitted here after missing nearly 2 weeks of dialysis, patient stated that she did not go to dialysis due to transportation issues and was admitted here with chest pain, she is currently being followed by her senior software project manager, Dr. Rodriguez. Radiological data: CXR - no acute infiltrates Hospitalist Physical exam: GENERAL: well-developed and well-nourished AAF lying on bed appeared to be in no discomfort. HEENT: Normocephalic. Atraumatic. No conjunctival congestion or icterus. Patient has moist mucous membranes. NECK: Supple. Trachea midline. CHEST/LUNGS: Clear to auscultated bilaterally, breathing nonlabored. No wheezes crackles or rhonchi. HEART/CARDIOVASCULAR: Regular in rate and rhythm. S1 and S2 positive. ABDOMEN: Abdomen is soft, nontender. Patient has normal bowel sounds. SKIN: There is no rash. Warm and dry. NEURO: No focal motor deficit. Follows command. MUSCULOSKELETAL: No joint effusion or tenderness. EXTRIMITY: No edema, no cyanosis or clubbing. PSYCH: Cooperative. Subjective Date of service: 12/08/18 Interval history: Patient seen and examined. Medical records and medication list reviewed. No acute event overnight noted by the RN. Patient denies any chest pain or difficulty breathing. Patient is tolerating diet. Discussed plan of care at bedside with patient. Waiting for dialysis today BP remained elevated Objective - Constitutional Vitals: Vital Signs - 12hr 12/08/18 12/08/18 12/08/18 01:14 02:05 02:14 Temperature 98.1 F 98.5 F Pulse Rate 90 87 84 Respiratory 18 24 Rate Blood Pressure 252/153 252/153 Blood Pressure 252/153 [Left] O2 Sat by Pulse 98 97 Oximetry 12/08/18 12/08/18 12/08/18 02:38 03:00 03:31 Temperature Pulse Rate 82 80 Respiratory 16 19 18 Rate Blood Pressure 249/148 249/148 Blood Pressure [Left] O2 Sat by Pulse Oximetry 12/08/18 12/08/18 12/08/18 03:38 04:01 04:10 Temperature Pulse Rate 84 Respiratory 18 17 16 Rate Blood Pressure 187/151 Blood Pressure [Left] O2 Sat by Pulse Oximetry 12/08/18 12/08/18 12/08/18 04:21 04:22 04:31 Temperature Pulse Rate 77 78 94 H Respiratory 16 23 Rate Blood Pressure 228/134 228/134 228/134 Blood Pressure [Left] O2 Sat by Pulse Oximetry 12/08/18 12/08/18 12/08/18 04:36 04:40 04:41 Temperature Pulse Rate 90 83 Respiratory 16 16 Rate Blood Pressure 198/129 187/151 Blood Pressure [Left] O2 Sat by Pulse Oximetry 12/08/18 12/08/18 12/08/18 04:51 05:00 05:31 Temperature 98.6 F Pulse Rate 81 79 Respiratory 17 11 L 22 Rate Blood Pressure 187/151 206/117 197/130 Blood Pressure [Left] O2 Sat by Pulse 99 Oximetry 12/08/18 12/08/18 12/08/18 06:47 10:24 10:25 Temperature Pulse Rate 79 80 80 Respiratory Rate Blood Pressure 197/130 182/102 182/102 Blood Pressure [Left] O2 Sat by Pulse Oximetry 12/08/18 12/08/18 10:27 10:42 Temperature Pulse Rate 80 80 Respiratory Rate Blood Pressure 182/102 182/102 Blood Pressure [Left] O2 Sat by Pulse Oximetry - Labs CBC & Chem 7: 12/08/18 01:32 12/08/18 01:32 Labs: Abnormal lab results 12/08/18 12/08/18 Range/Units 01:32 01:32 MCH 26 L (28-32) pg RDW 17.8 H (13.2-15.2) % Carbon Dioxide 20 L (22-30) mmol/L BUN 45 H (7-17) mg/dL Creatinine 5.6 H (0.7-1.2) mg/dL
[2018-12-08 13:41] LABS: Hepatitis B Surface Antigen Non-Reactive (Negative); Hepatitis C Virus Antibody Non-Reactive (NonReactive)
[2018-12-08] MEDS: NEURONTIN PO SCH (22:04)
[2018-12-08] MEDS: XANAX PO PRN (22:06)
[2018-12-08] MEDS ORDERED: NACL 0.9 (PRIMING MACHINE ONLY DIALYSIS) MC ONE (23:23)
[2018-12-09] MEDS: APRESOLINE PO SCH ×3 (05:32→22:10)
[2018-12-09] MEDS: NITRO-BID 2% TP SCH ×4 (05:32→18:39)
[2018-12-09] MEDS: CATAPRES PO SCH ×2 (05:32→18:36)
[2018-12-09] MEDS: PHOSLO PO SCH ×3 (08:00→18:37)
--- NOTE | 2018-12-09 08:45 | Progress Note ---
Subjective Interval history: Patient was seen today for follow-up on multiple renal related issues Events of this hospitalization were noted Interdisciplinary notes were also reviewed Has had hemodialysis yesterday She wants to go home Vitals intake output medications were reviewed Past medical history: Reviewed Family, social history: Reviewed Allergies: Reviewed Physical examination General: No acute distress Vitals: Reviewed HEENT: Oral mucosa moist no icterus Neck: Supple no thyromegaly nodular mass or JVD Chest: Clear to auscultation anteriorly Heart: Regular rate and rhythm S1-S2 heard no S3-S4 Abdomen: Soft nontender no suprapubic masses no organomegaly Extremity: Dry skin less than 1+ edema Psych: No evidence of any agitation and aggression noted Derm: No petechial rash Assessment and plan: End-stage renal disease: Patient will continue with hemodialysis treatment on MWF scheduled as tolerated, monitor dialysis related labs Noncompliance addressed and discussed with patient, she will need to make an appointment with her urgent care upon discharge Metabolic acidosis: Status post hemodialysis Anemia and end-stage renal disease: To monitor and follow, erythropoietin as required goal hemoglobin dialysis patients usually occurring 10 and 12, we will follow Will give 1 dose of erythropoietin 20,000 units subcutaneous 1 Secondary hyperparathyroidism: Monitor phosphorus and PTH periodically and adjust binders as needed Diet and nutrition: Fluid restriction 1200 mL per day, high-protein diet may benefit from nutrition consultation , patient is protein intake should be 1.5 g per KG body weight Hypertension and volume continue to monitor, educated about fluid restriction sodium restriction Patient does exhibit good understanding of the renal related issues All renal related issues were discussed with the patient, patient does exhibit good understanding, lab results were also discussed with patient in simple [place] Prognosis: Guarded We'll continue to follow and make recommendation from renal standpoint Objective - Vital Signs Vital signs: Vital Signs - 12hr 12/08/18 12/09/18 12/09/18 21:59 00:00 05:18 Temperature 98.9 F 97.7 F 97.6 F Pulse Rate 63 56 L 72 Respiratory 18 20 18 Rate Blood Pressure 119/77 115/67 144/92 O2 Sat by Pulse 100 98 98 Oximetry 12/09/18 07:56 Temperature Pulse Rate Respiratory Rate Blood Pressure O2 Sat by Pulse 99 Oximetry - Lab 12/08/18 01:32 12/08/18 01:32 Most recent lab results Calcium 8.6 mg/dL (8.4-10.2) 12/08/18 01:32 Medications & Allergies - Medications Allergies/Adverse Reactions: Allergies iron polysaccharide complex [From Nu-Iron] Allergy (Verified 04/16/15 09:06) Swelling lactose Adverse Reaction (Verified 12/04/17 09:22) Unknown Home Medications: Home Medications Medication Instructions Recorded Confirmed Last Taken Type ALPRAZolam [Xanax TAB] 0.25 mg PO QHS PRN #5 tablet 12/05/17 11/14/18 Unknown Rx Carvedilol [Coreg] 25 mg PO Q12HR #60 tablet 09/10/18 11/14/18 11/14/18 08:00 Rx cloNIDine [Catapres] 0.2 mg PO Q12H #60 tablet 09/10/18 11/14/18 11/14/18 08:00 Rx hydrALAZINE [Apresoline TAB] 100 mg PO Q8H #90 tab 09/10/18 11/14/18 11/14/18 08:00 Rx Calcium Acetate [Phoslo] 667 mg PO TID 11/14/18 11/14/18 Unknown History Doxycycline Hyclate [Doxycycline 100 mg PO Q12HR 11/14/18 11/14/18 Unknown History Hyclate TAB] Furosemide [Lasix TAB] 80 mg PO QDAY 11/14/18 11/14/18 11/14/18 08:00 History Gabapentin [Neurontin] 100 mg PO QHS 11/14/18 11/14/18 Unknown History Isosorbide Mononitrate 30 mg PO QDAY 11/14/18 11/14/18 Unknown History Lisinopril [Zestril TAB] 40 mg PO QDAY 11/14/18 11/14/18 Unknown History Melatonin 1 mg PO QDAY 11/14/18 11/14/18 Unknown History NIFEdipine XL [Procardia Xl] 60 mg PO Q12HR 11/14/18 11/14/18 11/14/18 08:00 History Nitroglycerin [Nitrostat] 0.4 mg SL Q5M PRN 11/14/18 11/14/18 Unknown History Omeprazole 40 mg PO QDAY 11/14/18 11/14/18 Unknown History Ondansetron [Zofran ODT TAB] 4 mg PO Q8HR 11/14/18 11/14/18 Unknown History Vit B Comp C/Folic Acid/Vit D3 1 each PO QDAY 11/14/18 11/14/18 Unknown History [Dialyvite 800 Plus D Wafer] cephALEXin [Keflex] 500 mg PO Q12HR 11/14/18 11/14/18 Unknown History Acetaminophen [Non-Aspirin Extra 500 mg PO Q6HR PRN #30 tablet 11/17/18 Unknown Rx Strength] Menthol/Camphr/Antiarthritic 1 1 applic TP BID PRN #1 cream.ml. 11/17/18 Unknown Rx [[place] Arthritis Rub Cream] Active Medications: Generic Name Dose Route Start Last Admin Trade Name Freq PRN Reason Stop Dose Admin Acetaminophen 650 mg 12/08/18 02:59 12/08/18 18:00 Tylenol PO 650 mg Q4H PRN Administration Headache Alprazolam 0.25 mg 12/08/18 04:23 12/08/18 22:06 Xanax PO 0.25 mg QHS PRN Administration Anxiety Aspirin 325 mg 12/08/18 10:00 12/08/18 10:17 Aspirin PO 325 mg QDAY JESU Administration Calcium Acetate 667 mg 12/08/18 08:00 12/08/18 18:01 Phoslo PO 667 mg TIDWM JESU Administration Carvedilol 25 mg 12/08/18 10:00 12/08/18 22:03 Coreg PO Not Given Q12HR [facility] Clonidine HCl 0.2 mg 12/08/18 05:00 12/09/18 05:32 Catapres PO Not Given Q12H JESU Furosemide 80 mg 12/08/18 10:00 12/08/18 10:26 Lasix PO 80 mg QDAY J[facility] Administration Gabapentin 100 mg 12/08/18 22:00 12/08/18 22:04 Neurontin PO Not Given QHS [facility] Heparin Sodium (Porcine) 5,000 unit 12/08/18 10:00 12/08/18 22:07 Heparin SUB-Q 5,000 unit Q12HR [facility] Administration Hydralazine HCl 20 mg 12/08/18 02:58 12/08/18 04:22 Apresoline IV 20 mg Q4H PRN Administration Blood Pressure Hydralazine HCl 100 mg 12/08/18 08:00 12/09/18 05:32 Apresoline PO 100 mg Q8HR JESU Administration Sodium Chloride 100 mls @ 999 mls/hr 12/08/18 05:09 Nacl 0.9% IV UYLI PRN Hypotension Isosorbide Mononitrate 30 mg 12/08/18 10:00 12/08/18 10:25 Imdur PO 30 mg DAILY [facility] Administration Lisinopril 40 mg 12/08/18 10:00 12/08/18 10:27 Zestril PO 40 mg QDAY J[facility]U Administration Miscellaneous Medication 1 mg 12/08/18 10:00 Melatonin [Melatonin] PO QDAY COUNT INCLUDES THE [facility] Multivit/Ca Carb/B Cmplx/FA/Prenat 1 cap 12/08/18 10:00 12/08/18 10:41 Renal Caps PO 1 cap QDAY COUNT INCLUDES THE [facility] Administration Nifedipine 60 mg 12/08/18 10:00 12/08/18 22:03 Procardia Xl PO Not Given Q12HR COUNT INCLUDES THE [facility] Nitroglycerin 0.5 inch 12/08/18 06:00 12/09/18 05:32 Nitro-Bid 2% TP Not Given QIDNTG COUNT INCLUDES THE [facility] Protocol Nitroglycerin 0.4 mg 12/08/18 07:47 Nitrostat SL Q5M PRN Chest Pain Ondansetron HCl 4 mg 12/08/18 02:59 Zofran IV Q8H PRN Nausea And Vomiting Pantoprazole Sodium 40 mg 12/08/18 10:00 12/08/18 10:27 Protonix PO 40 mg DAILY [facility] Administration
[2018-12-09] MEDS: LASIX PO SCH (09:48)
[2018-12-09] MEDS: IMDUR PO SCH (09:49)
[2018-12-09] MEDS: PROTONIX PO SCH (09:49)
[2018-12-09] MEDS: COREG PO SCH ×2 (09:49→22:10)
[2018-12-09] MEDS: ASPIRIN PO SCH (09:49)
[2018-12-09] MEDS: Renal Caps PO SCH (09:49)
[2018-12-09] MEDS: PROCARDIA XL PO SCH ×2 (09:49→22:00)
[2018-12-09] MEDS: ZESTRIL PO SCH (09:49)
[2018-12-09] MEDS: HEPARIN SUB-Q SCH ×2 (09:50→22:08)
[2018-12-09] MEDS ORDERED: PROCRIT SUB-Q ONE ×2 (10:00)
--- NOTE | 2018-12-09 10:42 | Progress Note ---
Assessment and Plan Assessment and plan: Patient is a 43-year-old female, who has been admitted here after missing nearly 2 weeks of dialysis, patient stated that she did not go to dialysis due to transportation issues and was admitted here with chest pain, she is currently being followed by her parts person, Dr. Rodriguez. ESRD with volume overload - Consulted nephro for HD -Dialysis done yesterday For dialysis today and dc home after dialysis Noncompliance with HD, counseled Hypertensive Urgency - resume home meds for BP, hydralazine iv as needed Atypical chest pain, likely from pulmonary congestion, - should improve with HD Chronic diastolic (congestive) heart failure - Volume Mx with HD Anemia and end-stage renal disease - monitor h/h Dvt Px, heparin History Interval history: Patient missed dialysis for weeks Chest pain Hospitalist Physical - Physical exam Narrative exam: Gen: Not in acute distress, Lying in bed HEENT: Normocephalic, atraumatic Neck: supple, no JVD Heart: S1 and S2 reg, no murmurs, rubs or gallop Lungs: Clear to auscultation, no rhonchi, no wheeze Abd: soft, NT, non distended, normal BS, Ext: No edema, no clubbing, no cyanosis Neuro: Awake, alert, oriented X 3, no focal neurological signs - Constitutional Vitals: Temp Pulse Resp BP Pulse Ox 97.6 F 72 18 144/92 99 12/09/18 05:18 12/09/18 05:18 12/09/18 05:18 12/09/18 05:18 12/09/18 07:56 Results - Labs CBC & Chem 7: 12/08/18 01:32 12/08/18 01:32 Labs: Laboratory Last Values WBC 7.8 K/mm3 (4.5-11.0) 12/08/18 01:32 RBC 4.05 M/mm3 (3.65-5.03) 12/08/18 01:32 Hgb 10.4 gm/dl (10.1-14.3) 12/08/18 01:32 Hct 32.9 % (30.3-42.9) 12/08/18 01:32 MCV 81 fl (79-97) 12/08/18 01:32 MCH 26 pg (28-32) L 12/08/18 01:32 MCHC 32 % (30-34) 12/08/18 01:32 RDW 17.8 % (13.2-15.2) H 12/08/18 01:32 Plt Count 281 K/mm3 (140-440) 12/08/18 01:32 Lymph % (Auto) 23.6 % (13.4-35.0) 12/08/18 01:32 Lynn % (Auto) 7.1 % (0.0-7.3) 12/08/18 01:32 Eos % (Auto) 1.2 % (0.0-4.3) 12/08/18 01:32 Baso % (Auto) 0.4 % (0.0-1.8) 12/08/18 01:32 Lymph # 1.9 K/mm3 (1.2-5.4) 12/08/18 01:32 Lynn # 0.6 K/mm3 (0.0-0.8) 12/08/18 01:32 Eos # 0.1 K/mm3 (0.0-0.4) 12/08/18 01:32 Baso # 0.0 K/mm3 (0.0-0.1) 12/08/18 01:32 Seg Neutrophils % 67.7 % (40.0-70.0) 12/08/18 01:32 Seg Neutrophils # 5.3 K/mm3 (1.8-7.7) 12/08/18 01:32 Sodium 142 mmol/L (137-145) 12/08/18 01:32 Potassium 4.0 mmol/L (3.6-5.0) 12/08/18 01:32 Chloride 106.6 mmol/L (98-107) 12/08/18 01:32 Carbon Dioxide 20 mmol/L (22-30) L 12/08/18 01:32 19 mmol/L 12/08/18 01:32 BUN 45 mg/dL (7-17) H 12/08/18 01:32 5.6 mg/dL (0.7-1.2) H 12/08/18 01:32 Estimated GFR 10 ml/min 12/08/18 01:32 8 % 12/08/18 01:32 Glucose 92 mg/dL (65-100) 12/08/18 01:32 Calcium 8.6 mg/dL (8.4-10.2) 12/08/18 01:32 < 0.010 ng/mL (0.00-0.029) 12/08/18 10:09 Hepatitis A IgM Ab Non-reactive (NonReactive) 12/08/18 10:09 Hep Bs Antigen Non-reactive (Negative) 12/08/18 10:09 Hep B Core IgM Ab Non-reactive (NonReactive) 12/08/18 10:09 Non-reactive (NonReactive) 12/08/18 10:09 Active Medications - Current Medications Current Medications: Generic Name Dose Route Start Last Admin Trade Name Freq PRN Reason Stop Dose Admin Acetaminophen 650 mg 12/08/18 02:59 12/08/18 18:00 Tylenol PO 650 mg Q4H PRN Administration Headache Alprazolam 0.25 mg 12/08/18 04:23 12/08/18 22:06 Xanax PO 0.25 mg QHS PRN Administration Anxiety Aspirin 325 mg 12/08/18 10:00 12/09/18 09:49 Aspirin PO 325 mg QDAY JESU Administration Calcium Acetate 667 mg 12/08/18 08:00 12/09/18 08:00 Phoslo PO 667 mg TIDWM JESU Administration Carvedilol 25 mg 12/08/18 10:00 12/09/18 09:49 Coreg PO 25 mg Q12HR JESU Administration Clonidine HCl 0.2 mg 12/08/18 05:00 12/09/18 05:32 Catapres PO Not Given Q12H JESU Furosemide 80 mg 12/08/18 10:00 12/09/18 09:48 Lasix PO 80 mg QDAY JESU Administration Gabapentin 100 mg 12/08/18 22:00 12/08/18 22:04 Neurontin PO Not Given QHS JESU Heparin Sodium (Porcine) 5,000 unit 12/08/18 10:00 12/09/18 09:50 Heparin SUB-Q 5,000 unit Q12HR JESU Administration Hydralazine HCl 20 mg 12/08/18 02:58 12/08/18 04:22 Apresoline IV 20 mg Q4H PRN Administration Blood Pressure Hydralazine HCl 100 mg 12/08/18 08:00 12/09/18 05:32 Apresoline PO 100 mg Q8HR JESU Administration Sodium Chloride 100 mls @ 999 mls/hr 12/08/18 05:09 Nacl 0.9% IV YULI PRN Hypotension Isosorbide Mononitrate 30 mg 12/08/18 10:00 12/09/18 09:49 Imdur PO 30 mg DAILY JESU Administration Lisinopril 40 mg 12/08/18 10:00 12/09/18 09:49 Zestril PO 40 mg QDAY JESU Administration Miscellaneous Medication 1 mg 12/08/18 10:00 Melatonin [Melatonin] PO QDAY [facility] Multivit/Ca Carb/B Cmplx/FA/Prenat 1 cap 12/08/18 10:00 12/09/18 09:49 Renal Caps PO 1 cap QDAY [facility] Administration Nifedipine 60 mg 12/08/18 10:00 12/09/18 09:49 Procardia Xl PO 60 mg Q12HR JESU Administration Nitroglycerin 0.5 inch 12/08/18 06:00 12/09/18 05:32 Nitro-Bid 2% TP Not Given QIDNTG [facility] Protocol Nitroglycerin 0.4 mg 12/08/18 07:47 Nitrostat SL Q5M PRN Chest Pain Ondansetron HCl 4 mg 12/08/18 02:59 Zofran IV Q8H PRN Nausea And Vomiting Pantoprazole Sodium 40 mg 12/08/18 10:00 12/09/18 09:49 Protonix PO 40 mg DAILY JESU Administration
[2018-12-09] MEDS ORDERED: NACL 0.9% 100 ML IV PRN (13:18)
--- NOTE | 2018-12-09 13:18 | Event Note ---
discussed with patient's lease out worker since patient has missed any dialysis treatment. We would like to dialyze her today after which she will be discharged
--- NOTE | 2018-12-09 13:44 | Discharge Summary ---
Providers - Providers Date of Admission: 12/08/18 03:00 Date of discharge: 12/09/18 Attending physician: IMANI SIMPSON 12/08/18 02:23 Consult to Physician [CONS] Urgent Comment: Consulting Provider: YASH MASON Physician Instructions: Reason For Exam: ersd needing dialysis Primary care physician: [employer] Hospitalization Condition: Fair Disposition: DC-01 TO HOME OR SELFCARE Exam - Constitutional Vitals: Temp Pulse Resp BP Pulse Ox 97.1 F L 61 20 100/61 98 12/09/18 11:43 12/09/18 11:43 12/09/18 11:43 12/09/18 11:43 12/09/18 11:43 Plan Diet: low fat, low cholesterol, low salt, renal Plan of Treatment: 1.Follow up with PCP in 1 week. 2.Continue routine hemodialysis as scheduled Assessment: Fluid overload from missed hemodialysis Follow up with: PRIMARY CAREMD [Primary Care Provider] - 3-5 Days
[2018-12-09] MEDS ORDERED: MORPHINE IV ONE (19:51)
[2018-12-09] MEDS ORDERED: PROTONIX IV SCH (20:00)
--- NOTE | 2018-12-09 20:44 | Event Note ---
Date: 12/09/18 Patient was supposed to discharge home after dialysis however complain of more chest pain. Repeat Troponin. Patient had essentially normal cardiac cath in 2017. Will cancel discharge, consult cardiology. Give Morphine iv prn, Protonix iv.
[2018-12-09] MEDS ORDERED: NACL 0.9 (PRIMING MACHINE ONLY DIALYSIS) MC ONE (20:59)
[2018-12-09] MEDS: MORPHINE IV PRN (22:07)
[2018-12-09] MEDS: NEURONTIN PO SCH (22:10)
[2018-12-09] MEDS: XANAX PO PRN (22:27)
[2018-12-10] MEDS: MORPHINE IV PRN ×2 (01:21→06:39)
[2018-12-10 06:28] LABS: Creatine Kinase MB 17.7 ng/mL (0.0-4.0)
[2018-12-10] MEDS: CATAPRES PO SCH (06:40)
[2018-12-10 06:43] VITALS: BP 114/66
[2018-12-10] MEDS: APRESOLINE PO SCH (06:43)
[2018-12-10] MEDS: NITRO-BID 2% TP SCH (06:45)
[2018-12-10] MEDS: ASPIRIN PO SCH (07:18)
[2018-12-10 07:26] LABS: Chol/HDL Ratio 1.96 %
--- NOTE | 2018-12-10 08:54 | Progress Note ---
Subjective Interval history: Patient was seen today for follow-up on multiple renal related issues Noted to have elevated troponin Has had some chest pain Pending cardiology evaluation Vitals intake output medications were reviewed Past medical history: Reviewed Family, social history: Reviewed Allergies: Reviewed Physical examination General: No acute distress Vitals: Reviewed HEENT: Oral mucosa moist no icterus Neck: Supple no thyromegaly nodular mass or JVD Chest: Clear to auscultation anteriorly Heart: Regular rate and rhythm S1-S2 heard no S3-S4 Abdomen: Soft nontender no suprapubic masses no organomegaly Extremity: Dry skin less than 1+ edema Psych: No evidence of any agitation and aggression noted Derm: No petechial rash Assessment and plan: End-stage renal disease: Patient has received dialysis treatment, she also does have abnormal troponin, missing treatments, she is high risk for cardiovascular event, rule out any evidence of uremic pericarditis as she has not been dialyzing like she should and missing treatments Troponin has gone up to 0.393 baseline around 0.01 Suggest getting an echocardiogram to make sure she does not have any uremic effusion/pericarditis/Will discuss with cardiology/ Care plan has also been discussed with her treating physician Concepcion Alvarez Anemia and end-stage renal disease: Was given 1 dose of erythropoietin Noncompliance discussed and addressed with patient Upon discharge she will need to follow up with Dr. Rodriguez Secondary hyperparathyroidism: Monitor phosphorus and PTH periodically and adjust binders as needed Diet and nutrition: Fluid restriction 1200 mL per day, high-protein diet may benefit from nutrition consultation , patient is protein intake should be 1.5 g per KG body weight Hypertension and volume continue to monitor, educated about fluid restriction sodium restriction Patient does exhibit good understanding of the renal related issues Prognosis: Guarded We'll continue to follow and make recommendation from renal standpoint Objective - Vital Signs Vital signs: Vital Signs - 12hr 12/09/18 12/09/18 12/09/18 21:57 22:10 22:39 Temperature Pulse Rate 98 H Respiratory Rate Blood Pressure 116/83 116/83 151/71 O2 Sat by Pulse Oximetry 12/10/18 12/10/18 12/10/18 00:02 06:16 06:40 Temperature 97.0 F L 97.5 F L Pulse Rate 64 66 Respiratory 16 18 Rate Blood Pressure 108/58 114/68 114/66 O2 Sat by Pulse 96 Oximetry 12/10/18 06:45 Temperature Pulse Rate 66 Respiratory Rate Blood Pressure 114/66 O2 Sat by Pulse Oximetry - Lab 12/08/18 01:32 12/08/18 01:32 Most recent lab results Calcium 8.6 mg/dL (8.4-10.2) 12/08/18 01:32 Medications & Allergies - Medications Allergies/Adverse Reactions: Allergies iron polysaccharide complex [From Nu-Iron] Allergy (Verified 04/16/15 09:06) Swelling lactose Adverse Reaction (Verified 12/04/17 09:22) Unknown Home Medications: Home Medications Medication Instructions Recorded Confirmed Last Taken Type ALPRAZolam [Xanax TAB] 0.25 mg PO QHS PRN #5 tablet 12/05/17 11/14/18 Unknown Rx Carvedilol [Coreg] 25 mg PO Q12HR #60 tablet 09/10/18 11/14/18 11/14/18 08:00 Rx cloNIDine [Catapres] 0.2 mg PO Q12H #60 tablet 09/10/18 11/14/18 11/14/18 08:00 Rx hydrALAZINE [Apresoline TAB] 100 mg PO Q8H #90 tab 09/10/18 11/14/18 11/14/18 08:00 Rx Calcium Acetate [Phoslo] 667 mg PO TID 11/14/18 11/14/18 Unknown History Doxycycline Hyclate [Doxycycline 100 mg PO Q12HR 11/14/18 11/14/18 Unknown History Hyclate TAB] Furosemide [Lasix TAB] 80 mg PO QDAY 11/14/18 11/14/18 11/14/18 08:00 History Gabapentin [Neurontin] 100 mg PO QHS 11/14/18 11/14/18 Unknown History Isosorbide Mononitrate 30 mg PO QDAY 11/14/18 11/14/18 Unknown History Lisinopril [Zestril TAB] 40 mg PO QDAY 11/14/18 11/14/18 Unknown History Melatonin 1 mg PO QDAY 11/14/18 11/14/18 Unknown History NIFEdipine XL [Procardia Xl] 60 mg PO Q12HR 11/14/18 11/14/18 11/14/18 08:00 History Nitroglycerin [Nitrostat] 0.4 mg SL Q5M PRN 11/14/18 11/14/18 Unknown History Omeprazole 40 mg PO QDAY 11/14/18 11/14/18 Unknown History Ondansetron [Zofran ODT TAB] 4 mg PO Q8HR 11/14/18 11/14/18 Unknown History Vit B Comp C/Folic Acid/Vit D3 1 each PO QDAY 11/14/18 11/14/18 Unknown History [Dialyvite 800 Plus D Wafer] cephALEXin [Keflex] 500 mg PO Q12HR 11/14/18 11/14/18 Unknown History Acetaminophen [Non-Aspirin Extra 500 mg PO Q6HR PRN #30 tablet 11/17/18 Unknown Rx Strength] Menthol/Camphr/Antiarthritic 1 1 applic TP BID PRN #1 cream.ml. 11/17/18 Unknown Rx [[place] [place] Arthritis Rub Cream] Active Medications: Generic Name Dose Route Start Last Admin Trade Name Freq PRN Reason Stop Dose Admin Acetaminophen 650 mg 12/08/18 02:59 12/08/18 18:00 Tylenol PO 650 mg Q4H PRN Administration Headache Alprazolam 0.25 mg 12/08/18 04:23 12/09/18 22:27 Xanax PO 0.25 mg QHS PRN Administration Anxiety Aspirin 325 mg 12/08/18 10:00 12/10/18 07:18 Aspirin PO 325 mg QDAY JESU Administration Calcium Acetate 667 mg 12/08/18 08:00 12/09/18 18:37 Phoslo PO 667 mg TIDWM JESU Administration Carvedilol 25 mg 12/08/18 10:00 12/09/18 22:10 Coreg PO 25 mg Q12HR JESU Administration Clonidine HCl 0.2 mg 12/08/18 05:00 12/10/18 06:40 Catapres PO Not Given Q12H JESU Furosemide 80 mg 12/08/18 10:00 12/09/18 09:48 Lasix PO 80 mg QDAY JESU Administration Gabapentin 100 mg 12/08/18 22:00 12/09/18 22:10 Neurontin PO 100 mg QHS JESU Administration Heparin Sodium (Porcine) 5,000 unit 12/08/18 10:00 12/09/18 22:08 Heparin SUB-Q 5,000 unit Q12HR JESU Administration Hydralazine HCl 20 mg 12/08/18 02:58 12/08/18 04:22 Apresoline IV 20 mg Q4H PRN Administration Blood Pressure Hydralazine HCl 100 mg 12/08/18 08:00 12/10/18 06:43 Apresoline PO Not Given Q8HR [facility] Sodium Chloride 100 mls @ 999 mls/hr 12/09/18 13:18 Nacl 0.9% IV YULI PRN Hypotension Isosorbide Mononitrate 30 mg 12/08/18 10:00 12/09/18 09:49 Imdur PO 30 mg DAILY JESU Administration Lisinopril 40 mg 12/08/18 10:00 12/09/18 09:49 Zestril PO 40 mg QDAY JESU Administration Miscellaneous Medication 1 mg 12/08/18 10:00 Melatonin [Melatonin] PO QDAY JESU Morphine Sulfate 2 mg 12/09/18 18:58 12/10/18 06:39 Morphine IV 2 mg Q3H PRN Administration Pain, Moderate (4-6) Multivit/Ca Carb/B Cmplx/FA/Prenat 1 cap 12/08/18 10:00 12/09/18 09:49 Renal Caps PO 1 cap QDAY JESU Administration Nifedipine 60 mg 12/08/18 10:00 12/09/18 22:00 Procardia Xl PO 60 mg Q12HR JESU Administration Nitroglycerin 0.5 inch 12/08/18 06:00 12/10/18 06:45 Nitro-Bid 2% TP 0.5 inch QIDNTG JESU Administration Protocol Nitroglycerin 0.4 mg 12/08/18 07:47 Nitrostat SL Q5M PRN Chest Pain Ondansetron HCl 4 mg 12/08/18 02:59 12/10/18 01:21 Zofran IV 4 mg Q8H PRN Administration Nausea And Vomiting Pantoprazole Sodium 40 mg 12/09/18 20:00 12/09/18 22:07 Protonix IV 40 mg QDAY JESU Administration
--- NOTE | 2018-12-10 09:04 | Event Note ---
Date: 12/10/18 Patient with chest pain, had elevated Troponin. cardiology consulted. However this morning patient stated she had urgent personal matters to attend to, she had to move out of her apt today. i discussed with her importance of staying but she
--- NOTE | 2018-12-10 09:09 | Event Note ---
Date: 12/10/18 Cardiology consultation ordered. Pt left AMA prior to our evaluation. Broderick DUNLAP NP / DR. Miles BOB
== END 2018-12-10 08:25 | disposition left against medical advice (07) | DRG 640 ==
LOC: ED 00:57 → 3A 03:00
PROVIDERS: ADMIT Internal Medicine; ATTEND Internal Medicine
PROC: 5A1D70Z Performance of Urinary Filtration, Intermittent, Less than 6 Hours Per Day (ICD-10-PCS; principal; 2018-12-08)
PROC: 5A1D70Z Performance of Urinary Filtration, Intermittent, Less than 6 Hours Per Day (ICD-10-PCS; 2018-12-09)
DX: E87.70 Fluid overload, unspecified (principal); N18.6 End stage renal disease; I16.0 Hypertensive urgency; I13.2 Hypertensive heart and chronic kidney disease with heart failure and with stage 5 chronic kidney disease, or end stage renal disease; I50.32 Chronic diastolic (congestive) heart failure; R07.89 Other chest pain; F17.210 Nicotine dependence, cigarettes, uncomplicated; D63.1 Anemia in chronic kidney disease; N25.81 Secondary hyperparathyroidism of renal origin; G62.9 Polyneuropathy, unspecified; Z99.2 Dependence on renal dialysis; Z91.15 Patient's noncompliance with renal dialysis; Z86.73 Personal history of transient ischemic attack (TIA), and cerebral infarction without residual deficits; Z95.828 Presence of other vascular implants and grafts; Z91.048 Other nonmedicinal substance allergy status; Z91.19 Patient's noncompliance with other medical treatment and regimen; Z79.01 Long term (current) use of anticoagulants; Z79.899 Other long term (current) drug therapy; Z53.21 Procedure and treatment not carried out due to patient leaving prior to being seen by health care provider
CPT/HCPCS: 36415; 71045; 80048; 80061; 80074; 82550; 82553; 84484; 85025; 87116; 93005; 93010; G0378; C9113; J0360; J0885; J1200; J1644; J2270; J2405; J7030

== ENCOUNTER 2019-01-24 12:57 | Observation (INO) | payer MEDICAID ==
[2019-01-24 14:05] LABS: Basophils % (Auto) 0.5 % (0.0-1.8); Eosinophils # (Auto) 0.1 K/mm3 (0.0-0.4); Hematocrit 29.4 % (30.3-42.9); Hemoglobin 9.2 gm/dl (10.1-14.3); Lymphocytes % (Auto) 18.7 % (13.4-35.0); Mean Corpuscular HGB Conc 31 % (30-34); Mean Corpuscular Volume 80 fl (79-97); Monocytes # (Auto) 0.4 K/mm3 (0.0-0.8); Monocytes % (Auto) 7.4 % (0.0-7.3); Platelet Count 237 K/mm3 (140-440); Red Blood Count 3.67 M/mm3 (3.65-5.03); Red Cell Distribution Width 17.9 % (13.2-15.2)
[2019-01-24 14:16] LABS: INR 1.16 (0.87-1.13); Partial Thromboplastin Time 29.9 Sec. (24.2-36.6)
--- NOTE | 2019-01-24 14:32 | Emergency Department Report ---
<YESSICA ROBBINS - Last Filed: 01/24/19 17:10> ED General Adult HPI - General Chief complaint: Dizziness Stated complaint: ANXIETY Time Seen by Provider: 01/24/19 13:58 Source: patient, EMS Mode of arrival: Stretcher Limitations: No Limitations - History of Present Illness Initial comments: 43-year-old -[place] female patient with history of ESRD on dialysis, CHF, and hypertension presents today for dialysis. Patient states her last dialysis was 2 weeks ago due to being in the transition of moving. She states she was seen Dr. Rodriguez, nephrology but has not been to see him in more than 1 month. She complains of fullness in her abdomen and mild dizziness. He denies leg swelling, chest pain, or shortness of breath. She just feels very fatigued and knows she needs dialysis. She denies any fever/chills. He does state compliance with home medications. Patient also complains of waking up today and noticing blood in her poor. She denies any pain or swelling surrounding the port. -: Gradual Associated Symptoms: loss of appetite. denies: confusion, chest pain, fever/chills, headaches, nausea/vomiting Treatments Prior to Arrival: none - Related Data Home Medications Medication Instructions Recorded Confirmed Last Taken Calcium Acetate [Phoslo] 667 mg PO TID 11/14/18 01/24/19 Unknown Isosorbide Mononitrate 30 mg PO QDAY 11/14/18 01/24/19 Unknown Lisinopril [Zestril TAB] 40 mg PO QDAY 11/14/18 01/24/19 Unknown NIFEdipine XL [Procardia Xl] 60 mg PO DAILY 11/14/18 01/24/19 11/14/18 08:00 Nitroglycerin [Nitrostat] 0.4 mg SL Q5M PRN 11/14/18 01/24/19 Unknown hydrALAZINE [Apresoline TAB] 75 mg PO TID 01/24/19 01/24/19 Unknown Previous Rx's Medication Instructions Recorded Last Taken Type Carvedilol [Coreg] 25 mg PO Q12HR #60 tablet 09/10/18 11/14/18 08:00 Rx Acetaminophen [Non-Aspirin Extra 500 mg PO Q6HR PRN #30 tablet 11/17/18 Unknown Rx Strength] Allergies Allergy/AdvReac Type Severity Reaction Status Date / Time iron polysaccharide complex Allergy Swelling Verified 04/16/15 09:06 [From Nu-Iron] lactose AdvReac Unknown Verified 12/04/17 09:22 ED Review of Systems Constitutional: malaise. denies: chills, diaphoresis, fever Eyes: denies: vision change ENT: denies: ear pain, throat pain Respiratory: denies: cough, shortness of breath, wheezing Gastrointestinal: denies: abdominal pain, nausea, vomiting Musculoskeletal: denies: back pain, joint swelling, arthralgia Neurological: denies: headache, weakness, paresthesias Psychiatric: denies: anxiety, depression ED Past Medical Hx - Past Medical History Hx Hypertension: Yes Hx Congestive Heart Failure: Yes Hx Renal Disease: Yes (Tue, Thur, and Sat dialysis) Hx Asthma: No Hx HIV: No Additional medical history: ANGINA. ANEMIA - Surgical History Additional Surgical History: Dialysis access placed. cardiac cath - Social History Smoking Status: Current Some Day Smoker Substance Use Type: None - Medications Home Medications: Home Medications Medication Instructions Recorded Confirmed Last Taken Type Carvedilol [Coreg] 25 mg PO Q12HR #60 tablet 09/10/18 01/24/19 11/14/18 08:00 Rx Calcium Acetate [Phoslo] 667 mg PO TID 11/14/18 01/24/19 Unknown History Isosorbide Mononitrate 30 mg PO QDAY 11/14/18 01/24/19 Unknown History Lisinopril [Zestril TAB] 40 mg PO QDAY 11/14/18 01/24/19 Unknown History NIFEdipine XL [Procardia Xl] 60 mg PO DAILY 11/14/18 01/24/19 11/14/18 08:00 History Nitroglycerin [Nitrostat] 0.4 mg SL Q5M PRN 11/14/18 01/24/19 Unknown History Acetaminophen [Non-Aspirin Extra 500 mg PO Q6HR PRN #30 tablet 11/17/18 01/24/19 Unknown Rx Strength] hydrALAZINE [Apresoline TAB] 75 mg PO TID 01/24/19 01/24/19 Unknown History ED Physical Exam - General Limitations: No Limitations General appearance: alert, in no apparent distress - Head Head exam: Present: atraumatic, normocephalic - Eye Eye exam: Present: normal appearance - ENT ENT exam: Present: mucous membranes moist - Neck Neck exam: Present: normal inspection - Respiratory Respiratory exam: Present: decreased breath sounds. Absent: respiratory distress, wheezes, rales, rhonchi - Cardiovascular Cardiovascular Exam: Present: regular rate, normal rhythm, normal heart sounds - GI/Abdominal GI/Abdominal exam: Present: soft, normal bowel sounds. Absent: distended, tenderness, guarding, rebound, rigid - Extremities Exam Extremities exam: Absent: pedal edema, joint swelling, calf tenderness - Neurological Exam Neurological exam: Present: alert, oriented X3 - Psychiatric Psychiatric exam: Present: normal affect, normal mood - Skin Skin exam: Present: warm, dry, intact, normal color. Absent: rash, erythema ED Medical Decision Making - Lab Data Result diagrams: 01/24/19 13:37 01/24/19 13:37 Lab Results 01/24/19 01/24/19 01/24/19 Range/Units 13:37 13:37 13:37 WBC 5.3 (4.5-11.0) K/mm3 RBC 3.67 (3.65-5.03) M/mm3 Hgb 9.2 L (10.1-14.3) gm/dl Hct 29.4 L (30.3-42.9) % MCV 80 (79-97) fl MCH 25 L (28-32) pg MCHC 31 (30-34) % RDW 17.9 H (13.2-15.2) % Plt Count 237 (140-440) K/mm3 Lymph % (Auto) 18.7 (13.4-35.0) % [place] % (Auto) 7.4 H (0.0-7.3) % Eos % (Auto) 2.0 (0.0-4.3) % Baso % (Auto) 0.5 (0.0-1.8) % Lymph # 1.0 L (1.2-5.4) K/mm3 [place] # 0.4 (0.0-0.8) K/mm3 Eos # 0.1 (0.0-0.4) K/mm3 Baso # 0.0 (0.0-0.1) K/mm3 Seg Neutrophils % 71.4 H (40.0-70.0) % Seg Neutrophils # 3.8 (1.8-7.7) K/mm3 PT 14.7 (12.2-14.9) Sec. INR 1.16 H (0.87-1.13) APTT 29.9 (24.2-36.6) Sec. Sodium 143 (137-145) mmol/L Potassium 3.9 (3.6-5.0) mmol/L Chloride 109.8 H (98-107) mmol/L Carbon Dioxide 19 L (22-30) mmol/L Anion Gap 18 mmol/L BUN 42 H (7-17) mg/dL Creatinine 4.9 H (0.7-1.2) mg/dL Estimated GFR 12 ml/min BUN/Creatinine Ratio 9 % Glucose 94 (65-100) mg/dL Calcium 7.1 L (8.4-10.2) mg/dL Total Bilirubin < 0.20 (0.1-1.2) mg/dL AST 13 (5-40) units/L ALT 8 (7-56) units/L Alkaline Phosphatase 90 (35-129) units/L Troponin T (0.00-0.029) ng/mL Total Protein 6.5 (6.3-8.2) g/dL Albumin 3.8 L (3.9-5) g/dL Albumin/Globulin Ratio 1.4 % //19 Range/Units 13:37 WBC (4.5-11.0) K/mm3 RBC (3.65-5.03) M/mm3 Hgb (10.1-14.3) gm/dl Hct (30.3-42.9) % MCV (79-97) fl MCH (28-32) pg MCHC (30-34) % RDW (13.2-15.2) % Plt Count (140-440) K/mm3 Lymph % (Auto) (13.4-35.0) % [place] % (Auto) (0.0-7.3) % Eos % (Auto) (0.0-4.3) % Baso % (Auto) (0.0-1.8) % Lymph # (1.2-5.4) K/mm3 [place] # (0.0-0.8) K/mm3 Eos # (0.0-0.4) K/mm3 Baso # (0.0-0.1) K/mm3 Seg Neutrophils % (40.0-70.0) % Seg Neutrophils # (1.8-7.7) K/mm3 PT (12.2-14.9) Sec. INR (0.87-1.13) APTT (24.2-36.6) Sec. Sodium (137-145) mmol/L Potassium (3.6-5.0) mmol/L Chloride (98-107) mmol/L Carbon Dioxide (22-30) mmol/L Anion Gap mmol/L BUN (7-17) mg/dL Creatinine (0.7-1.2) mg/dL Estimated GFR ml/min BUN/Creatinine Ratio % Glucose (65-100) mg/dL Calcium (8.4-10.2) mg/dL Total Bilirubin (0.1-1.2) mg/dL AST (5-40) units/L ALT (7-56) units/L Alkaline Phosphatase (35-129) units/L Troponin T < 0.010 (0.00-0.029) ng/mL Total Protein (6.3-8.2) g/dL Albumin (3.9-5) g/dL Albumin/Globulin Ratio % - EKG Data Interpretation: no acute changes - Radiology Data Radiology results: report reviewed CHEST 2 VIEWS INDICATION: decreased breath sounds. Dizziness and reported blood in her port, missed dialysis COMPARISON: Chest x-ray from 12/08/2018 FINDINGS: Support devices: Stable satisfactory device positioning. Heart: Within normal limits. Lungs/pleura: No acute air space or interstitial disease. No pneumothorax. Additional findings: None. IMPRESSION: 1. No acute findings. - Medical Decision Making 43-year-old patient with ESRD on dialysis presents today for dialysis. She did complain of mild dizziness, however states she is no longer dizzy and states "I really just came here to get dialysis". Patient states her last dialysis was 2 weeks ago. States her lab support technician is Dr. Rodriguez. Mild decrease in calcium noted on labs, however no other acute findings noted on labs or imaging. Discussed patient and lab findings with with Dr. Shepard, nephrologystates he will place orders for dialysis. Discussed patient with Dr. Stevens who will admit patient for observation for dialysis. ED Disposition Clinical Impression: Fluid overload Qualifiers: Hypervolemia type: other Qualified Code(s): E87.79 - Other fluid overload Disposition: DC-09 OP ADMIT IP TO THIS HOSP Is pt being admited?: Yes Condition: Stable <LINDA MALDONADO - Last Filed: 01/25/19 16:05> ED Review of Systems ROS: Stated complaint: ANXIETY Other details as noted in HPI ED Course Vital Signs 01/24/19 01/24/19 01/24/19 13:14 13:18 16:50 Temperature 98.1 F 98.1 F Pulse Rate 65 65 65 Respiratory 10 L 10 L Rate Blood Pressure 174/109 Blood Pressure 174/109 171/96 [Right] O2 Sat by Pulse 99 99 Oximetry 01/24/19 17:10 Temperature Pulse Rate 73 Respiratory Rate Blood Pressure Blood Pressure 140/79 [Right] O2 Sat by Pulse Oximetry ED Medical Decision Making - Lab Data Result diagrams: 01/24/19 13:37 01/24/19 13:37 - Medical Decision Making Attestation: Available for consultation Critical care attestation.: If time is entered above; I have spent that time in minutes in the direct care of this critically ill patient, excluding procedure time. ED Disposition Is pt being admited?: Yes
[2019-01-24 14:34] LABS: Alanine Aminotransferase 8 units/L (7-56); Albumin 3.8 g/dL (3.9-5); BUN/Creatinine Ratio 9; Blood Urea Nitrogen 42 mg/dL (7-17); Calcium 7.1 mg/dL (8.4-10.2); Hemolysis Index 3
--- NOTE | 2019-01-24 15:10 | XRay Report ---
CHEST 2 VIEWS INDICATION: decreased breath sounds. Dizziness and reported blood in her port, missed dialysis COMPARISON: Chest x-ray from 12/08/2018 FINDINGS: Support devices: Stable satisfactory device positioning. Heart: Within normal limits. Lungs/pleura: No acute air space or interstitial disease. No pneumothorax. Additional findings: None. IMPRESSION: 1. No acute findings. Signer Name: Jose Armando Conley MD Signed: 01/24/2019 3:06 PM Workstation Name: [id number]
[2019-01-24] MEDS ORDERED: hydrALAZINE 100 MG TAB PO ONE (16:13)
[2019-01-24 17:07] LABS: Bacteria,Urine 1+ /HPF (Negative); Bilirubin,Urine NEG (Negative); Blood,Urine NEG (Negative); Color,Urine Yellow (Yellow); Mucus,Urine FEW /HPF; Urobilinogen,Urine < 2.0 mg/dL (<2.0)
[2019-01-24] MEDS ORDERED: SODIUM CHLORIDE 0.9% 100 ML IV PRN ×2 (17:15→19:27)
[2019-01-24] MEDS ORDERED: diphenhydrAMINE 50 MG/ML VIAL IV PRN (19:27)
[2019-01-24] MEDS ORDERED: hydrALAZINE 20 MG/1 ML INJ ONE (20:05)
[2019-01-24 20:10] LABS: Hepatitis B Surface Antigen Non-Reactive (Negative); Hepatitis C Virus Antibody Non-Reactive (NonReactive)
[2019-01-24] MEDS ORDERED: ACETAMINOPHEN 500 MG TAB PO PRN (22:05)
--- NOTE | 2019-01-24 22:08 | History and Physical Report ---
History of Present Illness Date of examination: 01/24/19 Date of admission: 01/24/19 17:07 Medications and Allergies Allergies Allergy/AdvReac Type Severity Reaction Status Date / Time iron polysaccharide complex Allergy Swelling Verified 04/16/15 09:06 [From Nu-Iron] lactose AdvReac Unknown Verified 12/04/17 09:22 Home Medications Medication Instructions Recorded Confirmed Last Taken Type Carvedilol [Coreg] 25 mg PO Q12HR #60 tablet 09/10/18 01/24/19 11/14/18 08:00 Rx Calcium Acetate [Phoslo] 667 mg PO TID 11/14/18 01/24/19 Unknown History Isosorbide Mononitrate 30 mg PO QDAY 11/14/18 01/24/19 Unknown History Lisinopril [Zestril TAB] 40 mg PO QDAY 11/14/18 01/24/19 Unknown History NIFEdipine XL [Procardia Xl] 60 mg PO DAILY 11/14/18 01/24/19 11/14/18 08:00 History Nitroglycerin [Nitrostat] 0.4 mg SL Q5M PRN 11/14/18 01/24/19 Unknown History Acetaminophen [Non-Aspirin Extra 500 mg PO Q6HR PRN #30 tablet 11/17/18 01/24/19 Unknown Rx Strength] hydrALAZINE [Apresoline TAB] 75 mg PO TID 01/24/19 01/24/19 Unknown History Active Meds: Active Medications Diphenhydramine HCl (Benadryl) 25 mg IV YULI PRN PRN Reason: Itching Last Admin: 01/24/19 19:59 Dose: 25 mg Documented by: Sodium Chloride (Nacl 0.9%) 100 mls @ 999 mls/hr IV YULI PRN PRN Reason: Hypotension Sodium Chloride (Nacl 0.9%) 100 mls @ 999 mls/hr IV YULI PRN PRN Reason: Hypotension Exam - Constitutional Vitals: Temp Pulse Resp BP Pulse Ox 98.8 F 68 16 155/100 100 01/24/19 18:15 01/24/19 21:10 01/24/19 18:15 01/24/19 21:10 01/24/19 18:09 Results - Labs CBC & Chem 7: 01/24/19 13:37 01/24/19 13:37 Labs: Laboratory Last Values WBC 5.3 K/mm3 (4.5-11.0) 01/24/19 13:37 RBC 3.67 M/mm3 (3.65-5.03) 01/24/19 13:37 Hgb 9.2 gm/dl (10.1-14.3) L 01/24/19 13:37 Hct 29.4 % (30.3-42.9) L 01/24/19 13:37 MCV 80 fl (79-97) 01/24/19 13:37 MCH 25 pg (28-32) L 01/24/19 13:37 MCHC 31 % (30-34) 01/24/19 13:37 RDW 17.9 % (13.2-15.2) H 01/24/19 13:37 Plt Count 237 K/mm3 (140-440) 01/24/19 13:37 Lymph % (Auto) 18.7 % (13.4-35.0) 01/24/19 13:37 [place] % (Auto) 7.4 % (0.0-7.3) H 01/24/19 13:37 Eos % (Auto) 2.0 % (0.0-4.3) 01/24/19 13:37 Baso % (Auto) 0.5 % (0.0-1.8) 01/24/19 13:37 Lymph # 1.0 K/mm3 (1.2-5.4) L 01/24/19 13:37 Clayton # 0.4 K/mm3 (0.0-0.8) 01/24/19 13:37 Eos # 0.1 K/mm3 (0.0-0.4) 01/24/19 13:37 Baso # 0.0 K/mm3 (0.0-0.1) 01/24/19 13:37 Seg Neutrophils % 71.4 % (40.0-70.0) H 01/24/19 13:37 Seg Neutrophils # 3.8 K/mm3 (1.8-7.7) 01/24/19 13:37 PT 14.7 Sec. (12.2-14.9) 01/24/19 13:37 INR 1.16 (0.87-1.13) H 01/24/19 13:37 APTT 29.9 Sec. (24.2-36.6) 01/24/19 13:37 Sodium 143 mmol/L (137-145) 01/24/19 13:37 Potassium 3.9 mmol/L (3.6-5.0) 01/24/19 13:37 Chloride 109.8 mmol/L (98-107) H 01/24/19 13:37 Carbon Dioxide 19 mmol/L (22-30) L 01/24/19 13:37 Anion Gap 18 mmol/L 01/24/19 13:37 BUN 42 mg/dL (7-17) H 01/24/19 13:37 Creatinine 4.9 mg/dL (0.7-1.2) H 01/24/19 13:37 Estimated GFR 12 ml/min 01/24/19 13:37 BUN/Creatinine Ratio 9 % 01/24/19 13:37 Glucose 94 mg/dL (65-100) 01/24/19 13:37 Calcium 7.1 mg/dL (8.4-10.2) L 01/24/19 13:37 Total Bilirubin < 0.20 mg/dL (0.1-1.2) 01/24/19 13:37 AST 13 units/L (5-40) 01/24/19 13:37 ALT 8 units/L (7-56) 01/24/19 13:37 Alkaline Phosphatase 90 units/L (35-129) 01/24/19 13:37 Troponin T < 0.010 ng/mL (0.00-0.029) 01/24/19 13:37 Total Protein 6.5 g/dL (6.3-8.2) 01/24/19 13:37 Albumin 3.8 g/dL (3.9-5) L 01/24/19 13:37 Albumin/Globulin Ratio 1.4 % 01/24/19 13:37 Urine Color Yellow (Yellow) 01/24/19 Unknown Urine Turbidity Clear (Clear) 01/24/19 Unknown Urine pH 6.0 (5.0-7.0) 01/24/19 Unknown Ur Specific Pelican 1.011 (1.003-1.030) 01/24/19 Unknown Urine Protein 100 mg/dl mg/dL (Negative) 01/24/19 Unknown Urine Glucose (UA) Neg mg/dL (Negative) 01/24/19 Unknown Urine Ketones Neg mg/dL (Negative) 01/24/19 Unknown Urine Blood Neg (Negative) 01/24/19 Unknown Urine Nitrite Neg (Negative) 01/24/19 Unknown Urine Bilirubin Neg (Negative) 01/24/19 Unknown Urine Urobilinogen < 2.0 mg/dL (<2.0) 01/24/19 Unknown Ur Leukocyte Esterase Neg (Negative) 01/24/19 Unknown Urine WBC (Auto) 1.0 /HPF (0.0-6.0) 01/24/19 Unknown Urine RBC (Auto) 2.0 /HPF (0.0-6.0) 01/24/19 Unknown U Epithel Cells (Auto) 2.0 /HPF (0-13.0) 01/24/19 Unknown Urine Bacteria (Auto) 1+ /HPF (Negative) 01/24/19 Unknown Urine Mucus Few /HPF 01/24/19 Unknown Hepatitis A IgM Ab Non-reactive (NonReactive) 01/24/19 19:30 Hep Bs Antigen Non-reactive (Negative) 01/24/19 19:30 Hep B Core IgM Ab Non-reactive (NonReactive) 01/24/19 19:30 Hepatitis C Antibody Non-reactive (NonReactive) 01/24/19 19:30
[2019-01-24] MEDS ORDERED: carvediloL 25 MG TAB PO SCH (23:00)
[2019-01-24 23:23] VITALS: BP 162/96
--- NOTE | 2019-01-25 02:41 | Event Note ---
Date: 01/24/19 See H/p in reports Volume overload ESRD needing HD
--- NOTE | 2019-01-25 02:58 | Discharge Summary ---
Providers - Providers Date of Admission: 01/24/19 17:07 Date of discharge: 01/25/19 Attending physician: ELIZABETH Johnson--Nephrology Primary care physician: CIERA WALLACE MD Hospitalization Condition: Stable Hospital course: Admitted for Volume overload and missed HD .Patient underwent emergent HD Sx better Disposition: DC-01 TO HOME OR SELFCARE Core Measure Documentation - Palliative Care Palliative Care/ Comfort Measures: Not Applicable - Core Measures Any of the following diagnoses?: none Exam - Constitutional Vitals: Temp Pulse Resp BP Pulse Ox 98.7 F 61 16 162/96 100 01/24/19 21:55 01/24/19 21:55 01/24/19 21:55 01/24/19 21:55 01/24/19 18:09 General appearance: Present: no acute distress, well-nourished - EENT Eyes: Present: PERRL ENT: hearing intact, clear oral mucosa - Neck Neck: Present: supple, normal ROM - Respiratory Respiratory effort: normal Respiratory: bilateral: CTA - Cardiovascular Heart rate: 78 Rhythm: regular Heart Sounds: Present: S1 & S2. Absent: rub, click - Extremities Extremities: no ischemia, pulses intact, pulses symmetrical, No edema Peripheral Pulses: within normal limits - Abdominal General gastrointestinal: Present: soft, non-tender, non-distended, normal bowel sounds Female genitourinary: Present: normal - Rectal Rectal Exam: deferred - Integumentary Integumentary: Present: clear, warm, dry - Musculoskeletal Musculoskeletal: gait normal, strength equal bilaterally - Psychiatric Psychiatric: appropriate mood/affect, intact judgment & insight - Neurologic Neurologic: CNII-XII intact, moves all extremities - Allied Health Allied health notes reviewed: nursing, case management Plan Activity: no restrictions Diet: renal Follow up with: PRIMARY MD RODRIGO [Primary Care Provider] - 3-5 Days TALIB JOHNSON MD [Staff Physician] - 7 Days
--- NOTE | 2019-01-25 03:18 | History and Physical Report ---
CHIEF COMPLAINT: 1. Increasing shortness of breath. 2. Increasing anxiety. HISTORY OF PRESENT ILLNESS: A 43-year-old -[place] female with history of end-stage renal disease, comes in for increasing shortness of breath because of missing dialysis for 2 weeks. The patient also has increasing anxiety secondary to missing dialysis. The patient has been traveling back and forth between [place] and [place]. Apparently, the apartment where she was living, the floor collapsed and she was given relocation money. The patient is in the process of relocation to a new home in [place]. In the meantime, the patient has been visiting her family in [place] and missing dialysis. Dialysis arrangements were not made. In [place], the patient did not get dialysis for 2 weeks. The patient has increasing shortness of breath. No chest pain. PAST MEDICAL HISTORY: Significant for hypertension, end-stage renal disease and GERD. PAST SURGICAL HISTORY: AV fistula. Also had cardiac catheterization. SOCIAL HISTORY: Smokes about a pack a day. FAMILY HISTORY: Hypertension. REVIEW OF SYSTEMS: Significant for increasing shortness of breath and increasing anxiety. Orthopnea present. No chest pain. Otherwise, review of systems negative. PHYSICAL EXAMINATION: GENERAL: Young female, obese. VITAL SIGNS: Blood pressure is 165/102, temperature is 98.7, pulse is 69, respirations are 16. HEENT: Unremarkable. Pupils equal and reactive. NECK: Supple, no lymphadenopathy, no thyromegaly. LUNGS: Clear to auscultation and percussion. Good air entry. CARDIOVASCULAR: S1, S2 heard. No gallop, no murmur, no rub. Apical impulse in left fifth intercostal space and midclavicular line. ABDOMEN: Soft and benign. No hepatosplenomegaly. No guarding, no rigidity. Hernial orifices are normal. EXTREMITIES: Good pedal pulses. No pedal edema. CENTRAL NERVOUS SYSTEM: Alert and oriented x 4, nonfocal exam. LABORATORY DATA: Significant for white count of 5300, H and H is 9.2 and 29.4, platelet count is 237,000. Sodium is 143, potassium is 3.9, chloride is 109.8, bicarbonate is 19, BUN and creatinine is 42 and 4.9, calcium is 7.1. Urine was normal. Hepatitis profile is negative. Chest x-ray shows no acute findings. ASSESSMENT AND PLAN: 1. Volume overload. The patient is to be taken for emergent hemodialysis. 2. Hypertension. Continue antihypertensives. 3. End-stage renal disease. Continue hemodialysis. The patient is to get dialysis placement. The patient is in the process of getting dialysis placement. 4. Anemia secondary to end-stage renal disease. The patient is on Epogen. 5. Deep venous thrombosis prophylaxis, heparin 5000 q.12. The patient admitted in observation status. JOB# [id number] TAMMY/NTS
[2019-01-25] MEDS ORDERED: CALCIUM ACETATE 667 MG CAP PO SCH (08:00)
[2019-01-25] MEDS ORDERED: hydrALAZINE 25 MG TAB PO SCH (08:00)
[2019-01-25] MEDS ORDERED: LISINOPRIL 40 MG TAB PO SCH (10:00)
[2019-01-25] MEDS ORDERED: NIFEdipine XL 60 MG TAB PO SCH (10:00)
[2019-01-25] MEDS ORDERED: NON-FORMULARY EACH (Isosorbide Mononitrate [Isosorbide Mononitrate] 30 MG) PO SCH (10:00)
== END 2019-01-24 22:30 | disposition home or self-care (01) ==
LOC: ED 12:57 → 3A 17:07
PROVIDERS: ADMIT Internal Medicine; ATTEND Internal Medicine
DX: E87.70 Fluid overload, unspecified (principal); I12.0 Hypertensive chronic kidney disease with stage 5 chronic kidney disease or end stage renal disease; N18.6 End stage renal disease; D63.1 Anemia in chronic kidney disease; K21.9 Gastro-esophageal reflux disease without esophagitis; F17.200 Nicotine dependence, unspecified, uncomplicated
CPT/HCPCS: 36415; 71046; 80053; 80074; 81001; 84484; 85025; 85610; 85730; 93005; 93010; 96374; 99284; G0378; J0360; J1200; G0257

== ENCOUNTER 2019-02-12 13:57 | Observation (INO) | payer MEDICAID ==
--- NOTE | 2019-02-12 14:46 | Emergency Department Report ---
- General Chief complaint: Weakness Stated complaint: WEAKNESS/MISSED DIALYSIS Time Seen by Provider: 02/12/19 14:43 Source: patient, EMS Mode of arrival: Stretcher Limitations: No Limitations - History of Present Illness Initial comments: Patient is a 43-year-old female that presents emergency room with complaints of weakness and missed dialysis. Patient states she is in the process of moving from [place] to [place] and is unable to go back to [place] for dialysis. Patient states her weakness is generalized. Patient states better with rest worse with exertion. Patient denies chest pain shortness of breath. Patient denies difficulty Exertion. Patient States She Hasn't Had Dialysis for 2 Weeks. MD Complaint: generalized weakness -: Gradual Location: generalized Severity: mild Consistency: intermittent Improves with: medication, other (HD) Worsens with: movement, exertion Context: other (missed HD) Associated Symptoms: denies other symptoms. denies: chest pain, confusion, dark stools, diaphoresis, dysuria, easy bruising, fever/chills, headaches, loss of appetite, nausea/vomiting, rash, shortness of breath, syncope - Related Data Home Medications Medication Instructions Recorded Confirmed Last Taken Calcium Acetate [Phoslo] 667 mg PO TID 11/14/18 01/24/19 Unknown Isosorbide Mononitrate 30 mg PO QDAY 11/14/18 01/24/19 Unknown Lisinopril [Zestril TAB] 40 mg PO QDAY 11/14/18 01/24/19 Unknown NIFEdipine XL [Procardia Xl] 60 mg PO DAILY 11/14/18 01/24/19 11/14/18 08:00 Nitroglycerin [Nitrostat] 0.4 mg SL Q5M PRN 11/14/18 01/24/19 Unknown hydrALAZINE [Apresoline TAB] 75 mg PO TID 01/24/19 01/24/19 Unknown Previous Rx's Medication Instructions Recorded Last Taken Type carvediloL [Coreg] 25 mg PO Q12HR #60 tablet 09/10/18 11/14/18 08:00 Rx Acetaminophen [Non-Aspirin Extra 500 mg PO Q6HR PRN #30 tablet 11/17/18 Unknown Rx Strength] Allergies Allergy/AdvReac Type Severity Reaction Status Date / Time iron polysaccharide complex Allergy Swelling Verified 04/16/15 09:06 [From Nu-Iron] lactose AdvReac Unknown Verified 12/04/17 09:22 ED Review of Systems ROS: Stated complaint: WEAKNESS/MISSED DIALYSIS Other details as noted in HPI Constitutional: weakness. denies: chills, fever Eyes: denies: eye pain, eye discharge, vision change ENT: denies: ear pain, throat pain Respiratory: denies: cough, shortness of breath, wheezing Cardiovascular: denies: chest pain, palpitations Endocrine: no symptoms reported Gastrointestinal: denies: abdominal pain, nausea, diarrhea Genitourinary: denies: urgency, dysuria, discharge Musculoskeletal: denies: back pain, joint swelling, arthralgia Skin: denies: rash, lesions Neurological: weakness. denies: headache, paresthesias Psychiatric: denies: anxiety, depression Hematological/Lymphatic: denies: easy bleeding, easy bruising ED Past Medical Hx - Past Medical History Previous Medical History?: Yes Hx Hypertension: Yes Hx Congestive Heart Failure: Yes Hx Renal Disease: Yes (Tue, Thur, and Sat dialysis) Hx Asthma: No Hx HIV: No Additional medical history: ANGINA. ANEMIA - Surgical History Past Surgical History?: Yes Additional Surgical History: Dialysis access placed. cardiac cath - Family History Family history: no significant - Social History Smoking Status: Current Some Day Smoker Substance Use Type: Alcohol - Medications Home Medications: Home Medications Medication Instructions Recorded Confirmed Last Taken Type carvediloL [Coreg] 25 mg PO Q12HR #60 tablet 09/10/18 01/24/19 11/14/18 08:00 Rx Calcium Acetate [Phoslo] 667 mg PO TID 11/14/18 01/24/19 Unknown History Isosorbide Mononitrate 30 mg PO QDAY 11/14/18 01/24/19 Unknown History Lisinopril [Zestril TAB] 40 mg PO QDAY 11/14/18 01/24/19 Unknown History NIFEdipine XL [Procardia Xl] 60 mg PO DAILY 11/14/18 01/24/19 11/14/18 08:00 History Nitroglycerin [Nitrostat] 0.4 mg SL Q5M PRN 11/14/18 01/24/19 Unknown History Acetaminophen [Non-Aspirin Extra 500 mg PO Q6HR PRN #30 tablet 11/17/18 01/24/19 Unknown Rx Strength] hydrALAZINE [Apresoline TAB] 75 mg PO TID 01/24/19 01/24/19 Unknown History ED Physical Exam - General Limitations: No Limitations General appearance: alert, in no apparent distress - Head Head exam: Present: atraumatic, normocephalic - Eye Eye exam: Present: normal appearance - ENT ENT exam: Present: mucous membranes moist - Neck Neck exam: Present: normal inspection - Respiratory Respiratory exam: Present: normal lung sounds bilaterally. Absent: respiratory distress - Cardiovascular Cardiovascular Exam: Present: regular rate, normal rhythm. Absent: systolic murmur, diastolic murmur, rubs, gallop - GI/Abdominal GI/Abdominal exam: Present: soft, normal bowel sounds - Extremities Exam Extremities exam: Present: normal inspection - Back Exam Back exam: Present: normal inspection - Neurological Exam Neurological exam: Present: alert, oriented X3 - Psychiatric Psychiatric exam: Present: normal affect, normal mood - Skin Skin exam: Present: warm, dry, intact, normal color. Absent: rash - Assessment Assessment Interval: Baseline - Level of Consciousness 1a. Level of Consciousness: alert/keenly responsive - LOC Questions 1b. LOC Questions: answers both correctly - LOC Command 1c. LOC Commands: performs tasks correctly - Best Gaze 2. Best Gaze: normal - Visual 3. Visual: no visual loss - Facial Palsy 4. Facial Palsy: normal symmetrical movement - Motor Arm 5a. Motor Arm Left: no drift 5b. Motor Arm Right: no drift - Motor Leg 6a. Motor Leg Left: no drift 6b. Motor Leg Right: no drift - Limb Ataxia 7. Limb Ataxia: absent - Sensory 8. Sensory: normal - Best Language 9. Best Language: no aphasia - Dysarthria 10. Dysarthria: normal - Extinction and Inattention 11. Extinction/Inattention: no abnormality - Scoring Total Score: 0 Stroke Severity: No Stroke Symptoms ED Course Vital Signs 02/12/19 02/12/19 02/12/19 14:24 14:28 17:22 Temperature 98.2 F Pulse Rate 68 75 Respiratory 11 L 18 18 Rate Blood Pressure 163/104 Blood Pressure 137/92 [Left] O2 Sat by Pulse 99 99 99 Oximetry 02/12/19 02/12/19 17:31 19:59 Temperature Pulse Rate 75 76 Respiratory 18 Rate Blood Pressure Blood Pressure 152/82 [Left] O2 Sat by Pulse 98 Oximetry - Reevaluation(s) Reevaluation #1: Discussed all results with patient. I discussed plan of care with patient. Nephrology will be consult. Patient will be admitted to the hospital service. 02/12/19 16:53 - Consultations Consultation #1: I discussed case with nephrology. Nephrology is going to set up dialysis. 02/12/19 16:53 ED Medical Decision Making - Lab Data Result diagrams: 02/12/19 15:09 02/12/19 15:09 - EKG Data -: EKG Interpreted by Me EKG shows normal: sinus rhythm, axis, intervals, QRS complexes, ST-T waves Rate: normal - Medical Decision Making is a 43-year-old female that presents emergency room with complaints of weakness and missed dialysis. Patient admitted to the hospital service. Patient's labs consistent with end-stage renal disease. Patient's potassium low. Nephrology consult and will see the patient. - Differential Diagnosis missed dialysis. Weakness. Critical Care Time: Yes Critical care time in (mins) excluding proc time.: 35 Critical care attestation.: If time is entered above; I have spent that time in minutes in the direct care of this critically ill patient, excluding procedure time. Critical Care Time: 35 minutes ED Disposition Clinical Impression: ESRD (end stage renal disease) on dialysis, Non-compliant behavior, Missed dialysis, Essential hypertension, Dialysis patient, noncompliant, Hypokalemia Disposition: OP ADMIT IP TO THIS HOSP Is pt being admited?: Yes Does the pt Need Aspirin: No Condition: Critical Time of Disposition: 16:55
[2019-02-12 15:49] LABS: Alanine Aminotransferase 12 units/L (7-56); Albumin 4.1 g/dL (3.9-5); BUN/Creatinine Ratio 8; Blood Urea Nitrogen 56 mg/dL (7-17); Hemolysis Index 6
[2019-02-12 15:52] LABS: Basophils % (Auto) 0.5 % (0.0-1.8); Eosinophils # (Auto) 0.1 K/mm3 (0.0-0.4); Eosinophils % (Auto) 1.5 % (0.0-4.3); Hematocrit 28.7 % (30.3-42.9); Lymphocytes # (Auto) 1.4 K/mm3 (1.2-5.4); Lymphocytes % (Auto) 18.5 % (13.4-35.0); Mean Corpuscular HGB Conc 32 % (30-34); Mean Corpuscular Volume 79 fl (79-97); Monocytes # (Auto) 0.5 K/mm3 (0.0-0.8); Monocytes % (Auto) 6.4 % (0.0-7.3); Platelet Count 308 K/mm3 (140-440); Red Blood Count 3.62 M/mm3 (3.65-5.03); Red Cell Distribution Width 17.2 % (13.2-15.2)
[2019-02-12] MEDS ORDERED: diphenhydrAMINE 50 MG/ML VIAL IV ONE (16:04)
--- NOTE | 2019-02-12 18:28 | History and Physical Report ---
History of Present Illness Date of admission: 02/12/19 17:01 Chief complaint: I feel weak and tired History of present illness: 43 YO Female with ESRD on HD(T,R,Sa), HTN, CHF, Anemia, Nicotine Dependence, Noncompliance presents to ED for evaluation. Pt states that she has experienced generalized weaknes, and feeling tired over the past 4 days with progressively worsening symptoms over the same time frame. Patient states that she has missed her last 2 dialysis sessions due to not having transportation. EMS notified, and upon arrival the patient was found to be in distress and transported to [facility]. Pt seen and evaluated in ED and found to have ESRD, Fluid Overload secondary to missed dialysis. Nephrology consulted in ED. Pt denies fever, chills, CP, Palpitations, NVD, Trauma, BRBPR, Skin Rash, Productive cough, or recent ill contacts. Pt placed in observation status and admitted to medical floor. Past History Past Medical History: other (see hpi) Past Surgical History: Other (Cardiac cath, ) Social history: single. denies: smoking, alcohol abuse, prescription drug abuse Family history: hypertension Medications and Allergies Allergies Allergy/AdvReac Type Severity Reaction Status Date / Time iron polysaccharide complex Allergy Swelling Verified 04/16/15 09:06 [From Nu-Iron] lactose AdvReac Unknown Verified 12/04/17 09:22 Home Medications Medication Instructions Recorded Confirmed Last Taken Type carvediloL [Coreg] 25 mg PO Q12HR #60 tablet 09/10/18 01/24/19 11/14/18 08:00 Rx Calcium Acetate [Phoslo] 667 mg PO TID 11/14/18 01/24/19 Unknown History Isosorbide Mononitrate 30 mg PO QDAY 11/14/18 01/24/19 Unknown History Lisinopril [Zestril TAB] 40 mg PO QDAY 11/14/18 01/24/19 Unknown History NIFEdipine XL [Procardia Xl] 60 mg PO DAILY 11/14/18 01/24/19 11/14/18 08:00 History Nitroglycerin [Nitrostat] 0.4 mg SL Q5M PRN 11/14/18 01/24/19 Unknown History Acetaminophen [Non-Aspirin Extra 500 mg PO Q6HR PRN #30 tablet 11/17/18 01/24/19 Unknown Rx Strength] hydrALAZINE [Apresoline TAB] 75 mg PO TID 01/24/19 01/24/19 Unknown History Review of Systems Constitutional: no weight loss, no weight gain, no fever, no chills Ears, nose, mouth and throat: no ear pain, no ear discharge, no tinnitis, no nose pain, no nasal congestion, no nasal discharge Breasts: no change in shape, no swelling, no mass Cardiovascular: no chest pain, no orthopnea, no palpitations, no rapid/irregular heart beat, no syncope Respiratory: no cough, no cough with sputum, no hemoptysis, no shortness of breath Gastrointestinal: no nausea, no vomiting, no diarrhea, no change in bowel habits, no hematemesis Genitourinary Female: no dysmenorrhea, no pelvic pain, no flank pain, no menorrhagia, no dysuria, no urgency, no post void dribbling, no incomplete emptying, no mixed incontinence Rectal: no pain, no incontinence, no bleeding Musculoskeletal: no neck stiffness, no neck pain, no arm numbness/tingling, no shooting leg pain Integumentary: no rash, no pruritis, no redness, no sores, no wounds, no jaundice Neurological: no transient paralysis, no paralysis, no weakness, no parathesias, no numbness, no seizures, no tremors Psychiatric: no anxiety, no change in sleep habits, no insomnia, no change in appetite, no change in libido, no suicidal ideation, no disorientation Endocrine: no cold intolerance, no heat intolerance, no polyphagia, no polydipsia, no polyuria, no nocturia Hematologic/Lymphatic: no easy bruising, no easy bleeding, no lymphadenopathy, no lymphedema Allergic/Immunologic: no urticaria, no allergic rhinitis, no anaphylaxis Exam - Constitutional Vitals: Temp Pulse Resp BP Pulse Ox 98.2 F 75 18 137/92 99 02/12/19 14:24 02/12/19 17:31 02/12/19 17:22 02/12/19 17:22 02/12/19 17:22 General appearance: Present: mild distress - EENT Eyes: Present: PERRL ENT: hearing intact, clear oral mucosa - Neck Neck: Present: supple, normal ROM - Respiratory Respiratory effort: normal Respiratory: bilateral: CTA - Cardiovascular Heart Sounds: Present: S1 & S2. Absent: rub, click - Extremities Extremities: pulses symmetrical, No edema Peripheral Pulses: within normal limits - Abdominal General gastrointestinal: Present: soft, non-tender, non-distended, normal bowel sounds Female genitourinary: Present: normal - Integumentary Integumentary: Present: clear, warm, dry - Musculoskeletal Musculoskeletal: gait normal, strength equal bilaterally - Psychiatric Psychiatric: appropriate mood/affect, intact judgment & insight - Neurologic Neurologic: CNII-XII intact, moves all extremities Results - Labs CBC & Chem 7: 02/12/19 15:09 02/12/19 15:09 Labs: Abnormal lab results 02/12/19 02/12/19 Range/Units 15:09 15:09 RBC 3.62 L (3.65-5.03) M/mm3 Hgb 9.0 L (10.1-14.3) gm/dl Hct 28.7 L (30.3-42.9) % MCH 25 L (28-32) pg RDW 17.2 H (13.2-15.2) % Seg Neutrophils % 73.1 H (40.0-70.0) % Potassium 3.0 L (3.6-5.0) mmol/L Carbon Dioxide 17 L (22-30) mmol/L BUN 56 H (7-17) mg/dL Creatinine 6.7 H (0.7-1.2) mg/dL Calcium 7.0 L (8.4-10.2) mg/dL Assessment and Plan - Patient Problems (1) ESRD (end stage renal disease) Current Visit: Yes Status: Acute Plan to address problem: Nephrology consulted in ED, dialysis as per renal team, monitor uop q shift, avoid nephrotoxic agents, (2) Essential hypertension Current Visit: Yes Status: Acute Plan to address problem: Monitor bp q shift, supportive care. (3) CHF (congestive heart failure) Current Visit: Yes Status: Acute Qualifiers: Heart failure type: systolic Heart failure chronicity: chronic Qualified Code(s): I50.22 - Chronic systolic (congestive) heart failure Plan to address problem: Strict I/O, daily weight, monitor uop q shift, afterload reduction, blood pressure control, (4) Nicotine dependence Current Visit: Yes Status: Acute Qualifiers: Nicotine product type: cigarettes Substance use status: in withdrawal Qualified Code(s): F17.213 - Nicotine dependence, cigarettes, with withdrawal Plan to address problem: Smoking cessation counseling, +15min, supportive care. (5) DVT prophylaxis Current Visit: No Status: Acute Plan to address problem: SCD to BLE while in bed, Pt ambulatory
[2019-02-13 03:52] VITALS: BP 169/109
[2019-02-13] MEDS ORDERED: hydrALAZINE 20 MG/1 ML INJ IV ONE (04:00)
[2019-02-13] MEDS ORDERED: diphenhydrAMINE 50 MG/ML VIAL IV ONE (04:10)
--- NOTE | 2019-02-13 08:23 | Event Note ---
Date: 02/13/19 Patient is here after missing multiple dialysis sessions. As I entered the room for initial evaluation this morning patient was already dressed. She stated that she is going home today and will not be staying in the hospital. She stated that this was due to babysitting issues in regards to her grandchildren. I tried to talk to her about the importance of compliance and staying for the hemodialysis treatment today. She stated that she is feeling okay at this time and not short of breath. She stated to me that she will come in tomorrow to the emergency department to be dialyzed. I explained all the risks and morbidities with noncompliance with hemodialysis. She understood instructions. I notified the patient's nurse that patient was intending to go today AGAINST MEDICAL ADVICE. I advised the nurse to contact the primary attending.
--- NOTE | 2019-02-13 11:55 | Discharge Summary ---
Providers - Providers Date of Admission: 02/12/19 17:01 Date of discharge: 02/13/19 Attending physician: MONI TRAYLOR 02/12/19 16:53 Consult to Physician [CONS] Routine Comment: Consulting Provider: KIERRA BARAKAT Physician Instructions: Reason For Exam: HD Primary care [facility] Hospitalization Reason for admission: missed HD Condition: Critical Hospital course: 43 YO Female with ESRD on HD(T,R,Sa), HTN, CHF, Anemia, Nicotine Dependence, Noncompliance presented to ED for evaluation. Pt stated that she had experienced generalized weakness, and feeling tired over the past 4 days SCRUB TECH with progressively worsening symptoms over the same time frame. Patient states that she had missed her last 2 dialysis sessions due to not having transportation. EMS notified, and upon arrival the patient was found to be in distress and transported to [facility]. Pt seen and evaluated in ED and found to have ESRD, Fluid Overload secondary to missed dialysis. Nephrology consulted in ED. patient received hemodialysis while inpatient. However, on 02/13/19 patient was noted to have left AMA. Patient was seen by the aquatics specialist and reported to him that she had babysitting issues in regards to her grandchildren. The importance of compliance was discussed by the aquatics specialist with the patient but patient still left AMA. Please see nephrology note for details. Dedicated discharge time 32 minutes. Disposition: [id number] LEFT AGAINST MED ADVICE Time spent for discharge: 32 Core Measure Documentation - Palliative Care Palliative Care/ Comfort Measures: Not Applicable - Core Measures Any of the following diagnoses?: none Exam - Constitutional Vitals: Temp Pulse Resp BP Pulse Ox 98.0 F 71 18 169/109 99 02/13/19 03:37 02/13/19 03:37 02/13/19 03:37 02/13/19 04:07 02/13/19 03:37 Plan Follow up with: ERICKA GASTON MD [Primary Care Provider] - 7 Days
== END 2019-02-13 08:45 | disposition left against medical advice (07) ==
LOC: ED 13:57 → 3A 17:01
PROVIDERS: ADMIT Internal Medicine; ATTEND Hospitalist
DX: I13.0 Hypertensive heart and chronic kidney disease with heart failure and stage 1 through stage 4 chronic kidney disease, or unspecified chronic kidney disease (principal); I50.9 Heart failure, unspecified; N18.6 End stage renal disease; R53.1 Weakness; R53.83 Other fatigue; D64.9 Anemia, unspecified; E87.70 Fluid overload, unspecified; I20.9 Angina pectoris, unspecified; F17.213 Nicotine dependence, cigarettes, with withdrawal; Z91.15 Patient's noncompliance with renal dialysis; Z71.6 Tobacco abuse counseling; Z99.2 Dependence on renal dialysis; Z79.82 Long term (current) use of aspirin; Z79.899 Other long term (current) drug therapy; Z91.018 Allergy to other foods
CPT/HCPCS: 36415; 80053; 85025; 93005; 93010; 96374; 96375; 96376; 99291; G0378; J0360; J1200

== ENCOUNTER 2019-03-03 20:41 | Inpatient (IN) | payer MEDICAID ==
--- NOTE | 2019-03-03 21:03 | Event Note ---
ED Screening Note Date of service: 03/03/19 Time: 20:59 ED Screening Note: 43 y o female with ESRD presents with sob and chest pain with no dialysis x 3 weeks This initial assessment/diagnostic orders/clinical plan/treatment(s) is/are subject to change based on patients health status, clinical progression and re- assessment by fellow clinical providers in the ED. Further treatment and workup at subsequent clinical providers discretion. Patient/guardian urged not to elope from the ED as their condition may be serious if not clinically assessed and managed. Initial orders include: labs, ua
[2019-03-03 21:31] LABS: Basophils # (Auto) 0.1 K/mm3 (0.0-0.1); Basophils % (Auto) 0.6 % (0.0-1.8); Eosinophils # (Auto) 0.2 K/mm3 (0.0-0.4); Eosinophils % (Auto) 1.7 % (0.0-4.3); Hematocrit 31.7 % (30.3-42.9); Hemoglobin 9.9 gm/dl (10.1-14.3); Lymphocytes # (Auto) 1.7 K/mm3 (1.2-5.4); Lymphocytes % (Auto) 16.8 % (13.4-35.0); Mean Corpuscular HGB Conc 31 % (30-34); Mean Corpuscular Volume 79 fl (79-97); Monocytes # (Auto) 0.7 K/mm3 (0.0-0.8); Monocytes % (Auto) 6.9 % (0.0-7.3); Platelet Count 334 K/mm3 (140-440); Red Cell Distribution Width 17.5 % (13.2-15.2)
[2019-03-03 21:52] LABS: Albumin 4.1 g/dL (3.9-5); Calcium 7.7 mg/dL (8.4-10.2)
[2019-03-03 22:29] LABS: Chol/HDL Ratio 1.69 %
[2019-03-03] MEDS ORDERED: diphenhydrAMINE 50 MG/ML VIAL IV ONE (22:52)
--- NOTE | 2019-03-03 22:56 | Emergency Department Report ---
ED General Adult HPI - General Chief complaint: Dyspnea/Respdistress Stated complaint: DIALYSIS/SEVERE ANXIETY Time Seen by Provider: 03/03/19 21:14 Source: patient Mode of arrival: Ambulatory Limitations: No Limitations - History of Present Illness Initial comments: The patient shortness of breath and chest pain that has been present for the last 2 weeks. The patient is a hemodialysis recipient and has not had dialysis in 3 weeks. Patient states that she's not attached to a hostel manager or primary care physician because the reasoning for not having dialysis. The patient denies any abdominal pain or headache. -: week(s) Location: chest Severity scale (0 -10): 2 Consistency: constant Improves with: none Worsens with: none Associated Symptoms: denies other symptoms Treatments Prior to Arrival: none - Related Data Home Medications Medication Instructions Recorded Confirmed Last Taken Calcium Acetate [Phoslo] 667 mg PO TID 11/14/18 01/24/19 Unknown Isosorbide Mononitrate 30 mg PO QDAY 11/14/18 01/24/19 Unknown Lisinopril [Zestril TAB] 40 mg PO QDAY 11/14/18 01/24/19 Unknown NIFEdipine XL [Procardia Xl] 60 mg PO DAILY 11/14/18 01/24/19 11/14/18 08:00 Nitroglycerin [Nitrostat] 0.4 mg SL Q5M PRN 11/14/18 01/24/19 Unknown hydrALAZINE [Apresoline TAB] 75 mg PO TID 01/24/19 01/24/19 Unknown Previous Rx's Medication Instructions Recorded Last Taken Type carvediloL [Coreg] 25 mg PO Q12HR #60 tablet 09/10/18 11/14/18 08:00 Rx Acetaminophen [Non-Aspirin Extra 500 mg PO Q6HR PRN #30 tablet 11/17/18 Unknown Rx Strength] Allergies Allergy/AdvReac Type Severity Reaction Status Date / Time iron polysaccharide complex Allergy Swelling Verified 04/16/15 09:06 [From Nu-Iron] lactose AdvReac Unknown Verified 12/04/17 09:22 ED Review of Systems ROS: Stated complaint: DIALYSIS/SEVERE ANXIETY Other details as noted in HPI Constitutional: denies: chills, fever Eyes: denies: eye pain, eye discharge, vision change ENT: denies: ear pain, throat pain Respiratory: shortness of breath. denies: cough, wheezing Cardiovascular: chest pain. denies: palpitations Endocrine: no symptoms reported Gastrointestinal: denies: abdominal pain, nausea, diarrhea Genitourinary: denies: urgency, dysuria, discharge Musculoskeletal: denies: back pain, joint swelling, arthralgia Skin: denies: rash, lesions Neurological: denies: headache, weakness, paresthesias Psychiatric: denies: anxiety, depression Hematological/Lymphatic: denies: easy bleeding, easy bruising ED Past Medical Hx - Past Medical History Previous Medical History?: Yes Hx Hypertension: Yes Hx Congestive Heart Failure: Yes Hx Renal Disease: Yes (Tue, Thur, and Sat dialysis) Hx Asthma: No Hx HIV: No Additional medical history: ANGINA. ANEMIA - Surgical History Additional Surgical History: Dialysis access placed. cardiac cath - Social History Smoking Status: Current Every Day Smoker Substance Use Type: None - Medications Home Medications: Home Medications Medication Instructions Recorded Confirmed Last Taken Type carvediloL [Coreg] 25 mg PO Q12HR #60 tablet 09/10/18 01/24/19 11/14/18 08:00 Rx Calcium Acetate [Phoslo] 667 mg PO TID 11/14/18 01/24/19 Unknown History Isosorbide Mononitrate 30 mg PO QDAY 11/14/18 01/24/19 Unknown History Lisinopril [Zestril TAB] 40 mg PO QDAY 11/14/18 01/24/19 Unknown History NIFEdipine XL [Procardia Xl] 60 mg PO DAILY 11/14/18 01/24/19 11/14/18 08:00 History Nitroglycerin [Nitrostat] 0.4 mg SL Q5M PRN 11/14/18 01/24/19 Unknown History Acetaminophen [Non-Aspirin Extra 500 mg PO Q6HR PRN #30 tablet 11/17/18 01/24/19 Unknown Rx Strength] hydrALAZINE [Apresoline TAB] 75 mg PO TID 01/24/19 01/24/19 Unknown History ED Physical Exam - General Limitations: No Limitations General appearance: alert, in no apparent distress - Head Head exam: Present: atraumatic, normocephalic - Eye Eye exam: Present: normal appearance - ENT ENT exam: Present: mucous membranes moist - Neck Neck exam: Present: normal inspection - Respiratory Respiratory exam: Present: normal lung sounds bilaterally, rales. Absent: respiratory distress - Cardiovascular Cardiovascular Exam: Present: normal rhythm, tachycardia. Absent: systolic murmur, diastolic murmur, rubs, gallop - GI/Abdominal GI/Abdominal exam: Present: soft, normal bowel sounds. Absent: distended, tenderness - Extremities Exam Extremities exam: Present: normal inspection - Back Exam Back exam: Present: normal inspection - Neurological Exam Neurological exam: Present: alert, oriented X3, CN II-XII intact. Absent: motor sensory deficit - Psychiatric Psychiatric exam: Present: normal affect, normal mood - Skin Skin exam: Present: warm, dry, intact, normal color. Absent: rash ED Course Vital Signs 03/03/19 20:59 Temperature 98.2 F Pulse Rate 88 Respiratory 20 Rate Blood Pressure 258/147 Blood Pressure 258/147 [Left] O2 Sat by Pulse 97 Oximetry ED Medical Decision Making - Lab Data Result diagrams: 03/03/19 21:14 03/03/19 21:14 Lab Results 03/03/19 03/03/19 03/03/19 Range/Units 21:14 21:14 21:14 WBC 9.9 (4.5-11.0) K/mm3 RBC 4.00 (3.65-5.03) M/mm3 Hgb 9.9 L (10.1-14.3) gm/dl Hct 31.7 (30.3-42.9) % MCV 79 (79-97) fl MCH 25 L (28-32) pg MCHC 31 (30-34) % RDW 17.5 H (13.2-15.2) % Plt Count 334 (140-440) K/mm3 Lymph % (Auto) 16.8 (13.4-35.0) % [place] % (Auto) 6.9 (0.0-7.3) % Eos % (Auto) 1.7 (0.0-4.3) % Baso % (Auto) 0.6 (0.0-1.8) % Lymph # 1.7 (1.2-5.4) K/mm3 [place] # 0.7 (0.0-0.8) K/mm3 Eos # 0.2 (0.0-0.4) K/mm3 Baso # 0.1 (0.0-0.1) K/mm3 Seg Neutrophils % 74.0 H (40.0-70.0) % Seg Neutrophils # 7.3 (1.8-7.7) K/mm3 D-Dimer (0-234) ng/mlDDU Sodium 138 (137-145) mmol/L Potassium 3.4 L (3.6-5.0) mmol/L Chloride 102.5 (98-107) mmol/L Carbon Dioxide 16 L (22-30) mmol/L Anion Gap 23 mmol/L BUN 56 H (7-17) mg/dL Creatinine 6.5 H (0.7-1.2) mg/dL Estimated GFR 8 ml/min BUN/Creatinine Ratio 9 % Glucose 101 H (65-100) mg/dL Lactic Acid 0.60 L (0.7-2.0) mmol/L Calcium 7.7 L (8.4-10.2) mg/dL Total Bilirubin 0.50 (0.1-1.2) mg/dL AST 24 (5-40) units/L ALT 44 (7-56) units/L Alkaline Phosphatase 212 H (35-129) units/L Troponin T (0.00-0.029) ng/mL Total Protein 7.8 (6.3-8.2) g/dL Albumin 4.1 (3.9-5) g/dL Albumin/Globulin Ratio 1.1 % Triglycerides (2-149) mg/dL Cholesterol (50-199) mg/dL LDL Cholesterol Direct (50-130) mg/dL HDL Cholesterol (40-59) mg/dL Cholesterol/HDL Ratio % 03/03/19 03/03/19 Range/Units 21:14 21:14 WBC (4.5-11.0) K/mm3 RBC (3.65-5.03) M/mm3 Hgb (10.1-14.3) gm/dl Hct (30.3-42.9) % MCV (79-97) fl MCH (28-32) pg MCHC (30-34) % RDW (13.2-15.2) % Plt Count (140-440) K/mm3 Lymph % (Auto) (13.4-35.0) % [place] % (Auto) (0.0-7.3) % Eos % (Auto) (0.0-4.3) % Baso % (Auto) (0.0-1.8) % Lymph # (1.2-5.4) K/mm3 [place] # (0.0-0.8) K/mm3 Eos # (0.0-0.4) K/mm3 Baso # (0.0-0.1) K/mm3 Seg Neutrophils % (40.0-70.0) % Seg Neutrophils # (1.8-7.7) K/mm3 D-Dimer 837.42 H (0-234) ng/mlDDU Sodium (137-145) mmol/L Potassium (3.6-5.0) mmol/L Chloride (98-107) mmol/L Carbon Dioxide (22-30) mmol/L Anion Gap mmol/L BUN (7-17) mg/dL Creatinine (0.7-1.2) mg/dL Estimated GFR ml/min BUN/Creatinine Ratio % Glucose (65-100) mg/dL Lactic Acid (0.7-2.0) mmol/L Calcium (8.4-10.2) mg/dL Total Bilirubin (0.1-1.2) mg/dL AST (5-40) units/L ALT (7-56) units/L Alkaline Phosphatase (35-129) units/L Troponin T 0.032 H (0.00-0.029) ng/mL Total Protein (6.3-8.2) g/dL Albumin (3.9-5) g/dL Albumin/Globulin Ratio % Triglycerides 60 (2-149) mg/dL Cholesterol 127 (50-199) mg/dL LDL Cholesterol Direct 49 L (50-130) mg/dL HDL Cholesterol 75 H (40-59) mg/dL Cholesterol/HDL Ratio 1.69 % - EKG Data -: EKG Interpreted by Me EKG shows normal: sinus rhythm Rate: normal - Radiology Data Radiology results: report reviewed - Medical Decision Making The d-dimer was ordered prior to me seeing the patient via the screening process by another provider thus the reasoning for the CTA of the chest stated age elevated d-dimer result with chest pain shortness of breath Discussed Patient with Dr. Shepard and the patient will be dialyzed in a.m. Critical care attestation.: If time is entered above; I have spent that time in minutes in the direct care of this critically ill patient, excluding procedure time. ED Disposition Clinical Impression: Volume overload, End stage renal disease on dialysis Disposition: OP ADMIT IP TO THIS HOSP Is pt being admited?: Yes Does the pt Need Aspirin: No Condition: Fair
[2019-03-04] MEDS ORDERED: diphenhydrAMINE 50 MG/ML VIAL ONE (01:09)
--- NOTE | 2019-03-04 02:09 | Cat Scan Report ---
CTA CHEST WITH IV CONTRAST INDICATION: elevated D Dimer. Acute onset chest pain with dyspnea TECHNIQUE: Axial CT images were obtained through the chest after injection of 100 mL IV contrast. 3 plane MIP re constructions were produced. All CT scans at this location are performed using CT dose reduction for ALARA by means of automated exposure control. COMPARISON: None available. FINDINGS: PULMONARY ARTERIES: No pulmonary emboli. AORTA AND ARTERIES: No acute abnormality. MEDIASTINUM: No mass, lymphadenopathy or other significant abnormality. The heart is normal in size w ithout a pericardial effusion. The trachea and main bronchi are patent and normal in caliber. LUNGS: No suspicious consolidation, nodule or mass. No pneumothorax or pleural effusion. ADDITIONAL FINDINGS: None. UPPER ABDOMEN: No acute findings. BONES: No significant osseous abnormality. IMPRESSION: 1. No CT evidence for pulmonary embolism. 2. Enlarged, left cardiac ventricular hypertrophy (moderate to severe). Signer Name: Derrek Jewell MD Signed: 03/04/2019 2:05 AM Workstation Name: [id number]
[2019-03-04] MEDS ORDERED: ONDANSETRON 4 MG/2 ML INJ IV PRN (03:28)
[2019-03-04] MEDS ORDERED: ACETAMINOPHEN 325 MG TAB PO PRN (03:28)
[2019-03-04] MEDS ORDERED: NITROGLYCERIN 0.4 MG TAB SUBL SL PRN (03:30)
--- NOTE | 2019-03-04 03:36 | History and Physical Report ---
<DAVE FLORES - Last Filed: 03/04/19 04:32> History of Present Illness Date of examination: 03/04/19 Date of admission: 03/04/2019 Chief complaint: volume overload and chest pain History of present illness: 43-year-old -Israeli female with history of cocaine abuse, nicotine dependence, ESRD on HD T/Th/S non compliant with HD, and hypertension non compliant with meds, anemia, HF, and angina who presents to [facility] ED with compla ints of volume overlaod after missing HD sessions for the past 3 weeks and angina. Patient states that she admits hemodialysis due to not have been a home HD clinic. She states the reason that she does not have a home HD clinic is because her transportation was canceled and she has moved multiple times within the last 2 months and does not have a permanent address. She admits to be in noncompliant with antihypertensive and HD sessions. Patient states that her angina is "flaring up" he does not have any sublingual nitroglycerin. View of medical records shows that patient has been here several times within the past 3-1/2 months with similar complaints of medicine hemodialysis session. Ca rdiology has been consulted in regards to patient's chest pain however patient left AMA after receiving hemodialysis she be evaluated. She denies recent cocaine use, nausea, vomiting, or diaphoresis. Patient states that she is seen at the facility in [place] approximately a month ago and received a stress test. Unsure of the results. Past History Past Medical History: anemia, ESRD (on HD (T/Th/S) non compliant), heart failure, hypertension, other (angina, anxiety) Past Surgical History: Other (Right chest vascath, cardiac cath) Social history: lives with family Family history: no significant family history Medications and Allergies Allergies Allergy/AdvReac Type Severity Reaction Status Date / Time iron polysaccharide complex Allergy Swelling Verified 04/16/15 09:06 [From Nu-Iron] lactose AdvReac Unknown Verified 12/04/17 09:22 Home Medications Medication Instructions Recorded Confirmed Last Taken Type carvediloL [Coreg] 25 mg PO Q12HR #60 tablet 09/10/18 01/24/19 11/14/18 08:00 Rx Calcium Acetate [Phoslo] 667 mg PO TID 11/14/18 01/24/19 Unknown History Isosorbide Mononitrate 30 mg PO QDAY 11/14/18 01/24/19 Unknown History Lisinopril [Zestril TAB] 40 mg PO QDAY 11/14/18 01/24/19 Unknown History NIFEdipine XL [Procardia Xl] 60 mg PO DAILY 11/14/18 01/24/19 11/14/18 08:00 History Nitroglycerin [Nitrostat] 0.4 mg SL Q5M PRN 11/14/18 01/24/19 Unknown History Acetaminophen [Non-Aspirin Extra 500 mg PO Q6HR PRN #30 tablet 11/17/18 01/24/19 Unknown Rx Strength] hydrALAZINE [Apresoline TAB] 75 mg PO TID 01/24/19 01/24/19 Unknown History Exam - Physical Exam Narrative exam: Physical exam General appearance: Present: No acute distress, drowsy but easilyaroused, oriented 3, -Israeli adult female - EENT Eyes: Present: PERRL, EOM intact ENT: hearing intact, normal dentition - Neck Neck: Present: supple, normal ROM - Respiratory Respiratory effort: Non-labored Respiratory: CTA bilaterally - Cardiovascular Heart rate: 88 (bpm) Rhythm: regular Heart Sounds: Present: S1 & S2. Absent: rub, click - Extremities Extremities: no ischemia, pulses intact, abnormal (right upper chest Vas-Cath) - Peripheral Assessment Peripheral Pulses: within normal limits - Abdominal General gastrointestinal: soft, non-tender, normal bowel sounds - Integumentary Integumentary: Present: warm, dry - Musculoskeletal Musculoskeletal: Able to move all extremities -Neurological Neurological: CN II-XII grossly intact - Psychiatric Psychiatric: cooperative - Constitutional Vitals: Temp Pulse Resp BP Pulse Ox 98.2 F 88 20 258/147 97 03/03/19 20:59 03/03/19 20:59 03/03/19 20:59 03/03/19 20:59 03/03/19 20:59 Results - Labs CBC & Chem 7: 03/03/19 21:14 03/03/19 21:14 Labs: Laboratory Last Values WBC 9.9 K/mm3 (4.5-11.0) 03/03/19 21:14 RBC 4.00 M/mm3 (3.65-5.03) 03/03/19 21:14 Hgb 9.9 gm/dl (10.1-14.3) L 03/03/19 21:14 Hct 31.7 % (30.3-42.9) 03/03/19 21:14 MCV 79 fl (79-97) 03/03/19 21:14 MCH 25 pg (28-32) L 03/03/19 21:14 MCHC 31 % (30-34) 03/03/19 21:14 RDW 17.5 % (13.2-15.2) H 03/03/19 21:14 Plt Count 334 K/mm3 (140-440) 03/03/19 21:14 Lymph % (Auto) 16.8 % (13.4-35.0) 03/03/19 21:14 Morehouse % (Auto) 6.9 % (0.0-7.3) 03/03/19 21:14 Eos % (Auto) 1.7 % (0.0-4.3) 03/03/19 21:14 Baso % (Auto) 0.6 % (0.0-1.8) 03/03/19 21:14 Lymph # 1.7 K/mm3 (1.2-5.4) 03/03/19 21:14 Morehouse # 0.7 K/mm3 (0.0-0.8) 03/03/19 21:14 Eos # 0.2 K/mm3 (0.0-0.4) 03/03/19 21:14 Baso # 0.1 K/mm3 (0.0-0.1) 03/03/19 21:14 Seg Neutrophils % 74.0 % (40.0-70.0) H 03/03/19 21:14 Seg Neutrophils # 7.3 K/mm3 (1.8-7.7) 03/03/19 21:14 D-Dimer 837.42 ng/mlDDU (0-234) H 03/03/19 21:14 Sodium 138 mmol/L (137-145) 03/03/19 21:14 Potassium 3.4 mmol/L (3.6-5.0) L 03/03/19 21:14 Chloride 102.5 mmol/L (98-107) 03/03/19 21:14 Carbon Dioxide 16 mmol/L (22-30) L 03/03/19 21:14 Anion Gap 23 mmol/L 03/03/19 21:14 BUN 56 mg/dL (7-17) H 03/03/19 21:14 Creatinine 6.5 mg/dL (0.7-1.2) H 03/03/19 21:14 Estimated GFR 8 ml/min 03/03/19 21:14 BUN/Creatinine Ratio 9 % 03/03/19 21:14 Glucose 101 mg/dL (65-100) H 03/03/19 21:14 Lactic Acid 0.60 mmol/L (0.7-2.0) L 03/03/19 21:14 Calcium 7.7 mg/dL (8.4-10.2) L 03/03/19 21:14 Total Bilirubin 0.50 mg/dL (0.1-1.2) 03/03/19 21:14 AST 24 units/L (5-40) 03/03/19 21:14 ALT 44 units/L (7-56) 03/03/19 21:14 Alkaline Phosphatase 212 units/L (35-129) H 03/03/19 21:14 Troponin T 0.032 ng/mL (0.00-0.029) H 03/03/19 21:14 Total Protein 7.8 g/dL (6.3-8.2) 03/03/19 21:14 Albumin 4.1 g/dL (3.9-5) 03/03/19 21:14 Albumin/Globulin Ratio 1.1 % 03/03/19 21:14 Triglycerides 60 mg/dL (2-149) 03/03/19 21:14 Cholesterol 127 mg/dL (50-199) 03/03/19 21:14 LDL Cholesterol Direct 49 mg/dL (50-130) L 03/03/19 21:14 HDL Cholesterol 75 mg/dL (40-59) H 03/03/19 21:14 Cholesterol/HDL Ratio 1.69 % 03/03/19 21:14 - Imaging and Cardiology Imaging and Cardiology: CT angio Chest: FINDINGS: PULMONARY ARTERIES: No pulmonary emboli. AORTA AND ARTERIES: No acute abnormality. MEDIASTINUM: No mass, lymphadenopathy or other significant abnormality. The heart is normal in size without a pericardial effusion. The trachea and main bronchi are patent and normal in caliber. LUNGS: No suspicious consolidation, nodule or mass. No pneumothorax or pleural effusion. ADDITIONAL FINDINGS: None. UPPER ABDOMEN: No acute findings. BONES: No significant osseous abnormality. IMPRESSION: 1. No CT evidence for pulmonary embolism. 2. Enlarged, left cardiac ventricular hypertrophy (moderate to severe). T Assessment and Plan Assessment and plan: 43-year-old -Israeli female with history of cocaine abuse, nicotine dependence, ESRD on HD T/Th/S non compliant with HD, and hypertension non compliant with meds, anemia, HF, and angina who presents to [facility] ED with complaints of volume overlaod after missing HD sessions for the past 3 weeks and angina. At the time of my examination patient is sitting up in stretcher and drowsy, she is easily aroused and able to answer questions in full sentences. She denies active chest pain at this time with no S/S of distress. Discussed plan of care with patient and she is agreeable to hemodialysis session, and was concerned regarding having to stay after hemodialysis. I have discussed with the patient in detail the importance of maintaining regular HD schedule with outpatient clinic. I will consult case management for help in establishing outpatient hemodialysis. HTN Urgency -Pt has history of being non compliant with meds -BP 258/147 on presentation -IV hypertensive meds when necessary -Continue to monitor BP -Resume home BP meds to optimize bp Volume Overload -secondary to ESRD and not being dialyzed for three weeks -Monitor I&O's -Monitor weight ESRD on HD T/Th/S -Missed 3 weeks of HD sessions -Cr 6.5 -Non compliant with HD -Pt needs to be set up with outpatient HD clinic; Case Mgmt consulted -Nephrology consulted for HD mgmt Elevated D-Dimer -837.42 -CT angio Chest negative for PE Elevated troponin -0.032 on admission -serial troponins -Pt is ESRD likely due to troponin leak Angina -EKG unrevealing for acute ischemic abnormalities -likely due to cornary artery vasospasm -Continue to monitor -Continue supportive care Tobacco Abuse -Current everyday smoker -Counseled for cessation -Nicotine Patch prn Hx cocaine abuse -UDS pending -Pt denies recent use DVT PPX -On Heparin <YASMEEN HERNANDEZ - Last Filed: 03/04/19 04:50> History of Present Illness Date of admission: 03/04/19 03:28 Medications and Allergies Active Meds: Active Medications Acetaminophen (Tylenol) 650 mg PO Q4H PRN PRN Reason: Pain MILD(1-3)/Fever >100.5/THORNE Calcium Acetate (Phoslo) 667 mg PO TIDWM [facility] Carvedilol (Coreg) 25 mg PO Q12HR [facility] Docusate Sodium (Colace) 100 mg PO BID [facility] Heparin Sodium (Porcine) (Heparin) 5,000 unit SUB-Q Q12HR [facility] Hydralazine HCl (Apresoline) 75 mg PO TID [facility] Hydralazine HCl (Apresoline) 10 mg IV Q4H PRN PRN Reason: Blood Pressure Isosorbide Mononitrate (Imdur) 30 mg PO QDAY [facility] Lisinopril (Zestril) 40 mg PO QDAY [facility] Nicotine (Habitrol) 14 mg TD QDAY [facility] Nifedipine (Procardia Xl) 60 mg PO DAILY@0600 [facility] Nitroglycerin (Nitrostat) 0.4 mg SL Q5M PRN PRN Reason: Chest Pain Ondansetron HCl (Zofran) 4 mg IV Q8H PRN PRN Reason: Nausea And Vomiting Sodium Chloride (Sodium Chloride Flush Syringe 10 Ml) 10 ml IV BID [facility] Sodium Chloride (Sodium Chloride Flush Syringe 10 Ml) 10 ml IV PRN PRN PRN Reason: LINE FLUSH Exam - Constitutional Vitals: Temp Pulse Resp BP Pulse Ox 98.2 F 81 14 193/105 97 03/03/19 20:59 03/04/19 04:41 03/04/19 04:41 03/04/19 04:41 03/04/19 04:41 Results - Labs CBC & Chem 7: 03/03/19 21:14 03/03/19 21:14 Labs: Laboratory Last Values WBC 9.9 K/mm3 (4.5-11.0) 03/03/19 21:14 RBC 4.00 M/mm3 (3.65-5.03) 03/03/19 21:14 Hgb 9.9 gm/dl (10.1-14.3) L 03/03/19 21:14 Hct 31.7 % (30.3-42.9) 03/03/19 21:14 MCV 79 fl (79-97) 03/03/19 21:14 MCH 25 pg (28-32) L 03/03/19 21:14 MCHC 31 % (30-34) 03/03/19 21:14 RDW 17.5 % (13.2-15.2) H 03/03/19 21:14 Plt Count 334 K/mm3 (140-440) 03/03/19 21:14 Lymph % (Auto) 16.8 % (13.4-35.0) 03/03/19 21:14 Morehouse % (Auto) 6.9 % (0.0-7.3) 03/03/19 21:14 Eos % (Auto) 1.7 % (0.0-4.3) 03/03/19 21:14 Baso % (Auto) 0.6 % (0.0-1.8) 03/03/19 21:14 Lymph # 1.7 K/mm3 (1.2-5.4) 03/03/19 21:14 [place]house # 0.7 K/mm3 (0.0-0.8) 03/03/19 21:14 Eos # 0.2 K/mm3 (0.0-0.4) 03/03/19 21:14 Baso # 0.1 K/mm3 (0.0-0.1) 03/03/19 21:14 Seg Neutrophils % 74.0 % (40.0-70.0) H 03/03/19 21:14 Seg Neutrophils # 7.3 K/mm3 (1.8-7.7) 03/03/19 21:14 D-Dimer 837.42 ng/mlDDU (0-234) H 03/03/19 21:14 Sodium 138 mmol/L (137-145) 03/03/19 21:14 Potassium 3.4 mmol/L (3.6-5.0) L 03/03/19 21:14 Chloride 102.5 mmol/L (98-107) 03/03/19 21:14 Carbon Dioxide 16 mmol/L (22-30) L 03/03/19 21:14 Anion Gap 23 mmol/L 03/03/19 21:14 BUN 56 mg/dL (7-17) H 03/03/19 21:14 Creatinine 6.5 mg/dL (0.7-1.2) H 03/03/19 21:14 Estimated GFR 8 ml/min 03/03/19 21:14 BUN/Creatinine Ratio 9 % 03/03/19 21:14 Glucose 101 mg/dL (65-100) H 03/03/19 21:14 Lactic Acid 0.60 mmol/L (0.7-2.0) L 03/03/19 21:14 Calcium 7.7 mg/dL (8.4-10.2) L 03/03/19 21:14 Total Bilirubin 0.50 mg/dL (0.1-1.2) 03/03/19 21:14 AST 24 units/L (5-40) 03/03/19 21:14 ALT 44 units/L (7-56) 03/03/19 21:14 Alkaline Phosphatase 212 units/L (35-129) H 03/03/19 21:14 Troponin T 0.032 ng/mL (0.00-0.029) H 03/03/19 21:14 Total Protein 7.8 g/dL (6.3-8.2) 03/03/19 21:14 Albumin 4.1 g/dL (3.9-5) 03/03/19 21:14 Albumin/Globulin Ratio 1.1 % 03/03/19 21:14 Triglycerides 60 mg/dL (2-149) 03/03/19 21:14 Cholesterol 127 mg/dL (50-199) 03/03/19 21:14 LDL Cholesterol Direct 49 mg/dL (50-130) L 03/03/19 21:14 HDL Cholesterol 75 mg/dL (40-59) H 03/03/19 21:14 Cholesterol/HDL Ratio 1.69 % 03/03/19 21:14 Assessment and Plan Assessment and plan: Patient seen and examined, discussed with patient.Patient seen and examined, discussed with nurse practitioner. Patient missed her hemodialysis x3 weeks, also complained of chest pain. Renal will dialyze her this morning. consult cardiology for chest pain
[2019-03-04] MEDS ORDERED: hydrALAZINE 20 MG/1 ML INJ IV PRN (03:38)
[2019-03-04] MEDS ORDERED: NIFEdipine XL 60 MG TAB PO SCH (06:00)
--- NOTE | 2019-03-04 09:19 | Consultation ---
History of Present Illness - Reason for Consult Consult date: 03/04/19 end stage renal disease - History of Present Illness The patient is a 43 YO female who is known to me from previous admissions with history significant for HTN, ESRD non compliant with hemodialysis, Anxiety, Cocaine use, nicotine dependence and Medical non-compliance who presented to [facility] ED 03/03 after she missed hemodialysis for about 3 weeks. Per patient she is currently not established with any outpatient hemodialysis unit and has been coming to [facility] for dialysis. She left the hospital AMA during the last admissio n. Patient reports CP. She denies nausea, vomiting, diaphoresis, headache, shortness of breath, hemoptysis, abd pain, dizziness, syncope, fever, chills or leg swelling. Her initial BP was 258/147. Nephrology was consulted for further evaluation. Past History Past Medical History: anemia, dialysis, ESRD (on HD (T//) non compliant), heart failure, hypertension, other (angina, anxiety, cocaine use) Past Surgical History: Other (Right chest vascath, cardiac cath) Social history: lives with family Family history: no significant family history Medications and Allergies Allergies Allergy/AdvReac Type Severity Reaction Status Date / Time iron polysaccharide complex Allergy Swelling Verified 04/16/15 09:06 [From Nu-Iron] lactose AdvReac Unknown Verified 12/04/17 09:22 Home Medications Medication Instructions Recorded Confirmed Last Taken Type carvediloL [Coreg] 25 mg PO Q12HR #60 tablet 09/10/18 03/04/19 03/04/19 05:22 Rx Calcium Acetate [Phoslo] 667 mg PO TID 11/14/18 03/04/19 Unknown History Isosorbide Mononitrate 30 mg PO QDAY 11/14/18 03/04/19 Unknown History Lisinopril [Zestril TAB] 40 mg PO QDAY 11/14/18 03/04/19 03/03/19 09:00 History NIFEdipine XL [Procardia Xl] 60 mg PO DAILY 11/14/18 03/04/19 11/14/18 08:00 History Nitroglycerin [Nitrostat] 0.4 mg SL Q5M PRN 11/14/18 03/04/19 Unknown History Acetaminophen [Non-Aspirin Extra 500 mg PO Q6HR PRN #30 tablet 11/17/18 03/04/19 Unknown Rx Strength] hydrALAZINE [Apresoline TAB] 75 mg PO TID 01/24/19 03/04/19 Unknown History Active Meds: Active Medications Acetaminophen (Tylenol) 650 mg PO Q4H PRN PRN Reason: Pain MILD(1-3)/Fever >100.5/THORNE Calcium Acetate (Phoslo) 667 mg PO TIDWM [facility] Carvedilol (Coreg) 25 mg PO Q12HR [facility] Docusate Sodium (Colace) 100 mg PO BID [facility] Heparin Sodium (Porcine) (Heparin) 5,000 unit SUB-Q Q12HR [facility] Hydralazine HCl (Apresoline) 75 mg PO TID [facility] Hydralazine HCl (Apresoline) 10 mg IV Q4H PRN PRN Reason: Blood Pressure Last Admin: 03/04/19 05:53 Dose: 10 mg Documented by: Isosorbide Mononitrate (Imdur) 30 mg PO QDAY [facility] Lisinopril (Zestril) 40 mg PO QDAY [facility] Nicotine (Habitrol) 14 mg TD QDAY [facility] Nifedipine (Procardia Xl) 60 mg PO DAILY@0600 [facility] Last Admin: 03/04/19 05:53 Dose: 60 mg Documented by: Nitroglycerin (Nitrostat) 0.4 mg SL Q5M PRN PRN Reason: Chest Pain Ondansetron HCl (Zofran) 4 mg IV Q8H PRN PRN Reason: Nausea And Vomiting Sodium Chloride (Sodium Chloride Flush Syringe 10 Ml) 10 ml IV BID [facility] Sodium Chloride (Sodium Chloride Flush Syringe 10 Ml) 10 ml IV PRN PRN PRN Reason: LINE FLUSH Last Admin: 03/04/19 05:54 Dose: 10 ml Documented by: Review of Systems Constitutional: no weight loss, no weight gain, no fever, no chills, no anorexia, no weakness, no poor appetite Breasts: deferred Cardiovascular: chest pain, high blood pressure, no orthopnea, no edema, no syncope, no lightheadedness, no shortness of breath, no leg edema Respiratory: no cough, no shortness of breath Gastrointestinal: no abdominal pain, no nausea, no vomiting, no melena Genitourinary Female: no dysuria, no hematuria Musculoskeletal: no muscle weakness, no muscle cramps Integumentary: no rash Neurological: no seizures, no syncope, no aphasia, no change in speech, no change in mentation, no confusion, no memory loss Exam - Vital Signs Vital signs: Vital Signs Temp Pulse Resp BP Pulse Ox 98.2 F 88 20 258/147 97 03/03/19 20:59 03/03/19 20:59 03/03/19 20:59 03/03/19 20:59 03/03/19 20:59 - General Appearance General appearance: well-developed, well-nourished, appears stated age, other (no distress, R IJ tunnel catheter) EENT: ATNC, PERRL, mucous membranes moist, hearing intact, vision intact Neck: Present: neck supple, trachea midline Respiratory: Clear to Ascultation Heart: regular, S1S2, no murmurs Gastrointestinal: Present: normoactive bowel sounds. Absent: tenderness, distended Integumentary: no rash, warm and dry Neurologic: no focal deficit, no asterixis, alert and oriented x3 Musculoskeletal: Present: other (no edema) Psychiatric: cooperative Results - Lab Results 03/03/19 21:14 03/03/19 21:14 Most recent lab results Calcium 7.7 mg/dL (8.4-10.2) L 03/03/19 21:14 Assessment and Plan 1. ESRD: Patient presented after missed HD for about 3 weeks. Hemodialysis today as planned. 2. Uncontrolled HTN: Likely from not taking the meds. BP is better now. UF with HD. Monitor BP. 3. FEN: Monitor lytes. 4. Anemia: Epogen when BP is well controlled. 5. Chest pain: Cardiology consulted. 6. Medical non-compliance.
[2019-03-04] MEDS ORDERED: SODIUM CHLORIDE 0.9% 100 ML IV PRN ×2 (10:00→15:42)
[2019-03-04] MEDS ORDERED: HEPARIN 10,000 UNITS/10 ML VIAL IV PRN (10:00)
[2019-03-04] MEDS: DOCUSATE SODIUM 100 MG CAP PO SCH ×2 (10:11→22:30)
[2019-03-04] MEDS: carvediloL 25 MG TAB PO SCH ×2 (10:11→22:28)
[2019-03-04] MEDS: CALCIUM ACETATE 667 MG CAP PO SCH ×3 (10:11→17:35)
[2019-03-04] MEDS: LISINOPRIL 40 MG TAB PO SCH (10:11)
[2019-03-04] MEDS: hydrALAZINE 25 MG TAB PO SCH ×2 (10:11→12:59)
[2019-03-04] MEDS: NICOTINE 14 MG/24 HR PATCH TD SCH (10:12)
[2019-03-04] MEDS: HEPARIN 5,000 UNIT/1 ML VIAL SUB-Q SCH ×2 (10:14→22:29)
[2019-03-04] MEDS ORDERED: LORazepam 2 MG/ML VIAL IV PRN (10:45)
--- NOTE | 2019-03-04 14:31 | Consultation ---
History of Present Illness Consult date: 03/04/19 Requesting physician: YASMEEN HERNANDEZ Consult reason: chest pain History of present illness: The pt is a 43-year-old female with a past medical history of HTN, ESRD on HD (), tobacco use, cocaine use (powder - last use was 1 month ago), reported "congestive heart failure" and noncompliance. She has been seen by our practice on prior hospitalization. She presented with c/o volume overload after missing HD sessions for the past 3 weeks with associated SOB and chest pain. Patient states that she admits hemodialysis due to not have been a home HD clinic. She states the reason that she does not have a home HD clinic is because her transportation was canceled and she has moved multiple times within the last 2 months and does not have a permanent address. She admits to be in noncompliant with antihypertensive and HD sessions. Pt reports intermittent chest pain for the past several months. She was here in 11/2018 but left AMA prior to our consultation. She describes her chest pain as a midsternal pressure which radiates into her upper back. The pain does seem exertional at times. The pain is reproducible with palpation of the chest wall. She also c/o SOB. She denies any palpitations, n/v, diaphoresis, dizziness or syncope. She reports that she underwent stress test and echo several months ago in [place] and was told her heart was "thickened". We will attempt to obtain these records. Pt underwent LHC at [facility] in 05/2016 which showed normal coronaries. Echo done at that time showed mod-severe LVH, EF 70%. Past History Past Medical History: anemia, ESRD (on HD (/) non compliant), heart failure, hypertension, other (angina, anxiety) Past Surgical History: Other (Right chest vascath, cardiac cath) Social history: lives with family Family history: no significant family history Medications and Allergies Allergies Allergy/AdvReac Type Severity Reaction Status Date / Time iron polysaccharide complex Allergy Swelling Verified 04/16/15 09:06 [From Nu-Iron] lactose AdvReac Unknown Verified 12/04/17 09:22 Home Medications Medication Instructions Recorded Confirmed Last Taken Type carvediloL [Coreg] 25 mg PO Q12HR #60 tablet 09/10/18 03/04/19 03/04/19 05:22 Rx Calcium Acetate [Phoslo] 667 mg PO TID 11/14/18 03/04/19 Unknown History Isosorbide Mononitrate 30 mg PO QDAY 11/14/18 03/04/19 Unknown History Lisinopril [Zestril TAB] 40 mg PO QDAY 11/14/18 03/04/19 03/03/19 09:00 History NIFEdipine XL [Procardia Xl] 60 mg PO DAILY 11/14/18 03/04/19 11/14/18 08:00 History Nitroglycerin [Nitrostat] 0.4 mg SL Q5M PRN 11/14/18 03/04/19 Unknown History Acetaminophen [Non-Aspirin Extra 500 mg PO Q6HR PRN #30 tablet 11/17/18 03/04/19 Unknown Rx Strength] hydrALAZINE [Apresoline TAB] 75 mg PO TID 01/24/19 03/04/19 Unknown History Active Meds: Active Medications Acetaminophen (Tylenol) 650 mg PO Q4H PRN PRN Reason: Pain MILD(1-3)/Fever >100.5/THORNE Calcium Acetate (Phoslo) 667 mg PO TIDWM [facility] Last Admin: 03/04/19 12:59 Dose: 667 mg Documented by: Carvedilol (Coreg) 25 mg PO Q12HR [facility] Last Admin: 03/04/19 10:11 Dose: 25 mg Documented by: Diphenhydramine HCl (Benadryl) 25 mg IV Q8H PRN PRN Reason: Itching Docusate Sodium (Colace) 100 mg PO BID [facility] Last Admin: 03/04/19 10:11 Dose: 100 mg Documented by: Heparin Sodium (Porcine) (Heparin) 5,000 unit SUB-Q Q12HR [facility] Last Admin: 03/04/19 10:14 Dose: 5,000 unit Documented by: Heparin Sodium (Porcine) (Heparin 10,000 Units/10 Ml) 2,000 unit IV YULI PRN PRN Reason: hemodialysis Hydralazine HCl (Apresoline) 75 mg PO TID [facility] Last Admin: 03/04/19 12:59 Dose: 75 mg Documented by: Hydralazine HCl (Apresoline) 10 mg IV Q4H PRN PRN Reason: Blood Pressure Last Admin: 03/04/19 05:53 Dose: 10 mg Documented by: Sodium Chloride (Nacl 0.9%) 100 mls @ 999 mls/hr IV YULI PRN PRN Reason: Hypotension Isosorbide Mononitrate (Imdur) 30 mg PO QDAY [facility] Last Admin: 03/04/19 10:11 Dose: 30 mg Documented by: Lisinopril (Zestril) 40 mg PO QDAY [facility] Last Admin: 03/04/19 10:11 Dose: 40 mg Documented by: Lorazepam (Ativan) 0.5 mg IV Q8H PRN PRN Reason: Anxiety Melatonin (Melatonin) 10 mg PO QHS PRN PRN Reason: Sleep Nicotine (Habitrol) 14 mg TD QDAY [facility] Last Admin: 03/04/19 10:12 Dose: 14 mg Documented by: Nifedipine (Procardia Xl) 60 mg PO DAILY@0600 [facility] Last Admin: 03/04/19 05:53 Dose: 60 mg Documented by: Nitroglycerin (Nitrostat) 0.4 mg SL Q5M PRN PRN Reason: Chest Pain Ondansetron HCl (Zofran) 4 mg IV Q8H PRN PRN Reason: Nausea And Vomiting Sodium Chloride (Sodium Chloride Flush Syringe 10 Ml) 10 ml IV BID [facility] Last Admin: 03/04/19 10:12 Dose: 10 ml Documented by: Sodium Chloride (Sodium Chloride Flush Syringe 10 Ml) 10 ml IV PRN PRN PRN Reason: LINE FLUSH Last Admin: 03/04/19 05:54 Dose: 10 ml Documented by: Review of Systems Constitutional: no weight loss, no weight gain, no fever, no chills, no sweats Ears, nose, mouth and throat: no ear pain, no nose pain, no sinus pressure, no sinus pain Cardiovascular: chest pain, shortness of breath, dyspnea on exertion, high blood pressure, no orthopnea, no palpitations, no rapid/irregular heart beat, no edema, no syncope, no lightheadedness, no leg edema Respiratory: shortness of breath, dyspnea on exertion, no cough, no congestion, no wheezing, no pain on inspiration Gastrointestinal: no abdominal pain, no nausea, no vomiting, no diarrhea, no constipation, no change in bowel habits Genitourinary Female: no pelvic pain, no flank pain, no dysuria, no urinary frequency, no urgency Musculoskeletal: no neck stiffness, no neck pain, no shooting arm pain, no arm n umbness/tingling, no low back pain, no shooting leg pain Integumentary: no rash, no pruritis, no redness, no sores, no wounds Neurological: no head injury, no paralysis, no weakness, no parathesias, no numbness, no tingling, no seizures, no syncope Psychiatric: no anxiety Endocrine: no cold intolerance, no heat intolerance Hematologic/Lymphatic: no easy bruising, no easy bleeding Allergic/Immunologic: no urticaria, no wheezing Physical Examination Vital Signs Temp Pulse Resp BP Pulse Ox 98.2 F 88 20 258/147 97 03/03/19 20:59 03/03/19 20:59 03/03/19 20:59 03/03/19 20:59 03/03/19 20:59 General appearance: no acute distress HEENT: Positive: PERRL, Normocephaly, Mucus Membranes Moist Neck: Positive: neck supple, trachea midline Cardiac: Positive: Reg Rate and Rhythm, S1/S2 Lungs: Positive: Decreased Breath Sounds Neuro: Positive: Grossly Intact Abdomen: Negative: Tender Skin: Negative: Rash Musculoskeletal: No Pain Extremities: Absent: edema Results 03/03/19 21:14 03/03/19 21:14 Cardiac Enzymes 03/03/19 Range/Units 21:14 AST 24 (5-40) units/L Lipids 03/03/19 Range/Units 21:14 Triglycerides 60 (2-149) mg/dL Cholesterol 127 (50-199) mg/dL HDL Cholesterol 75 H (40-59) mg/dL Cholesterol/HDL Ratio 1.69 % CBC 03/03/19 Range/Units 21:14 WBC 9.9 (4.5-11.0) K/mm3 RBC 4.00 (3.65-5.03) M/mm3 Hgb 9.9 L (10.1-14.3) gm/dl Hct 31.7 (30.3-42.9) % Plt Count 334 (140-440) K/mm3 Lymph # 1.7 (1.2-5.4) K/mm3 Dillon # 0.7 (0.0-0.8) K/mm3 Eos # 0.2 (0.0-0.4) K/mm3 Baso # 0.1 (0.0-0.1) K/mm3 Comprehensive Metabolic Panel 03/03/19 Range/Units 21:14 Sodium 138 (137-145) mmol/L Potassium 3.4 L (3.6-5.0) mmol/L Chloride 102.5 (98-107) mmol/L Carbon Dioxide 16 L (22-30) mmol/L BUN 56 H (7-17) mg/dL Creatinine 6.5 H (0.7-1.2) mg/dL Glucose 101 H (65-100) mg/dL Calcium 7.7 L (8.4-10.2) mg/dL AST 24 (5-40) units/L ALT 44 (7-56) units/L Alkaline Phosphatase 212 H (35-129) units/L Total Protein 7.8 (6.3-8.2) g/dL Albumin 4.1 (3.9-5) g/dL - Imaging and Cardiology Echo: pending, report reviewed (04/2016: mod-severe LVH, EF 70%.) Cardiac cath: report reviewed (05/2016: normal coronaries ) EKG: report reviewed, image reviewed EKG interpretations - Telemetry EKG Rhythm: Sinus Rhythm - EKG Sinus rhythms and dysrhythmias: sinus rhythm Chamber hypertrophy or enlargement: left ventricular hypertro Repolarization changes or abnormalities: repolarization abn secondary to ventricular hypertrophy Assessment and Plan DDimer elevated - Chest CTA negative for PE. Optimize anti-hypertensive regimen. HD per nephrology. Minimal CE elevation currently appears nonspecific in setting of HTN and renal insufficiency. Await echo. Plan for lexiscan MPI stress test in AM. NPO after MN. The patient has been seen in conjunction with Dr. Miles Slater who agrees with the assessment and plan of care. - Patient Problems (1) Chest pain Current Visit: Yes Status: Acute (2) Fluid overload Current Visit: Yes Status: Acute (3) ESRD needing dialysis Current Visit: Yes Status: Acute (4) Uncontrolled hypertension Current Visit: Yes Status: Chronic (5) Elevated troponin Current Visit: Yes Status: Acute (6) History of cocaine use Current Visit: Yes Status: Chronic (7) Hypertensive heart disease Current Visit: Yes Status: Chronic (8) Noncompliance Current Visit: Yes Status: Chronic
[2019-03-04 14:32] LABS: Hepatitis B Surface Antigen Non-Reactive (Negative); Hepatitis C Virus Antibody Non-Reactive (NonReactive)
[2019-03-04] MEDS ORDERED: WATER FOR INJ Sterile (PF) 10 ML ONE (15:47)
[2019-03-04] MEDS ORDERED: NIFEdipine XL 30 MG TAB PO ONE (16:00)
[2019-03-04] MEDS: ALTEPLASE 2 MG INJ IV PRN ×2 (16:01→16:02)
[2019-03-04] MEDS: diphenhydrAMINE 50 MG/ML VIAL IV PRN (16:16)
[2019-03-04] MEDS: hydrALAZINE 100 MG TAB PO SCH ×2 (17:34→22:28)
--- NOTE | 2019-03-04 18:03 | Progress Note ---
Assessment and Plan Assessment and plan: Patient is a 43-year-old -[place] woman with a history of cocaine abuse, nicotine dependence, ESRD on HD T/Th/S non compliant with HD, and hypertension non compliant with meds, AOCD and CHF who presented to [facility] ED with volume overload after missing HD sessions for the past 3 weeks and angina. She states the reason that she does not have a home HD clinic is because her transportation was canceled and she has moved multiple times within the last 2 months and does not have a permanent address. She admits to be in noncompliant with antihypertensive and HD sessions. Patient states that her angina is "flaring up" he does not have any sublingual nitroglycerin. View of medical records shows that patient has been here several times within the past 3-1/2 months with similar complaints of missing hemodialysis sessions. Cardiology has been consulted in regards to patient's chest pain however patient left AMA after receiving hemodialysis, she be evaluated. She denies recent cocaine use, na usea, vomiting, or diaphoresis. Patient states that she is seen at the facility in [place] approximately a month ago and received a stress test. Unsure of the results. * CT angio Chest: IMPRESSION 1. No CT evidence for pulmonary embolism 2. Enlarged, left cardiac ventricular hypertrophy (moderate to severe). HTN Urgency -Pt has history of being non compliant with meds -BP 258/147 on presentation -IV hypertensive meds when necessary -Continue to monitor BP -Resume home BP meds to optimize bp Volume Overload -secondary to ESRD and not being dialyzed for three weeks -Monitor I&O's -Monitor weight ESRD on HD T/Th/S -Missed 3 weeks of HD sessions -Cr 6.5 -Non compliant with HD -Pt needs to be set up with outpatient HD clinic; Case Mgmt consulted -Nephrology consulted for HD mgmt Elevated D-Dimer -837.42 -CT angio Chest negative for PE Elevated troponin -0.032 on admission -serial troponins -Pt is ESRD likely due to troponin leak -high suspicion for ischemic cardiomyopathy, Cardiology following Angina -EKG unrevealing for acute ischemic abnormalities -likely due to cornary artery vasospasm -Continue to monitor -Continue supportive care Tobacco Abuse -Current everyday smoker -Counseled for cessation -Nicotine Patch prn Hx cocaine abuse -UDS pending -Pt denies recent use DVT PPX -On Heparin stress test in AM prolonged inpatient services 32 minutes History Interval history: Patient was seen and examined. Follow-up on current diagnosis. No overnight events reported to me. Patient denies any chest pain, shortness breath, nausea /vomiting or severe headaches. Imaging, nursing note, chart, labs and old chart reviewed. Discussed with patient. Hospitalist Physical - Physical exam Narrative exam: Gen: WDWN, NAD, Awake, Alert, Orientated HEENT: NCAT, EOMI, PERRL, OP Clear Neck: supple, no adenopathy, no thyromegaly, no JVD CVS/Heart: RRR, normal S1S2, pulses present bilaterally Chest/Lungs: CTA B, Symmetrical chest expansion, good air entry bilaterally GI/Abdomen: soft, NTND, good bowel sounds, no guarding or rebound /Bladder: no suprapubic tenderness, no CVA or paraspinal tenderness Extermity/Skin: no c/c/e, no obvious rash MSK: FROM x 4 Neuro: CN 2-12 grossly intact, no new focal deficits Psych: calm - Constitutional Vitals: Temp Pulse Resp BP Pulse Ox 98.1 F 63 18 136/95 97 03/04/19 16:30 03/04/19 17:30 03/04/19 16:30 03/04/19 17:30 03/04/19 08:57 General appearance: Present: no acute distress Results - Labs CBC & Chem 7: 03/03/19 21:14 03/03/19 21:14 Labs: Laboratory Last Values WBC 9.9 K/mm3 (4.5-11.0) 03/03/19 21:14 RBC 4.00 M/mm3 (3.65-5.03) 03/03/19 21:14 Hgb 9.9 gm/dl (10.1-14.3) L 03/03/19 21:14 Hct 31.7 % (30.3-42.9) 03/03/19 21:14 MCV 79 fl (79-97) 03/03/19 21:14 MCH 25 pg (28-32) L 03/03/19 21:14 MCHC 31 % (30-34) 03/03/19 21:14 RDW 17.5 % (13.2-15.2) H 03/03/19 21:14 Plt Count 334 K/mm3 (140-440) 03/03/19 21:14 Lymph % (Auto) 16.8 % (13.4-35.0) 03/03/19 21:14 Spink % (Auto) 6.9 % (0.0-7.3) 03/03/19 21:14 Eos % (Auto) 1.7 % (0.0-4.3) 03/03/19 21:14 Baso % (Auto) 0.6 % (0.0-1.8) 03/03/19 21:14 Lymph # 1.7 K/mm3 (1.2-5.4) 03/03/19 21:14 Spink # 0.7 K/mm3 (0.0-0.8) 03/03/19 21:14 Eos # 0.2 K/mm3 (0.0-0.4) 03/03/19 21:14 Baso # 0.1 K/mm3 (0.0-0.1) 03/03/19 21:14 Seg Neutrophils % 74.0 % (40.0-70.0) H 03/03/19 21:14 Seg Neutrophils # 7.3 K/mm3 (1.8-7.7) 03/03/19 21:14 D-Dimer 837.42 ng/mlDDU (0-234) H 03/03/19 21:14 Sodium 138 mmol/L (137-145) 03/03/19 21:14 Potassium 3.4 mmol/L (3.6-5.0) L 03/03/19 21:14 Chloride 102.5 mmol/L (98-107) 03/03/19 21:14 Carbon Dioxide 16 mmol/L (22-30) L 03/03/19 21:14 Anion Gap 23 mmol/L 03/03/19 21:14 BUN 56 mg/dL (7-17) H 03/03/19 21:14 Creatinine 6.5 mg/dL (0.7-1.2) H 03/03/19 21:14 Estimated GFR 8 ml/min 03/03/19 21:14 BUN/Creatinine Ratio 9 % 03/03/19 21:14 Glucose 101 mg/dL (65-100) H 03/03/19 21:14 Lactic Acid 0.60 mmol/L (0.7-2.0) L 03/03/19 21:14 Calcium 7.7 mg/dL (8.4-10.2) L 03/03/19 21:14 Total Bilirubin 0.50 mg/dL (0.1-1.2) 03/03/19 21:14 AST 24 units/L (5-40) 03/03/19 21:14 ALT 44 units/L (7-56) 03/03/19 21:14 Alkaline Phosphatase 212 units/L (35-129) H 03/03/19 21:14 Troponin T 0.030 ng/mL (0.00-0.029) H 03/04/19 06:33 Total Protein 7.8 g/dL (6.3-8.2) 03/03/19 21:14 Albumin 4.1 g/dL (3.9-5) 03/03/19 21:14 Albumin/Globulin Ratio 1.1 % 03/03/19 21:14 Triglycerides 60 mg/dL (2-149) 03/03/19 21:14 Cholesterol 127 mg/dL (50-199) 03/03/19 21:14 LDL Cholesterol Direct 49 mg/dL (50-130) L 03/03/19 21:14 HDL Cholesterol 75 mg/dL (40-59) H 03/03/19 21:14 Cholesterol/HDL Ratio 1.69 % 03/03/19 21:14 Hepatitis A IgM Ab Non-reactive (NonReactive) 03/04/19 13:15 Hep Bs Antigen Non-reactive (Negative) 03/04/19 13:15 Hep B Core IgM Ab Non-reactive (NonReactive) 03/04/19 13:15 Hepatitis C Antibody Non-reactive (NonReactive) 03/04/19 13:15 Active Medications - Current Medications Current Medications: Generic Name Dose Route Start Last Admin Trade Name Freq PRN Reason Stop Dose Admin Acetaminophen 650 mg 03/04/19 03:28 Tylenol PO Q4H PRN Pain MILD(1-3)/Fever >100.5/THORNE Alteplase, Recombinant 2 mg 03/04/19 15:42 03/04/19 16:02 Cathflo IV 2 mg YULI PRN Administration LINE FLUSH Calcium Acetate 667 mg 03/04/19 08:00 03/04/19 17:35 Phoslo PO Not Given TIDWM JESU Carvedilol 25 mg 03/04/19 10:00 03/04/19 10:11 Coreg PO 25 mg Q12HR JESU Administration Diphenhydramine HCl 25 mg 03/04/19 10:44 03/04/19 16:16 Benadryl IV 25 mg Q8H PRN Administration Itching Docusate Sodium 100 mg 03/04/19 10:00 03/04/19 10:11 Colace PO 100 mg BID JESU Administration Heparin Sodium (Porcine) 5,000 unit 03/04/19 10:00 03/04/19 10:14 Heparin SUB-Q 5,000 unit Q12HR JESU Administration Heparin Sodium (Porcine) 2,000 unit 03/04/19 10:00 Heparin 10,000 Units/10 Ml IV YULI PRN hemodialysis Hydralazine HCl 10 mg 03/04/19 03:38 03/04/19 05:53 Apresoline IV 10 mg Q4H PRN Administration Blood Pressure Hydralazine HCl 100 mg 03/04/19 15:30 03/04/19 17:34 Apresoline PO Not Given TID [facility] Sodium Chloride 100 mls @ 999 mls/hr 03/04/19 15:42 Nacl 0.9% IV YULI PRN Hypotension Isosorbide Mononitrate 60 mg 03/04/19 15:44 03/04/19 17:34 Imdur PO Not Given QDAY [facility] Lisinopril 40 mg 03/04/19 10:00 03/04/19 10:11 Zestril PO 40 mg QDAY [facility] Administration Lorazepam 0.5 mg 03/04/19 10:45 Ativan IV Q8H PRN Anxiety Melatonin 10 mg 03/04/19 22:00 Melatonin PO QHS PRN Sleep Nicotine 14 mg 03/04/19 10:00 03/04/19 10:12 Habitrol TD 14 mg QDAY [facility] Administration Nifedipine 90 mg 03/05/19 06:00 Procardia Xl PO DAILY@0600 [facility] Nitroglycerin 0.4 mg 03/04/19 03:30 Nitrostat SL Q5M PRN Chest Pain Ondansetron HCl 4 mg 03/04/19 03:28 Zofran IV Q8H PRN Nausea And Vomiting Sodium Chloride 10 ml 03/04/19 10:00 03/04/19 10:12 Sodium Chloride Flush Syringe 10 Ml IV 10 ml BID JESU Administration Sodium Chloride 10 ml 03/04/19 03:28 03/04/19 05:54 Sodium Chloride Flush Syringe 10 Ml IV 10 ml PRN PRN Administration LINE FLUSH
[2019-03-04] MEDS ORDERED: MELATONIN 5 MG TAB PO PRN (22:00)
[2019-03-05] MEDS: diphenhydrAMINE 50 MG/ML VIAL IV PRN (02:34)
[2019-03-05 05:54] LABS: Basophils % (Auto) 0.6 % (0.0-1.8); Eosinophils # (Auto) 0.2 K/mm3 (0.0-0.4); Hemoglobin 8.9 gm/dl (10.1-14.3); Lymphocytes # (Auto) 1.6 K/mm3 (1.2-5.4); Mean Corpuscular HGB Conc 32 % (30-34); Mean Corpuscular Volume 78 fl (79-97); Monocytes # (Auto) 0.5 K/mm3 (0.0-0.8); Platelet Count 274 K/mm3 (140-440); Red Blood Count 3.61 M/mm3 (3.65-5.03); Red Cell Distribution Width 17.2 % (13.2-15.2)
[2019-03-05] MEDS ORDERED: NIFEdipine XL 90 MG TAB PO SCH (06:00)
[2019-03-05 06:25] LABS: Calcium 7.5 mg/dL (8.4-10.2)
[2019-03-05] MEDS ORDERED: REGADENOSON 0.4 MG/5 ML INJ IV ONE ×2 (09:54)
--- NOTE | 2019-03-05 11:18 | Progress Note ---
Assessment and Plan DDimer elevated - Chest CTA negative for PE. S/p lexiscan MPI stress test today which was negative. Echo reviewed - EF 55-60%, severe LVH, impaired relaxation, mild to mod AR, mild MR, ? amloid. Optimize anti-hypertensive regimen. Cont HD per nephrology. Currently stable cardiac status. Pt may discharge home from cardiology standpoint. Recommend follow up in our office with Dr. Miles Slater within 1-2 weeks of discharge ([phone]). The patient has been seen in conjunction with Dr. Miles Slater who agrees with the assessment and plan of care. - Patient Problems (1) Chest pain Current Visit: Yes Status: Resolved (2) Fluid overload Current Visit: Yes Status: Acute (3) ESRD needing dialysis Current Visit: Yes Status: Acute (4) Uncontrolled hypertension Current Visit: Yes Status: Chronic (5) Elevated troponin Current Visit: Yes Status: Acute (6) History of cocaine use Current Visit: Yes Status: Chronic (7) Hypertensive heart disease Current Visit: Yes Status: Chronic (8) Noncompliance Current Visit: Yes Status: Chronic Subjective Date of service: 03/05/19 Principal diagnosis: cp Interval history: pt for stress test today, no current complaints. in SR on tele. Objective Last Vital Signs Temp 97.2 F L 03/05/19 08:39 Pulse 70 03/05/19 04:04 Resp 20 03/05/19 08:39 BP 164/114 03/05/19 08:39 Pulse Ox 97 03/05/19 04:04 - Physical Examination General: No Apparent Distress HEENT: Positive: PERRL, Normocephaly, Mucus Membranes Moist Neck: Positive: neck supple, trachea midline Cardiac: Positive: Reg Rate and Rhythm, S1/S2 Lungs: Positive: Decreased Breath Sounds Neuro: Positive: Grossly Intact Abdomen: Negative: Tender Skin: Negative: Rash Musculoskeletal: No Pain Extremities: Absent: edema - Labs and Meds CBC 03/05/19 Range/Units 05:24 WBC 5.9 (4.5-11.0) K/mm3 RBC 3.61 L (3.65-5.03) M/mm3 Hgb 8.9 L (10.1-14.3) gm/dl Hct 28.0 L (30.3-42.9) % Plt Count 274 (140-440) K/mm3 Lymph # 1.6 (1.2-5.4) K/mm3 Finney # 0.5 (0.0-0.8) K/mm3 Eos # 0.2 (0.0-0.4) K/mm3 Baso # 0.0 (0.0-0.1) K/mm3 Comprehensive Metabolic Panel 03/05/19 Range/Units 05:24 Sodium 138 (137-145) mmol/L Potassium 3.4 L (3.6-5.0) mmol/L Chloride 103.4 (98-107) mmol/L Carbon Dioxide 22 (22-30) mmol/L BUN 34 H (7-17) mg/dL Creatinine 5.1 H (0.7-1.2) mg/dL Glucose 99 (65-100) mg/dL Calcium 7.5 L (8.4-10.2) mg/dL - Imaging and Cardiology EKG: report reviewed, image reviewed Echo: pending, report reviewed (04/2016: mod-severe LVH, EF 70%.) Cardiac cath: report reviewed (05/2016: normal coronaries ) - EKG Sinus rhythms and dysrhythmias: sinus rhythm Chamber hypertrophy or enlargement: left ventricular hypertro Repolarization changes or abnormalities: repolarization abn secondary to ventricular hypertrophy
[2019-03-05 12:08] VITALS: BP 147/105
[2019-03-05] MEDS: HEPARIN 5,000 UNIT/1 ML VIAL SUB-Q SCH (12:32)
[2019-03-05] MEDS: DOCUSATE SODIUM 100 MG CAP PO SCH (12:33)
[2019-03-05] MEDS: NICOTINE 14 MG/24 HR PATCH TD SCH (12:33)
[2019-03-05] MEDS: carvediloL 25 MG TAB PO SCH (12:36)
[2019-03-05] MEDS: CALCIUM ACETATE 667 MG CAP PO SCH ×2 (12:36→20:04)
[2019-03-05] MEDS: hydrALAZINE 100 MG TAB PO SCH ×2 (12:37→20:04)
[2019-03-05] MEDS: LISINOPRIL 40 MG TAB PO SCH (12:37)
--- NOTE | 2019-03-05 12:50 | Treadmill Report ---
REFERRING PHYSICIAN: Hospitalist service. PROCEDURE IN DETAIL: The patient was brought into the stress lab in a postabsorptive state, given 10 mCi of technetium at rest. The patient underwent rest imaging. The patient underwent Lexiscan stress test. At peak stress, the patient was given 26 mCi of technetium 99m. Shortly thereafter, the patient underwent stress imaging. Raw imaging reveals mild GI artifact, no significant motion artifact. SPECT imaging examined carefully in horizontal long axis, vertical long axis, short axis views, although technically somewhat difficult study. There is no evidence of significant fixed or reversible perfusion defects suggestive of prior infarction or ischemia. Gated wall motion reveals normal systolic thickening, calculated ejection fraction of 51%, no TID. CONCLUSIONS: 1. Technically difficult study due to GI artifact, but grossly probably normal without evidence of significant degree of ischemia or prior infarction. 2. Normal left ventricular systolic performance without evidence of transient ischemic dilatation or stress-induced segmental wall motion abnormalities. JOB# [id number] FOSTER/STEFF
--- NOTE | 2019-03-05 14:14 | Discharge Summary ---
Providers - Providers Date of Admission: 03/04/19 03:28 Date of discharge: 03/05/19 Attending physician: JOSÉ MIGUEL AGGARWAL 03/04/19 02:49 Consult to Physician [CONS] Routine Comment: Dr. Chan spoke with Dr. Johnson @ [phone] Consulting Provider: TALIB JOHNSON Physician Instructions: Reason For Exam: volume overload 03/04/19 04:03 Consult to Case Management [CONS] Routine Services Needed at Discharge: Other Notified:: case management Additional Physician Instructions: needs to be set up with outpatient HD clinic 03/04/19 04:48 Consult to Physician [CONS] Routine Comment: Consulting Provider: ADRIA BOB Physician Instructions: Reason For Exam: cp [facility] Hospital[facility] Condition: Stable Hospital course: Patient is a 43-year-old -[place] woman with a history of cocaine abuse, nicotine dependence, ESRD on HD T// non compliant with HD, hypertension and noncompliant with meds, AOCD and CHF who presented to [facility] ED with volume overload after missing HD sessions for the past 3 weeks and angina. She states the reason that she does not have a home HD clinic is because her transportation was canceled and she has moved multiple times within the last 2 months and does not have a permanent address. She admits to be in noncompliant with antihypertensive and HD sessions. Patient states that her angina is "flaring up" he does not have any sublingual nitroglycerin. View of medical records shows that patient has been here several times within the past 3-1/2 months with similar complaints of missing hemodialysis sessions. Cardiology has been consulted in regards to patient's chest pain however patient left AMA after receiving hemodialysis, she be evaluated. She denies recent cocaine use, nausea, vomiting, or diaphoresis. Patient states that she is seen at the facility in [place] approximately a month ago and received a stress test. Unsure of the results. * CT angio Chest: IMPRESSION 1. No CT evidence for pulmonary embolism 2. Enlarged, left cardiac ventricular hypertrophy (moderate to severe). HTN Urgency -Pt has history of being non compliant with meds -BP 258/147 on presentation, non-adherence counseling done -IV hypertensive meds when necessary -Continue to monitor BP -Resume home BP meds to optimize bp Volume Overload -secondary to ESRD and not being dialyzed for three weeks -Monitor I&O's -Monitor weight ESRD on HD T/Th/S -Missed 3 weeks of HD sessions -Cr 6.5 -Non compliant with HD -Pt needs to be set up with outpatient HD clinic; Case Mgmt consulted -Nephrology consulted for HD mgmt Elevated D-Dimer -837.42 -CT angio Chest negative for PE Elevated troponin -0.032 on admission -serial troponins -Pt is ESRD likely due to troponin leak -high suspicion for ischemic cardiomyopathy, Cardiology following Angina, stable angina -EKG unrevealing for acute ischemic abnormalities -likely due to cornary artery vasospasm -Continue to monitor -Continue supportive care Tobacco Abuse -Current everyday smoker -Counseled for cessation -Nicotine Patch prn Hx cocaine abuse -UDS pending -Pt denies recent use DVT PPX -On Heparin stress test in AM is negative Disposition: DC-01 TO HOME OR SELFCARE Time spent for discharge: 36 minutes Core Measure Documentation - Palliative Care Palliative Care/ Comfort Measures: Not Applicable - Core Measures Any of the following diagnoses?: none - VTE Discharge Requirements Deep Vein Thrombosis/Pulmonary Embolism Present on Admission: No Has pt received <5 days of overlap therapy or INR<2.0: No Anticoagulant overlap therapy prescribed at discharge: No Contraindication No Overlap Therapy order at DC: Not Indicated Exam - Physical Exam Narrative exam: Gen: WDWN, NAD, Awake, Alert, Orientated HEENT: NCAT, EOMI, PERRL, OP Clear Neck: supple, no adenopathy, no thyromegaly, no JVD CVS/Heart: RRR, normal S1S2, pulses present bilaterally Chest/Lungs: CTA B, Symmetrical chest expansion, good air entry bilaterally GI/Abdomen: soft, NTND, good bowel sounds, no guarding or rebound /Bladder: no suprapubic tenderness, no CVA or paraspinal tenderness Extermity/Skin: no c/c/e, no obvious rash MSK: FROM x 4 Neuro: CN 2-12 grossly intact, no new focal deficits Psych: calm - Constitutional Vitals: Temp Pulse Resp BP Pulse Ox 98.1 F 76 20 147/105 97 03/05/19 12:06 03/05/19 12:37 03/05/19 12:06 03/05/19 12:37 03/05/19 04:04 Plan Activity: other (no strenous activity unless cleared by PCP) Diet: renal Special Instructions: smoking cessation Follow up with: ERICKA GASTON MD [Primary Care Provider] - 3-5 Days TALIB JOHNSON MD [Staff Physician] - 7 Days Prescriptions: Melatonin [Melatonin 5MG TAB] 10 mg PO QHS PRN #10 tablet PRN Reason: Sleep Nicotine [Habitrol] 14 mg TD QDAY #15 patch
== END 2019-03-05 20:30 | disposition home or self-care (01) | DRG 640 ==
LOC: ED 20:41 → 4A 03-04 03:28
PROVIDERS: ADMIT Internal Medicine; ATTEND Internal Medicine
PROC: 5A1D70Z Performance of Urinary Filtration, Intermittent, Less than 6 Hours Per Day (ICD-10-PCS; principal; 2019-03-04)
DX: E87.70 Fluid overload, unspecified (principal); N18.6 End stage renal disease; I16.0 Hypertensive urgency; I13.2 Hypertensive heart and chronic kidney disease with heart failure and with stage 5 chronic kidney disease, or end stage renal disease; I50.9 Heart failure, unspecified; F17.200 Nicotine dependence, unspecified, uncomplicated; I20.1 Angina pectoris with documented spasm; Z88.8 Allergy status to other drugs, medicaments and biological substances; Z91.041 Radiographic dye allergy status; Z99.2 Dependence on renal dialysis; Z71.6 Tobacco abuse counseling; Z91.19 Patient's noncompliance with other medical treatment and regimen
CPT/HCPCS: 36415; 71275; 78452; 80048; 80053; 80061; 80074; 82140; 84484; 85025; 85379; 87116; 93005; 93010; 93017; 93306; G0378; A9502; J0360; J1200; J1644; J2060; J2785; J2997; Q9967